=== PATIENT | female | born 1950 | race Caucasian/White ===

== ENCOUNTER → 2019-09-26 10:57 | Outpatient (BNVA) | payer MEDICARE, MEDICAID, SELFPAY | PROVIDERS: Family Provider Nurse Practitioner Family; PCP Family Medicine; Visit Provider Nurse Practitioner Family | DX: E07.9 Disorder of thyroid, unspecified (principal); I10 Essential (primary) hypertension; E55.9 Vitamin D deficiency, unspecified; J44.9 Chronic obstructive pulmonary disease, unspecified | CPT/HCPCS: 80053; 80061; 82306; 84443; 85025 ==

== ENCOUNTER 2020-04-06 19:59 | Inpatient (IN) | payer MEDICARE, MEDICAID, SELFPAY ==
[2020-04-06] VITALS (27 sets, daily range): BP systolic 91–118; BP diastolic 44–72; PULSE 68–75; RESP 16–22; TEMP 36.9; O2SAT 90–100; BMI 64.5
--- NOTE | 2020-04-06 20:11 | XRR_ITS ---
PROCEDURE INFORMATION: Exam: XR Chest, 1 View Exam date and time: 04/06/2020 9:07 PM Age: 69 years old Clinical indication: Shortness of breath and other: Weakness; Prior surgery; Surgery type: Appy TECHNIQUE: Imaging protocol: XR of the chest Views: 1 view. COMPARISON: CR Chest 1 [place] [id number] 03/04/2019 4:13 PM FINDINGS: Lungs: Mild prominence and indistinctness of the pulmonary vasculature centrally. Mild prominence of the interstitium diffusely suggest mild edema. Question subtle airspace disease left lung base. Follow-up. Pleural space: Unremarkable. No pleural effusion. No pneumothorax. Heart/Mediastinum: Cardiomegaly. Bones/joints: Unremarkable. XR/XR chest 1V portable [id number] IMPRESSION: 1. Mild edema reflected predominantly as interstitial prominence as described above 2. Question subtle airspace disease left lung base. Follow-up.
--- NOTE | 2020-04-06 20:13 | ECG_ITS ---
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 Measurements Intervals Davis Rate: 71 P: NM: -1 QRS: 10 QRSD: 90 T: 120 QT: 403 QTc: 441 Interpretive Statements ATRIAL FIBRILLATION LOW QRS VOLTAGE IN PRECORDIAL LEADS [QRS DEFLECTION < 1.0 mV IN CHEST LEADS] POSSIBLE ANTERIOR MYOCARDIAL INFARCTION , PROBABLY OLD Compared to ECG 03/04/2019 23:28:07 Myocardial infarct finding now present Sinus rhythm no longer present First degree AV block no longer present Electronically Signed On 04-07-2020 21:29:10 CDT by Kathryn Khalil M.D. [id number]
[2020-04-06 20:31] LABS: ABG PCO2 59.8 mmHg (35-45); ABG PH Result 7.31 (7.35-7.45); Base Excess ABG 2.8 mmol/L (-2.0-2.0); Blood Gas Allen Test POS; HCO3 ABG 30.1 mmol/L (22-26); Oxygen Device NC
[2020-04-06 20:32] LABS: Arterial Blood Gas Hematocrit 30.9 % (37-47); Blood Gas Sample Type ARTERIAL
[2020-04-06 20:41] LABS: Basophils % 0.4 %; Eosinophils # 0.1 10^3/uL (0.0-0.8); Eosinophils % 1.4 %; Hematocrit 37.1 % (37.0-47.0); Hemoglobin 9.7 g/dL (11.5-15.3); Lymphocytes % 12.2 %; Mean Corpuscular HGB Conc 26.1 g/dL (30.0-36.0); Mean Corpuscular Hemoglobin 20.7 pg (28.0-34.0); Mean Corpuscular Volume 79.3 fL (81-99); Monocytes # 0.6 10^3/uL (0.2-0.9); Monocytes % 7.2 %; Neutrophils # 6.61 10^3/uL (1.8-7.7); Neutrophils % 78.6 %; Nucleated Red Blood Cells % 0 %; Platelet Count 253 10^3/cmm (130-400); Red Blood Count 4.68 10^6/uL (4.1-5.3); Red Cell Distribution Width 20.5 % (12.1-15.1); White Blood Count 8.4 10^3/uL (4.0-10.0)
[2020-04-06 20:57] LABS: Lactate (Lactic Acid level) 0.9 mmol/L (0.5-2.2)
[2020-04-06 21:06] LABS: Troponin(5th) Baseline 16 ng/L (0-10)
[2020-04-06 21:13] LABS: Alanine Aminotransferase 7 U/L (0-33); Albumin Level 3.3 g/dL (3.5-5.2); Alkaline Phosphatase 84 IU/L (35-105); Aspartate Amino Transferase 12 U/L (0-32); Blood Urea Nitrogen 30 mg/dL (8-23); C Reactive Protein 72.5 mg/L (0.0-4.9); Calcium 8.2 mg/dL (8.5-10.5); Carbon Dioxide 28 mmol/L (22-29); Chloride 99 mmol/L (98-107); Creatine Phosphokinase 166 U/L (26-192); Globulin 3.4 g/dL (1.3-4.6); Glomerular Filtration Rate 26.3 mL/min (90-130); Glucose 103 mg/dL (65-115); NT Pro B Type Natriuretic Pept 2992 pg/mL (0-125); Osmolality Calculated 281 mOsm/kg (285-295); Sodium 137 mmol/L (136-145); Total Bilirubin 0.6 mg/dL (0.15-1.2); Total Protein 6.7 g/dL (6.6-8.7)
--- NOTE | 2020-04-06 21:49 | ED_ITS ---
HPI - Weakness General: Chief complaint: Weakness Stated complaint: lt knee pain/ weakness Time Seen by Provider: 04/06/20 20:09 History of Present Illness: HPI Narrative: 69-year-old female with generalized weakness, mainly in her legs, and shortness of breath. She is morbidly obese, and has chronic edema to her bilateral lower extremities. She states that her edema has gotten much worse over the past week or so. She is usually able to ambulate around her house with a walker, but this is not been the case. She is also been more short of breath, and gets very tired very quickly. She does not have oxygen at home. She does have a history of congestive heart failure per her. He denies any fever. She denies cough. MD Complaint: generalized weakness and difficulty walking Onset (ago): day(s) Duration: constant Location: generalized, LLE and RLE Migration: none Severity: moderate Relieving factors: none Exacerbating factors: movement Associated symptoms: Reports short of breath; Denies chest pain, chills, confusion, dysuria, fever(s), headache(s), nausea or vomiting Review of Systems Const: Denies: fever(s) or chills Eyes: Denies: change in vision or blurry vision ENMT: Denies: epistaxis or sinus pain Card: Denies: chest pain Resp: Reports: dyspnea; Denies: productive cough, non-productive cough or wheezing GI: Denies: nausea or vomiting : Reports: urinary frequency; Denies: dysuria or hematuria Musc: Reports: joint warmth; Denies: neck pain Skin/Breast: Reports: rash; Denies: pruritus Neuro: Denies: headache(s), dizziness, vertigo, confusion or seizure-like activity Psych: Denies: anxiety [facility] ED PFSH: Medical History (Updated 04/07/20 @ 08:40 by Dez Mcnulty DO) B12 deficiency Back pain of lumbosacral region with sciatica CHF (congestive heart failure) Essential (primary) hypertension Hypothyroidism Iron deficiency anemia, unspecified Morbid (severe) obesity due to excess calories Urge incontinence Surgical History History of 2 sections History of ankle surgery (~1991) Hx of appendectomy (~1976) Hx of artificial lens replacement (~04/2013) left; Dr Wolfe Hx of artificial lens replacement (~02/2012) right eye Hx of dilation and curettage Hx of lithotripsy (~11/2016) Hx of tubal ligation (~1979) Hx of vitrectomy (~2014) Family History Father , age 89 Hyperlipidemia Hypertension Stroke CAD (coronary artery disease) Mother , age 51 Cancer Stroke Family/Other Stroke Hypertension Social History Smoking and tobacco status: never smoked Second hand smoke exposure: No Alcohol intake: former Adopted: No Lives independently: Yes Household members: none Housing: Apartment Marital status: service: No Current occupational status: disabled History of recent travel: No Current gender identity: Female Physical Exam Const: GENERAL APPEARANCE: well developed and other (Morbidly obese) ORIENTATION/CONSCIOUSNESS: Yes oriented to person, Yes oriented to place and Yes oriented to time HENMT: COMMON NORMALS: normocephalic, external ears normal and Normal external nose present HEAD & SCALP: normocephalic FACE & SINUS: normal facial exam NOSE: Normal external nose present and No nasal discharge present EXTERNAL EAR: Yes external ears normal Eye: COMMON NORMALS: EOMs intact bilaterally and conjunctivae normal EYELID: eyelids normal CONJUNCTIVA: Yes conjunctivae normal Neck/C-Spine: GENERAL: No tracheal deviation Chest: COMMONS NORMALS: normal inspection of the chest CHEST: No tenderness Resp: COMMON NORMALS: clear to auscultation bilaterally EFFORT & INSPECTION: No tachypneic, No respiratory distress, No retractions, No uses accessory muscles and No tracheal deviation AUSCULTATION: clear to auscultation bilaterally, no rhonchi, no wheezes and diminished lung sounds Cardio: COMMON NORMALS: regular rate and regular rhythm RATE: regular rate RHYTHM: regular rhythm HEART SOUNDS: no murmurs GI: INSPECTION: No abdominal distension AUSCULTATION: No Hyperactive bowel sounds present and No Hypoactive bowel sounds present PALPATION: No Guarding due to palpation present (GI) and No Rigid due to palpation PERCUSSION: no dullness to percussion and no tympanic to percussion Extremity: NARRATIVE EXTREMITY EXAM: Significant lower extremity edema, appearing equal bilaterally, with weeping. There is an area of discoloration to the left plantar heel with tenderness. It is not cold. There is pallor present. Neuro: SENSORIUM/ORIENTATION: Yes oriented to person, Yes oriented to place and Yes oriented to time Psych: COMMON NORMALS: mental status grossly normal Skin: COMMON NORMALS: no rashes or lesions noted GENERAL SKIN EXAM: no rashes or lesions noted Course Vital Signs: Vital signs: Vital Signs Temperature 97.6 F 04/07/20 07:44 Pulse Rate 78 04/07/20 07:44 Respiratory Rate 18 04/07/20 07:44 Blood Pressure 122/71 04/07/20 07:44 Pulse Oximetry 93 04/07/20 07:44 MDM - Weakness MDM Narrative: Medical decision making narrative: 69-year-old female with very swollen legs. She is also quite short of breath, even at rest. She is requiring 2 L of oxygen, and does not usually require any oxygen, and has not at home. She has been given Lasix in the ER. Her creatinine is significantly elevated from prior at 1.7. Her hemoglobin is 10 BNP is 3000. Her chest x-ray shows pulmonary vascular congestion consistent with CHF. She will be observed for hypoxic respiratory failure with CHF exacerbation and fluid retention. Her blood gas shows some CO2 retention. I suspect this is hypoventilation due to her obesity Lab Data: Attestation: I reviewed the patient's lab results. Labs: Lab Results 04/06/20 04/06/20 04/06/20 Range/Units 00:26 00:50 20:30 WBC (4.0-10.0) 10^3/ uL RBC (4.1-5.3) 10^6/u L Hgb (11.5-15.3) g/dL Hct (37.0-47.0) % MCV (81-99) fL MCH (28.0-34.0) pg MCHC (30.0-36.0) g/dL RDW (12.1-15.1) % Plt Count (130-400) 10^3/c mm MPV (7.4-10.4) fL Neut % (Auto) % Lymph % (Auto) % Moore % (Auto) % Eos % (Auto) % Baso % (Auto) % Neut # (Auto) (1.8-7.7) 10^3/u L Lymph # (Auto) (0.8-4.8) 10^3/u L Moore # (Auto) (0.2-0.9) 10^3/u L Eos # (Auto) (0.0-0.8) 10^3/u L Baso # (Auto) (0.0-0.1) 10^3/u L Nucleated RBC % (a uto) % Nucleated RBCs # /100WBC Specimen Type Arterial Sample Site Right,radial ABG pH 7.31 L (7.35-7.45) ABG pCO2 59.8 H (35-45) mmHg ABG pO2 81.0 (80.0-100.0) mmH g ABG HCO3 30.1 H (22-26) mmol/L ABG Base Excess 2.8 H (-2.0-2.0) mmol/ L Augustin Test Pos Hematocrit 30.9 L (37-47) % O2 Delivery Device Nc O2 Liters/Min 2.0 % Specimen Drawn By Amaya Sodium (136-145) mmol/L Potassium (3.5-5.1) mmol/L Chloride (98-107) mmol/L Carbon Dioxide (22-29) mmol/L Anion Gap (5-19) BUN (8-23) mg/dL Creatinine (0.5-0.9) mg/dL GFR Calculation (90-130) mL/min Glucose (65-115) mg/dL Calculated Osmolal ity (285-295) mOsm/k g Lactate (0.5-2.2) mmol/L Calcium (8.5-10.5) mg/dL Iron (37-145) ug/dL Ferritin (15-150) ng/mL Total Bilirubin (0.15-1.2) mg/dL AST (0-32) U/L ALT (0-33) U/L Alkaline Phosphata se (35-105) IU/L Creatine Kinase (26-192) U/L Troponin T Baselin e (0-10) ng/L Troponin T 120 Min [place] 14.61 H (0-10) ng/L Delta Troponin T TNP C-Reactive Protein (0.0-4.9) mg/L NT-Pro-B Natriuret Pep (0-125) pg/mL Total Protein (6.6-8.7) g/dL Albumin (3.5-5.2) g/dL Globulin (1.3-4.6) g/dL TSH (0.27-4.20) uIU/ mL Urine Color Yellow (Yellow) Urine Appearance Sl hazy (CLEAR) Urine pH 5 (5-7) Ur Specific Gravit y 1.015 (1.005-1.030) Urine Protein Neg (Negative) Urine Glucose (UA) Norm (Normal) Urine Ketones Negative (Negative) Urine Blood 3+ H (Negative) Urine Nitrate Negative (Negative) Urine Bilirubin Neg (NEGATIVE) Urine Urobilinogen Norm (Negative) mg/dL Ur Leukocyte Funmilayo ase 1+ H (Negative) Urine RBC 25-40 H (0-2) /hpf Urine WBC 10-15 H (0-5) /hpf Ur Squamous Epith Cells 5-10 H (0-5) Amorphous Sediment Not Reportable Urine Bacteria 1+ H (NONE) 04/06/20 04/06/20 04/06/20 Range/Units 20:30 20:30 20:30 WBC 8.4 (4.0-10.0) 10^3/ uL RBC 4.68 (4.1-5.3) 10^6/u L Hgb 9.7 L (11.5-15.3) g/dL Hct 37.1 (37.0-47.0) % MCV 79.3 L (81-99) fL MCH 20.7 L (28.0-34.0) pg MCHC 26.1 L (30.0-36.0) g/dL RDW 20.5 H (12.1-15.1) % Plt Count 253 (130-400) 10^3/c mm MPV 10.0 (7.4-10.4) fL Neut % (Auto) 78.6 % Lymph % (Auto) 12.2 % Moore % (Auto) 7.2 % Eos % (Auto) 1.4 % Baso % (Auto) 0.4 % Neut # (Auto) 6.61 (1.8-7.7) 10^3/u L Lymph # (Auto) 1.0 (0.8-4.8) 10^3/u L Moore # (Auto) 0.6 (0.2-0.9) 10^3/u L Eos # (Auto) 0.1 (0.0-0.8) 10^3/u L Baso # (Auto) 0.0 (0.0-0.1) 10^3/u L Nucleated RBC % (a uto) 0 % Nucleated RBCs # 0.0 /100WBC Specimen Type Sample Site ABG pH (7.35-7.45) ABG pCO2 (35-45) mmHg ABG pO2 (80.0-100.0) mmH g ABG HCO3 (22-26) mmol/L ABG Base Excess (-2.0-2.0) mmol/ L Augustin Test Hematocrit (37-47) % O2 Delivery Device O2 Liters/Min % Specimen Drawn By Sodium 137 (136-145) mmol/L Potassium 4.0 (3.5-5.1) mmol/L Chloride 99 (98-107) mmol/L Carbon Dioxide 28 (22-29) mmol/L Anion Gap 14.0 (5-19) BUN 30 H (8-23) mg/dL Creatinine 1.9 H (0.5-0.9) mg/dL GFR Calculation 26.3 L (90-130) mL/min Glucose 103 (65-115) mg/dL Calculated Osmolal ity 281 L (285-295) mOsm/k g Lactate 0.9 (0.5-2.2) mmol/L Calcium 8.2 L (8.5-10.5) mg/dL Iron (37-145) ug/dL Ferritin (15-150) ng/mL Total Bilirubin 0.6 (0.15-1.2) mg/dL AST 12 (0-32) U/L ALT 7 (0-33) U/L Alkaline Phosphata se 84 (35-105) IU/L Creatine Kinase 166 (26-192) U/L Troponin T Baselin e (0-10) ng/L Troponin T 120 Min [place] (0-10) ng/L Delta Troponin T C-Reactive Protein 72.5 H (0.0-4.9) mg/L NT-Pro-B Natriuret Pep 2992 H (0-125) pg/mL Total Protein 6.7 (6.6-8.7) g/dL Albumin 3.3 L (3.5-5.2) g/dL Globulin 3.4 (1.3-4.6) g/dL TSH (0.27-4.20) uIU/ mL Urine Color (Yellow) Urine Appearance (CLEAR) Urine pH (5-7) Ur Specific Gravit y (1.005-1.030) Urine Protein (Negative) Urine Glucose (UA) (Normal) Urine Ketones (Negative) Urine Blood (Negative) Urine Nitrate (Negative) Urine Bilirubin (NEGATIVE) Urine Urobilinogen (Negative) mg/dL Ur Leukocyte Funmilayo ase (Negative) Urine RBC (0-2) /hpf Urine WBC (0-5) /hpf Ur Squamous Epith Cells (0-5) Amorphous Sediment Urine Bacteria (NONE) 04/06/20 04/06/20 Range/Units 20:30 20:30 WBC (4.0-10.0) 10^3/ uL RBC (4.1-5.3) 10^6/u L Hgb (11.5-15.3) g/dL Hct (37.0-47.0) % MCV (81-99) fL MCH (28.0-34.0) pg MCHC (30.0-36.0) g/dL RDW (12.1-15.1) % Plt Count (130-400) 10^3/c mm MPV (7.4-10.4) fL Neut % (Auto) % Lymph % (Auto) % Moore % (Auto) % Eos % (Auto) % Baso % (Auto) % Neut # (Auto) (1.8-7.7) 10^3/u L Lymph # (Auto) (0.8-4.8) 10^3/u L Moore # (Auto) (0.2-0.9) 10^3/u L Eos # (Auto) (0.0-0.8) 10^3/u L Baso # (Auto) (0.0-0.1) 10^3/u L Nucleated RBC % (a uto) % Nucleated RBCs # /100WBC Specimen Type Sample Site ABG pH (7.35-7.45) ABG pCO2 (35-45) mmHg ABG pO2 (80.0-100.0) mmH g ABG HCO3 (22-26) mmol/L ABG Base Excess (-2.0-2.0) mmol/ L Augustin Test Hematocrit (37-47) % O2 Delivery Device O2 Liters/Min % Specimen Drawn By Sodium (136-145) mmol/L Potassium (3.5-5.1) mmol/L Chloride (98-107) mmol/L Carbon Dioxide (22-29) mmol/L Anion Gap (5-19) BUN (8-23) mg/dL Creatinine (0.5-0.9) mg/dL GFR Calculation (90-130) mL/min Glucose (65-115) mg/dL Calculated Osmolal ity (285-295) mOsm/k g Lactate (0.5-2.2) mmol/L Calcium (8.5-10.5) mg/dL Iron 22 L (37-145) ug/dL Ferritin 15 (15-150) ng/mL Total Bilirubin (0.15-1.2) mg/dL AST (0-32) U/L ALT (0-33) U/L Alkaline Phosphata se (35-105) IU/L Creatine Kinase (26-192) U/L Troponin T Baselin e 16 H (0-10) ng/L Troponin T 120 Min [place] (0-10) ng/L Delta Troponin T C-Reactive Protein (0.0-4.9) mg/L NT-Pro-B Natriuret Pep (0-125) pg/mL Total Protein (6.6-8.7) g/dL Albumin (3.5-5.2) g/dL Globulin (1.3-4.6) g/dL TSH 5.62 H (0.27-4.20) uIU/ mL Urine Color (Yellow) Urine Appearance (CLEAR) Urine pH (5-7) Ur Specific Gravit y (1.005-1.030) Urine Protein (Negative) Urine Glucose (UA) (Normal) Urine Ketones (Negative) Urine Blood (Negative) Urine Nitrate (Negative) Urine Bilirubin (NEGATIVE) Urine Urobilinogen (Negative) mg/dL Ur Leukocyte Funmilayo ase (Negative) Urine RBC (0-2) /hpf Urine WBC (0-5) /hpf Ur Squamous Epith Cells (0-5) Amorphous Sediment Urine Bacteria (NONE) Discharge Plan Discharge Patient Disposition: Admitted As Inpatient Admit Provider: Candice Enamorado Clinical Impression: Respiratory failure with hypoxia Qualifiers: Chronicity: acute Qualified Code(s): J96.01 - Acute respiratory failure with hypoxia CHF (congestive heart failure) Qualifiers: Heart failure type: combined systolic and diastolic Heart failure chronicity: acute Qualified Code(s): I50.41 - Acute combined systolic (congestive) and diastolic (congestive) heart failure Condition: Stable Discharge Date/Time: 04/06/20 23:28 Coding Level of Care Code ED Semiautomatic Stitcher Operator for Maria Del Carmeng Fwd Exam Comprehensive
--- NOTE | 2020-04-06 22:08 | P.HP_ITS ---
Providers/Chief Complaint Primary Care Provider: AIXA Marin Chief Complaint: lt knee pain/ weakness History of Present Illness Coral Small is a 69 year old female carries history of diastolic congestive heart failure, hypertension, moderate pulmonary hypertension, blood loss iron deficiency anemia, vaginal bleeding, coming in with chief complaint of worsening leg swelling and shortness of breath. Patient is stating that at home she has been managing herself with her swollen leg for quite a while until recently and she is not able to walk because of excessive swelling, she noted some blisters on left leg and started using diclofen 2 to 3 days ago. Today she was going to the bathroom when she fell on the floor which she is attributing to her excessive leg swelling. She is endorsing orthopnea, PND, dyspnea on exertion at rest, she has been prescribed CPAP but she does not want to use it and is currently refusing BiPAP. She is denying fever, chills, diarrhea, dysuria, nausea, vomiting, headache, myalgias. Diagnosis in the ER revealed systolic blood pressure ranging between 100-110, new onset A. fib heart rate 70 to 80s, chronic anemia, acute kidney injury, BNP 3000, respiratory acidosis Patient is refusing use of BiPAP We also talked about anticoagulation for A. fib, patient adamantly refused to be on anticoagulation Review of Systems Const: Reports: chills and change in weight Eyes: Denies: change in vision ENMT: Denies: throat pain Card: Reports: edema, swelling of feet/ankles, dyspnea on exertion and orthopnea; Denies: chest pain Resp: Denies: dyspnea GI: Denies: abdominal pain, nausea or vomiting : Denies: flank pain Musc: Reports: limited range of motion, muscle cramps and muscle weakness Skin/Breast: Reports: lesions Neuro: Denies: headache(s) Psych: Denies: anxiety Endo: Denies: polyuria Babak/Lymph: Denies: easy bruising All/Imm: Denies: urticaria Medications/Allergies Home Medications Medication Instructions Recorded Confirmed Last Taken Type albuterol sulfate 90 mcg/actuation 2 puff INHALATION Q6H PRN #8.5 gm 09/26/19 11/15/19 Unknown Rx aerosol inhaler vitamin B12 500 mcg-folic acid 400 2 tab PO DAILY tab 09/26/19 11/15/19 Unknown History mcg tablet cholecalciferol (vitamin D3) 1,250 50,000 unit PO ONCE #4 cap 09/27/19 11/15/19 Unknown Rx mcg (50,000 unit) capsule spironolactone 25 mg tablet 12.5 mg PO QDAY 90 Days #45 tab 10/12/19 11/15/19 Unknown Rx gabapentin 100 mg capsule 100 mg PO TID #90 cap 10/23/19 11/15/19 Unknown Rx carvedilol 3.125 mg tablet 3.125 mg PO BID 90 Days #180 tab 11/15/19 11/15/19 Unknown Rx furosemide 40 mg tablet 40 mg PO QAM 90 Days #90 tab 11/15/19 11/15/19 Unknown Rx levothyroxine 200 mcg tablet 200 mcg PO DAILY #30 tab 03/18/20 Unknown Rx diclofenac sodium 75 mg 75 mg PO BID PRN #60 tab 04/03/20 Unknown Rx tablet,delayed release Allergies Allergy/AdvReac Type Severity Reaction Status Date / Time cortisone Allergy Unknown Unknown Verified 09/26/19 09:37 egg Allergy Unknown Unknown Verified 09/26/19 09:37 Sulfa (Sulfonamide Allergy Unknown Unknown Verified 09/26/19 09:37 Antibiotics) lisinopril AdvReac Mild cough Verified 11/15/19 14:02 PFSH Acute PFSH: Medical History (Updated 04/06/20 @ 23:03 by Candice Enamorado MD) B12 deficiency Back pain of lumbosacral region with sciatica CHF (congestive heart failure) Essential (primary) hypertension Hypothyroidism Iron deficiency anemia, unspecified Morbid (severe) obesity due to excess calories Urge incontinence Surgical History History of 2 sections History of ankle surgery (~1991) Hx of appendectomy (~1976) Hx of artificial lens replacement (~04/2013) left; Dr Wolfe Hx of artificial lens replacement (~02/2012) right eye Hx of dilation and curettage Hx of lithotripsy (~11/2016) Hx of tubal ligation (~1979) Hx of vitrectomy (~2014) Family History Father , age 89 Hyperlipidemia Hypertension Stroke CAD (coronary artery disease) Mother , age 51 Cancer Stroke Family/Other Stroke Hypertension Social History Smoking and tobacco status: never smoked Second hand smoke exposure: No Alcohol intake: former Adopted: No Lives independently: Yes Household members: none Housing: Apartment Marital status: service: No Current occupational status: disabled History of recent travel: No Current gender identity: Female Vitals/I&O/Wt Last Vital Signs Temp 98.5 F 04/06/20 19:59 Pulse 69 04/06/20 20:49 Resp 16 04/06/20 20:49 BP 97/50 04/06/20 21:35 Pulse Ox 98 04/06/20 21:35 Weight last 48 hrs Weight 167.829 kg Physical Exam Narrative: EXAM NARRATIVE: severe morbidly obese female currently saturating well on room air No active respiratory distress Able to give me above-mentioned detail Refusing BiPAP Variable S1-S2 signs of heart failure Pitting edema with underlying lymphedema Open blisters of left leg bilateral leg swelling Distended abdomen with obesity, bowel sounds sluggish, EOMI, PERRLA Awake alert oriented x3 GCS 15 Neurologically nonfocal exam Appropriate mood and affect Skin shows open blisters with some hyperemia of lower extremities, venous stasis dermatitis Data : 04/06/20 20:30 04/06/20 20:30 A&P Assessment and plan (1) Acute exacerbation of CHF (congestive heart failure): Status: Acute (2) Pulmonary hypertension: Status: Acute (3) Iron deficiency anemia, unspecified: Status: Acute Qualifiers: Iron deficiency anemia type: unspecified iron deficiency Qualified Code(s): D50.9 - Iron deficiency anemia, unspecified (4) Essential (primary) hypertension: Status: Acute (5) Urge incontinence: Status: Acute (6) Morbid (severe) obesity due to excess calories: Status: Acute (7) Hypothyroidism: Status: Acute (8) Acute respiratory acidosis: Status: Acute (9) Sleep apnea: Status: Acute (10) Diastolic heart failure: Status: Acute (11) B12 deficiency: Status: Acute Additional A&P Information Acute CHF exacerbation Diastolic congestive heart failure with underlying pulmonary hypertension Patient is noncompliant with her CPAP for sleep apnea I believe her untreated sleep apnea is playing a role in worsening of her diastolic congestive heart failure, of note she recently started using diclofenac sodium which is associated with CHF exacerbation and kidney injury I would use Bumex 1 mg daily Stop NSAIDs Check TSH New onset A. fib Veto Vascor 4 Hasbled 3 Patient is anemic current hemoglobin 9.7 endorsing vaginal bleeding Patient adamantly refused use of anticoagulation as well I would continue her Coreg With her new onset A. fib would like to rule out PE as well considering creatinine would request VQ scan, lower extremity Dopplers Open blisters of lower extremity Avoid use of Bactrim because of high creatinine I would use doxycycline for now She will need outpatient wound care clinic follow-up as well Acute respiratory acidosis: Patient is refusing use of BiPAP I have counseled her and explained her why BiPAP is indicated for her questionable pickwickian syndrome/sleep apnea Hypothyroidism: Continue home dose of levothyroxine, check TSH level Microcytic anemia Chronic blood loss anemia Continue iron and B12 supplementation Morbid obesity with primary hypertension Patient's current noncompliance will put her at risk of recurrent CHF exacerbation and admissions to the hospital, patient do understand importance of CPAP/BiPAP but she is adamant about not using it, kindly readdress DVT prophylaxis SCDs, endorsing vaginal bleeding currently anemic hemoglobin 9.7 Cardiac diet Full code Attestations Medical Necessity Statement*: Anticipating discharge in less than 48 hours currently need excessive diuresis and antibiotics for her open blisters of lower extremity Time Spent in Patient Care: (>than 50% of time spent in counselling and/or direct pt care on unit) . 50 minutes Coding Level of Care Code Acute Internal Investigator for g Fwd Diagnoses Acute exacerbation of CHF (congestive heart failure) I50.9 Pulmonary hypertension I27.20 Iron deficiency anemia, unspecified D50.9 Iron deficiency anemia type: unspecified iron deficiency Essential (primary) hypertension I10 Urge incontinence N39.41 Morbid (severe) obesity due to excess calories E66.01 Hypothyroidism E03.9 Acute respiratory acidosis E87.2 Sleep apnea G47.30 Diastolic heart failure I50.30 B12 deficiency E53.8
--- NOTE | 2020-04-06 22:13 | ECG_ITS ---
[facility] Test Date: 2020-04-06 Pat Name: Coral Small Department: Room: 251 Gender: Female Fiscal Accountant: : 1950 Requested By: Dez Eric Order Number: [id number] Ruth MD: Kathryn Khalil M.D. Measurements Intervals [place] Rate: 66 P: SD: -1 QRS: 18 QRSD: 85 T: 121 QT: 399 QTc: 420 Interpretive Statements ATRIAL FIBRILLATION LOW QRS VOLTAGE [QRS DEFLECTION < 0.5/1.0 mV IN LIMB/CHEST LEADS] ANTEROSEPTAL MYOCARDIAL INFARCTION , OF INDETERMINATE AGE [40+ ms Q WAVE IN V1-V4] Compared to ECG 04/06/2020 20:40:29 No significant changes Electronically Signed On 04-07-2020 21:41:10 CDT by Kathryn Khalil M.D. [email or web address]
[2020-04-06] MEDS: FUROsemide 10 mg/mL SDV 10mL 80 MG IVP (22:25)
[2020-04-07] VITALS (11 sets, daily range): BP systolic 91–122; BP diastolic 54–71; PULSE 72–94; RESP 17–20; TEMP 36.3–37.2; O2SAT 84–99
--- NOTE | 2020-04-07 00:23 | PC.NURSE ---
pt voided on bedpan reports she feels so weak so placed on bedpan and missed vann. Pericare per staff. Groin and abd folds and at knees/leg area with excoreration, cleaned and placed interdry. Pt alerted and oriented reports sob. o2 98 on 2l nc.
--- NOTE | 2020-04-07 00:44 | PC.NURSE ---
incont of urine
[2020-04-07 00:47] LABS: Troponin 5 2HR 14.61 ng/L (0-10)
[2020-04-07 00:50] LABS: Ferritin 15 ng/mL (15-150); Iron 22 ug/dL (37-145); Thyroid Stimulating Hormone 5.62 uIU/mL (0.27-4.20)
--- NOTE | 2020-04-07 01:00 | PC.NURSE ---
pt not wanting scd on legs Dr Enamorado aware.
[2020-04-07] MEDS: iron complex forte Capsule 1 EACH PO (01:09)
[2020-04-07 01:17] LABS: Bilirubin Urine Neg (NEGATIVE); Blood Urine 3+ (Negative); Glucose Urine UA Norm (Normal); Ketones Urine Negative (Negative); Nitrate Urine Negative (Negative); Protein Urine Neg (Negative); Specific Gravity, Urine 1.015 (1.005-1.030); Urine Appearance SL Hazy (CLEAR); Urine Color Yellow (Yellow); Urobilinogen Urine Norm (Negative); pH Urine 5 (5-7)
[2020-04-07 01:18] LABS: Add Urine Culture? Yes; Add Urine Microscopic? YES; Bacteria Urine 1+; Leukocyte Esterase Urine 1+ (Negative); RBC Urine 25-40 /hpf (0-2)
--- NOTE | 2020-04-07 02:13 | ECG_ITS ---
[facility] Test Date: 2020-04-07 Pat Name: Coral Small Department: Room: 251 Gender: Female Assembler [employer]: ERICKA MCKEONB: 1950 Requested By: Dez Eric Order Number: [id number] Flory MD: Kathryn Khalil M.D. Measurements Intervals [place] Rate: 78 P: ND: -1 QRS: 24 QRSD: 95 T: 119 QT: 408 QTc: 466 Interpretive Statements ATRIAL FIBRILLATION LOW QRS VOLTAGE IN PRECORDIAL LEADS [QRS DEFLECTION < 1.0 mV IN CHEST LEADS] POSSIBLE ANTERIOR MYOCARDIAL INFARCTION [30 ms Q WAVE IN V3/V4, OR R < 0.2 mV IN V4], PROBABLY OLD ABNORMAL RHYTHM ECG Compared to ECG 04/06/2020 23:04:30 No significant changes Electronically Signed On 04-07-2020 21:40:37 CDT by Kathryn Khalil M.D. [id number]
--- NOTE | 2020-04-07 03:01 | PC.NURSE ---
pt incont x1 at this time.
--- NOTE | 2020-04-07 04:14 | PC.NURSE ---
incont x1 small to med amount to chux
[2020-04-07 05:13] LABS: Basophils % 0.3 %; Eosinophils # 0.1 10^3/uL (0.0-0.8); Eosinophils % 1.8 %; Hematocrit 38.5 % (37.0-47.0); Hemoglobin 9.9 g/dL (11.5-15.3); Lymphocytes # 1.2 10^3/uL (0.8-4.8); Mean Corpuscular HGB Conc 25.7 g/dL (30.0-36.0); Mean Corpuscular Hemoglobin 20.6 pg (28.0-34.0); Mean Platelet Volume 9.7 fL (7.4-10.4); Monocytes # 0.6 10^3/uL (0.2-0.9); Monocytes % 7.4 %; Neutrophils # 5.92 10^3/uL (1.8-7.7); Neutrophils % 75.1 %; Nucleated Red Blood Cells % 0 %; Platelet Count 256 10^3/cmm (130-400); Red Blood Count 4.81 10^6/uL (4.1-5.3); Red Cell Distribution Width 20.3 % (12.1-15.1); White Blood Count 7.9 10^3/uL (4.0-10.0)
[2020-04-07 05:36] LABS: Anion Gap 12.8 (5-19); Blood Urea Nitrogen 30 mg/dL (8-23); Calcium 8.8 mg/dL (8.5-10.5); Carbon Dioxide 30 mmol/L (22-29); Chloride 100 mmol/L (98-107); Creatinine Clr Calc Pharmacy 49.2858; Glomerular Filtration Rate 29.9 mL/min (90-130); Glucose 86 mg/dL (65-115); Osmolality Calculated 284 mOsm/kg (285-295); Potassium 3.8 mmol/L (3.5-5.1); Sodium 139 mmol/L (136-145)
--- NOTE | 2020-04-07 05:45 | PC.NURSE ---
incont moderate amount of urine output, pericare per staff
[2020-04-07] MEDS: levothyroxine 100 mcg Tablet 200 MCG PO (08:39)
[2020-04-07] MEDS: bumetanide 1 mg Tablet PO ×2 (08:39→18:07)
[2020-04-07] MEDS: carvedilol 3.125 mg Tablet PO ×2 (08:39→18:07)
--- NOTE | 2020-04-07 10:12 | PC.CHAP ---
Pastoral Care Encounter/Spiritual Assessment Type of Contact [] Declined hvac design engineer visit [] Patient/Family/Request visit [] Outpatient visit [] Follow-up visit [] Physician referral [] Code/Alert [x] Routine visit [] Staff referral [] Actively dying [x] Patient sleeping [] Family support [] [] Out of room [] Palliative care [] [] Receiving care in room [] Pre-surgical visit [] Trauma [] Long length of stay [] ICU visit [] Other: Relational/Emotional Strength [] Patient feels connected with others/family/visitors/staff [] Distress [] Loneliness/isolation [] Abandonment Spirituality of Patient [] Person of Naomi [] Attends Lutheran of their Naomi [] Believes in Prayer [] Reads Bible or Restorationist materials [] There are Spiritual issues to be addressed [place] [employer] Interventions [] Prayer [] Active listening [] Non-anxious presence [] Spiritual/emotional support [] Crisis/trauma care [] Spiritual counseling [] Bereavement support [] Provided bereavement packet [] Provided Bible/devotional materials [] Provided toy/stuffed animal, coloring book to patient or family member [] Provided Communion [] Anointing/[place] [] Salvation [x] Completed spiritual assessment [] Other: Impact on Illness or Injury [] Angry [] Fearful [] Anxious [] Often cries [] Exhaustion [] Unable to work [] Unable to attend scientologist [] Unable to walk/stand [] Unable to read [] Unable to drive [] Unable to eat/drink [] Unable to sleep [] Unable to be with family [] Patient intubated [] Other: Summary Time spent with patient
--- NOTE | 2020-04-07 12:14 | P.PN_ITS ---
Subjective Subjective: Interval history: She says she is feeling a tiny bit better. She says that she can now move her legs a little bit across the bed surface, worse before due to severe swelling she could not. Vitals/I&O/Wt Last Vital Signs Temp 98.1 F 04/07/20 11:34 Pulse 82 04/07/20 11:34 Resp 18 04/07/20 11:34 BP 109/68 04/07/20 11:34 Pulse Ox 93 04/07/20 11:34 04/06/20 04/07/20 04/07/20 22:59 06:59 14:59 Intake Total 60 / 60 240 / 240 Output Total 250 / 250 Balance -190 / -190 240 / 240 Weight last 48 hrs Weight 196.916 kg Weight 196.859 kg Weight 167.829 kg Physical Exam Const: COMMON NORMALS: no acute distress and patient oriented x3 NUTRITIONAL APPEARANCE: obese morbidly obese HENMT: COMMON NORMALS: oropharynx normal Neck/C-Spine: COMMON NORMALS: no JVD Resp: COMMON NORMALS: normal respiratory effort and clear to auscultation bilaterally AUSCULTATION: clear to auscultation bilaterally Cardio: COMMON NORMALS: no JVD, regular rhythm, S1 normal heart sound present, S2 normal heart sound present and No murmurs present (Cardio) RHYTHM: regular rhythm HEART SOUNDS: S1 normal heart sound present and S2 normal heart sound present GI: COMMON NORMALS: Normal to inspection, nondistended, normoactive bowel sounds present, Soft to palpation and non-tender PALPATION: Yes Soft to palpation Extremity: COMMON NORMALS: no joint enlargement GENERAL: Yes edema (anasarca up to lower abdomen) Neuro: COMMON NORMALS: patient oriented x3 and moves all extremities Skin: COMMON NORMALS: no rashes or lesions noted GENERAL SKIN EXAM: no rashes or lesions noted OTHER: Mild erythema of distal lower extremities, left greater than right, also on the left side few small blisters noted. No deep ulcerations. No purulent discharge. Data : 04/07/20 04:18 04/07/20 04:18 A&P Assessment and plan (1) Acute exacerbation of CHF (congestive heart failure): With extreme edema of lower extremities. Anasarca up to lower abdomen. She reports little bit of improvement with diuresis here, and says now is able to move her lower legs little bit across the bed surface which she was not able to do previously. At this time she requires further diuresis given severity of her edema, diastolic CHF exacerbation. We will continue with Bumex at this time. Place Chase catheter for I&O, and some difficulties with mobility with severe anasarca, morbid obesity. She reports at home has been having difficulty with dyspnea on exertion, walking to the restroom at home and back to her chair would make her exhausted and short of breath. Denies chest pain. Denies cough. Denies hemoptysis. Discussed with her again regarding concern of possibility of DVT/PE given she is at elevated risk with reduced mobility, and she states she understands risk of disability and mortality with undiagnosed/untreated DVT/PE, however, at this time would not want to initiate anticoagulation, and also currently declines to consider reattempt VQ scan. Declines CTA due to poor renal function. She understands the risks. She is agreeable to think about it, and we may revisit again tomorrow, perhaps if she is feeling somewhat better with diuresis may consider reattempting VQ scan. Status: Acute (2) Paroxysmal A-fib: New atrial fibrillation. Discussed with her again regarding stroke risk. She is still declines anticoagulation due to concern for bleeding issues in the past with uterine bleeding which has just recently become under control. She un derstands the risk of stroke. She would be willing to try aspirin alone for now only. She understands this only gives partial protection against CVA. At this time continue carvedilol. Was for TTE. Troponin levels not suggestive of acute ischemia. TSH mildly elevated at 5.62. Will check free T3, T4. Status: Acute (3) Cellulitis: Continue doxycycline. Would benefit from outpatient follow-up after discharge. Status: Acute (4) Anasarca: As above. Status: Acute (5) Pulmonary hypertension: Noted. Status: Acute (6) Iron deficiency anemia, unspecified: Status: Acute Qualifiers: Iron deficiency anemia type: unspecified iron deficiency Qualified Code(s): D50.9 - Iron deficiency anemia, unspecified (7) Essential (primary) hypertension: Status: Acute (8) Urge incontinence: Status: Acute (9) Morbid (severe) obesity due to excess calories: Follow-up with primary care provider after acute condition improves to consider weight loss options. Would benefit from sleep study if agrees. Status: Acute (10) Hypothyroidism: Status: Acute (11) Acute respiratory acidosis: Declined BiPAP. Currently awake, alert. Target O2 sat 90-92%. Status: Acute (12) Sleep apnea: Status: Acute (13) Diastolic heart failure: Status: Acute (14) B12 deficiency: Status: Acute Additional A&P Information Hypothyroidism: Continue home dose of levothyroxine, check T3, T4 Microcytic anemia Chronic blood loss anemia Continue iron and B12 supplementation Attestations Medical Necessity Statement*: Admission of over 2 midnights is needed for assessment of management of diastolic congestive heart failure exacerbation, with severe edema/anasarca, assessment and management of new atrial fibrillation, and other conditions as outlined above. Coding Level of Care Code Acute Plumbing And Heating Contractor for Chg Fwd Diagnoses Acute exacerbation of CHF (congestive heart failure) I50.9 Paroxysmal A-fib I48.0 Cellulitis L03.90 Anasarca R60.1 Pulmonary hypertension I27.20 Iron deficiency anemia, unspecified D50.9 Iron deficiency anemia type: unspecified iron deficiency Essential (primary) hypertension I10 Urge incontinence N39.41 Morbid (severe) obesity due to excess calories E66.01 Hypothyroidism E03.9 Acute respiratory acidosis E87.2 Sleep apnea G47.30 Diastolic heart failure I50.30 B12 deficiency E53.8
--- NOTE | 2020-04-07 13:05 | USCV_ITS ---
Coral Small Age: 69 Gender: F : 1950 Exam Date: 04/07/2020 13:28 Ordering Phys: Sam Pickering MD Technologist: Jasvir Suggs [place] [facility] [place]: CHEST PAIN BP: 132 / 76 HR: 61 Rhythm: Sinus Technical Quality: Suboptimal MEASUREMENTS (Male / Female) Normal Values 2D ECHO LV Diastolic Diameter PLAX 4.7 cm 4.2 - 5.9 / 3.9 - 5.3 cm LV Systolic Diameter PLAX 3.6 cm IVS Diastolic Thickness 1.0 cm 0.6 - 1.0 / 0.6 - 0.9 cm IVS Systolic Thickness 1.5 cm LVPW Diastolic Thickness 0.9 cm 0.6 - 1.0 / 0.6 - 0.9 cm LVPW Systolic Thickness 1.4 cm LVOT Diameter 2.0 cm LV Ejection Fraction 2D Teich 45.5 % LV Ejection Fraction MOD 2C 63.3 % LV Ejection Fraction 2C AL 63.4 % LA Diameter 4.8 cm LA Width 5.0 cm LA Height 6.4 cm RA Width 4.3 cm RA Height 5.9 cm M-MODE LV Diastolic Diameter MM 4.8 cm 4.2 - 5.9 / 3.9 - 5.3 cm LV Systolic Diameter MM 2.5 cm LV Ejection Fraction MM Teich 78.1 % IVS Diastolic Thickness MM 1.2 cm 0.6 - 1.0 / 0.6 - 0.9 cm IVS Systolic Thickness MM 2.1 cm LVPW Diastolic Thickness MM 1.2 cm 0.6 - 1.0 / 0.6 - 0.9 cm LVPW Systolic Thickness MM 1.6 cm RV Diastolic Diameter MM 2.9 cm Aortic Annulus Diameter 3.0 cm LA Ao Ratio MM 1.6 MV E Point Septal Separation 0.6 cm DOPPLER AV Peak Velocity 196.0 cm/s LVOT Peak Velocity 120.0 cm/s AV Area Cont Eq vti 2.5 cm squared AV Area Cont Eq pk 2.0 cm squared MV Area PHT 3.3 cm squared Mitral E to A Ratio 2.2 MV E' Velocity 11.0 cm/s Mitral E to MV E' Ratio 7.2 Mitral E to LV E' Lateral Ratio 8.3 Mitral E to LV E' Septal Ratio 6.3 TR Peak Velocity 401.0 cm/s TR Peak Gradient 64.2 mmHg TV Peak E Velocity 154.0 cm/s Right Atrial Pressure 3.0 mmHg Pulmonary Artery Systolic Pressu 67.3 mmHg PV Peak Velocity 120.0 cm/s FINDINGS Left Ventricle Normal left ventricular cavity size. Decreased left ventricular wall thickness. Normal left ventricular systolic function. Left ventricular ejection fraction is estimated at 60 %. Grade III/IV diastolic dysfunction (restrictive filling pattern), severely elevated filling pressures. Right Ventricle The right ventricle is normal in size and function. Right Atrium The right atrium is normal in size. Left Atrium The left atrium is normal in size. Mitral Valve Structurally normal mitral valve without significant stenosis or prolapse. There is no mitral regurgitation. Aortic Valve Structurally normal aortic valve without significant sclerosis or stenosis. There is no aortic regurgitation. Tricuspid Valve Structurally normal tricuspid valve without significant stenosis or regurgitation. Pulmonary artery systolic pressure is normal. Pulmonic Valve Structurally normal pulmonic valve without significant stenosis. There is no pulmonic regurgitation. Pericardium Normal pericardium without effusion. Aorta Normal ascending aorta dimension. CONCLUSIONS 1-Normal left ventricular cavity size. Decreased left ventricular wall thickness. Normal left ventricular systolic function. Left ventricular ejection fraction is estimated at 60 %. Grade III/IV diastolic dysfunction (restrictive filling pattern), severely elevated filling pressures. 2-There is no pericardial effusion. 3-No significant valve abnormalities. 4-Right atrial pressure is around 5 mm of mercury. 5-No significant change since the prior echocardiogram study of 05/28/2019. Candice Donahue MD (Electronically Signed) Final Date: 08 April 2020 20:29 S
[2020-04-07 13:12] LABS: Free T4 Free Thyroxine 0.85 ng/dL (0.82-1.77); T3 Free 5.6 PG/ML (2.0-4.4)
[2020-04-07] MEDS: aspirin 325 mg Tablet PO (15:25)
[2020-04-07] MEDS: doxycycline 100 mg Tablet PO (18:07)
--- NOTE | 2020-04-07 23:53 | USCV_ITS ---
Coral Small Age: 69 Gender: F : 1950 Exam Date: 04/07/2020 13:18 Ordering Phys: Candice Enamorado MD Technologist: Jasvir Suggs [place] [facility] [place]ication: BILAT SWELLING HISTORY: Lower extremity swelling. PROCEDURES: Venous duplex imaging was performed in bilateral lower extremities. The venous duplex Doppler examination of both lower extremities was performed in the standard fashion. The following venous structures were evaluated: common femoral vein, profunda vein, proximal portion of the greater saphenous vein, superficial femoral vein, and the popliteal vein. Bilaterally, the common femoral, superficial femoral, profunda femoral, popliteal, posterior tibial, greater saphenous veins, and the peroneal trunk were identified and interrogated in the standard fashion. These veins were found to be easily compressible with spontaneous blood flow. No evidence of insufficiency or thrombus noted. FINDINGS: Normal 2-D Doppler and augmentation and compressibility throughout the lower extremity venous structures. Additional imaging through the proximal calf veins also reveals no thrombus. Limited evaluation of the greater saphenous vein is patent with no thrombus.. Echolucent areas were noted in the subcutaneous tissue of both lower extremities CONCLUSIONS No evidence of DVT in the above-mentioned identifiable veins. Features of fluid retention/edema bilaterally in the lower leg Technically somewhat difficult study because of the poor ultrasonic window Dr Camryn Montalvo MD [facility] (Electronically Signed) Final Date: 09 April 2020 00:42 S
[2020-04-08] VITALS (8 sets, daily range): BP systolic 103–113; BP diastolic 62–73; PULSE 75–93; RESP 16–85; TEMP 36.3–37.1; O2SAT 83–97
[2020-04-08 05:29] LABS: Basophils % 0.4 %; Eosinophils # 0.1 10^3/uL (0.0-0.8); Eosinophils % 0.8 %; Hemoglobin 9.6 g/dL (11.5-15.3); Lymphocytes # 1.6 10^3/uL (0.8-4.8); Lymphocytes % 16.7 %; Mean Corpuscular HGB Conc 25.3 g/dL (30.0-36.0); Mean Corpuscular Hemoglobin 20.6 pg (28.0-34.0); Mean Corpuscular Volume 81.4 fL (81-99); Mean Platelet Volume 10.1 fL (7.4-10.4); Monocytes # 0.7 10^3/uL (0.2-0.9); Monocytes % 7.6 %; Neutrophils # 7.08 10^3/uL (1.8-7.7); Neutrophils % 73.4 %; Nucleated Red Blood Cells % 0 %; Platelet Count 246 10^3/cmm (130-400); Red Blood Count 4.67 10^6/uL (4.1-5.3); White Blood Count 9.7 10^3/uL (4.0-10.0)
[2020-04-08 05:46] LABS: Anion Gap 14.1 (5-19); Blood Urea Nitrogen 30 mg/dL (8-23); Calcium 8.8 mg/dL (8.5-10.5); Carbon Dioxide 28 mmol/L (22-29); Chloride 97 mmol/L (98-107); Glomerular Filtration Rate 37.4 mL/min (90-130); Glucose 101 mg/dL (65-115); Osmolality Calculated 277 mOsm/kg (285-295); Potassium 4.1 mmol/L (3.5-5.1); Sodium 135 mmol/L (136-145)
--- NOTE | 2020-04-08 08:28 | PC.NURSE ---
This VP SCIENTIFIC called and talked to the jacquard twine polisher operator VP SCIENTIFIC and the jacquard twine polisher operator VP SCIENTIFIC stated The patient did drink 360 i just didnt get it charted
[2020-04-08] MEDS: aspirin 325 mg Tablet PO (09:48)
[2020-04-08] MEDS: levothyroxine 100 mcg Tablet 200 MCG PO (09:48)
[2020-04-08] MEDS: doxycycline 100 mg Tablet PO ×2 (09:48→18:28)
[2020-04-08] MEDS: carvedilol 3.125 mg Tablet PO ×2 (09:48→18:28)
[2020-04-08] MEDS: bumetanide 1 mg Tablet PO ×2 (09:49→18:28)
--- NOTE | 2020-04-08 09:55 | PC.CHAP ---
Pastoral Care Encounter/Spiritual Assessment Type of Contact [] Declined sales clerk food visit [] Patient/Family/Request visit [] Outpatient visit [] Follow-up visit [] Physician referral [] Code/Alert [x] Routine visit [] Staff referral [] Actively dying [] Patient sleeping [] Family support [] [] Out of room [] Palliative care [] [x] Receiving care in room [] Pre-surgical visit [] Trauma [] Long length of stay [] ICU visit [] Other: Relational/Emotional Strength [x] Patient feels connected with others/family/visitors/staff [] Distress [] Loneliness/isolation [] Abandonment Spirituality of Patient [x] Person of Naomi [] Attends Sabianist of their Naomi [x] Believes in Prayer [] Reads Bible or Congregational materials [] There are Spiritual issues to be addressed Tool Room Machinist Interventions [x] Prayer [x] Active listening [x] Non-anxious presence [x] Spiritual/emotional support [] Crisis/trauma care [x] Spiritual counseling [] Bereavement support [] Provided bereavement packet [] Provided Bible/devotional materials [] Provided toy/stuffed animal, coloring book to patient or family member [] Provided Communion [] Anointing/[place] [] Salvation [x] Completed spiritual assessment [] Other: Impact on Illness or Injury [] Angry [] Fearful [x] Anxious [] Often cries [] Exhaustion [x] Unable to work [] Unable to attend catholic [] Unable to walk/stand [] Unable to read [x] Unable to drive [] Unable to eat/drink [] Unable to sleep [] Unable to be with family [] Patient intubated [] Other: Summary Fell, retaining floods,doesn't know what need to be done, has a good attitude, not sure when she can go home Time spent with patient 10 mins
--- NOTE | 2020-04-08 19:34 | PM.PN ---
Subjective Subjective: Interval history: Today she is feeling about the same. Swelling in her legs is making it difficult for her to move her legs. Verbalizes understanding that she needs to be on fluid restriction. Discussed again with regards to assessment for possible PE, VQ scan versus CTA, as well as possible options for treatment or empiric treatment, however, declines to consider any of the options, although can verbalized understanding of the involved risks of potential disability, hypoxia, possible cardiogenic shock, possible , other complications. Does agree to give things a further thought, and revisit topic again tomorrow. Vitals/I&O/Wt Last Vital Signs Temp 97.7 F 04/08/20 15:00 Pulse 77 04/08/20 15:00 Resp 18 04/08/20 15:00 BP 103/66 04/08/20 15:00 Pulse Ox 92 04/08/20 15:00 04/08/20 04/08/20 04/08/20 06:59 14:59 22:59 Intake Total 150 / 1230 960 / 960 Balance 150 / 610 960 / 960 Weight last 48 hrs Weight 196.916 kg Weight 196.859 kg Weight 167.829 kg Physical Exam Const: COMMON NORMALS: no acute distress and patient oriented x3 NUTRITIONAL APPEARANCE: obese morbidly obese HENMT: COMMON NORMALS: oropharynx normal Neck/C-Spine: COMMON NORMALS: no JVD Resp: COMMON NORMALS: normal respiratory effort and clear to auscultation bilaterally AUSCULTATION: clear to auscultation bilaterally Cardio: COMMON NORMALS: no JVD, regular rhythm, S1 normal heart sound present, S2 normal heart sound present and No murmurs present (Cardio) RHYTHM: regular rhythm HEART SOUNDS: S1 normal heart sound present and S2 normal heart sound present GI: COMMON NORMALS: Normal to inspection, nondistended, normoactive bowel sounds present, Soft to palpation and non-tender PALPATION: Yes Soft to palpation Extremity: COMMON NORMALS: no joint enlargement GENERAL: Yes edema (anasarca up to lower abdomen) Neuro: COMMON NORMALS: patient oriented x3 and moves all extremities Skin: COMMON NORMALS: no rashes or lesions noted GENERAL SKIN EXAM: no rashes or lesions noted OTHER: Mild erythema of distal lower extremities, left greater than right, also on the left side few small blisters noted. No deep ulcerations. No purulent discharge. Urinary Catheter Management^: Chase: Cath Placed During This Visit: yes Reason for Continuing Indwelling Catheter: Assist Healing of Perineal & Sacral Wounds- Incontinent Patients Urinary Catheter Date of Insertion: 04/07/20 Urinary Catheter Time of Insertion: 13:00 Data : 04/08/20 04:06 04/08/20 04:06 Micro: Microbiology 04/06/20 00:50 Urine Culture - Preliminary Urine,Clean Catch A&P Assessment and plan (1) Acute exacerbation of CHF (congestive heart failure): Persistent significant anasarca up to lower abdominal wall. Chase catheter has been placed, although I still not see charted SUDHAKAR. We will again request I&O, weight charting. She is on 1200 mL fluid restriction, although appears is reaching it pretty easily, with the amount of fluid intake. She does verbalize understanding that she needs to maintain fluid restriction due to significant peripheral edema. At this time continue diuresis. Despite additional extensive discussion of risks and concern for possible presence of concomitant PE requiring, still declines to consider additional evaluation or empiric treatment or treatment in case of confirmation by imaging by V/Q or CTA, including possible IVC filter in case of intolerance/inability to anticoagulate. Does agree to revisit again tomorrow. At this time she requires further diuresis given severity of her edema, diastolic CHF exacerbation. We will continue with Bumex at this time. Chase catheter for I&O, and some difficulties with mobility with severe anasarca, morbid obesity. She reports at home has been having difficulty with dyspnea on exertion, walking to the restroom at home and back to her chair would make her exhausted and short of breath. Denies chest pain. Denies cough. Denies hemoptysis. Status: Acute (2) Paroxysmal A-fib: New atrial fibrillation. Discussed with her again regarding stroke risk. She is still declined anticoagulation due to concern for bleeding issues in the past with uterine bleeding which has just recently become under control. She understands the risk of stroke. She would be willing to try aspirin alone for now only. She understands this only gives partial protection against CVA. At this time continue carvedilol. TTE. Troponin levels not suggestive of acute ischemia. TSH mildly elevated at 5.62. There is mild elevation of T3. Would consider rechecking this once she is low but closer to her usual state of health. T4 is normal. Status: Acute (3) Cellulitis: Continue doxycycline. Would benefit from outpatient follow-up after discharge. Status: Acute (4) Anasarca: As above. Lower extremity duplex ultrasound appears taken, pending interpretation. Status: Acute (5) Pulmonary hypertension: Noted. Status: Acute (6) Iron deficiency anemia, unspecified: Status: Acute Qualifiers: Iron deficiency anemia type: unspecified iron deficiency Qualified Code(s): D50.9 - Iron deficiency anemia, unspecified (7) Essential (primary) hypertension: Status: Acute (8) Urge incontinence: Status: Acute (9) Morbid (severe) obesity due to excess calories: Follow-up with primary care provider after acute condition improves to consider weight loss options. Would benefit from sleep study if agrees. Status: Acute (10) Hypothyroidism: Status: Acute (11) Acute respiratory acidosis: Declined BiPAP. Currently awake, alert. Target O2 sat 90-92%. Status: Acute (12) Sleep apnea: Status: Acute (13) Diastolic heart failure: Status: Acute (14) B12 deficiency: Status: Acute Additional A&P Information Hypothyroidism: Continue home dose of levothyroxine, would follow-up thyroid studies again in a while. T4 is normal, although there is mild elevation of TSH, T3. Microcytic anemia Chronic blood loss anemia Continue iron and B12 supplementation Attestations Medical Necessity Statement*: Continue admission for assessment of management of CHF, with anasarca, hypoxia, functional decline due to inability of ambulate, concomitant cellulitis, in the setting of CKD. Coding Level of Care Code Acute Life Support Technician for [facility] Fwd Diagnoses Acute exacerbation of CHF (congestive heart failure) I50.9 Paroxysmal A-fib I48.0 Cellulitis L03.90 Anasarca R60.1 Pulmonary hypertension I27.20 Iron deficiency anemia, unspecified D50.9 Iron deficiency anemia type: unspecified iron deficiency Essential (primary) hypertension I10 Urge incontinence N39.41 Morbid (severe) obesity due to excess calories E66.01 Hypothyroidism E03.9 Acute respiratory acidosis E87.2 Sleep apnea G47.30 Diastolic heart failure I50.30 B12 deficiency E53.8
[2020-04-09] VITALS (7 sets, daily range): BP systolic 102–138; BP diastolic 64–78; PULSE 74–82; RESP 16–22; TEMP 36.5–36.7; O2SAT 93–96
[2020-04-09] MEDS: iron complex forte Capsule 1 EACH PO (00:18)
[2020-04-09 05:38] LABS: Basophils % 0.2 %; Eosinophils % 0.2 %; Hematocrit 37.9 % (37.0-47.0); Hemoglobin 9.7 g/dL (11.5-15.3); Lymphocytes # 1.1 10^3/uL (0.8-4.8); Lymphocytes % 12.9 %; Mean Corpuscular HGB Conc 25.6 g/dL (30.0-36.0); Mean Corpuscular Hemoglobin 20.8 pg (28.0-34.0); Mean Corpuscular Volume 81.2 fL (81-99); Mean Platelet Volume 10.3 fL (7.4-10.4); Monocytes # 0.7 10^3/uL (0.2-0.9); Monocytes % 8.1 %; Neutrophils # 6.81 10^3/uL (1.8-7.7); Neutrophils % 76.9 %; Nucleated Red Blood Cells % 0 %; Platelet Count 252 10^3/cmm (130-400); Red Blood Count 4.67 10^6/uL (4.1-5.3); Red Cell Distribution Width 19.8 % (12.1-15.1); White Blood Count 8.9 10^3/uL (4.0-10.0)
[2020-04-09 05:59] LABS: Anion Gap 11.2 (5-19); Blood Urea Nitrogen 31 mg/dL (8-23); Calcium 8.5 mg/dL (8.5-10.5); Carbon Dioxide 32 mmol/L (22-29); Chloride 97 mmol/L (98-107); Glomerular Filtration Rate 44.7 mL/min (90-130); Glucose 108 mg/dL (65-115); Osmolality Calculated 280 mOsm/kg (285-295); Potassium 4.2 mmol/L (3.5-5.1); Sodium 136 mmol/L (136-145)
[2020-04-09] MEDS: aspirin 325 mg Tablet PO (09:56)
[2020-04-09] MEDS: carvedilol 3.125 mg Tablet PO ×2 (09:56→18:48)
[2020-04-09] MEDS: levothyroxine 100 mcg Tablet 200 MCG PO (09:57)
[2020-04-09] MEDS: bumetanide 1 mg Tablet PO (09:58)
[2020-04-09] MEDS: doxycycline 100 mg Tablet PO ×2 (09:59→18:48)
--- NOTE | 2020-04-09 13:32 | PM.PN ---
Subjective Subjective: Interval history: About the same. Still having issues with mobility due to severe swelling in lower extremities. Has not been very active. Vitals/I&O/Wt Last Vital Signs Temp 98.1 F 04/09/20 11:00 Pulse 74 04/09/20 11:00 Resp 20 H 04/09/20 11:00 BP 138/64 04/09/20 11:00 Pulse Ox 95 04/09/20 11:00 04/08/20 04/09/20 04/09/20 22:59 06:59 14:59 Intake Total 350 / 1310 480 / 480 Output Total 0 / 0 1950 / 1950 Balance 0 / 960 -1600 / -640 480 / 480 Weight last 48 hrs Weight 197.948 kg Physical Exam Const: COMMON NORMALS: no acute distress and patient oriented x3 NUTRITIONAL APPEARANCE: obese morbidly obese HENMT: COMMON NORMALS: oropharynx normal Neck/C-Spine: COMMON NORMALS: no JVD Resp: COMMON NORMALS: normal respiratory effort and clear to auscultation bilaterally AUSCULTATION: clear to auscultation bilaterally Cardio: COMMON NORMALS: no JVD, regular rhythm, S1 normal heart sound present, S2 normal heart sound present and No murmurs present (Cardio) RHYTHM: regular rhythm HEART SOUNDS: S1 normal heart sound present and S2 normal heart sound present GI: COMMON NORMALS: Normal to inspection, nondistended, normoactive bowel sounds present, Soft to palpation and non-tender PALPATION: Yes Soft to palpation Extremity: COMMON NORMALS: no joint enlargement and no pedal edema GENERAL: Yes edema (anasarca up to lower abdomen) Neuro: COMMON NORMALS: patient oriented x3 and moves all extremities Skin: COMMON NORMALS: no rashes or lesions noted GENERAL SKIN EXAM: no rashes or lesions noted OTHER: Mild erythema of distal lower extremities, left greater than right, also on the left side few small blisters noted. No deep ulcerations. No purulent discharge. Urinary Catheter Management^: Chase: Cath Placed During This Visit: yes Reason for Continuing Indwelling Catheter: Acute Urinary Retention or Obstruction Urinary Catheter Date of Insertion: 04/07/20 Urinary Catheter Time of Insertion: 13:00 Data : 04/09/20 04:23 04/09/20 04:23 Micro: Microbiology 04/06/20 00:50 Urine Culture - Final Urine,Clean Catch Streptococcus Group C A&P Assessment and plan (1) Acute exacerbation of CHF (congestive heart failure): Diuresing. -1100 mL on fluid balance. Looking at her weight, she is still about 25 kg over her weight back in November. We will switch to IV diuretic, increase Bumex dose to 2 mg. We will again request I&O, weight charting. Is on 1200 mL fluid restriction, although appears is reaching it pretty easily, with the amount of fluid intake. She does verbalize understanding that she needs to maintain fluid restriction due to significant peripheral edema. She is currently agreeable to additional assessment by VQ scan after getting detailed discussion, as well as comparison between VQ scan and CTA. She reports at home has been having difficulty with dyspnea on exertion, walking to the restroom at home and back to her chair would make her exhausted and short of breath. Denies chest pain. Denies cough. Denies hemoptysis. She is significantly deconditioned, and discussed this with her, as well as concerns regarding mobility, independence as she lives alone, however, she is absolutely declining to consider staying at care home for rehabilitation. I attempted to also reach her daughter to discuss with her, however, could not reach her on the phone number provided. Status: Acute (2) Paroxysmal A-fib: New atrial fibrillation. Discussed with her again regarding stroke risk. She is still declined anticoagulation due to concern for bleeding issues in the past with uterine bleeding which has just recently become under control. She understands the risk of stroke. She would be willing to try aspirin alone for now only. She understands this only gives partial protection against CVA. At this time continue carvedilol. TTE. Troponin levels not suggestive of acute ischemia. TSH mildly elevated at 5.62. There is mild elevation of T3. Would consider rechecking this once she is low but closer to her usual state of health. T4 is normal. Status: Acute (3) Cellulitis: Continue doxycycline. Would benefit from outpatient follow-up after discharge. Status: Acute (4) Anasarca: As above. Lower extremity duplex ultrasound negative. Status: Acute (5) Pulmonary hypertension: Noted. Status: Acute (6) Iron deficiency anemia, unspecified: Status: Acute Qualifiers: Iron deficiency anemia type: unspecified iron deficiency Qualified Code(s): D50.9 - Iron deficiency anemia, unspecified (7) Essential (primary) hypertension: Status: Acute (8) Urge incontinence: Status: Acute (9) Morbid (severe) obesity due to excess calories: Follow-up with primary care provider after acute condition improves to consider weight loss options. Would benefit from sleep study if agrees. Status: Acute (10) Hypothyroidism: Status: Acute (11) Acute respiratory acidosis: Declined BiPAP. Currently awake, alert. Target O2 sat 90-92%. Status: Acute (12) Sleep apnea: Status: Acute (13) Diastolic heart failure: Status: Acute (14) B12 deficiency: Status: Acute Additional A&P Information Hypothyroidism: Continue home dose of levothyroxine, would follow-up thyroid studies again in a while. T4 is normal, although there is mild elevation of TSH, T3. Microcytic anemia Chronic blood loss anemia Continue iron and B12 supplementation Attestations Medical Necessity Statement*: Continue admission for exacerbation of CHF treatment. Coding Level of Care Code Acute Credit Products Officer for Chg Fwd Exam Comprehensive Diagnoses Acute exacerbation of CHF (congestive heart failure) I50.9 Paroxysmal A-fib I48.0 Cellulitis L03.90 Anasarca R60.1 Pulmonary hypertension I27.20 Iron deficiency anemia, unspecified D50.9 Iron deficiency anemia type: unspecified iron deficiency Essential (primary) hypertension I10 Urge incontinence N39.41 Morbid (severe) obesity due to excess calories E66.01 Hypothyroidism E03.9 Acute respiratory acidosis E87.2 Sleep apnea G47.30 Diastolic heart failure I50.30 B12 deficiency E53.8
[2020-04-09] MEDS: bumetanide 0.25 mg/mL SDV 10 mL 2 MG IV (20:45)
[2020-04-10] VITALS (12 sets, daily range): BP systolic 104–130; BP diastolic 60–77; PULSE 67–122; RESP 18–30; TEMP 36.2–36.9; O2SAT 91–100
--- NOTE | 2020-04-10 04:16 | PC.NURSE ---
dilaudid pt c/o pain in her back and legs, Dr. Enamorado was notified and he put in an order for 2mg dilaudid PO ONCE. When nurse returned to pt's room with the medication, pt stated she did not wish to take any pain medication. This nurse and Tammy ELAINE wasted medication.
[2020-04-10 05:10] LABS: Basophils % 0.4 %; Eosinophils # 0.1 10^3/uL (0.0-0.8); Eosinophils % 0.7 %; Hematocrit 37.5 % (37.0-47.0); Hemoglobin 9.6 g/dL (11.5-15.3); Lymphocytes # 1.1 10^3/uL (0.8-4.8); Mean Corpuscular HGB Conc 25.6 g/dL (30.0-36.0); Mean Corpuscular Hemoglobin 20.6 pg (28.0-34.0); Mean Corpuscular Volume 80.5 fL (81-99); Mean Platelet Volume 9.6 fL (7.4-10.4); Monocytes # 0.6 10^3/uL (0.2-0.9); Monocytes % 6.9 %; Neutrophils # 7.15 10^3/uL (1.8-7.7); Neutrophils % 78.5 %; Nucleated Red Blood Cells % 0 %; Platelet Count 231 10^3/cmm (130-400); Red Blood Count 4.66 10^6/uL (4.1-5.3); Red Cell Distribution Width 19.6 % (12.1-15.1); White Blood Count 9.1 10^3/uL (4.0-10.0)
[2020-04-10 05:27] LABS: Anion Gap 10.9 (5-19); Blood Urea Nitrogen 32 mg/dL (8-23); Calcium 9.3 mg/dL (8.5-10.5); Carbon Dioxide 35 mmol/L (22-29); Chloride 97 mmol/L (98-107); Glomerular Filtration Rate 55.1 mL/min (90-130); Glucose 100 mg/dL (65-115); Osmolality Calculated 285 mOsm/kg (285-295); Potassium 3.9 mmol/L (3.5-5.1); Sodium 139 mmol/L (136-145)
[2020-04-10] MEDS: doxycycline 100 mg Tablet PO ×2 (08:33→17:00)
[2020-04-10] MEDS: aspirin 325 mg Tablet PO (08:33)
[2020-04-10] MEDS: levothyroxine 100 mcg Tablet 200 MCG PO (08:33)
[2020-04-10] MEDS: carvedilol 3.125 mg Tablet PO ×2 (08:33→17:01)
--- NOTE | 2020-04-10 08:40 | PC.SOCIAL ---
IMM Page 2 of IMM explained to patient. Initialed, dated, and timed and placed in chart. Copy provided to patient.
[2020-04-10] MEDS: bumetanide 0.25 mg/mL SDV 10 mL 2 MG IV ×2 (09:20→21:31)
--- NOTE | 2020-04-10 11:00 | PM.PN ---
Documented by User: Lenora Prabhakar, SUREKHA STDABAD 04/10/20 17:05 Subjective Subjective: Interval history: Patient states that she feels okay, about the same as yesterday. She has not noticed any change her ability to move her legs. She reports pain in her legs that has not changed in intensity since yesterday. This pain was present before admission as well. She has not been active. She reports continued shortness of breath, but no change. Patient reports some confusion, says that she is repeating herself. At this time, patient had removed her nasal cannula in preparation to eat lunch. Patient reports constipation today. Denies chest pain. Denies abdominal pain. Medications: Reviewed: Yes Vitals/I&O/Wt Last Vital Signs Temp 97.9 F 04/10/20 07:00 Pulse 78 04/10/20 09:11 Resp 20 H 04/10/20 09:11 BP 104/64 04/10/20 07:00 Pulse Ox 92 04/10/20 09:11 04/09/20 04/10/20 04/10/20 22:59 06:59 14:59 Intake Total 60 / 540 300 / 840 100 / 100 Output Total 800 / 800 1600 / 2400 Balance -740 / -260 -1300 / -1560 100 / 100 Weight last 48 hrs Weight 431 lb 6 oz Weight 436 lb 6.4 oz Physical Exam Narrative: EXAM NARRATIVE: General: Patient is alert and oriented. She is in no acute distress. Morbidly obese. Lungs: Clear to auscultation but difficult to evaluate due to diminished lung excursion. Cardio: regular rate and rhythm, S1 and S2. No murmur. Abdomen: Soft and nontender to palpation. Extremities: Anasarca up to lower abdomen. Skin: Some erythema anteriorly on distal lower extremities, with left worse than right that has continued to improve. Some papules noted on bilateral distal lower extremities. No purulence. Urinary Catheter Management^: Chase: Cath Placed During This Visit: yes Reason for Continuing Indwelling Catheter: Accurate Measurement of Urinary Output in Critically Ill Patients Urinary Catheter Date of Insertion: 04/07/20 Urinary Catheter Time of Insertion: 13:00 Data : 04/10/20 04:37 04/10/20 04:37 Micro: Microbiology 04/06/20 00:50 Urine Culture - Final Urine,Clean Catch Streptococcus Group C A&P Assessment and plan (1) Acute exacerbation of CHF (congestive heart failure): Diuresing with a fluid balance of -1820ml. Has decreased 5lbs since yesterday, but is still about 50lbs over her weight in November. Cr is at 1 today and has continued to decline. Continue bumex 2mg IV BID. Continue monitoring weight and I&O. Continue 1200ml fluid restriction. Cannot complete V/Q scan due to patient size. Consider CTA if new, urgent signs of potential PE present. Has agreed to DVT prophylaxis with heparin. Will reassess possibility of getting a CTA after continued diuresis and kidney function evaluation. Venous duplex of the lower extremities was negative on 04/07. Continue aspirin. Continues to report dyspnea on exertion, which was present at home. Denies chest pain or cough. As patient lives alone, there is still a concern for her mobility upon discharge due to deconditioning. Patient refuses SNF and has been accepted by [facility] for home healthcare upon discharge. Status: Acute (2) Iron deficiency anemia, unspecified: Status: Acute Qualifiers: Iron deficiency anemia type: unspecified iron deficiency Qualified Code(s): D50.9 - Iron deficiency anemia, unspecified (3) B12 deficiency: Status: Acute (4) Morbid (severe) obesity due to excess calories: Continue diuresing and refer to outpatient provider for weight loss counseling. Status: Acute (5) Back pain of lumbosacral region with sciatica: Status: Acute (6) Essential (primary) hypertension: Status: Acute (7) Cellulitis: Continue doxycycline. Noted improvement. Currently on day 4 of treatment. Patient will likely need prolonged course due to significant edema in lower extremities. Recommend outpatient followup. Status: Acute (8) Paroxysmal A-fib: New onset atrial fibrillation. CHADS-VASc score of 4. HAS-BLED score of 3. Patient refuses anticoagulation due to concern of uterine bleeding, but has been started on heparin for DVT prophylaxis. Continue carvedilol. Continue aspirin. Patient is aware of CVA risk. Patient has hypothyroid and TSH level is mildly increased. T4 is normal with an increased T3. Since T4 is normal, recommend outpatient evaluation of thyroid function after acute condition improves. Status: Acute (9) Anasarca: Continue diuresis as above. Status: Acute (10) Sleep apnea: Has declined biPAP. If agreeable, consider sleep study. Status: Acute (11) Acute respiratory acidosis: Metabolic compensation noted. ABG ordered due to change in mental status and for continued assessment of respiratory status. Pending ABG results, continue to urge use of biPAP or CPAP. Likely related to morbid obesity and sleep apnea. Has declined bipap. Currently on 3L nasal cannula with O2 saturation in the mid to low 90s. Status: Acute (12) Pulmonary hypertension: Status: Acute (13) Diastolic heart failure: continue diuresis as noted above. Status: Acute (14) Acquired hypothyroidism: Continue home dose of levothyroxine. As mentioned above, TSH is mildly elevated with normal T4 and elevated T3. Recommend outpatient evaluation of thyroid function once acute condition improves. Status: Acute (15) Urge incontinence: Status: Acute Additional A&P Information Continue iron and B12 supplementation. Altered Mental Status Patient reports some new onset confusion today. Due to chronic hypoxemia and hypercapnia, ABG was ordered to evaluate acid/base status. Patient has a history of urge incontinence and has had a Chase catheter throughout admission. Urinalysis was ordered to evaluate for UTI as a source for her change in mental function. Constipation Patient started on miralax 17 gm BID. DVT prophylaxis with heparin was started today. Full code Cardiac diet Heparin for DVT prophylaxis Attestations Medical Necessity Statement*: Patient needs continued hospitalization for treatment of acute heart failure exacerbation and evaluation of new onset altered mental status. Coding Level of Care Code Acute Wire Stripping Machine Operator for Chg Fwd Diagnoses Acute exacerbation of CHF (congestive heart failure) I50.9 Iron deficiency anemia, unspecified D50.9 Iron deficiency anemia type: unspecified iron deficiency B12 deficiency E53.8 Morbid (severe) obesity due to excess calories E66.01 Back pain of lumbosacral region with sciatica M54.40 Essential (primary) hypertension I10 Cellulitis L03.90 Paroxysmal A-fib I48.0 Anasarca R60.1 Sleep apnea G47.30 Acute respiratory acidosis E87.2 Pulmonary hypertension I27.20 Diastolic heart failure I50.30 Acquired hypothyroidism E03.9 Urge incontinence N39.41 Documented by User: Sam Pickering MD 04/10/20 18:04 Physical Exam Urinary Catheter Management^: Chase: Cath Placed During This Visit: no Data : 04/10/20 04:37 04/10/20 04:37 Attestations Medical Necessity Statement*: Continue admission if needed for management of CHF exacerbation, anasarca, hypoxia. Other Attestations: Patient seen and examined independently. Above note reviewed and discussed with student. She is today feeling slightly off sorts . She denies any pain or discomfort. Denies any headache, dizziness, or other discomfort. She cannot explain exactly why she is feeling slightly unwell. During my visit she is slightly sluggish in responses. Did have her oxygen pulled off as it appears she was preparing to have her meal. Assisted her to put the oxygen back on. My concern remains that perhaps she may have some episodes of hypercapnia, possibly undiagnosed obesity hypoventilation syndrome. Suspected sleep apnea. Will assess with ABG as she was reported having little bit more confusion, repeating herself. Will request for pulse oximetry monitoring. Check UA. Her blood glucose remains unchanged. She remains afebrile, with good heart rate, and no other signs of sepsis. She again denies chest pain, no cough, no hemoptysis. To me she denies significant shortness of breath. Discussed with her unfortunately we were not able to assess VQ scan due to body habitus. She has not been wanting anticoagulation, but is agreeable for subcutaneous heparin for DVT prophylaxis. Discussed with her additional option of assessment by CTA, although she declines this at this time. Is agreeable to consider this in case there are more concerning signs of PE. For now we will continue to monitor. Continue diuresis for CHF exacerbation, anasarca. Weight appears to be trending down. She is in negative balance. Coding Level of Care Code Acute Wire Stripping Machine Operator for Chg Fwd Diagnoses Acute exacerbation of CHF (congestive heart failure) I50.9 Iron deficiency anemia, unspecified D50.9 Iron deficiency anemia type: unspecified iron deficiency B12 deficiency E53.8 Morbid (severe) obesity due to excess calories E66.01 Back pain of lumbosacral region with sciatica M54.40 Essential (primary) hypertension I10 Cellulitis L03.90 Paroxysmal A-fib I48.0 Anasarca R60.1 Sleep apnea G47.30 Acute respiratory acidosis E87.2 Pulmonary hypertension I27.20 Diastolic heart failure I50.30 Acquired hypothyroidism E03.9 Urge incontinence N39.41
[2020-04-10 16:13] LABS: Add Urine Microscopic? YES; Bilirubin Urine Neg (NEGATIVE); Blood Urine 2+ (Negative); Glucose Urine UA Norm (Normal); Ketones Urine Negative (Negative); Leukocyte Esterase Urine Negative (Negative); Nitrate Urine Negative (Negative); Protein Urine Neg (Negative); Specific Gravity, Urine 1.015 (1.005-1.030); Urine Appearance Clear (CLEAR); Urine Color Yellow (Yellow); Urobilinogen Urine Norm (Negative); pH Urine 5 (5-7)
[2020-04-10] MEDS: heparin 5,000 unit/mL INJ 1 mL 5000 UNIT SUBCUT ×2 (16:59→21:31)
[2020-04-10] MEDS: polyethylene glycol 3350 Pkt 17 gm PO (17:02)
[2020-04-10 17:57] LABS: RBC Urine 15-25 /hpf (0-2)
[2020-04-10 17:58] LABS: Add Urine Culture? No; Bacteria Urine 1+; Mucus Urine 2+
[2020-04-10 18:42] LABS: ABG PH Result 7.29 (7.35-7.45); Arterial Blood Gas Hematocrit 32.2 % (37-47); Base Excess ABG 10.6 mmol/L (-2.0-2.0); Blood Gas Allen Test Pos; Blood Gas Operator Identificat GD; Blood Gas Sample Site Radial, left; Blood Gas Sample Type Arterial; HCO3 ABG 39.7 mmol/L (22-26); Oxygen Device NC; PO2 ABG 84.8 mmHg (80.0-100.0)
[2020-04-10 18:43] LABS: ABG PCO2 82.6 mmHg (35-45)
--- NOTE | 2020-04-10 19:24 | PC.NURSE ---
Patient refused vital signs to be checked. Patient's nurse been notified.
--- NOTE | 2020-04-10 20:30 | PC.NURSE ---
Arrived to icu from [facility] at this time. Pt arrived on 2L NC, lungs diminished throughout. Breathing is even with some abd muscle use. O2 sat 96%. Pt arrived alert to person and place when asked questions but has some confusion saying things like I dont know why you all are doing all this what is going on . Bedside report received from CHELE Munoz and reports patient has gradually had more confusion over past day. Continues to refuse bipap for this nurse, discussed code status at this time and reports not wanting intubated and difficult to assess credibility due to mental status. Pt is argumentative with nurse saying i wont get worse and repeating i dont know when asked questions.
--- NOTE | 2020-04-10 20:40 | PC.NURSE ---
Dr. Pickering came to round on pt at 1900 and this nurse went to bedside with to explain to the patient the results of her ABG. Dr. Pickering explained that the patients CO2 was 82.6 and that she was in respiratory acidosis and would need a BIPAP to bring her co2 down. The patient refused to wear the BIPAP, Dr. Pickering explained the possibilty of intubation if her condition continued to decline, she still refused. Dr. Pickering contacted the daughter Gracy Souza and updated her on the patients condition. This nurse called the daughter Gracy and had her speak with the patient, the patient was very confused and would state i am not gonna wear that bipap, your not gonna intubate me or code me but then when we would ask her if she wanted us to do all we could to save her life she would state yes save me, i dont want to pass away I would explain that the Bipap was life saving treatment but she still would refuse and state your not gonna force me to do this Dr. Pickering put in transfer orders to ICU, this nurse notified family the patient would be transferred to ICU , this nurse and CHANCE Cain gathered patient's belongings and transferred her off floor to ICU at 2030, patient bedside report was given to Monique.
--- NOTE | 2020-04-10 21:59 | PC.NURSE ---
Assumed care of patient. Resting in bed, does not appear to be in any acute distress at present time. Bilat lung sound very diminished. IV to L AC leaking, removed.New 18G IV started to Right AC. Spoke with patient about current plan of care and patient states that she will think about wearing the BIPAP. Son Светлана called to check on status of mother, mother gave permission to give Светлана information over the phone. Updated son on current condition.
[2020-04-11] VITALS (24 sets, daily range): BP systolic 99–153; BP diastolic 54–82; PULSE 62–87; RESP 17–34; TEMP 36.7–36.9; O2SAT 84–98
--- NOTE | 2020-04-11 04:35 | PC.NURSE ---
Patient pulled Bipap off, refusing abg and morning labs to be drawn. Patient states If you draw blood from me you are murdering me . Explained to patient that we need to draw some blood to see how she is doing. Patient refuses and pulls off pulse ox. Notified Dr. Enamorado of patient condition and patient refusing to have blood drawn. Order given for haldol. Initialized on 04/11/20 04:32 - END OF NOTE
[2020-04-11 05:31] LABS: Chloride 94 mmol/L (98-107); Potassium 3.1 mmol/L (3.5-5.1); Sodium 140 mmol/L (136-145)
[2020-04-11] MEDS: iron complex forte Capsule 1 EACH PO (05:37)
[2020-04-11] MEDS: heparin 5,000 unit/mL INJ 1 mL 5000 UNIT SUBCUT ×3 (05:37→21:30)
--- NOTE | 2020-04-11 06:04 | PC.NURSE ---
Patient continues to refuse to wear Bipap. O2 at 2L NC currently. Explained to patient that it would benefit her to wear the bipap because of her elevated CO2. Attempted to turn patient in bed and patient refuses to be turned. Explained to patient that she needs to be repositioned in the bed often so she does not get pressure areas. Patient states I am fine, I don't want to be turned .
[2020-04-11 06:19] LABS: Alanine Aminotransferase 7 U/L (0-33); Alkaline Phosphatase 93 IU/L (35-105); Anion Gap 17.1 (5-19); Aspartate Amino Transferase 11 U/L (0-32); Blood Urea Nitrogen 28 mg/dL (8-23); Carbon Dioxide 32 mmol/L (22-29); Glomerular Filtration Rate 71.3 mL/min (90-130); Glucose 98 mg/dL (65-115); Osmolality Calculated 287 mOsm/kg (285-295); Total Bilirubin 0.8 mg/dL (0.15-1.2)
[2020-04-11 06:32] LABS: Basophils % 0.2 %; Eosinophils % 0.4 %; Hematocrit 36.6 % (37.0-47.0); Hemoglobin 9.5 g/dL (11.5-15.3); Lymphocytes % 10.8 %; Mean Corpuscular Hemoglobin 20.5 pg (28.0-34.0); Mean Platelet Volume 9.9 fL (7.4-10.4); Monocytes # 0.7 10^3/uL (0.2-0.9); Monocytes % 7.7 %; Neutrophils # 7.14 10^3/uL (1.8-7.7); Neutrophils % 80.2 %; Nucleated Red Blood Cells % 0 %; Platelet Count 226 10^3/cmm (130-400); Red Blood Count 4.63 10^6/uL (4.1-5.3); Red Cell Distribution Width 19.6 % (12.1-15.1); White Blood Count 8.9 10^3/uL (4.0-10.0)
--- NOTE | 2020-04-11 07:45 | XRR_ITS ---
PROCEDURE INFORMATION: Exam: XR Chest, 1 View Exam date and time: 04/11/2020 8:06 AM Age: 69 years old Clinical indication: Other: Hypoxia TECHNIQUE: Imaging protocol: XR of the chest Views: 1 view. COMPARISON: CR XR chest 1V portable [id number] 04/06/2020 8:55 PM FINDINGS: Lungs: Subtle basilar airspace disease bilaterally. Pleural space: Probable small subpulmonic effusions. Heart/Mediastinum: Cardiomegaly. Bones/joints: Unremarkable. XR/XR chest 1V portable [id number] IMPRESSION: . Cardiomegaly. Mild edema. Subtle basilar airspace disease bilaterally. Probable small subpulmonic effusions.
[2020-04-11] MEDS: bumetanide 0.25 mg/mL SDV 10 mL 2 MG IV ×2 (08:39→20:23)
[2020-04-11] MEDS: levothyroxine 100 mcg Tablet 200 MCG PO (08:41)
[2020-04-11] MEDS: carvedilol 3.125 mg Tablet PO ×2 (08:41→17:20)
[2020-04-11] MEDS: doxycycline 100 mg Tablet PO ×2 (08:41→17:20)
[2020-04-11] MEDS: aspirin 325 mg Tablet PO (08:42)
--- NOTE | 2020-04-11 09:02 | PM.PN ---
Subjective Subjective: Interval history: She is more alert this morning, however, confused. She is interactive, and does not appear to realize anything is wrong. She is certain she knows the date and where she is, although states the date is 1999. She does know she is in the hospital in [place]. When asked if she remembers as having a conversation yesterday she says that she does. When asked if she remembers what it was about, says we had discussed carvedilol , and some other things. She cannot recall further details. Discussed with her with regards to her condition worsening, and our conversation regarding hypercapnic respiratory failure, CO2 buildup. Asked her with regards to her wishes in case her heart stops or she stops breathing, she again reiterates she would want us to try to restart her heart or try to restart her breathing. Discussed with her that to prevent her becoming lethargic/comatose, we may need to use BiPAP to avoid respiratory arrest and intubation, and she is verbalizing understanding and agreement. Vitals/I&O/Wt Last Vital Signs Temp 98.0 F 04/11/20 00:00 Pulse 81 04/11/20 07:28 Resp 20 H 04/11/20 07:28 BP 99/63 04/11/20 06:00 Pulse Ox 94 04/11/20 07:28 04/10/20 04/11/20 04/11/20 22:59 06:59 14:59 Intake Total 120 / 460 Output Total 2100 / 2100 2950 / 5050 Balance -1980 / -1640 -2950 / -4590 Weight last 48 hrs Weight 190.554 kg Weight 195.668 kg Physical Exam Const: COMMON NORMALS: no acute distress NUTRITIONAL APPEARANCE: obese morbidly obese ORIENTATION/CONSCIOUSNESS: Yes oriented to place and Yes confused; not oriented to time HENMT: COMMON NORMALS: oropharynx normal Neck/C-Spine: COMMON NORMALS: no JVD Resp: COMMON NORMALS: normal respiratory effort OTHER: Difficult to hear breathing sounds due to body habitus. But no adventitious sounds. Cardio: COMMON NORMALS: no JVD, regular rhythm, S1 normal heart sound present, S2 normal heart sound present and No murmurs present (Cardio) RHYTHM: regular rhythm HEART SOUNDS: S1 normal heart sound present and S2 normal heart sound present GI: COMMON NORMALS: Normal to inspection, nondistended, normoactive bowel sounds present, Soft to palpation and non-tender PALPATION: Yes Soft to palpation Extremity: COMMON NORMALS: no joint enlargement GENERAL: Yes edema (3+) Neuro: COMMON NORMALS: moves all extremities SENSORIUM/ORIENTATION: Yes oriented to place and No oriented to time Skin: RASHES: rashes noted (Resolving erythema LLE) Urinary Catheter Management^: Chase: Cath Placed During This Visit: yes Reason for Continuing Indwelling Catheter: Accurate Measurement of Urinary Output in Critically Ill Patients Urinary Catheter Date of Insertion: 04/07/20 Urinary Catheter Time of Insertion: 13:00 Data : 04/11/20 06:13 04/11/20 05:00 A&P Assessment and plan (1) Respiratory failure with hypoxia and hypercapnia: As she is not been allowing for some elective treatments during the night including BiPAP, for now continues on NC. She appears to know certain things like she is in was placed in the hospital, but does not state they are correctly. Thinks it is 1999. When asked about recollection from our conversation from yesterday, reports that we discussed about carvedilol. Appears to not realize anything he is wrong. When asking again whether if went into cardiac arrest arrest would like us to try to restart her heart or her breathing again responds yes. Discussed with her to try to prevent respiratory or cardiac arrest we may have to use BiPAP for some time, and if this were needed she says she would allow for this. She had reportedly declined ABG this morning. For now we will attempt investigate if anything else may be contributing to her encephalopathy, and perhaps to CO2 retention other than body habitus and suspected possibly undiagnosed OHS, YANELY. For now requested we decrease FiO2, target saturation 88-90%, as likely that this probably where she is at usually, perhaps even lower. Without oxygen reported dipping down to as low as 87%. We will continue to attempt to provide treatment with BiPAP if she will agree/maintain it on. Otherwise unfortunately we may be left with trying other conservative measures, and apart from that if declines considerably may actually require intubation. Discussed last night with her daughter, who understands the difficulties with goals of care planning. She states that their mother has been only wanting to make all her own decisions. None of the children have power of litigation attorney associate. She does not have documented advanced directives from what I can see. Daughter stated will try to discuss again with her brothers whether they may be aware of any previous definitive wishes, although per discussion again with admitting provider, during discussion of CODE STATUS she did elect for full code. We will discuss again with her daughter today, she has a break at work at 1030. Status: Acute (2) Acute encephalopathy: She is somewhat confused today, is alert, interactive, and denies any pain or discomfort. Repeats a few statements several times. Does know she is in the hospital in [place]. We will go ahead and repeat urinalysis, she had earlier declined ABG, however, if mental status worsens/becomes more somnolent, will go ahead and obtain an ABG. Requested for chest x-ray this morning. We will also repeat her thyroid function studies. Avoid high oxygen saturations. Status: Acute (3) Acute exacerbation of CHF (congestive heart failure): Continue diuretic. We will again request I&O, weight charting. Is on 1200 mL fluid restriction. She reports at home has been having difficulty with dyspnea on exertion, walking to the restroom at home and back to her chair would make her exhausted and short of breath. Denies chest pain. Denies cough. Denies hemoptysis. She is significantly deconditioned, and discussed this with her, as well as concerns regarding mobility, independence as she lives alone, however, she is absolutely declining to consider staying at long-term for rehabilitation. Status: Acute (4) Paroxysmal A-fib: New atrial fibrillation. Discussed with her again regarding stroke risk. She is still declined anticoagulation due to concern for bleeding issues in the past with uterine bleeding which has just recently become under control. She understands the risk of stroke. She would be willing to try aspirin alone for now only. She understands this only gives partial protection against CVA. At this time continue carvedilol. TTE. Troponin levels not suggestive of acute ischemia. TSH mildly elevated at 5.62. There is mild elevation of T3. Would consider rechecking this once she is low but closer to her usual state of health. T4 is normal. Status: Acute (5) Cellulitis: Appears to be resolving. Continue doxycycline. Would benefit from outpatient follow-up after discharge. Status: Acute (6) Anasarca: As above. Lower extremity duplex ultrasound negative. Status: Acute (7) Pulmonary hypertension: Noted. Status: Acute (8) Iron deficiency anemia, unspecified: Status: Acute Qualifiers: Iron deficiency anemia type: unspecified iron deficiency Qualified Code(s): D50.9 - Iron deficiency anemia, unspecified (9) Essential (primary) hypertension: Status: Acute (10) Urge incontinence: Status: Acute (11) Morbid (severe) obesity due to excess calories: Follow-up with primary care provider after acute condition improves to consider weight loss options. Would benefit from sleep study if agrees. Status: Acute (12) Hypothyroidism: Repeat thyroid function studies. Status: Acute (13) Acute respiratory acidosis: As above. Status: Acute (14) Sleep apnea: Continue to encourage compliance with CPAP/BiPAP. Status: Acute (15) Diastolic heart failure: Status: Acute (16) B12 deficiency: B12 supplementation Status: Acute Additional A&P Information Hypothyroidism: Continue home dose of levothyroxine, would follow-up thyroid studies again in a while. T4 is normal, although there is mild elevation of TSH, T3. Microcytic anemia Chronic blood loss anemia Continue iron and B12 supplementation Attestations Medical Necessity Statement*: Continue admission for assessment and management of acute hypercapnic and hypoxic respiratory failure, acute encephalopathy, CHF exacerbation. Coding Level of Care Code Acute Manager Store for Chg Fwd Diagnoses Respiratory failure with hypoxia and hypercapnia J96.91; J96.92 Acute encephalopathy G93.40 Acute exacerbation of CHF (congestive heart failure) I50.9 Paroxysmal A-fib I48.0 Cellulitis L03.90 Anasarca R60.1 Pulmonary hypertension I27.20 Iron deficiency anemia, unspecified D50.9 Iron deficiency anemia type: unspecified iron deficiency Essential (primary) hypertension I10 Urge incontinence N39.41 Morbid (severe) obesity due to excess calories E66.01 Hypothyroidism E03.9 Acute respiratory acidosis E87.2 Sleep apnea G47.30 Diastolic heart failure I50.30 B12 deficiency E53.8
--- NOTE | 2020-04-11 10:00 | PC.CHAP ---
Pastoral Care Encounter/Spiritual Assessment Type of Contact [] Declined bull float finisher visit [] Patient/Family/Request visit [] Outpatient visit [] Follow-up visit [] Physician referral [] Code/Alert [x] Routine visit [] Staff referral [] Actively dying [] Patient sleeping [] Family support [] [] Out of room [] Palliative care [] [] Receiving care in room [] Pre-surgical visit [] Trauma [] Long length of stay [x] ICU visit [] Other: Relational/Emotional Strength [] Patient feels connected with others/family/visitors/staff [] Distress [] Loneliness/isolation [] Abandonment Spirituality of Patient [] Person of Naomi [] Attends Latter Day of their Naomi [] Believes in Prayer [] Reads Bible or Taoism materials [] There are Spiritual issues to be addressed Solar Sales Representative And Assessor Interventions [x] Prayer [x] Active listening [x] Non-anxious presence [x] Spiritual/emotional support [] Crisis/trauma care [] Spiritual counseling [] Bereavement support [] Provided bereavement packet [] Provided Bible/devotional materials [] Provided toy/stuffed animal, coloring book to patient or family member [] Provided Communion [] Anointing/[place] [] Salvation [x] Completed spiritual assessment [] Other: Impact on Illness or Injury [] Angry [] Fearful [] Anxious [] Often cries [] Exhaustion [] Unable to work [] Unable to attend moravian [] Unable to walk/stand [] Unable to read [] Unable to drive [] Unable to eat/drink [] Unable to sleep [] Unable to be with family [] Patient intubated [] Other: Summary Patient resting well. excited for another day Time spent with patient 15 min
[2020-04-11 10:15] LABS: Free T4 Free Thyroxine 1.22 ng/dL (0.82-1.77); T3 Free 1.8 PG/ML (2.0-4.4); Thyroid Stimulating Hormone 3.94 uIU/mL (0.27-4.20)
[2020-04-11 10:28] LABS: Add Urine Microscopic? NO
[2020-04-11 10:54] LABS: Urine Appearance Clear (CLEAR); Urine Color Straw (Yellow); pH Urine 5 (5-7)
[2020-04-11 10:55] LABS: Bilirubin Urine Neg (NEGATIVE); Blood Urine Neg (Negative); Glucose Urine UA Norm (Normal); Ketones Urine Negative (Negative); Leukocyte Esterase Urine Negative (Negative); Nitrate Urine Negative (Negative); Protein Urine Neg (Negative); Urobilinogen Urine Norm (Negative)
[2020-04-12] VITALS (26 sets, daily range): BP systolic 100–118; BP diastolic 54–76; PULSE 67–92; RESP 6–34; TEMP 36.8–36.9; O2SAT 84–97
--- NOTE | 2020-04-12 02:41 | PC.NURSE ---
While giving kavya care to the patient, some blood was noticed from the vaginal area. Exact source was not able to be identified.
[2020-04-12 03:36] LABS: ABG PH Result 7.45 (7.35-7.45); Arterial Blood Gas Hematocrit 31.9 % (37-47); Base Excess ABG 19.9 mmol/L (-2.0-2.0); Blood Gas Allen Test Pos; Blood Gas Sample Site Radial, right; Blood Gas Sample Type Arterial; Oxygen Device NC; PO2 ABG 62.7 mmHg (80.0-100.0)
[2020-04-12 03:38] LABS: ABG PCO2 68.2 mmHg (35-45)
[2020-04-12 04:24] LABS: Basophils % 0.4 %; Eosinophils # 0.1 10^3/uL (0.0-0.8); Eosinophils % 0.8 %; Hematocrit 37.3 % (37.0-47.0); Hemoglobin 9.8 g/dL (11.5-15.3); Lymphocytes # 1.1 10^3/uL (0.8-4.8); Lymphocytes % 14.1 %; Mean Corpuscular HGB Conc 26.3 g/dL (30.0-36.0); Mean Corpuscular Hemoglobin 20.6 pg (28.0-34.0); Mean Corpuscular Volume 78.5 fL (81-99); Monocytes # 0.7 10^3/uL (0.2-0.9); Monocytes % 8.4 %; Neutrophils # 6.03 10^3/uL (1.8-7.7); Neutrophils % 75.7 %; Nucleated Red Blood Cells % 0 %; Platelet Count 218 10^3/cmm (130-400); Red Blood Count 4.75 10^6/uL (4.1-5.3); Red Cell Distribution Width 19.8 % (12.1-15.1)
[2020-04-12 05:10] LABS: Alanine Aminotransferase 6 U/L (0-33); Albumin Level 2.8 g/dL (3.5-5.2); Alkaline Phosphatase 77 IU/L (35-105); Anion Gap 11.5 (5-19); Aspartate Amino Transferase 10 U/L (0-32); Blood Urea Nitrogen 23 mg/dL (8-23); Calcium 7.7 mg/dL (8.5-10.5); Chloride 92 mmol/L (98-107); Globulin 3.9 g/dL (1.3-4.6); Glomerular Filtration Rate 83.2 mL/min (90-130); Glucose 84 mg/dL (65-115); Osmolality Calculated 296 mOsm/kg (285-295); Sodium 145 mmol/L (136-145); Total Bilirubin 0.9 mg/dL (0.15-1.2); Total Protein 6.7 g/dL (6.6-8.7)
[2020-04-12 05:16] LABS: Carbon Dioxide 44 mmol/L (22-29); Potassium 2.5 mmol/L (3.5-5.1)
[2020-04-12] MEDS: potassium chloride premix 40 MEQ/100 ML PREMIX 25 MEQ IV ×2 (06:01→12:05)
[2020-04-12] MEDS: lidocaine 1% INJ 20 mL 5 ML IV (06:05)
[2020-04-12] MEDS: heparin 5,000 unit/mL INJ 1 mL 5000 UNIT SUBCUT ×2 (06:07→17:32)
--- NOTE | 2020-04-12 08:27 | PC.NURSE ---
pt turned 4 staff unable to assist at all very verbal not wanting to turned explained needed to position off bottom at this time
[2020-04-12] MEDS: levothyroxine 100 mcg Tablet 200 MCG PO (09:10)
[2020-04-12] MEDS: doxycycline 100 mg Tablet PO ×2 (09:10→17:32)
[2020-04-12] MEDS: carvedilol 3.125 mg Tablet PO ×2 (09:10→17:32)
[2020-04-12] MEDS: aspirin 81 mg EC Tablet 162 MG PO (09:11)
[2020-04-12] MEDS: bumetanide 0.25 mg/mL SDV 10 mL 2 MG IV ×2 (09:11→20:32)
[2020-04-12] MEDS: polyethylene glycol 3350 Pkt 17 gm PO ×2 (09:12→17:31)
[2020-04-12 09:16] LABS: Magnesium 1.3 mg/dL (1.7-2.3)
--- NOTE | 2020-04-12 09:19 | P.PN_ITS ---
Subjective Subjective: Interval history: She is little more alert and lucid today. She still today is not oriented x3, she thinks she is in [facility], however, does state there correctly is 2019. She reports that she is still feeling constipated, has not had a bowel movement. She says otherwise is not in pain. Breathing is comfortable. Says that she did allow to wear BiPAP for a while earlier, but says it does not mean that I will do it every time . She is wanting to try to mobilize, and see if she can get strong enough to walk again as she is wanting to try to get back home. Discussed with her that to prevent episodes of confusion, coma, and possible she needs to wear her BiPAP when she sleeps. Vitals/I&O/Wt Last Vital Signs Temp 98.3 F 04/12/20 05:10 Pulse 87 04/12/20 09:00 Resp 22 H 04/12/20 09:00 BP 114/59 04/12/20 09:00 Pulse Ox 95 04/12/20 09:00 04/11/20 04/12/20 04/12/20 22:59 06:59 14:59 Output Total 1600 / 5200 2550 / 7750 Balance -1600 / -5200 -2550 / -7750 Weight last 48 hrs Weight 185.236 kg Weight 190.554 kg Physical Exam 2 Const: COMMON NORMALS: no acute distress and patient oriented x3 NUTRITIONAL APPEARANCE: obese morbidly obese ORIENTATION/CONSCIOUSNESS: Yes oriented to place and Yes confused; not oriented to time HENMT: COMMON NORMALS: oropharynx normal Neck/C-Spine: COMMON NORMALS: no JVD Resp: COMMON NORMALS: normal respiratory effort and clear to auscultation bilaterally AUSCULTATION: clear to auscultation bilaterally OTHER: Clear breathing sounds today. Cardio: COMMON NORMALS: no JVD, regular rhythm, S1 normal heart sound present, S2 normal heart sound present and No murmurs present (Cardio) RHYTHM: regular rhythm HEART SOUNDS: S1 normal heart sound present and S2 normal heart sound present GI: COMMON NORMALS: Normal to inspection, nondistended, normoactive bowel sounds present, Soft to palpation and non-tender PALPATION: Yes Soft to palpation Extremity: COMMON NORMALS: no joint enlargement and no pedal edema GENERAL: Yes edema (3+) Neuro: COMMON NORMALS: patient oriented x3 and moves all extremities SENSORIUM/ORIENTATION: Yes oriented to place and No oriented to time Skin: COMMON NORMALS: no rashes or lesions noted GENERAL SKIN EXAM: no rashes or lesions noted RASHES: rashes noted (Resolving erythema LLE) OTHER: Mild erythema of distal lower extremities is resolving almost entirely, some wrinkling is evident especially the distal lower extremities. Urinary Catheter Management^: Chase: Cath Placed During This Visit: yes Reason for Continuing Indwelling Catheter: Accurate Measurement of Urinary Output in Critically Ill Patients Urinary Catheter Date of Insertion: 04/07/20 Urinary Catheter Time of Insertion: 13:00 Data : 04/12/20 03:16 04/12/20 03:16 A&P Assessment and plan (1) Respiratory failure with hypoxia and hypercapnia: This is somewhat better today. On VBG her CO2 is down to 68.2. It appears she responds well to turning down the oxygen somewhat but also has been losing a good amount of weight with diuresis. Discussed with her concern for obesity hypoventilation syndrome, retention of carbon dioxide also secondary to obstructive sleep apnea. Discussed the need for wearing BiPAP while asleep to overt otherwise life-threatening condition. She appears to be perhaps more amenable to this, although still states I allowed it earlier but it does not mean that I will do so every time . We will continue to encourage. Continue diuresis at this time. Continue target oxygen saturation of 88-90%. May resume GI soft diet. We will try to mobilize her with PT. Replace magnesium. She will require BiPAP with sleep, will need sleep study, PFT. Measure NIF Add IS. Bowel regimen for constipation to hypoventilation prevent contribution from normal distention. We will need to follow-up regarding weight loss options. Status: Acute (2) Acute encephalopathy: More lucid today. Still thinks he is in [facility], but otherwise says the year is 2020. Remembers more details about the hospitalization including that she has been having constipation. Management of hypercapnia/CO2 narcosis as above. Repeat UA was unremarkable. Chest x-ray without suggestion of acute pneumonia. Status: Acute (3) Acute exacerbation of CHF (congestive heart failure): Continue diuresis with IV diuretic, as she is doing well currently, losing weight, renal function is stable. 1200 mL fluid restriction. She reports at home has been having difficulty with dyspnea on exertion, walking to the restroom at home and back to her chair would make her exhausted and short of breath. Denies chest pain. Denies cough. Denies hemoptysis. She absolutely refuses assisted placement. We will try to mobilize and get her to work with PT to regain independence. With congestive heart failure, new atrial fibrillation, consider stress testing prior to discharge. Status: Acute (4) Paroxysmal A-fib: Unfortunately is having some recurrence of vaginal bleeding noted by nursing staff. Will decrease aspirin dose to 162 mg. New atrial fibrillation. Discussed with her again regarding stroke risk. She is still declined anticoagulation due to concern for bleeding issues in the past with uterine bleeding which has just recently become under control. She understands the risk of stroke. She would be willing to try aspirin alone for now only. She understands this only gives partial protection against CVA. At this time continue carvedilol. TTE with grade 3 diastolic dysfunction, no significant valve abnormality. Troponin levels not suggestive of acute ischemia. TSH mildly elevated at 5.62. There is mild elevation of T3. Would consider rechecking this once she is low but closer to her usual state of health. T4 is normal. Status: Acute (5) Cellulitis: Resolving. Continue doxycycline to complete course. Improving with improving lower extremity edema. Would benefit from outpatient follow-up after discharge. Status: Acute (6) Anasarca: As above. Lower extremity duplex ultrasound negative. Status: Acute (7) Pulmonary hypertension: Noted. Status: Acute (8) Iron deficiency anemia, unspecified: Status: Acute Qualifiers: Iron deficiency anemia type: unspecified iron deficiency Qualified Code(s): D50.9 - Iron deficiency anemia, unspecified (9) Essential (primary) hypertension: Status: Acute (10) Urge incontinence: Status: Acute (11) Morbid (severe) obesity due to excess calories: Follow-up with primary care provider after acute condition improves to consider weight loss options. Would benefit from sleep study if agrees. Status: Acute (12) Hypothyroidism: Repeat thyroid function studies. Status: Acute (13) Acute respiratory acidosis: As above. Status: Acute (14) Sleep apnea: Continue to encourage compliance with CPAP/BiPAP. Status: Acute (15) Diastolic heart failure: Status: Acute (16) B12 deficiency: B12 supplementation Status: Acute (17) Vaginal bleeding: Small amount of vaginal bleeding noted by nursing staff today. Will decrease aspirin dose to 162. Decrease heparin prophylaxis frequency to every 12 hours. Monitor for any additional recurrence of bleeding. Will need gynecology follow-up for additional assessment of postmenopausal vaginal bleeding she has been aware of the bleeding episodes recently and has been setting up the follow-up. Status: Acute Additional A&P Information Hypothyroidism: Continue home dose of levothyroxine, would follow-up thyroid studies again in a while. T4 is normal, although there is mild elevation of TSH, T3. Constipation: Start bowel regimen. Microcytic anemia: Chronic blood loss anemia. Continue iron and B12 supplementation. Attestations Medical Necessity Statement*: Continue admission for assessment management of acute on chronic hypercapnic respiratory failure, acute encephalopathy, CHF exacerbation. Coding Level of Care Code Acute Backup Operator for Chg Fwd Diagnoses Respiratory failure with hypoxia and hypercapnia J96.91; J96.92 Acute encephalopathy G93.40 Acute exacerbation of CHF (congestive heart failure) I50.9 Paroxysmal A-fib I48.0 Cellulitis L03.90 Anasarca R60.1 Pulmonary hypertension I27.20 Iron deficiency anemia, unspecified D50.9 Iron deficiency anemia type: unspecified iron deficiency Essential (primary) hypertension I10 Urge incontinence N39.41 Morbid (severe) obesity due to excess calories E66.01 Hypothyroidism E03.9 Acute respiratory acidosis E87.2 Sleep apnea G47.30 Diastolic heart failure I50.30 B12 deficiency E53.8 Vaginal bleeding N93.9
--- NOTE | 2020-04-12 10:32 | PC.RESP ---
NIF -50 GOOD EFFORT
[2020-04-12] MEDS: magnesium sulfate premix 4 GM/100 ML PREMIX IV (10:34)
--- NOTE | 2020-04-12 11:05 | PC.SOCIAL ---
IMM Updated Updated pt on Pg 2 IMM. No questions voiced. Provided pt a copy. Signed, dated, & timed copy in chart.
--- NOTE | 2020-04-12 12:07 | PC.NURSE ---
up in chair with max assist and pt iv kcl delayed due to limited iv access and mag infusion.. new noted skin tear on left buttock
[2020-04-13] VITALS (23 sets, daily range): BP systolic 90–124; BP diastolic 42–73; PULSE 68–86; RESP 18–31; TEMP 36.7–37; O2SAT 89–93
[2020-04-13 04:50] LABS: Basophils % 0.3 %; Eosinophils # 0.1 10^3/uL (0.0-0.8); Eosinophils % 1.1 %; Hematocrit 36.9 % (37.0-47.0); Hemoglobin 9.7 g/dL (11.5-15.3); Lymphocytes # 1.2 10^3/uL (0.8-4.8); Lymphocytes % 16.2 %; Mean Corpuscular HGB Conc 26.3 g/dL (30.0-36.0); Mean Corpuscular Hemoglobin 20.8 pg (28.0-34.0); Mean Platelet Volume 10.2 fL (7.4-10.4); Monocytes # 0.6 10^3/uL (0.2-0.9); Monocytes % 7.8 %; Neutrophils # 5.63 10^3/uL (1.8-7.7); Neutrophils % 74.1 %; Nucleated Red Blood Cells % 0 %; Platelet Count 226 10^3/cmm (130-400); Red Blood Count 4.67 10^6/uL (4.1-5.3); White Blood Count 7.6 10^3/uL (4.0-10.0)
[2020-04-13 05:01] LABS: Alanine Aminotransferase < 5 U/L (0-33); Albumin Level 2.8 g/dL (3.5-5.2); Alkaline Phosphatase 79 IU/L (35-105); Anion Gap 8.8 (5-19); Aspartate Amino Transferase 8 U/L (0-32); Blood Urea Nitrogen 21 mg/dL (8-23); Calcium 7.9 mg/dL (8.5-10.5); Chloride 90 mmol/L (98-107); Glomerular Filtration Rate 83.2 mL/min (90-130); Glucose 107 mg/dL (65-115); Osmolality Calculated 295 mOsm/kg (285-295); Sodium 144 mmol/L (136-145); Total Protein 6.8 g/dL (6.6-8.7)
[2020-04-13 05:09] LABS: Magnesium 1.6 mg/dL (1.7-2.3)
[2020-04-13] MEDS: heparin 5,000 unit/mL INJ 1 mL 5000 UNIT SUBCUT ×2 (05:16→17:20)
[2020-04-13 05:36] LABS: Carbon Dioxide 48 mmol/L (22-29); Potassium 2.8 mmol/L (3.5-5.1)
[2020-04-13] MEDS: lidocaine 1% INJ 20 mL INJECTION (06:41)
[2020-04-13] MEDS: potassium chloride premix 40 MEQ/100 ML PREMIX 25 MEQ IV ×2 (06:41→10:41)
[2020-04-13] MEDS: magnesium sulfate premix 4 GM/100 ML PREMIX IV (07:58)
[2020-04-13] MEDS: polyethylene glycol 3350 Pkt 17 gm PO ×4 (09:22→18:10)
[2020-04-13] MEDS: bumetanide 0.25 mg/mL SDV 10 mL 2 MG IV ×2 (09:22→21:42)
--- NOTE | 2020-04-13 09:22 | PM.PN ---
Subjective Subjective: Interval history: Today she is more alert. When asked how she is doing, says could not get back to you . Denies any pain. Says breathing is comfortable. She had gotten up with PT somewhat in splint good amount of time in the chair yesterday. Is also had a small bowel movement. We discussed with regards to events over the last several days, her episodes of confusion, concern for recurrent CO2 buildup, sleep apnea, obesity hypoventilation syndrome. Discussed and highly encouraged that she should be wearing CPAP every night, and at this in her condition currently would be a lifesaving therapy going forward in the future as episodes of hypoxia, possibly hypercapnia may recur unexpectedly. Discussed that consideration may be given to nightly BiPAP as well and due to this assessment by pulmonology would be beneficial in office, in addition to sleep study and PFT. She verbalized understanding and agreement. We discussed also regarding regarding establishing power of banking attorney of healthcare, as well as advanced directive so that she may make her wishes known exactly, and that we may follow them in case of any further health problems in the future. We discussed CODE STATUS, and she is fairly adamant she would not want chest compressions or shock in case of cardiac arrest. She would not want prolonged life-sustaining measures, however, in case of respiratory arrest or life-threatening respiratory illness would be willing to go intubation and mechanical ventilation on temporary basis. Discussed all of the above also with the patient's daughter Gracy oSuza. Vitals/I&O/Wt Last Vital Signs Temp 98.4 F 04/13/20 04:00 Pulse 76 04/13/20 08:00 Resp 20 H 04/13/20 08:00 BP 93/52 04/13/20 08:00 Pulse Ox 92 04/13/20 08:00 04/12/20 04/13/20 04/13/20 22:59 06:59 14:59 Intake Total 450 / 1000 300 / 1300 250 / 250 Output Total 2200 / 2200 900 / 3100 Balance -1750 / -1200 -600 / -1800 250 / 250 Weight last 48 hrs Weight 182.389 kg Weight 185.236 kg Physical Exam Const: COMMON NORMALS: no acute distress and patient oriented x3 NUTRITIONAL APPEARANCE: obese morbidly obese ORIENTATION/CONSCIOUSNESS: Yes oriented to place and Yes confused; not oriented to time HENMT: COMMON NORMALS: oropharynx normal Neck/C-Spine: COMMON NORMALS: no JVD Resp: COMMON NORMALS: normal respiratory effort and clear to auscultation bilaterally AUSCULTATION: clear to auscultation bilaterally OTHER: Clear breathing sounds today. Cardio: COMMON NORMALS: no JVD, regular rhythm, S1 normal heart sound present, S2 normal heart sound present and No murmurs present (Cardio) RHYTHM: regular rhythm HEART SOUNDS: S1 normal heart sound present and S2 normal heart sound present GI: COMMON NORMALS: Normal to inspection, nondistended, normoactive bowel sounds present, Soft to palpation and non-tender PALPATION: Yes Soft to palpation Extremity: COMMON NORMALS: no joint enlargement and no pedal edema GENERAL: Yes edema (3+) Neuro: COMMON NORMALS: patient oriented x3 and moves all extremities SENSORIUM/ORIENTATION: Yes oriented to place and No oriented to time Skin: COMMON NORMALS: no rashes or lesions noted GENERAL SKIN EXAM: no rashes or lesions noted RASHES: rashes noted (Resolving erythema LLE) OTHER: Mild erythema of distal lower extremities is resolving almost entirely, some wrinkling is evident especially the distal lower extremities. Urinary Catheter Management^: Chase: Cath Placed During This Visit: yes Reason for Continuing Indwelling Catheter: Accurate Measurement of Urinary Output in Critically Ill Patients Urinary Catheter Date of Insertion: 04/07/20 Urinary Catheter Time of Insertion: 13:00 Data : 04/13/20 03:41 04/13/20 03:41 A&P Assessment and plan (1) Respiratory failure with hypoxia and hypercapnia: Overnight pulse oximetry, with O2 going down into 70-79 range. Overall clinically she is gradually improving. Her mental status is much better currently, she oriented x3, has much better insight into her condition. We discussed recurrent episodes of hypercapnia, hypoxia with her as above under subjective including concerns of YANELY and OHS. Encouraged her to adhere with CPAP therapy nightly, and may benefit from BiPAP, due to this may benefit from follow-up with pulmonology in office, as well as sleep study and PFT. Continue diuresis at this time. Continue target oxygen saturation of 88-90%. Mobilize her with PT. Replace magnesium, K. Measure NIF IS. Bowel regimen for constipation to hypoventilation prevent contribution from normal distention. Had a small BM. Will need to follow-up with PCP regarding weight loss options. Status: Acute (2) Acute encephalopathy: This is much better today. She is lucid, with good insight. Continue to monitor for mental status changes. Discussed with her for the future it would be good for her to set up for DURABLE POWER OF POWER PRESS TENDER for healthcare, as well as his advanced directives. She will be discussing this further with her family. Management of hypercapnia/CO2 narcosis as above. Repeat UA was unremarkable. Chest x-ray without suggestion of pneumonia. Status: Acute (3) Acute exacerbation of CHF (congestive heart failure): She is diuresing well. Replace electrolytes. Otherwise continue IV diuretic as currently. Would target weight of around 172 kg or so which she weighed back in November. 1200 mL fluid restriction. With congestive heart failure, new atrial fibrillation, consider stress testing prior to discharge once volume status is slightly more optimized. She reports at home has been having difficulty with dyspnea on exertion, walking to the restroom at home and back to her chair would make her exhausted and short of breath. Denies chest pain. Denies cough. Denies hemoptysis. Refused care home placement. Consider revisiting. Mobilize and get her to work with PT to regain independence. She did do well with PT, getting up with slight assistance, transfer to chair, set up in a chair for a while yesterday. Status: Acute (4) Paroxysmal A-fib: Unfortunately had mild recurrence of vaginal bleeding noted by nursing staff 04/12. Decreased aspirin dose to 162 mg. New atrial fibrillation. Discussed with her again regarding stroke risk. She is still declined anticoagulation due to concern for bleeding issues in the past with uterine bleeding which has just recently become under control. She understands the risk of stroke. She would be willing to try aspirin alone for now only. She understands this only gives partial protection against CVA. At this time continue carvedilol. TTE with grade 3 diastolic dysfunction, no significant valve abnormality. Troponin levels not suggestive of acute ischemia. TSH mildly elevated at 5.62. Recheck normal. There is mild elevation of T3. Would consider rechecking this once she is low but closer to her usual state of health. T4 is normal. Status: Acute (5) Cellulitis: Resolving. Continue doxycycline to complete course. Improving with improving lower extremity edema. Would benefit from outpatient follow-up after discharge. Status: Acute (6) Anasarca: As above. Lower extremity duplex ultrasound negative. Status: Acute (7) Pulmonary hypertension: Noted. Status: Acute (8) Iron deficiency anemia, unspecified: Status: Acute Qualifiers: Iron deficiency anemia type: unspecified iron deficiency Qualified Code(s): D50.9 - Iron deficiency anemia, unspecified (9) Essential (primary) hypertension: Status: Acute (10) Urge incontinence: Status: Acute (11) Morbid (severe) obesity due to excess calories: Follow-up with primary care provider after acute condition improves to consider weight loss options. Would benefit from sleep study if agrees. Status: Acute (12) Hypothyroidism: Repeat thyroid function studies. Status: Acute (13) Acute respiratory acidosis: As above. Status: Acute (14) Sleep apnea: Continue to encourage compliance with CPAP/BiPAP. Status: Acute (15) Diastolic heart failure: Status: Acute (16) B12 deficiency: B12 supplementation Status: Acute (17) Vaginal bleeding: Small amount of vaginal bleeding noted by nursing staff 04/12. Decreased aspirin dose to 162. Decreased heparin prophylaxis frequency to every 12 hours. Monitor for any additional recurrence of bleeding. Will need gynecology follow-up for additional assessment of postmenopausal vaginal bleeding she has been aware of the bleeding episodes recently and has been setting up the follow-up. Status: Acute Additional A&P Information Hypothyroidism: Continue home dose of levothyroxine, would follow-up thyroid studies again in a while. T4 is normal, although there is mild elevation of TSH, T3. Constipation: Start bowel regimen. Microcytic anemia: Chronic blood loss anemia. Continue iron and B12 supplementation. Attestations Medical Necessity Statement*: Continue admission for assessment and management of acute respiratory failure with hypoxia and hypercapnia, CHF exacerbation, disposition planning. Coding Level of Care Code Acute Certified Vehicle Fire Investigator for [facility] Fwd Diagnoses Respiratory failure with hypoxia and hypercapnia J96.91; J96.92 Acute encephalopathy G93.40 Acute exacerbation of CHF (congestive heart failure) I50.9 Paroxysmal A-fib I48.0 Cellulitis L03.90 Anasarca R60.1 Pulmonary hypertension I27.20 Iron deficiency anemia, unspecified D50.9 Iron deficiency anemia type: unspecified iron deficiency Essential (primary) hypertension I10 Urge incontinence N39.41 Morbid (severe) obesity due to excess calories E66.01 Hypothyroidism E03.9 Acute respiratory acidosis E87.2 Sleep apnea G47.30 Diastolic heart failure I50.30 B12 deficiency E53.8 Vaginal bleeding N93.9
[2020-04-13] MEDS: levothyroxine 100 mcg Tablet 200 MCG PO (09:23)
[2020-04-13] MEDS: doxycycline 100 mg Tablet PO ×2 (09:23→17:20)
[2020-04-13] MEDS: carvedilol 3.125 mg Tablet PO ×2 (09:23→17:20)
[2020-04-13] MEDS: aspirin 81 mg EC Tablet 162 MG PO (09:23)
[2020-04-13] MEDS: iron complex forte Capsule 1 EACH PO (09:23)
[2020-04-13] MEDS: potassium chloride ER 10 mEq Tablet 20 MEQ PO (11:51)
--- NOTE | 2020-04-13 11:54 | PC.PT ---
PT arrived in ICU at 10:10am. Patient had just transferred back to bed after sitting on bedside commode. Patient was fatigued per nurse, requested to come back later. Will attempt later in afternoon, if possible.
--- NOTE | 2020-04-13 12:52 | PC.NURSE ---
had assisted up to bsc with 2 person assist no issue passing flatus only small bm noted and when attempting to get to stand and back to bed unable to stand weight with assist of . stated that her feet had gone to sleep and unable to feel them . rubbed feet attempt repeat still very unsteady not bearing much weight on feet stating im just too weak for this
--- NOTE | 2020-04-13 23:40 | PC.NURSE ---
Skin Abdominal pannus folds and leg folds cleansed with soap and water. Patted dry. Applied prescribed nystatin cream to areas and cloth to folds for moisture management. Catheter care given. Oral care given.
--- NOTE | 2020-04-13 23:43 | PC.NURSE ---
Nose bleed Minor nose bleed after patient reports picking booger . Pressure held for about 5 minutes. Applied humidity to oxygen.
[2020-04-14] VITALS (25 sets, daily range): BP systolic 101–128; BP diastolic 46–74; PULSE 68–87; RESP 16–33; TEMP 36.4–36.9; O2SAT 87–96
[2020-04-14 04:29] LABS: Blood Gas Operator Identificat JB; Blood Gas Sample Type Venous
[2020-04-14 04:35] LABS: Basophils % 0.5 %; Eosinophils # 0.2 10^3/uL (0.0-0.8); Eosinophils % 2.3 %; Hemoglobin 9.5 g/dL (11.5-15.3); Lymphocytes # 1.3 10^3/uL (0.8-4.8); Lymphocytes % 19.4 %; Mean Corpuscular HGB Conc 25.7 g/dL (30.0-36.0); Mean Corpuscular Hemoglobin 20.8 pg (28.0-34.0); Mean Platelet Volume 9.9 fL (7.4-10.4); Monocytes # 0.5 10^3/uL (0.2-0.9); Monocytes % 8.2 %; Neutrophils # 4.58 10^3/uL (1.8-7.7); Neutrophils % 69.1 %; Nucleated Red Blood Cells % 0 %; Platelet Count 198 10^3/cmm (130-400); Red Blood Count 4.57 10^6/uL (4.1-5.3); Red Cell Distribution Width 20.5 % (12.1-15.1); White Blood Count 6.6 10^3/uL (4.0-10.0)
[2020-04-14 05:01] LABS: Alanine Aminotransferase < 5 U/L (0-33); Albumin Level 2.9 g/dL (3.5-5.2); Alkaline Phosphatase 70 IU/L (35-105); Anion Gap 9.4 (5-19); Aspartate Amino Transferase 9 U/L (0-32); Blood Urea Nitrogen 19 mg/dL (8-23); Chloride 92 mmol/L (98-107); Globulin 4.1 g/dL (1.3-4.6); Glomerular Filtration Rate 83.2 mL/min (90-130); Glucose 118 mg/dL (65-115); Osmolality Calculated 300 mOsm/kg (285-295); Potassium 3.4 mmol/L (3.5-5.1); Sodium 146 mmol/L (136-145)
[2020-04-14 05:02] LABS: Magnesium 1.8 mg/dL (1.7-2.3)
[2020-04-14 05:20] LABS: Carbon Dioxide 48 mmol/L (22-29)
[2020-04-14 05:28] LABS: Base Excess VBG 24.2 mmol/L (-3.0-3.0); HCO3 VBG 51.2 mmol/L (24-28); PCO2 VBG 68.4 mmHg (41-51); PO2 VBG 39.5 mmHg (25-40); pH VBG 7.48 (7.32-7.42)
[2020-04-14 05:34] LABS: Blood Gas Sample Site Not specified
[2020-04-14 05:35] LABS: Venous Blood Gas Hematocrit 31.5 % (37-47)
[2020-04-14] MEDS: heparin 5,000 unit/mL INJ 1 mL 5000 UNIT SUBCUT ×2 (05:57→17:21)
--- NOTE | 2020-04-14 07:54 | P.PN_ITS ---
Subjective Subjective: Interval history: Assuming care of this patient today, thoroughly reviewed previous progress notes, diuresed 1350 mL overnight for total negative fluid balance of 18.3 L. One bowel movement earlier today. Hemodynamically stable, on 1 L nasal cannula. Stable hemoglobin at 9.5, stable renal function, improving hypokalemia. Patient known to me from previous admission, sitting up at the edge of the bed with PT at bedside, seems to be in good spirits, states that she is doing much better compared to on admission. States that her legs are almost back to baseline though she still has some abdominal fullness. Medications: Reviewed: Yes Medication Review Details: Active Medications Generic Name Dose Route Start Last Admin Trade Name Freq PRN Reason Stop Dose Admin Albuterol/Ipratrop ium 3 ml 04/06/20 23:53 Duoneb INHALATION Q4H.RESPIRATORY P RN SHORTNESS OF ALFRED TH Aspirin 162 mg 04/12/20 09:00 04/13/20 09:23 Aspirin Ec PO 162 mg DAILY KRYSTINA Administration Bisacodyl 10 mg 04/12/20 08:51 Bisac-Evac AL DAILY PRN CONSTIPATION Bumetanide 2 mg 04/09/20 21:00 04/13/20 21:42 Bumex IV 2 mg Q12H KRYSTINA Administration Carvedilol 3.125 mg 04/07/20 09:00 04/13/20 17:20 Coreg PO 3.125 mg BID KRYSTINA Administration Doxycycline Monohy drate 100 mg 04/07/20 09:00 04/13/20 17:20 Vibramycin PO 100 mg BID KRYSTINA Administration Protocol Folic Acid/Iron/Vi tamin B12 1 each 04/13/20 10:00 04/13/20 09:23 Ferrex 150 Forte PO 1 each Q48H KRYSTINA Administration Heparin Sodium (Be ef Lung) 5,000 unit 04/12/20 18:00 04/14/20 05:57 Heparin SUBCUT 5,000 unit Q12H KRYSTINA Administration Levothyroxine Sodi um 200 mcg 04/07/20 09:00 04/13/20 09:23 Synthroid PO 200 mcg DAILY KRYSTINA Administration Non-Formulary Medi cation 2 tab 04/07/20 09:00 04/13/20 09:40 Vitamin E78-Bkwg c Acid PO Not Given DAILY KRYSTINA Nystatin 1 applic 04/14/20 09:00 Nystatin Cream TOPICAL BID KRYSTINA Polyethylene Glyco l 17 gm 04/10/20 18:00 04/13/20 21:42 Miralax PO Not Given BID [facility] Polyethylene Glyco l 17 gm 04/12/20 09:00 04/13/20 17:18 Miralax PO Not Given BID [facility] cortisone Allergy (Unknown, Verified 09/26/19 09:37) Unknown egg Allergy (Unknown, Verified 09/26/19 09:37) Unknown Sulfa (Sulfonamide Antibiotics) Allergy (Unknown, Verified 09/26/19 09:37) Unknown lisinopril Adverse Reaction (Mild, Verified 11/15/19 14:02) cough Vitals/I&O/Wt Last Vital Signs Temp 98.0 F 04/13/20 23:00 Pulse 87 04/14/20 07:45 Resp 18 04/14/20 07:45 BP 101/52 04/14/20 06:00 Pulse Ox 92 04/14/20 07:45 04/13/20 04/14/20 04/14/20 22:59 06:59 14:59 Intake Total 150 / 700 120 / 820 Output Total 1900 / 1900 1350 / 3250 Balance -1750 / -1200 -1230 / -2430 Weight last 48 hrs Weight 181.528 kg Weight 182.389 kg Physical Exam Const: COMMON NORMALS: no acute distress, patient oriented x3 and alert GENERAL APPEARANCE: cooperative and comfortable NUTRITIONAL APPEARANCE: obese morbidly obese ORIENTATION/CONSCIOUSNESS: Yes awake HENMT: COMMON NORMALS: normocephalic, atraumatic, hearing grossly normal bilaterally and moist oral mucous membranes HEAD & SCALP: normocephalic and atraumatic Eye: COMMON NORMALS: Equal, round and reactive pupils present, EOMs intact bilaterally and conjunctivae normal CONJUNCTIVA: Yes conjunctivae normal PUPIL: Yes Equal, round and reactive pupils present Neck/C-Spine: COMMON NORMALS: full ROM GENERAL: Yes normal visual inspection and Yes trachea midline OTHER: -short, thick neck Resp: COMMON NORMALS: normal respiratory effort, No retractions and No use of accessory muscles EFFORT & INSPECTION: Yes able to speak in complete sentences and Yes symmetric chest movement OTHER: -Auscultation limited by body habitus; air entry symmetrical bilaterally, currently on room air Cardio: COMMON NORMALS: regular rate, regular rhythm, S1 normal heart sound present, S2 normal heart sound present and No murmurs present (Cardio) RATE: regular rate RHYTHM: regular rhythm HEART SOUNDS: S1 normal heart sound present and S2 normal heart sound present GI: COMMON NORMALS: Normal to inspection, nondistended, normoactive bowel sounds present, Soft to palpation and non-tender INSPECTION: Yes central obesity PALPATION: Yes Soft to palpation Extremity: COMMON NORMALS: normal to inspection, full ROM and no clubbing, cyanosis or edema; negative for no pedal edema Neuro: COMMON NORMALS: patient oriented x3, moves all extremities, no focal motor deficits, no sensory deficits noted and gait normal SENSORIUM/ORIENTATION: Yes alert Psych: COMMON NORMALS: mental status grossly normal, Normal thought process present, cooperative, normal affect and speech normal SPEECH: Yes normal speech THOUGHT PROCESS: Normal thought process present Skin: COMMON NORMALS: no rashes or lesions noted, no jaundice, no petechiae and no mottling GENERAL SKIN EXAM: no rashes or lesions noted and dry skin Urinary Catheter Management^: Chase: Cath Placed During This Visit: yes Reason for Continuing Indwelling Catheter: Accurate Measurement of Urinary Output in Critically Ill Patients Urinary Catheter Date of Insertion: 04/07/20 Urinary Catheter Time of Insertion: 13:00 Data : 04/14/20 04:22 04/14/20 04:22 A&P Assessment and plan (1) Anasarca: -Secondary to acute diastolic CHF exacerbation with noted SOB, overall edema, BNP elevation (2992), noted pulmonary vascular congestion -Continues to require aggressive diuresis but overall is responding well -On IV Bumex -Continue to monitor Is & Os, daily weights -on 1.2 L/day fluid restriction -Echo: EF=60%, G3DD -continue to monitor renal function, electrolytes with diuresis -supplemental oxygen as needed; has intermittently required BiPAP -continue to monitor vital signs; stable currently -venous duplex negative for DVT bilaterally -unable to do V/Q scan due to body habitus Status: Acute (2) Acute encephalopathy: -mental status is improving -re-orient as needed -likely multifactorial given CO2 narcosis, hypoxia which is improving -UA negative, CXR with no indication of infection -on doxycycline due to bilateral LE cellulitis which is improving Status: Acute (3) Respiratory failure with hypoxia and hypercapnia: -improving -ABG noted -noted to have nocturnal hypoxemia (70-79 range) on overnight pulse oximetry; will need BiPAP -CPAP qhs, continue to encourage consistent use -will refer to pulmonology outpatient as well as request sleep study and PFTs -incentive spirometry, pulmonary toilet, Neb treatments as needed Status: Acute Qualifiers: Chronicity: acute on chronic Qualified Code(s): J96.21 - Acute and chronic respiratory failure with hypoxia; J96.22 - Acute and chronic respiratory failure with hypercapnia (4) Paroxysmal A-fib: -new onset -on Coreg -Echo as noted above -VSS; continue to monitor -declined AC due to noted vaginal bleeding, agreed to ASA -TSH wnl, low free T3 Status: Acute (5) Cellulitis: -bilateral LE cellulitis, improving -on doxycycline (day 7) Status: Acute Qualifiers: Laterality: unspecified laterality Site of cellulitis: extremity Site of cellulitis of extremity: lower extremity Qualified Code(s): L03.119 - Cellulitis of unspecified part of limb (6) Hypothyroidism: -TSH wnl, low free T3 -on levothyroxine Status: Chronic Qualifiers: Hypothyroidism type: acquired Qualified Code(s): E03.9 - Hypothyroidism, unspecified (7) Iron deficiency anemia, unspecified: -stable H/H; continue to monitor -on folic acid/MVI/iron replacement Status: Chronic Qualifiers: Iron deficiency anemia type: unspecified iron deficiency Qualified Code(s): D50.9 - Iron deficiency anemia, unspecified (8) Vaginal bleeding: -noted while here -stable Hg as noted above Status: Acute (9) Essential (primary) hypertension: -VSS; continue to monitor -continue Coreg Status: Chronic (10) Urge incontinence: Status: Chronic (11) Back pain of lumbosacral region with sciatica: -pain control as needed Status: Chronic (12) Morbid (severe) obesity due to excess calories: -BMI-70 kg/m2 Status: Chronic Additional A&P Information -Constipation: on bowel regimen, BM earlier today -on GI soft diet -DVT ppx with heparin -Dispo: declined SNF, granddaughter willing to check on her frequently when she returns home -Code status: ok with intubation if needed, no to CPR -working on completion of DPOA paperwork -ICU care due to need for continued close monitoring, low threshold for decompensation Attestations Medical Necessity Statement*: Patient requires hospitalization for continued IV diuresis secondary to acute diastolic CHF exacerbation, continued monitoring of respiratory and hemodynamic status. Time Spent in Patient Care: Greater than 35 minutes (>than 50% of time spent in counselling and/or direct pt care on unit) . Coding Level of Care Code Acute Plate Drying Machine Tender for [facility] Fwd Exam Comprehensive Diagnoses Anasarca R60.1 Acute encephalopathy G93.40 Respiratory failure with hypoxia and hypercapnia J96.21; J96.22 Chronicity: acute on chronic Paroxysmal A-fib I48.0 Cellulitis L03.119 Laterality: unspecified laterality Site of cellulitis: extremity Site of cellulitis of extremity: lower extremity Hypothyroidism E03.9 Hypothyroidism type: acquired Iron deficiency anemia, unspecified D50.9 Iron deficiency anemia type: unspecified iron deficiency Vaginal bleeding N93.9 Essential (primary) hypertension I10 Urge incontinence N39.41 Back pain of lumbosacral region with sciatica M54.40 Morbid (severe) obesity due to excess calories E66.01
--- NOTE | 2020-04-14 09:15 | PC.SOCIAL ---
IMM Updated Page 2 of IMM updated and given to patient. Initialed, dated, and timed and placed back in chart.
[2020-04-14] MEDS: bumetanide 0.25 mg/mL SDV 10 mL 2 MG IV ×2 (09:36→20:42)
[2020-04-14] MEDS: doxycycline 100 mg Tablet PO ×2 (09:36→17:21)
[2020-04-14] MEDS: potassium chloride ER 10 mEq Tablet 40 MEQ PO (09:37)
[2020-04-14] MEDS: levothyroxine 100 mcg Tablet 200 MCG PO (09:37)
[2020-04-14] MEDS: aspirin 81 mg EC Tablet 162 MG PO (09:37)
[2020-04-14] MEDS: carvedilol 3.125 mg Tablet PO ×2 (09:37→17:21)
[2020-04-14] MEDS: nystatin cream 30 gm 1 APPLIC TOPICAL ×2 (09:44→17:30)
--- NOTE | 2020-04-14 10:07 | PC.CHAP ---
Pastoral Care Encounter/Spiritual Assessment Type of Contact [] Declined client consultant visit [] Patient/Family/Request visit [] Outpatient visit [] Follow-up visit [] Physician referral [] Code/Alert [x] Routine visit [] Staff referral [] Actively dying [] Patient sleeping [] Family support [] [] Out of room [] Palliative care [] [] Receiving care in room [] Pre-surgical visit [] Trauma [] Long length of stay [] ICU visit [] Other: Relational/Emotional Strength [] Patient feels connected with others/family/visitors/staff [] Distress [] Loneliness/isolation [] Abandonment Spirituality of Patient [] Person of Naomi [] Attends Rastafari of their Naomi [] Believes in Prayer [] Reads Bible or Jain materials [] There are Spiritual issues to be addressed Apprentice Plant Attendant Interventions [x] Prayer [x] Active listening [x] Non-anxious presence [x] Spiritual/emotional support [] Crisis/trauma care [] Spiritual counseling [] Bereavement support [] Provided bereavement packet [] Provided Bible/devotional materials [] Provided toy/stuffed animal, coloring book to patient or family member [] Provided Communion [] Anointing/[place] [] Salvation [x] Completed spiritual assessment [] Other: Impact on Illness or Injury [] Angry [] Fearful [] Anxious [] Often cries [] Exhaustion [] Unable to work [] Unable to attend yarsani [] Unable to walk/stand [] Unable to read [] Unable to drive [] Unable to eat/drink [] Unable to sleep [] Unable to be with family [] Patient intubated [] Other: Summary Patient feeling stronger today.breathing has improved. Time spent with patient 15 min
--- NOTE | 2020-04-14 10:09 | PC.CHAP ---
Pastoral Care Encounter/Spiritual Assessment Type of Contact [] Declined business education teacher visit [] Patient/Family/Request visit [] Outpatient visit [] Follow-up visit [] Physician referral [] Code/Alert [x] Routine visit [] Staff referral [] Actively dying [x] Patient sleeping [] Family support [] [] Out of room [] Palliative care [] [] Receiving care in room [] Pre-surgical visit [] Trauma [] Long length of stay [] ICU visit [] Other: Relational/Emotional Strength [] Patient feels connected with others/family/visitors/staff [] Distress [] Loneliness/isolation [] Abandonment Spirituality of Patient [] Person of Naomi [] Attends Judaism of their Naomi [] Believes in Prayer [] Reads Bible or Yazdanism materials [] There are Spiritual issues to be addressed Wood Heel Fitter Machine Interventions [x] Prayer [] Active listening [] Non-anxious presence [] Spiritual/emotional support [] Crisis/trauma care [] Spiritual counseling [] Bereavement support [] Provided bereavement packet [] Provided Bible/devotional materials [] Provided toy/stuffed animal, coloring book to patient or family member [] Provided Communion [] Anointing/[place] [] Salvation [x] Completed spiritual assessment [] Other: Impact on Illness or Injury [] Angry [] Fearful [] Anxious [] Often cries [] Exhaustion [] Unable to work [] Unable to attend evangelical [] Unable to walk/stand [] Unable to read [] Unable to drive [] Unable to eat/drink [] Unable to sleep [] Unable to be with family [] Patient intubated [] Other: Summary Patient resting.. Setter present Time spent with patient 5 min
[2020-04-14] MEDS: cyanocobalamin 1,000 mcg Tablet 500 MCG PO (10:29)
--- NOTE | 2020-04-14 10:47 | PC.NURSE ---
PHYSICIAN ROUNDING Dr. Haile came by to see patient this AM. Patient has been up with therapy this AM to [facility], sitting on side of bed and doing exercises. Plan for patient is to continue diuresing and helping patient become more independent to go home. Patient will tentatively be transferred to [facility] within the next couple days if patient continues improving. Patient still on 1L NC, does appear to have some shortness of breath with exertion, but denied shortness of breath while sitting on side of bed to physician. Patient's daughter, Gracy, called. Patient gave permission for Gracy to be updated on her condition and Gracy is also included on the patient's face sheet.
--- NOTE | 2020-04-14 13:53 | PC.NURSE ---
IV INSERTION Patient's IV site from left upper arm was reddened and tender along cannula path. Patient complained of pain with saline flush. 20 guage IV was started via ultrasound in patients right antecubital by CHUY Ding. After additional IV access established, site on left arm was removed. Will continue to monitor site for increasing redness or irritation.
--- NOTE | 2020-04-14 17:45 | PC.NURSE ---
Addendum entered by Maritza Enriquez RN 04/14/20 18:27: Fluid Restriction Patient has consumed 925 mL since 0700 this AM. Patient has 275 mL remaining until 0700 on 04/15. Patient has 275 mL in water bottle at bedside and has been told that is all remaining until 0700. Original Note: SHIFT SUMMARY Patient was complaining of stomach pain this AM and had 2 small bowel movements this AM. This afternoon patient had large BM and has denied stomach discomfort since then. Patient refused miralax doses today. Patient has had 1625 mL of urine out this shift. Patient on 1,200 mL fluid restriction that started at 0700 this AM and has consumed [address] Haile stated that plan was to continue diuresing patient and getting her stronger. Potentially transfer to [facility] and discharge within the next couple days if all goes as planned. Patient continues to remain on 1L NC (baseline). Patient appears short of breath upon exertion/transfer to [facility], but does not while sitting on the bed. Patient O2 saturation has remained in the mid 90s today with drop into low 80s upon transfer to [facility]. Patient denies any pain or discomfort at this time. Daughter in room visiting and patient call light in reach.
--- NOTE | 2020-04-14 17:56 | PC.NURSE ---
CPAP/BIPAP EDU Patient's granddaughter asked about BIPAP and stated that full face mask that is currently on BIPAP is uncomfortable for patient and hurts her eyes. Patient stated that it was uncomfortable. Patient was informed that there was a different face mask available that would not cover her eyes and patient stated that she probably wouldn't wear it even if the mask was changed. Patient was asked if she wore her CPAP at home and patient denied wearing one or ever having one. Patient and granddaughter were educated on BIPAP/CPAP and what the purpose is. Patient was asked if she would at least make a deal with nurse to attempt BIPAP for at least 2 hours tonight if mask was changed by RT, and patient stated, No, honestly I probably wouldn't, but I will think about it for a while and let you know. Patient was kindly told that was her choice and that she could think about it for a while. If patient agrees to wear BIPAP for portion of night, respiratory will be notified to change face mask. Will ensure this is included in change of shift report.
[2020-04-15] VITALS (18 sets, daily range): BP systolic 89–131; BP diastolic 46–84; PULSE 68–82; RESP 16–42; TEMP 36.4–37.1; O2SAT 82–97; BMI 69.5
[2020-04-15 04:09] LABS: Basophils % 0.4 %; Eosinophils # 0.2 10^3/uL (0.0-0.8); Eosinophils % 2.3 %; Hematocrit 37.2 % (37.0-47.0); Hemoglobin 9.4 g/dL (11.5-15.3); Lymphocytes # 1.4 10^3/uL (0.8-4.8); Lymphocytes % 18.1 %; Mean Corpuscular HGB Conc 25.3 g/dL (30.0-36.0); Mean Platelet Volume 10.7 fL (7.4-10.4); Monocytes # 0.6 10^3/uL (0.2-0.9); Monocytes % 7.3 %; Neutrophils # 5.62 10^3/uL (1.8-7.7); Neutrophils % 71.6 %; Nucleated Red Blood Cells % 0 %; Platelet Count 216 10^3/cmm (130-400); Red Blood Count 4.48 10^6/uL (4.1-5.3); Red Cell Distribution Width 20.8 % (12.1-15.1); White Blood Count 7.8 10^3/uL (4.0-10.0)
[2020-04-15 04:36] LABS: Blood Urea Nitrogen 18 mg/dL (8-23); Calcium 8.1 mg/dL (8.5-10.5); Chloride 88 mmol/L (98-107); Glomerular Filtration Rate 71.3 mL/min (90-130); Glucose 100 mg/dL (65-115); Osmolality Calculated 295 mOsm/kg (285-295); Potassium 3.4 mmol/L (3.5-5.1); Sodium 144 mmol/L (136-145)
[2020-04-15 04:43] LABS: Anion Gap 11.4 (5-19)
[2020-04-15 04:46] LABS: Carbon Dioxide 48 mmol/L (22-29)
[2020-04-15] MEDS: heparin 5,000 unit/mL INJ 1 mL 5000 UNIT SUBCUT ×2 (05:46→17:00)
[2020-04-15] MEDS: bumetanide 0.25 mg/mL SDV 10 mL 2 MG IV (08:45)
[2020-04-15] MEDS: potassium chloride ER 10 mEq Tablet 40 MEQ PO (08:45)
[2020-04-15] MEDS: cyanocobalamin 1,000 mcg Tablet 500 MCG PO (08:45)
[2020-04-15] MEDS: carvedilol 3.125 mg Tablet PO ×2 (08:45→17:00)
[2020-04-15] MEDS: levothyroxine 100 mcg Tablet 200 MCG PO (08:45)
[2020-04-15] MEDS: aspirin 81 mg EC Tablet 162 MG PO (08:46)
[2020-04-15] MEDS: doxycycline 100 mg Tablet PO (08:46)
[2020-04-15] MEDS: nystatin cream 30 gm 1 APPLIC TOPICAL (08:48)
--- NOTE | 2020-04-15 08:56 | PM.PN ---
Subjective Subjective: Interval history: Had 1050 mL urine output overnight for total negative fluid balance of 20 L, hemodynamically stable, on 3 L nasal cannula. Stable hemoglobin and renal function, mild hypokalemia, on potassium supplementation. Had 4 bowel movements yesterday. Weight down to 181 kg. Resting quietly in bed, continues to decline use of BiPAP. Will transfer to floor for continued care. Seems to be quite motivated in terms of out of bed activity. Will request Chase catheter removal. Medications: Reviewed: Yes Medication Review Details: Active Medications Generic Name Dose Route Start Last Admin Trade Name Freq PRN Reason Stop Dose Admin Albuterol/Ipratrop ium 3 ml 04/06/20 23:53 Duoneb INHALATION Q4H.RESPIRATORY P RN SHORTNESS OF ALFRED TH Aspirin 162 mg 04/12/20 09:00 04/15/20 08:46 Aspirin Ec PO 162 mg DAILY KRYSTINA Administration Bisacodyl 10 mg 04/12/20 08:51 Bisac-Evac IN DAILY PRN CONSTIPATION Carvedilol 3.125 mg 04/07/20 09:00 04/15/20 08:45 Coreg PO 3.125 mg BID KRYSTINA Administration Cyanocobalamin 500 mcg 04/14/20 09:00 04/15/20 08:45 Vitamin B-12 PO 500 mcg DAILY KRYSTINA Administration Doxycycline Monohy drate 100 mg 04/07/20 09:00 04/15/20 08:46 Vibramycin PO 100 mg BID KRYSTINA Administration Protocol Folic Acid/Iron/Vi tamin B12 1 each 04/13/20 10:00 04/13/20 09:23 Ferrex 150 Forte PO 1 each Q48H KRYSTINA Administration Furosemide 40 mg 04/15/20 16:00 Lasix PO BID@08,16 KRYSTINA Heparin Sodium (Be ef Lung) 5,000 unit 04/12/20 18:00 04/15/20 05:46 Heparin SUBCUT 5,000 unit Q12H KRYSTINA Administration Levothyroxine Sodi um 200 mcg 04/07/20 09:00 04/15/20 08:45 Synthroid PO 200 mcg DAILY KRYSTINA Administration Nystatin 1 applic 04/14/20 09:00 04/15/20 08:48 Nystatin Cream TOPICAL 1 applic BID KRYSTINA Administration Polyethylene Glyco l 17 gm 04/10/20 18:00 04/15/20 08:52 Miralax PO Not Given BID KRYSTINA Polyethylene Glyco l 17 gm 04/12/20 09:00 04/15/20 08:52 Miralax PO Not Given BID [facility] Potassium Chloride 40 meq 04/14/20 09:00 04/15/20 08:45 Klor-Con 10 PO 40 meq DAILY KRYSTINA Administration Spironolactone 12.5 mg 04/15/20 09:00 Aldactone PO DAILY KRYSTINA cortisone Allergy (Unknown, Verified 09/26/19 09:37) Unknown egg Allergy (Unknown, Verified 09/26/19 09:37) Unknown Sulfa (Sulfonamide Antibiotics) Allergy (Unknown, Verified 09/26/19 09:37) Unknown lisinopril Adverse Reaction (Mild, Verified 11/15/19 14:02) cough Vitals/I&O/Wt Last Vital Signs Temp 98.3 F 04/15/20 04:00 Pulse 74 04/15/20 07:43 Resp 18 04/15/20 07:43 BP 93/50 04/15/20 06:00 Pulse Ox 94 04/15/20 07:43 04/14/20 04/15/20 04/15/20 22:59 06:59 14:59 Intake Total 200 / 560 Output Total 450 / 1625 1050 / 2675 Balance -450 / -1265 -850 / -2115 Weight last 48 hrs Weight 181.04 kg Weight 181.528 kg Physical Exam Const: COMMON NORMALS: no acute distress, patient oriented x3 and alert GENERAL APPEARANCE: cooperative and comfortable NUTRITIONAL APPEARANCE: obese morbidly obese ORIENTATION/CONSCIOUSNESS: Yes awake HENMT: COMMON NORMALS: normocephalic, atraumatic, hearing grossly normal bilaterally and moist oral mucous membranes HEAD & SCALP: normocephalic and atraumatic Eye: COMMON NORMALS: Equal, round and reactive pupils present, EOMs intact bilaterally and conjunctivae normal CONJUNCTIVA: Yes conjunctivae normal PUPIL: Yes Equal, round and reactive pupils present Neck/C-Spine: COMMON NORMALS: full ROM GENERAL: Yes normal visual inspection and Yes trachea midline OTHER: -short, thick neck Resp: COMMON NORMALS: normal respiratory effort, No retractions and No use of accessory muscles EFFORT & INSPECTION: Yes able to speak in complete sentences and Yes symmetric chest movement OTHER: -Auscultation limited by body habitus; air entry symmetrical bilaterally, currently on room air Cardio: COMMON NORMALS: regular rate, regular rhythm, S1 normal heart sound present, S2 normal heart sound present and No murmurs present (Cardio) RATE: regular rate RHYTHM: regular rhythm HEART SOUNDS: S1 normal heart sound present and S2 normal heart sound present GI: COMMON NORMALS: Normal to inspection, nondistended, normoactive bowel sounds present, Soft to palpation and non-tender INSPECTION: Yes central obesity PALPATION: Yes Soft to palpation Extremity: COMMON NORMALS: normal to inspection and full ROM NARRATIVE EXTREMITY EXAM: -brawny edema in bilateral LE Neuro: COMMON NORMALS: patient oriented x3, moves all extremities, no focal motor deficits and no sensory deficits noted SENSORIUM/ORIENTATION: Yes alert Psych: COMMON NORMALS: mental status grossly normal, Normal thought process present, cooperative, normal affect and speech normal SPEECH: Yes normal speech THOUGHT PROCESS: Normal thought process present Skin: COMMON NORMALS: no rashes or lesions noted, no jaundice, no petechiae and no mottling GENERAL SKIN EXAM: no rashes or lesions noted and dry skin Urinary Catheter Management^: Chase: Cath Placed During This Visit: yes Reason for Continuing Indwelling Catheter: Accurate Measurement of Urinary Output in Critically Ill Patients Urinary Catheter Date of Insertion: 04/07/20 Urinary Catheter Time of Insertion: 13:00 Data : 04/15/20 03:20 04/15/20 03:20 A&P Assessment and plan (1) Anasarca: -Secondary to acute diastolic CHF exacerbation with noted SOB, overall edema, BNP elevation (2992), noted pulmonary vascular congestion -Continues to require aggressive diuresis but overall is responding well -On IV Bumex; much better clinically compensated so will switch to oral diuretics -Continue to monitor Is & Os, daily weights -on 1.2 L/day fluid restriction -Echo: EF=60%, G3DD -continue to monitor renal function, electrolytes with diuresis; noted contraction alkalosis likely due to overdiuresis -supplemental oxygen as needed; has intermittently required BiPAP -continue to monitor vital signs; stable currently -venous duplex negative for DVT bilaterally -unable to do V/Q scan due to body habitus Status: Acute (2) Acute encephalopathy: -mental status is improving -re-orient as needed -likely multifactorial given CO2 narcosis, hypoxia which is improving -UA negative, CXR with no indication of infection -treated with 7-day course of doxycycline due to bilateral LE cellulitis which is improving Status: Acute (3) Respiratory failure with hypoxia and hypercapnia: -improving -ABG noted -noted to have nocturnal hypoxemia (70-79 range) on overnight pulse oximetry; will need BiPAP but compliance is currently quite questionable given her continued reluctance to use it while in the hospital -CPAP qhs, continue to encourage consistent use -will refer to pulmonology outpatient as well as request sleep study and PFTs -incentive spirometry, pulmonary toilet, Neb treatments as needed -not oxygen dependent at baseline, will likely need home oxygen evaluation prior to d/c Status: Acute Qualifiers: Chronicity: acute on chronic Qualified Code(s): J96.21 - Acute and chronic respiratory failure with hypoxia; J96.22 - Acute and chronic respiratory failure with hypercapnia (4) Paroxysmal A-fib: -new onset -on Coreg -Echo as noted above -VSS; continue to monitor -declined AC due to noted vaginal bleeding, agreed to ASA -TSH wnl, low free T3 Status: Acute (5) Cellulitis: -bilateral LE cellulitis, improving -completed course of doxycycline (x 7 days) Status: Acute Qualifiers: Laterality: unspecified laterality Site of cellulitis: extremity Site of cellulitis of extremity: lower extremity Qualified Code(s): L03.119 - Cellulitis of unspecified part of limb (6) Hypothyroidism: -TSH wnl, low free T3 -on levothyroxine Status: Chronic Qualifiers: Hypothyroidism type: acquired Qualified Code(s): E03.9 - Hypothyroidism, unspecified (7) Iron deficiency anemia, unspecified: -stable H/H; continue to monitor -on folic acid/MVI/iron replacement Status: Chronic Qualifiers: Iron deficiency anemia type: unspecified iron deficiency Qualified Code(s): D50.9 - Iron deficiency anemia, unspecified (8) Vaginal bleeding: -noted while here -stable Hg as noted above Status: Acute (9) Essential (primary) hypertension: -VSS; continue to monitor -continue Coreg Status: Chronic (10) Urge incontinence: Status: Chronic (11) Back pain of lumbosacral region with sciatica: -pain control as needed Status: Chronic (12) Morbid (severe) obesity due to excess calories: -BMI-70 kg/m2 Status: Chronic Additional A&P Information -Constipation: on bowel regimen, BM earlier today -on GI soft diet -DVT ppx with heparin -Dispo: declined SNF, granddaughter willing to check on her frequently when she returns home -Code status: ok with intubation if needed, no to CPR -DPOA paperwork completed; copy in chart -transfer to floor for continued caree Attestations Medical Necessity Statement*: Patient requires hospitalization for continued diuresis, switch to oral diuretics today. Time Spent in Patient Care: 16 - 35 minutes (>than 50% of time spent in counselling and/or direct pt care on unit). Coding Level of Care Code Acute Special Order Jeweler for Chg Fwd Exam Comprehensive Diagnoses Anasarca R60.1 Acute encephalopathy G93.40 Respiratory failure with hypoxia and hypercapnia J96.21; J96.22 Chronicity: acute on chronic Paroxysmal A-fib I48.0 Cellulitis L03.119 Laterality: unspecified laterality Site of cellulitis: extremity Site of cellulitis of extremity: lower extremity Hypothyroidism E03.9 Hypothyroidism type: acquired Iron deficiency anemia, unspecified D50.9 Iron deficiency anemia type: unspecified iron deficiency Vaginal bleeding N93.9 Essential (primary) hypertension I10 Urge incontinence N39.41 Back pain of lumbosacral region with sciatica M54.40 Morbid (severe) obesity due to excess calories E66.01
[2020-04-15] MEDS: gabapentin 100 mg Capsule PO ×3 (09:43→20:41)
[2020-04-15] MEDS: spironolactone 25 mg Tablet 12.5 MG PO (09:43)
[2020-04-15] MEDS: iron complex forte Capsule 1 EACH PO (09:45)
--- NOTE | 2020-04-15 10:34 | PC.NURSE ---
DIURETIC CLARIFICATION Morning dose of bumetanide and doxycycline had been given prior to physician discontinuing the medication. Dr. Haile called to inform of administration and to clarify new orders. Dr. Lazara wood'd morning dose of spironolactone and 1600 lasix administration. Wanted to clarify since bumetanide had already been given this AM.
--- NOTE | 2020-04-15 12:26 | ECG_ITS ---
[facility] Test Date: 2020-04-15 Pat Name: Coral Small Department: Room: ICU04 Gender: Female Academic Administrator: : [id number] Requested By: Lazara Poe Order Number: [id number] Flory MD: Kathryn Khalil M.D. Measurements Intervals [place] Rate: 79 P: [place]: -1 QRS: 17 QRSD: 94 T: 125 QT: 385 QTc: 442 Interpretive Statements ATRIAL FIBRILLATION WITH ABERRANT CONDUCTION OR VENTRICULAR PREMATURE COMPLEXES LOW QRS VOLTAGE IN PRECORDIAL LEADS [QRS DEFLECTION < 1.0 mV IN CHEST LEADS] POSSIBLE ANTERIOR MYOCARDIAL INFARCTION [30 ms Q WAVE IN V3/V4, OR R < 0.2 mV IN V4], PROBABLY OLD Compared to ECG 04/07/2020 02:46:02 Ventricular premature complex(es) now present Aberrant conduction of supraventricular beat(s) now present Myocardial infarct finding still present Electronically Signed On 04-15-2020 21:47:21 CDT by Kathryn Khalil M.D. [id number]
[2020-04-15] MEDS: FUROsemide 40 mg Tablet PO (16:57)
[2020-04-16] VITALS (8 sets, daily range): BP systolic 96–136; BP diastolic 61–83; PULSE 72–88; RESP 16–24; TEMP 36.3–36.7; O2SAT 91–94
[2020-04-16 04:07] LABS: Blood Urea Nitrogen 20 mg/dL (8-23); Calcium 8.8 mg/dL (8.5-10.5); Chloride 88 mmol/L (98-107); Glomerular Filtration Rate 71.3 mL/min (90-130); Glucose 104 mg/dL (65-115); Osmolality Calculated 291 mOsm/kg (285-295); Potassium 3.6 mmol/L (3.5-5.1); Sodium 142 mmol/L (136-145)
[2020-04-16 04:41] LABS: Anion Gap 10.6 (5-19)
[2020-04-16 04:42] LABS: Carbon Dioxide 47 mmol/L (22-29)
[2020-04-16] MEDS: heparin 5,000 unit/mL INJ 1 mL 5000 UNIT SUBCUT ×2 (06:12→17:31)
[2020-04-16] MEDS: FUROsemide 40 mg Tablet PO ×2 (08:37→16:24)
[2020-04-16] MEDS: carvedilol 3.125 mg Tablet PO ×2 (08:37→17:32)
[2020-04-16] MEDS: aspirin 81 mg EC Tablet 162 MG PO (08:37)
[2020-04-16] MEDS: cyanocobalamin 1,000 mcg Tablet 500 MCG PO (08:37)
[2020-04-16] MEDS: gabapentin 100 mg Capsule PO ×3 (08:38→21:27)
[2020-04-16] MEDS: levothyroxine 100 mcg Tablet 200 MCG PO (08:39)
[2020-04-16] MEDS: spironolactone 25 mg Tablet 12.5 MG PO (08:40)
[2020-04-16] MEDS: potassium chloride ER 10 mEq Tablet 60 MEQ PO (08:40)
--- NOTE | 2020-04-16 10:11 | PC.SOCIAL ---
IMM Updated Updated pt on Pg 2 IMM. No questions voiced. Pt verbally understands. Provided pt a copy. Signed, dated, & timed copy in chart.
[2020-04-16] MEDS: nystatin cream 30 gm 1 APPLIC TOPICAL (10:41)
--- NOTE | 2020-04-16 16:33 | PM.PN ---
Subjective Subjective: Interval history: Chase catheter removed and she has been able to void independently. Has a total negative fluid balance of 20 L with a total net weight loss of 18 kg, weight down to 178 kg today. Sitting in recliner by bedside, no complaints currently. Medications: Reviewed: Yes Medication Review Details: Active Medications Generic Name Dose Route Start Last Admin Trade Name Freq PRN Reason Stop Dose Admin Albuterol/Ipratrop ium 3 ml 04/06/20 23:53 Duoneb INHALATION Q4H.RESPIRATORY P RN SHORTNESS OF ALFRED TH Aspirin 162 mg 04/12/20 09:00 04/16/20 08:37 Aspirin Ec PO 162 mg DAILY KRYSTINA Administration Bisacodyl 10 mg 04/12/20 08:51 Bisac-Evac KS DAILY PRN CONSTIPATION Carvedilol 3.125 mg 04/07/20 09:00 04/16/20 08:37 Coreg PO 3.125 mg BID KRYSTINA Administration Cyanocobalamin 500 mcg 04/14/20 09:00 04/16/20 08:37 Vitamin B-12 PO 500 mcg DAILY KRYSTINA Administration Folic Acid/Iron/Vi tamin B12 1 each 04/13/20 10:00 04/15/20 09:45 Ferrex 150 Forte PO 1 each Q48H KRYSTINA Administration Furosemide 40 mg 04/15/20 16:00 04/16/20 16:24 Lasix PO 40 mg BID@08,16 KRYSTINA Administration Gabapentin 100 mg 04/15/20 09:15 04/16/20 16:22 Neurontin PO 100 mg TID KRYSTINA Administration Heparin Sodium (Be ef Lung) 5,000 unit 04/12/20 18:00 04/16/20 06:12 Heparin SUBCUT 5,000 unit Q12H KRYSTINA Administration Levothyroxine Sodi um 200 mcg 04/07/20 09:00 04/16/20 08:39 Synthroid PO 200 mcg DAILY KRYSTINA Administration Nystatin 1 applic 04/14/20 09:00 04/16/20 10:41 Nystatin Cream TOPICAL 1 applic BID KRYSTINA Administration Polyethylene Glyco l 17 gm 04/10/20 18:00 04/16/20 09:49 Miralax PO Not Given BID KRYSTINA Polyethylene Glyco l 17 gm 04/12/20 09:00 04/16/20 09:49 Miralax PO Not Given BID KRYSTINA Potassium Chloride 60 meq 04/16/20 09:00 04/16/20 08:40 Klor-Con 10 PO 60 meq DAILY KRYSTINA Administration Spironolactone 12.5 mg 04/15/20 09:15 04/16/20 08:40 Aldactone PO 12.5 mg DAILY KRYSTINA Administration cortisone Allergy (Unknown, Verified 09/26/19 09:37) Unknown egg Allergy (Unknown, Verified 09/26/19 09:37) Unknown Sulfa (Sulfonamide Antibiotics) Allergy (Unknown, Verified 09/26/19 09:37) Unknown lisinopril Adverse Reaction (Mild, Verified 11/15/19 14:02) cough Vitals/I&O/Wt Last Vital Signs Temp 97.5 F L 04/16/20 16:00 Pulse 82 04/16/20 16:00 Resp 20 H 04/16/20 16:00 BP 136/83 04/16/20 16:00 Pulse Ox 91 04/16/20 16:00 04/16/20 04/16/20 04/16/20 06:59 14:59 22:59 Intake Total 640 / 640 Output Total 400 / 1525 100 / 100 Balance -400 / -490 540 / 540 Weight last 48 hrs Weight 178.08 kg Weight 181.04 kg Physical Exam Const: COMMON NORMALS: no acute distress, patient oriented x3 and alert GENERAL APPEARANCE: cooperative and comfortable NUTRITIONAL APPEARANCE: obese morbidly obese ORIENTATION/CONSCIOUSNESS: Yes awake HENMT: COMMON NORMALS: normocephalic, atraumatic, hearing grossly normal bilaterally and moist oral mucous membranes HEAD & SCALP: normocephalic and atraumatic Eye: COMMON NORMALS: Equal, round and reactive pupils present, EOMs intact bilaterally and conjunctivae normal CONJUNCTIVA: Yes conjunctivae normal PUPIL: Yes Equal, round and reactive pupils present Neck/C-Spine: COMMON NORMALS: full ROM GENERAL: Yes normal visual inspection and Yes trachea midline OTHER: -short, thick neck Resp: COMMON NORMALS: normal respiratory effort, No retractions and No use of accessory muscles EFFORT & INSPECTION: Yes able to speak in complete sentences and Yes symmetric chest movement OTHER: -Auscultation limited by body habitus; air entry symmetrical bilaterally, currently on room air Cardio: COMMON NORMALS: regular rate, regular rhythm, S1 normal heart sound present, S2 normal heart sound present and No murmurs present (Cardio) RATE: regular rate RHYTHM: regular rhythm HEART SOUNDS: S1 normal heart sound present and S2 normal heart sound present GI: COMMON NORMALS: Normal to inspection, nondistended, normoactive bowel sounds present, Soft to palpation and non-tender INSPECTION: Yes central obesity PALPATION: Yes Soft to palpation Extremity: COMMON NORMALS: normal to inspection and full ROM NARRATIVE EXTREMITY EXAM: -brawny edema in bilateral LE Neuro: COMMON NORMALS: patient oriented x3, moves all extremities, no focal motor deficits and no sensory deficits noted SENSORIUM/ORIENTATION: Yes alert Psych: COMMON NORMALS: mental status grossly normal, Normal thought process present, cooperative, normal affect and speech normal SPEECH: Yes normal speech THOUGHT PROCESS: Normal thought process present Skin: COMMON NORMALS: no rashes or lesions noted, no jaundice, no petechiae and no mottling GENERAL SKIN EXAM: no rashes or lesions noted and dry skin Urinary Catheter Management^: Chase: Cath Placed During This Visit: yes, but has since been removed by the nurse Reason for Continuing Indwelling Catheter: Decision to DC Catheter Urinary Catheter Date of Insertion: 04/07/20 Urinary Catheter Time of Insertion: 13:00 Date Urinary Catheter Removed: 04/16/20 Time Urinary Catheter Discontinued: 06:10 Data : 04/15/20 03:20 04/16/20 03:05 A&P Assessment and plan (1) Anasarca: -Secondary to acute diastolic CHF exacerbation with noted SOB, overall edema, BNP elevation (2992), noted pulmonary vascular congestion -Continues to require aggressive diuresis but overall is responding well -off IV diuresis; much better clinically compensated so switched to oral diuretics -Continue to monitor Is & Os, daily weights; has diuresed a total of 18 kg/20 L -on 1.2 L/day fluid restriction -Echo: EF=60%, G3DD -continue to monitor renal function, electrolytes with diuresis; noted contraction alkalosis likely due to overdiuresis -supplemental oxygen as needed; has intermittently required BiPAP -continue to monitor vital signs; stable currently -venous duplex negative for DVT bilaterally -unable to do V/Q scan due to body habitus Status: Acute (2) Acute encephalopathy: -mental status is improving -re-orient as needed -likely multifactorial given CO2 narcosis, hypoxia which is improving -UA negative, CXR with no indication of infection -treated with 7-day course of doxycycline due to bilateral LE cellulitis which is improving Status: Acute (3) Respiratory failure with hypoxia and hypercapnia: -improving -ABG noted -noted to have nocturnal hypoxemia (70-79 range) on overnight pulse oximetry; will need BiPAP but compliance is currently quite questionable given her continued reluctance to use it while in the hospital -CPAP qhs, continue to encourage consistent use -will refer to pulmonology outpatient as well as request sleep study and PFTs -incentive spirometry, pulmonary toilet, Neb treatments as needed -not oxygen dependent at baseline, will likely need home oxygen evaluation prior to d/c Status: Acute Qualifiers: Chronicity: acute on chronic Qualified Code(s): J96.21 - Acute and chronic respiratory failure with hypoxia; J96.22 - Acute and chronic respiratory failure with hypercapnia (4) Paroxysmal A-fib: -new onset -on Coreg -Echo as noted above -VSS; continue to monitor -declined AC due to noted vaginal bleeding, agreed to ASA -TSH wnl, low free T3 Status: Acute (5) Cellulitis: -bilateral LE cellulitis, improving -completed course of doxycycline (x 7 days) Status: Acute Qualifiers: Site of cellulitis: extremity Site of cellulitis of extremity: lower extremity Laterality: unspecified laterality Qualified Code(s): L03.119 - Cellulitis of unspecified part of limb (6) Hypothyroidism: -TSH wnl, low free T3 -on levothyroxine Status: Chronic Qualifiers: Hypothyroidism type: acquired Qualified Code(s): E03.9 - Hypothyroidism, unspecified (7) Iron deficiency anemia, unspecified: -stable H/H; continue to monitor -on folic acid/MVI/iron replacement Status: Chronic Qualifiers: Iron deficiency anemia type: unspecified iron deficiency Qualified Code(s): D50.9 - Iron deficiency anemia, unspecified (8) Vaginal bleeding: -noted while here -stable Hg as noted above Status: Acute (9) Essential (primary) hypertension: -VSS; continue to monitor -continue Coreg Status: Chronic (10) Urge incontinence: Status: Chronic (11) Back pain of lumbosacral region with sciatica: -pain control as needed Status: Chronic (12) Morbid (severe) obesity due to excess calories: -BMI-69 kg/m2 Status: Chronic Additional A&P Information -Constipation: on bowel regimen, BM yesterday -on GI soft diet -DVT ppx with heparin -Dispo: declined SNF, granddaughter willing to check on her frequently when she returns home; home health services arranged through [facility] -Code status: ok with intubation if needed, no to CPR -DPOA paperwork completed; copy in chart Attestations Medical Necessity Statement*: Patient requires hospitalization for continued optimization of medication in anticipation of discharge home. Time Spent in Patient Care: 16 - 35 minutes (>than 50% of time spent in counselling and/or direct pt care on unit). Coding Level of Care Code Acute Spring Former Machine for Chg Fwd Diagnoses Anasarca R60.1 Acute encephalopathy G93.40 Respiratory failure with hypoxia and hypercapnia J96.21; J96.22 Chronicity: acute on chronic Paroxysmal A-fib I48.0 Cellulitis L03.119 Site of cellulitis: extremity Site of cellulitis of extremity: lower extremity Laterality: unspecified laterality Hypothyroidism E03.9 Hypothyroidism type: acquired Iron deficiency anemia, unspecified D50.9 Iron deficiency anemia type: unspecified iron deficiency Vaginal bleeding N93.9 Essential (primary) hypertension I10 Urge incontinence N39.41 Back pain of lumbosacral region with sciatica M54.40 Morbid (severe) obesity due to excess calories E66.01
[2020-04-17] VITALS: BP 131/76; PULSE 72; RESP 22; TEMP 36.9; O2SAT 92
[2020-04-17 04:00] VITALS: BP 103/68; PULSE 76; RESP 22; TEMP 35.3; O2SAT 95
[2020-04-17] MEDS: heparin 5,000 unit/mL INJ 1 mL 5000 UNIT SUBCUT (06:20)
[2020-04-17 08:00] VITALS: BP 105/68; PULSE 86; RESP 18; TEMP 36.9; O2SAT 93
[2020-04-17] MEDS: aspirin 81 mg EC Tablet 162 MG PO (10:19)
[2020-04-17] MEDS: FUROsemide 40 mg Tablet PO (10:19)
[2020-04-17] MEDS: iron complex forte Capsule 1 EACH PO (10:20)
[2020-04-17] MEDS: potassium chloride ER 10 mEq Tablet 60 MEQ PO (10:20)
[2020-04-17] MEDS: carvedilol 3.125 mg Tablet PO (10:20)
[2020-04-17] MEDS: levothyroxine 100 mcg Tablet 200 MCG PO (10:20)
[2020-04-17] MEDS: gabapentin 100 mg Capsule PO (10:20)
[2020-04-17] MEDS: cyanocobalamin 1,000 mcg Tablet 500 MCG PO (10:21)
[2020-04-17] MEDS: spironolactone 25 mg Tablet 12.5 MG PO (10:21)
[2020-04-17] MEDS: nystatin cream 30 gm 1 APPLIC TOPICAL (10:36)
--- NOTE | 2020-04-17 10:41 | PM.DCS ---
Discharge Providers Date of Admission: 04/07/20 12:14 Date of Discharge: April 17, 2020 Attending Provider at Admission: Candice Enamorado MD Attending Provider at Discharge: Lazara Poe MD Primary Care Provider: AIXA Marin Diagnoses at Discharge Discharge Diagnosis (1) Anasarca: Status: Acute Problem details: -Secondary to acute diastolic CHF exacerbation with noted SOB, overall edema, BNP elevation (2992), noted pulmonary vascular congestion -Continues to require aggressive diuresis but overall is responding well -off IV diuresis; much better clinically compensated so switched to oral diuretics -Continue to monitor Is & Os, daily weights; has diuresed a total of 20 kg/20 L -on 1.2 L/day fluid restriction -Echo: EF=60%, G3DD -continue to monitor renal function, electrolytes with diuresis; noted contraction alkalosis likely due to overdiuresis -supplemental oxygen as needed; has intermittently required BiPAP -continue to monitor vital signs; stable currently -venous duplex negative for DVT bilaterally -unable to do V/Q scan due to body habitus (2) Acute encephalopathy: Status: Resolved Problem details: -mental status is at baseline -re-orient as needed -likely multifactorial given CO2 narcosis, hypoxia which is improving -UA negative, CXR with no indication of infection -treated with 7-day course of doxycycline due to bilateral LE cellulitis which is improving (3) Respiratory failure with hypoxia and hypercapnia: Status: Acute Problem details: -stable, acute on chronic -ABG noted -noted to have nocturnal hypoxemia (70-79 range) on overnight pulse oximetry; will need BiPAP but compliance is currently quite questionable given her continued reluctance to use it while in the hospital -CPAP qhs, continue to encourage consistent use -f/u with pulmonology outpatient as well as request sleep study and PFTs -incentive spirometry, pulmonary toilet, Neb treatments as needed -not oxygen dependent at baseline, home oxygen evaluation prior to d/c and qualifies for 2 L Qualifiers: Chronicity: acute on chronic Qualified Code(s): J96.21 - Acute and chronic respiratory failure with hypoxia; J96.22 - Acute and chronic respiratory failure with hypercapnia (4) Paroxysmal A-fib: Status: Acute Problem details: -new onset -on Coreg -Echo as noted above -VSS; continue to monitor -declined AC due to noted vaginal bleeding, agreed to ASA -TSH wnl, low free T3 (5) Cellulitis: Status: Resolved Problem details: -bilateral LE cellulitis -completed course of doxycycline (x 7 days) Qualifiers: Laterality: unspecified laterality Site of cellulitis: extremity Site of cellulitis of extremity: lower extremity Qualified Code(s): L03.119 - Cellulitis of unspecified part of limb (6) Hypothyroidism: Status: Chronic Problem details: -TSH wnl, low free T3 -on levothyroxine Qualifiers: Hypothyroidism type: acquired Qualified Code(s): E03.9 - Hypothyroidism, unspecified (7) Iron deficiency anemia, unspecified: Status: Chronic Problem details: -stable H/H; continue to monitor -on folic acid/MVI/iron replacement Qualifiers: Iron deficiency anemia type: unspecified iron deficiency Qualified Code(s): D50.9 - Iron deficiency anemia, unspecified (8) Vaginal bleeding: Status: Acute Problem details: -noted while here -stable Hg as noted above -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 (9) Essential (primary) hypertension: Status: Chronic Problem details: -VSS; continue to monitor -continue Coreg (10) Urge incontinence: Status: Chronic (11) Back pain of lumbosacral region with sciatica: Status: Chronic (12) Morbid (severe) obesity due to excess calories: Status: Chronic Problem details: -BMI-68 kg/m2 Reason for Visit Reason for Visit: lt knee pain/ weakness Hospital Course Hospital Course: Patient was initially admitted to the medical surgical floor where she was started on IV diuresis secondary to acute CHF exacerbation in addition to acute on chronic hypercapnic and hypoxic respiratory failure. She required some IV antibiotics secondary to lower extremity cellulitis. She was found to have new onset atrial fibrillation but despite discussion on benefits of anticoagulation insistently declined this due to concerns for recurrent vaginal bleeding. Initial impression was that she would be appropriately diuresed within a 24 to 48-hour. However due to extent of anasarca she required much more aggressive diuresis further extending her hospital stay. She initially declined CTA of the chest and a V/Q scan was not an appropriate option for her due to her body habitus. With her respiratory status BiPAP was offered but patient declined this repeatedly and was otherwise supported with supplemental oxygen. During the process of diuresis patient's respiratory status decompensated and she was transferred to the ICU for closer monitoring. There was extensive discussion about CODE STATUS including intubation which patient seems to be unclear about though fortunately did not end up requiring. Advanced directive paperwork has now been completed with assistance of case management and family. With more aggressive IV diuresis patient has gradually improved symptomatically and particularly in terms of her respiratory status. Once she had completed a 7-day course of doxycycline with noted improvement in the lower extremity cellulitis this was discontinued. Overall she has diuresed a total of 20 L / 20 kg, is down to 1 to 2 L nasal cannula. Has continued to decline BiPAP use. In the event that she would be agreeable to this we did perform overnight pulse oximetry exhibiting desaturation even with supplemental oxygen support so she would definitely benefit from this if agreeable. There is high clinical suspicion for obstructive sleep apnea so she will be referred for outpatient sleep study. There is also clinical suspicion for possible pulmonary hypertension that may be contributing to her overall respiratory status so will be referred to pulmonology for further evaluation as well. Due to recurrent vaginal bleeding she will be following up with gynecology as an outpatient. While here her hemoglobin has been closely monitored and she has not required transfusion of any blood products. Hemodynamic status has been stable. Once her respiratory status allowed she has been working with physical therapy and occupational therapy. Home health services have been arranged to continue the rehabilitation process. SNF placement was discussed which patient declined. Granddaughter Tara Painter has offered to be an extra source of support for her on her return home. She will require close follow-up with her primary care provider. Home oxygen evaluation has been performed prior to discharge as she was not previously oxygen dependent and she qualifies for 2 L. Unfortunately with her underlying comorbidities she is at high risk for readmission to the hospital. Once she was more stable she was transferred up to the medical surgical floor and has done well for the past 24 to 48 hours. She will be discharged home this afternoon. Discharge Summary: -Patient to follow-up with her primary care provider within 1 week. She will require follow-up labs specifically CBC to continue to monitor her hemoglobin -Patient to follow-up with pulmonology as soon as next available appointment -Patient to have outpatient sleep study done once scheduled Physical Exam Const: COMMON NORMALS: no acute distress, patient oriented x3 and alert GENERAL APPEARANCE: cooperative and comfortable NUTRITIONAL APPEARANCE: obese morbidly obese ORIENTATION/CONSCIOUSNESS: Yes awake HENMT: COMMON NORMALS: normocephalic, atraumatic, hearing grossly normal bilaterally and moist oral mucous membranes HEAD & SCALP: normocephalic and atraumatic Eye: COMMON NORMALS: Equal, round and reactive pupils present, EOMs intact bilaterally and conjunctivae normal CONJUNCTIVA: Yes conjunctivae normal PUPIL: Yes Equal, round and reactive pupils present Neck/C-Spine: COMMON NORMALS: full ROM GENERAL: Yes normal visual inspection and Yes trachea midline OTHER: -short, thick neck Resp: COMMON NORMALS: normal respiratory effort, No retractions and No use of accessory muscles EFFORT & INSPECTION: Yes able to speak in complete sentences and Yes symmetric chest movement OTHER: -Auscultation limited by body habitus; air entry symmetrical bilaterally, currently on room air Cardio: COMMON NORMALS: regular rate, regular rhythm, S1 normal heart sound present, S2 normal heart sound present and No murmurs present (Cardio) RATE: regular rate RHYTHM: regular rhythm HEART SOUNDS: S1 normal heart sound present and S2 normal heart sound present GI: COMMON NORMALS: Normal to inspection, nondistended, normoactive bowel sounds present, Soft to palpation and non-tender INSPECTION: Yes central obesity PALPATION: Yes Soft to palpation Extremity: COMMON NORMALS: normal to inspection and full ROM NARRATIVE EXTREMITY EXAM: -brawny edema in bilateral LE Neuro: COMMON NORMALS: patient oriented x3, moves all extremities, no focal motor deficits and no sensory deficits noted SENSORIUM/ORIENTATION: Yes alert Psych: COMMON NORMALS: mental status grossly normal, Normal thought process present, cooperative, normal affect and speech normal SPEECH: Yes normal speech THOUGHT PROCESS: Normal thought process present Skin: COMMON NORMALS: no rashes or lesions noted, no jaundice, no petechiae and no mottling GENERAL SKIN EXAM: no rashes or lesions noted and dry skin Urinary Catheter Management^: Chase: Cath Placed During This Visit: yes, but has since been removed by the nurse Reason for Continuing Indwelling Catheter: Decision to DC Catheter Urinary Catheter Date of Insertion: 04/07/20 Urinary Catheter Time of Insertion: 13:00 Date Urinary Catheter Removed: 04/16/20 Time Urinary Catheter Discontinued: 06:10 Discharge Data Data Completed and Pending: Completed Studies During Hospitalization Category Date Time Status XR chest 1V anupam ble [id number] Routine Exams 04/11/20 07:45 Completed XR chest 1V anupam ble [id number] Urgent Exams 04/06/20 20:11 Completed CV echo complete* [id number] Routine Ultrasound 04/07/20 13:05 [place] [id number] Routin e Ultrasound 04/07/20 23:53 Completed Vitals: Last Vital Signs Temp 98.5 F 04/17/20 08:00 Pulse 86 04/17/20 08:00 Resp 18 04/17/20 08:00 BP 105/68 04/17/20 08:00 Pulse Ox 93 04/17/20 08:00 Discharge Plan Discharge Patient Disposition: Home Health Service Condition: Stable Prescriptions: New potassium chloride 10 mEq Tablet Extended Release 60 meq PO DAILY 30 Days Qty: 180 RF: 0 Ferrex 150 Forte 150-25-1 mg-mcg-mg Capsule 1 ea PO Q48H Qty: 30 RF: 0 aspirin 81 mg Tablet,Delayed Release (Dr/Ec) 81 mg PO DAILY Qty: 30 RF: 0 bumetanide 2 mg tablet 2 mg PO DAILY 30 Days Qty: 30 RF: 0 polyethylene glycol 3350 17 gram Powder In Packet 17 g PO BID Qty: 30 RF: 0 Continued vitamin [id number] acid 500-400 mcg tablet 2 tab PO DAILY RF: 0 albuterol sulfate [ProAir HFA] 90 mcg/actuation HFA aerosol inhaler 2 puff INHALATION Q6H PRN (Reason: shortness of breath or wheezing) Qty: 8.5 RF: 2 gabapentin 100 mg capsule 100 mg PO TID Qty: 90 RF: 1 levothyroxine [Euthyrox] 200 mcg tablet 200 mcg PO DAILY Qty: 30 RF: 0 spironolactone 25 mg tablet 12.5 mg PO QDAY Qty: 30 RF: 0 carvedilol 3.125 mg tablet 3.125 mg PO BID Qty: 60 RF: 0 Changed cholecalciferol (vitamin D3) 50,000 unit capsule 50,000 unit PO DIRECTED Qty: 4 RF: 2 Discontinued diclofenac sodium 75 mg tablet,delayed release (DR/EC) 75 mg PO BID PRN (Reason: pain) Qty: 60 RF: 0 Discharge Orders: Discharge Order (Routine); Ordered 04/17/20 Ordered By: Lazara Poe Other Ambulatory Orders: DME: BIPAP (Order) Location: None Selected Ordered By: Lazara Poe DME: Oxygen (Order) Location: None Selected Ordered By: Lazara Poe DME: Walker (Order) Location: None Selected Ordered By: Lazara Poe Sleep Study W Sleep Stage (Routine) Timeframe: 1 Week Location: None Selected Ordered By: Lazara Poe [place]: [facility] [place] [facility] [place]Outside] (This is your home health company. They will be calling you to set up a time to see you. They will call you at home.) DannyrIker MD [Physician] - 04/22/20 1:00 pm (Evaluation for pulmonary hypertension with chronic hypercapnia and hypoxia. Please request earliest appointment. You have an appointment on April 22 at 1:00pm.) Alie Ortiz MD [Physician] - 05/14/20 12:30 pm (Recurrent vaginal bleeding Please request earliest appointment. You have an appointment on May 14 at 12:30.) Chelsie Frederick FNP [Primary Care Provider] - 04/24/20 10:00 am (Post hospital discharge follow up. You have an apppointment with Chelsie on April 24 at 10:00am.) Discharge Diet: Cardiac Discharge Activity: Use walker/crutches as instructed, As per PT/OT instructions and Oxygen as instructed Patient Instructions: Bumetanide (By mouth), Potassium Chloride (By mouth), Aspirin (By mouth), Polyethylene Glycol 3350 (By mouth), Vitamin B with Iron (By mouth), Cellulitis (DC), Altered Mental Status (GEN), Hypoxia (GEN), CHF Stoplight Discharge Attestations Time Spent in Discharge Care*: greater than 30 min Specific Discharge Activities: Specific discharge activities: educating patient, discussing with watch case polisher/social workers/dc planners, documenting/other paperwork and evaluating patient/reviewing data Status at Discharge: Cognitive status at discharge: cognitively intact, Behavioral status at discharge: cooperative and dependent in ADL's, Functional status at discharge: uses cane/walker Overall status at discharge: patient is progressing back to baseline Quality Metrics Clinical Quality Measures During this hospital stay, did patient experience: None Coding Level of Care Code Acute Computer Technologist for g Fwd Exam Comprehensive Diagnoses Anasarca R60.1 Acute encephalopathy G93.40 Respiratory failure with hypoxia and hypercapnia J96.21; J96.22 Chronicity: acute on chronic Paroxysmal A-fib I48.0 Cellulitis L03.119 Laterality: unspecified laterality Site of cellulitis: extremity Site of cellulitis of extremity: lower extremity Hypothyroidism E03.9 Hypothyroidism type: acquired Iron deficiency anemia, unspecified D50.9 Iron deficiency anemia type: unspecified iron deficiency Vaginal bleeding N93.9 Essential (primary) hypertension I10 Urge incontinence N39.41 Back pain of lumbosacral region with sciatica M54.40 Morbid (severe) obesity due to excess calories E66.01
[2020-04-17 11:46] VITALS: BP 109/73; PULSE 75; RESP 18; TEMP 36.3; O2SAT 98
[2020-04-17 12:32] VITALS: BP 109/73; PULSE 75; RESP 18; TEMP 36.3; O2SAT 98
[2020-04-17 13:19] VITALS: O2SAT 80; O2SAT 94
== END 2020-04-17 16:42 | disposition home health service (06) | DRG 291 ==
LOC: ER 20:34 → MEDSURG 23:00 → ICU 04-10 20:34 → MEDSURG 04-15 14:47
PROVIDERS: Internal Medicine; Admitting Provider Internal Medicine; Emergency Provider Emergency Medicine; PCP Nurse Practitioner Family; Visit Provider Family Medicine
DX: I11.0 Hypertensive heart disease with heart failure (principal); J81.0 Acute pulmonary edema; J96.02 Acute respiratory failure with hypercapnia; J96.01 Acute respiratory failure with hypoxia; E87.2 Acidosis; L03.116 Cellulitis of left lower limb; L03.115 Cellulitis of right lower limb; G93.40 Encephalopathy, unspecified; Z68.45 Body mass index [BMI] 70 or greater, adult; N17.9 Acute kidney failure, unspecified; I48.0 Paroxysmal atrial fibrillation; E66.01 Morbid (severe) obesity due to excess calories; I27.20 Pulmonary hypertension, unspecified; I50.33 Acute on chronic diastolic (congestive) heart failure; E03.9 Hypothyroidism, unspecified; D50.9 Iron deficiency anemia, unspecified; G47.33 Obstructive sleep apnea (adult) (pediatric); E53.8 Deficiency of other specified B group vitamins; K59.00 Constipation, unspecified
CPT/HCPCS: 12345; 36415; 36600; 51702; 71045; 80048; 80053; 81001; 81003; 82550; 82728; 82803; 83540; 83605; 83735; 83880; 84439; 84443; 84481; 84484; 85025; 86140; 87086; 93005; 93306; 93970; 94660; 94762; 96372; 96375; 97110; 97116; 97161; 97162; 97166; 97530; 97535; 99284; G0378; J1644; J1940; J3475; J3480; J3490

== ENCOUNTER 2020-04-22 14:52 | Emergency (ER) | payer MEDICARE, MEDICAID, SELFPAY ==
[2020-04-22 15:04] VITALS: BP 90/52; PULSE 78; RESP 17; TEMP 36.9; O2SAT 99; BMI 63.8
--- NOTE | 2020-04-22 15:31 | ED_ITS ---
HPI - Skin/Abscess/Foreign Bdy General: Chief complaint: Skin/Abscess/Foreign Body Stated complaint: PRESSURE ULCER, PAIN ON BOTTOM OF FEET Time Seen by Provider: 04/22/20 14:53 History of Present Illness: HPI narrative: Patient is a 69-year-old female who comes to the ED to get COVID testing, so she can be transferred to [facility]. Patient has a past medical history of CHF, hypertension, severe morbid obesity, pulmonary hypertension, and A. fib. Patient was hospitalized for CHF exacerbation from April 06 patient was discharged on April 07. Patient was sent home with home health care and she refused at that time to be put into detention facility. Patient has since changed her mind and would like to go to detention facility and they have a place set up for her in the detention facility room is pending COVID testing. Patient says since she is discharged from the hospital she has been taking her furosemide daily as prescribed. Patient endorses having some bilateral lower extremity edema and pain on left and right heel. Associated symptoms: Deny chills, fever(s), nausea or vomiting Review of Systems Const: Denies: fever(s), chills or fatigue Eyes: Denies: change in vision or eye discomfort ENMT: Denies: throat pain, odynophagia, nasal discharge or nasal congestion Card: Denies: chest pain, palpitations, edema, swelling of feet/ankles, dyspnea on exertion or orthopnea Resp: Denies: dyspnea, productive cough or non-productive cough GI: Denies: abdominal pain, nausea, vomiting, diarrhea, constipation or hematochezia : Denies: flank pain, dysuria or hematuria Musc: Reports: extremity pain (bilateral foot pain) and extremity swelling (lower extremities bilaterally); Denies: neck pain or back pain Skin/Breast: Denies: rash or new lesions Neuro: Denies: headache(s), numbness in extremities or weakness in extremities PFS ED PFSH: Medical History Acquired hypothyroidism B12 deficiency Back pain of lumbosacral region with sciatica CHF (congestive heart failure) Diastolic heart failure Essential (primary) hypertension -VSS; continue to monitor -continue Coreg Hypothyroidism -TSH wnl, low free T3 -on levothyroxine Iron deficiency anemia, unspecified -stable H/H; continue to monitor -on folic acid/MVI/iron replacement Morbid (severe) obesity due to excess calories -BMI-68 kg/m2 Paroxysmal A-fib -new onset -on Coreg -Echo as noted above -VSS; continue to monitor -declined AC due to noted vaginal bleeding, agreed to ASA -TSH wnl, low free T3 Pulmonary hypertension Respiratory failure with hypoxia Respiratory failure with hypoxia and hypercapnia -stable, acute on chronic -ABG noted -noted to have nocturnal hypoxemia (70-79 range) on overnight pulse oximetry; will need BiPAP but compliance is currently quite questionable given her continued reluctance to use it while in the hospital -CPAP qhs, continue to encourage consistent use -f/u with pulmonology outpatient as well as request sleep study and PFTs -incentive spirometry, pulmonary toilet, Neb treatments as needed -not oxygen dependent at baseline, home oxygen evaluation prior to d/c and qualifies for 2 L Sleep apnea Urge incontinence Vaginal bleeding -noted while here -stable Hg as noted above -outpatient Pool [employer] f/u Surgical History History of 2 sections History of ankle surgery (~1991) Hx of appendectomy (~1976) Hx of artificial lens replacement (~04/2013) left; Dr Wolfe Hx of artificial lens replacement (~02/2012) right eye Hx of dilation and curettage Hx of lithotripsy (~11/2016) Hx of tubal ligation (~1979) Hx of vitrectomy (~2014) Family History Father , age 89 Hyperlipidemia Hypertension Stroke CAD (coronary artery disease) Mother , age 51 Cancer Stroke Family/Other Stroke Hypertension Social History Smoking and tobacco status: never smoked Second hand smoke exposure: No Alcohol intake: former Adopted: No Lives independently: Yes Household members: none Housing: Apartment Marital status: service: No Current occupational status: disabled History of recent travel: No Current gender identity: Female Physical Exam Const: COMMON NORMALS: no acute distress and patient oriented x3 NUTRITIONAL APPEARANCE: obese morbidly obese HENMT: COMMON NORMALS: normocephalic HEAD & SCALP: normocephalic MOUTH: Normal oral and palatal mucosa present THROAT: posterior oropharynx normal and uvula midline Neck/C-Spine: COMMON NORMALS: supple GENERAL: Yes normal visual inspection Resp: COMMON NORMALS: normal respiratory effort, No retractions, No use of accessory muscles and clear to auscultation bilaterally AUSCULTATION: clear to auscultation bilaterally Cardio: COMMON NORMALS: regular rate, regular rhythm, S1 normal heart sound present, S2 normal heart sound present, No gallops present (Cardio), No clicks present (Cardio), No murmurs present (Cardio) and Peripheral pulses 2+ throughout RATE: regular rate RHYTHM: regular rhythm HEART SOUNDS: S1 normal heart sound present and S2 normal heart sound present PERIPHERAL PULSES: Peripheral pulses 2+ throughout GI: COMMON NORMALS: Normal to inspection, nondistended, normoactive bowel sounds present, Soft to palpation, non-tender and no masses INSPECTION: Yes central obesity PALPATION: Yes Soft to palpation : COMMON NORMALS: Yes no CVA tenderness BLADDER/KIDNEY EXAM: Yes no CVA tenderness Back/Pelvis: COMMON NORMALS: no CVA tenderness Extremity: GENERAL: Yes edema (3+ pitting edema bilaterally on lower extremities.) Neuro: COMMON NORMALS: patient oriented x3 and moves all extremities Skin: COMMON NORMALS: no rashes or lesions noted GENERAL SKIN EXAM: no rashes or lesions noted and dry skin Course Vital Signs: Vital signs: Vital Signs Temperature 98.5 F 04/22/20 15:04 Pulse Rate 78 04/22/20 15:04 Respiratory Rate 17 04/22/20 15:04 Blood Pressure 90/52 04/22/20 15:04 Pulse Oximetry 99 04/22/20 15:04 MDM - Skin/Abscess/Foreign Bdy MDM Narrative: Medical decision making narrative: Patient is a 69-year-old female who comes to the ED to be screened for COVID 19, so she can go to the detention facility set up for patient. Patient was recently hospitalized on April 06 and then discharged on April 07. Hospitalized wanted patient to go to detention facility but patient refused and wanted to go home with home health. Now that patient is home she has since changed her mind and wants to go to detention facility. Patient has a room at [facility] ready and waiting pending COVID-19 testing. Patient was given the COVID-19 rapid test. COVID-19 rapid test was negative and patient was discharged and sent directly to [facility]. Lab Data: Attestation: I reviewed the patient's lab results. Labs: Lab Results 04/22/20 04/22/20 04/22/20 Range/Units 16:37 16:37 16:47 WBC 10.5 H (4.0-10.0) 10^3/ uL RBC 4.67 (4.1-5.3) 10^6/u L Hgb 10.1 L (11.5-15.3) g/dL Hct 38.2 (37.0-47.0) % MCV 81.8 (81-99) fL MCH 21.6 L (28.0-34.0) pg MCHC 26.4 L (30.0-36.0) g/dL RDW 23.5 H (12.1-15.1) % Plt Count 203 (130-400) 10^3/c mm MPV 9.4 (7.4-10.4) fL Neut % (Auto) 79.1 % Lymph % (Auto) 12.0 % Sierra % (Auto) 7.6 % Eos % (Auto) 0.6 % Baso % (Auto) 0.3 % Neut # (Auto) 8.28 H (1.8-7.7) 10^3/u L Lymph # (Auto) 1.3 (0.8-4.8) 10^3/u L Sierra # (Auto) 0.8 (0.2-0.9) 10^3/u L Eos # (Auto) 0.1 (0.0-0.8) 10^3/u L Baso # (Auto) 0.0 (0.0-0.1) 10^3/u L Nucleated RBC % (a uto) 0 % Nucleated RBCs # 0.0 /100WBC Sodium 142 (136-145) mmol/L Potassium 3.1 L (3.5-5.1) mmol/L Chloride 92 L (98-107) mmol/L Carbon Dioxide 44 H* (22-29) mmol/L Anion Gap 9.1 (5-19) BUN 15 (8-23) mg/dL Creatinine 1.1 H (0.5-0.9) mg/dL GFR Calculation 49.4 L (90-130) mL/min Glucose 116 H (65-115) mg/dL Calculated Osmolal ity 291 (285-295) mOsm/k g Calcium 8.3 L (8.5-10.5) mg/dL Total Bilirubin 1.0 (0.15-1.2) mg/dL AST 12 (0-32) U/L ALT 6 (0-33) U/L Alkaline Phosphata se 62 (35-105) IU/L NT-Pro-B Natriuret Pep 2467 H (0-125) pg/mL Total Protein 6.9 (6.6-8.7) g/dL Albumin 3.3 L (3.5-5.2) g/dL Globulin 3.6 (1.3-4.6) g/dL SARS-CoV-2 Ag (Rap id) Negative (Negative) Discharge Plan Discharge Patient Disposition: er [facility] Clinical Impression: Encounter for screening laboratory testing for COVID-19 virus in asymptomatic patient Condition: Stable Prescriptions: No Action vitamin K20-jqjmn acid 500-400 mcg tablet 2 tab PO DAILY RF: 0 albuterol sulfate [ProAir HFA] 90 mcg/actuation HFA aerosol inhaler 2 puff INHALATION Q6H PRN (Reason: shortness of breath or wheezing) Qty: 8.5 RF: 2 gabapentin 100 mg capsule 100 mg PO TID Qty: 90 RF: 1 levothyroxine [Euthyrox] 200 mcg tablet 200 mcg PO DAILY Qty: 30 RF: 0 potassium chloride 10 mEq Tablet Extended Release 60 meq PO DAILY 30 Days Qty: 180 RF: 0 Ferrex 150 Forte 150-25-1 mg-mcg-mg Capsule 1 ea PO Q48H Qty: 30 RF: 0 aspirin 81 mg Tablet,Delayed Release (Dr/Ec) 81 mg PO DAILY Qty: 30 RF: 0 bumetanide 2 mg tablet 2 mg PO DAILY 30 Days Qty: 30 RF: 0 spironolactone 25 mg tablet 12.5 mg PO QDAY Qty: 30 RF: 0 carvedilol 3.125 mg tablet 3.125 mg PO BID Qty: 60 RF: 0 cholecalciferol (vitamin D3) 50,000 unit capsule 50,000 unit PO DIRECTED Qty: 4 RF: 2 polyethylene glycol 3350 17 gram Powder In Packet 17 g PO BID Qty: 30 RF: 0 furosemide 40 mg tablet 40 mg PO DAILY RF: 0 diclofenac sodium 75 mg tablet,delayed release (DR/EC) 75 mg PO BID RF: 0 Discharge Orders: Discharge Order (Routine); Ordered 04/22/20 Ordered By: Hernesto Hayes Referrals: Chelsie Frederick FNP [Primary Care Provider] - Discharge Diet: Regular Discharge Activity: Increase activity as tolerated Activity Restrictions/Additional Instructions: Follow-up with medical provider as directed. Take medications as prescribed. Return to the ER or your medical provider if condition worsens. Please read and understand discharge instructions. If any questions, please ask. Discharge Date/Time: 04/22/20 18:24 Coding Level of Care Code ED Well Blower for Maria Del Carmeng Fwd Exam Comprehensive
[2020-04-22 16:45] LABS: Basophils % 0.3 %; Eosinophils # 0.1 10^3/uL (0.0-0.8); Eosinophils % 0.6 %; Hematocrit 38.2 % (37.0-47.0); Hemoglobin 10.1 g/dL (11.5-15.3); Lymphocytes # 1.3 10^3/uL (0.8-4.8); Mean Corpuscular HGB Conc 26.4 g/dL (30.0-36.0); Mean Corpuscular Hemoglobin 21.6 pg (28.0-34.0); Mean Corpuscular Volume 81.8 fL (81-99); Mean Platelet Volume 9.4 fL (7.4-10.4); Monocytes # 0.8 10^3/uL (0.2-0.9); Monocytes % 7.6 %; Neutrophils # 8.28 10^3/uL (1.8-7.7); Neutrophils % 79.1 %; Nucleated Red Blood Cells % 0 %; Platelet Count 203 10^3/cmm (130-400); Red Blood Count 4.67 10^6/uL (4.1-5.3); Red Cell Distribution Width 23.5 % (12.1-15.1); White Blood Count 10.5 10^3/uL (4.0-10.0)
--- NOTE | 2020-04-22 16:49 | PC.NURSE ---
COVID swabbed collected and sent to lab at this time. Will continue to monitor patient.
[2020-04-22 17:15] LABS: SARS Covid-2 Antigen Negative (Negative)
[2020-04-22 17:15] LABS: Alanine Aminotransferase 6 U/L (0-33); Albumin Level 3.3 g/dL (3.5-5.2); Alkaline Phosphatase 62 IU/L (35-105); Anion Gap 9.1 (5-19); Aspartate Amino Transferase 12 U/L (0-32); Blood Urea Nitrogen 15 mg/dL (8-23); Calcium 8.3 mg/dL (8.5-10.5); Chloride 92 mmol/L (98-107); Globulin 3.6 g/dL (1.3-4.6); Glomerular Filtration Rate 49.4 mL/min (90-130); Glucose 116 mg/dL (65-115); NT Pro B Type Natriuretic Pept 2467 pg/mL (0-125); Osmolality Calculated 291 mOsm/kg (285-295); Potassium 3.1 mmol/L (3.5-5.1); Sodium 142 mmol/L (136-145); Total Protein 6.9 g/dL (6.6-8.7)
[2020-04-22 17:19] LABS: Carbon Dioxide 44 mmol/L (22-29); Creatinine Clr Calc Pharmacy 74.7669
== END 2020-04-22 18:24 | disposition skilled nursing facility (03) ==
PROVIDERS: Emergency Provider Physician Assistant; PCP Nurse Practitioner Family
DX: Z11.59 Encounter for screening for other viral diseases (principal); Z79.82 Long term (current) use of aspirin; I11.0 Hypertensive heart disease with heart failure; I50.30 Unspecified diastolic (congestive) heart failure; I48.0 Paroxysmal atrial fibrillation
CPT/HCPCS: 12345; 80053; 83880; 85025; 87040; 87426; 99282

== ENCOUNTER 2020-05-25 13:35 | Outpatient (CLI) | payer OTHER, MEDICAID, SELFPAY ==
[2020-05-25 14:23] LABS: Anion Gap 16.4 (5-19); Blood Urea Nitrogen 70 mg/dL (8-23); Calcium 8.1 mg/dL (8.5-10.5); Carbon Dioxide 30 mmol/L (22-29); Chloride 94 mmol/L (98-107); Glomerular Filtration Rate 14.9 mL/min (90-130); Glucose 108 mg/dL (65-115); Osmolality Calculated 280 mOsm/kg (285-295); Sodium 135 mmol/L (136-145)
[2020-05-25 14:29] LABS: Potassium 5.4 mmol/L (3.5-5.1)
== END 2020-05-25 13:36 | disposition home or self-care (01) ==
LOC: LAB 13:38
PROVIDERS: PCP Nurse Practitioner Family; Visit Provider Internal Medicine
DX: I50.30 Unspecified diastolic (congestive) heart failure (principal)
CPT/HCPCS: 80048

== ENCOUNTER 2020-05-27 04:33 | Emergency (ER) | payer MEDICARE, MEDICAID, SELFPAY ==
[2020-05-27 04:38] VITALS: BP 100/59; PULSE 75; RESP 20; TEMP 36.5; O2SAT 100; BMI 70.8
--- NOTE | 2020-05-27 04:39 | XR_ITS ---
WS: [id number] EXAM: AP CHEST: PORTABLE UPRIGHT DATE OF EXAM: 05/27/2020, [id number] COMPARISON: Chest x-rays from 11/15/2016 and 04/11/2020 HISTORY: Patient is 69 years old with fall injury. Complaining of chest pain and shortness of breath. FINDINGS: The cardiac silhouette is enlarged but similar The mediastinal contours are stable.. The pulmona ry vascularity is congested. How much of this has to do with attenuation artifact related to an enlar ged body habitus is uncertain. PA and lateral imaging recommended. Subtle pulmonary edema not exclude d. Right lung shows slight nodular infiltrate in the lung base. There is loss of the left hemidiaphr agm also question related to attenuation artifact from enlarged body habitus versus true infiltrate. PA and lateral imaging recommended. There is no effusion or pneumothorax. No acute bony abnormality is seen. XR/XR chest 1V portable [id number] IMPRESSION: Enlarged cardiac silhouette is similar. Pulmonary vascular congestion with question attenuation artifact versus mild pu lmonary edema. PA and lateral imaging recommended. Loss of the left hemidiaphragm presumably related to attenuation artifact from body habitus as well as patchy infiltrate right lung base. PA and lateral imagi ng follow-up recommended.
[2020-05-27 04:44] VITALS: BP 100/59; PULSE 74; O2SAT 100
[2020-05-27 05:24] VITALS: BP 99/61; PULSE 78; RESP 14; O2SAT 97
--- NOTE | 2020-05-27 05:26 | CTR_ITS ---
PROCEDURE INFORMATION: Exam: CT Lumbar Spine Without Contrast Exam date and time: 05/27/2020 5:26 AM Age: 69 years old Clinical indication: Injury or trauma; Fall; Initial encounter; Blunt trauma (contusions or hematomas); Additional info: Fall/injury TECHNIQUE: Imaging protocol: Computed tomography images of the lumbar spine without contrast. Radiation optimization: All CT scans at this facility use at least one of these dose optimization techniques: automated exposure control; mA and/or kV adjustment per patient size (includes targeted exams where dose is matched to clinical indication); or iterative reconstruction. COMPARISON: CR Lumbar Spine 2-3 views* [id number] 03/29/2016 11:05 AM RADIATION DOSE METRICS: Total DLP (mGy-cm): 2802.62 FINDINGS: Vertebrae: No acute bony injury or malalignment in the lumbar spine. Discs/Spinal canal/Neural foramina: Mild degenerative change. No focal lumbar disc herniation. Kidneys and ureters: 6 mm right renal calculus and 9 mm calculus in the right extra renal pelvis. Vascular: IVC dilatation. Soft tissues: Unremarkable appearance of the paraspinous soft tissues. CT/CT lumbar spine wo con* [id number] IMPRESSION: No acute bony injury or malalignment in the lumbar spine. Radiation Dose CTDIVOL = (mGy): DLP = 2802.62 (mGy-cm)
--- NOTE | 2020-05-27 05:28 | ED_ITS ---
Documented by User: Tara Mariscal 05/27/20 05:47 HPI - Fall General: Chief Complaint: Fall Stated Complaint: FALL Time Seen by Provider: 05/27/20 04:36 Source: patient and EMS Mode of arrival: EMS Limitations: no limitations History of Present Illness: HPI Narrative: Yanci is a very nice 69-year-old female who comes in complaining of back pain after a fall. Patient was in the fdc when she stood up to try to go to the bathroom and when she went to pull her pants down she leaned too far forward and fell forward hitting her head on an oxygen tank. She denies being dazed, there is no loss of consciousness and she denies any headache. Patient states that she came down hard on the toilet on her back. Is complaining primarily now of low back pain across the lower lumbar spine. Denies any other injuries other than to her chest. The pain is to the right upper portion of her chest. She states it just feels like a mild bruise. She denies any chest pain or shortness of breath. Associated symptoms-after fall: Denies abdominal pain, chest pain, confusion, difficulty walking, headache(s), hematuria, lightheadedness, neck pain or vertigo Review of Systems Const: Denies: fever(s), chills, body aches, fatigue, malaise or diaphoresis Eyes: Denies: change in vision, blurry vision, photophobia, eye discomfort, eye discharge, eye redness or yellow eyes ENMT: Denies: throat pain, odynophagia, hoarseness, swelling of lips/tongue, ear or mastoid pain, ear discharge, change in hearing or nasal discharge Card: Denies: chest pain, palpitations, irregular heart rhythm, edema, lightheadedness, syncope, pre-syncope, dyspnea on exertion or orthopnea Resp: Denies: dyspnea, productive cough, non-productive cough, wheezing, hemoptysis or chest congestion GI: Denies: abdominal pain, nausea, vomiting, hematemesis, coffee ground emesis, heartburn, diarrhea, constipation, GI cramping, hematochezia or melena : Denies: flank pain, dysuria, urinary frequency, urinary urgency or hematuria Musc: Reports: back pain; Denies: neck pain, extremity pain, extremity swelling, joint pain, joint swelling, joint redness, joint warmth or joint stiffness Skin/Breast: Denies: rash, pruritus, erythema, skin pain or skin tenderness Neuro: Denies: headache(s), numbness in extremities, weakness in extremities, sensory changes, lack of coordination, difficulty walking, dizziness, vertigo, confusion, Slurred speech present or seizure-like activity Babak/Lymph: Denies: easy bruising, easy bleeding, petechiae, purpura or enlarged lymph nodes All/Imm: Denies: urticaria, throat swelling, tongue swelling, facial swelling or acute wheezing PFSH ED PFSH: Medical History Acquired hypothyroidism B12 deficiency Back pain of lumbosacral region with sciatica CHF (congestive heart failure) Diastolic heart failure Essential (primary) hypertension -VSS; continue to monitor -continue Coreg Hypothyroidism -TSH wnl, low free T3 -on levothyroxine Iron deficiency anemia, unspecified -stable H/H; continue to monitor -on folic acid/MVI/iron replacement Morbid (severe) obesity due to excess calories -BMI-68 kg/m2 Paroxysmal A-fib -new onset -on Coreg -Echo as noted above -VSS; continue to monitor -declined AC due to noted vaginal bleeding, agreed to ASA -TSH wnl, low free T3 Pulmonary hypertension Respiratory failure with hypoxia Respiratory failure with hypoxia and hypercapnia -stable, acute on chronic -ABG noted -noted to have nocturnal hypoxemia (70-79 range) on overnight pulse oximetry; will need BiPAP but compliance is currently quite questionable given her continued reluctance to use it while in the hospital -CPAP qhs, continue to encourage consistent use -f/u with pulmonology outpatient as well as request sleep study and PFTs -incentive spirometry, pulmonary toilet, Neb treatments as needed -not oxygen dependent at baseline, home oxygen evaluation prior to d/c and qualifies for 2 L Sleep apnea Urge incontinence Vaginal bleeding -noted while here -stable Hg as noted above -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 Surgical History History of 2 sections History of ankle surgery (~1991) Hx of appendectomy (~1976) Hx of artificial lens replacement (~04/2013) left; Dr Wolfe Hx of artificial lens replacement (~02/2012) right eye Hx of dilation and curettage Hx of lithotripsy (~11/2016) Hx of tubal ligation (~1979) Hx of vitrectomy (~2014) Family History Father , age 89 Hyperlipidemia Hypertension Stroke CAD (coronary artery disease) Mother , age 51 Cancer Stroke Family/Other Stroke Hypertension Social History Smoking and tobacco status: never smoked Second hand smoke exposure: No Alcohol intake: former Adopted: No Lives independently: Yes Household members: none Housing: Apartment Marital status: service: No Current occupational status: disabled History of recent travel: No Current gender identity: Female Physical Exam Const: COMMON NORMALS: no acute distress, patient oriented x3, no limitations and alert GENERAL APPEARANCE: cooperative HENMT: COMMON NORMALS: normocephalic, atraumatic, external ears normal, EAC's normal and Normal external nose present HEAD & SCALP: normal to inspection, normocephalic and atraumatic FACE & SINUS: normal facial exam and face symmetric NOSE: Normal external nose present and Normal nares present EXTERNAL EAR: Yes external ears normal EXTERNAL AUDITORY CANAL: EAC's normal MOUTH: Normal oral and palatal mucosa present, lip normal and tongue normal Eye: COMMON NORMALS: Equal, round and reactive pupils present and conjunctivae normal GENERAL EYE: appearance normal, both eyes and all related structures ALIGNMENT: Yes alignment normal PERIORBITAL: periorbital findings normal EYELID: eyelids normal CONJUNCTIVA: Yes conjunctivae normal SCLERA: sclerae normal PUPIL: Yes Equal, round and reactive pupils present Neck/C-Spine: COMMON NORMALS: full ROM, no lymphadenopathy, supple, no meningeal signs and no JVD GENERAL: Yes normal visual inspection and Yes trachea midline Chest: COMMONS NORMALS: normal inspection of the chest and normal palpation of entire chest wall Resp: COMMON NORMALS: normal respiratory effort, No retractions, No use of accessory muscles and clear to auscultation bilaterally EFFORT & INSPECTION: Yes able to speak in complete sentences and Yes symmetric chest movement AUSCULTATION: clear to auscultation bilaterally, no crackles, no rales, no rhonchi and no wheezes Cardio: COMMON NORMALS: no JVD, regular rate, regular rhythm, S1 normal heart sound present and S2 normal heart sound present RATE: regular rate RHYTHM: regular rhythm HEART SOUNDS: S1 normal heart sound present, S2 normal heart sound present, no click, no gallops, no murmurs and no rubs GI: COMMON NORMALS: Soft to palpation and No hepatosplenomegaly present PALPATION: Yes Soft to palpation, No Tenderness to palpation present (GI), No Guarding due to palpation present (GI), No Rigid due to palpation, Yes No hepatosplenomegaly present, No Hernia present, No Palpable mass present and No Pulsatile mass present : EXTERNAL FEMALE EXAM: No Hernia present Back/Pelvis: LUMBAR SPINE/LOWER BACK: Yes lumbar spinal tenderness Extremity: COMMON NORMALS: normal to inspection, full ROM, capillary refill normal, no joint enlargement, no clubbing, cyanosis or edema and no calf tenderness Neuro: COMMON NORMALS: patient oriented x3, CN's II-XII intact bilaterally, moves all extremities, no focal motor deficits and no sensory deficits noted SENSORIUM/ORIENTATION: Yes alert MENINGEAL SIGNS: Yes no meningeal signs SPEECH: speech normal Psych: COMMON NORMALS: mental status grossly normal, Normal thought process present, cooperative, normal affect, speech normal and activity/motor behavior normal SPEECH: Yes normal speech THOUGHT PROCESS: Normal thought process present Skin: COMMON NORMALS: no rashes or lesions noted, turgor normal, no jaundice, no petechiae and no mottling GENERAL SKIN EXAM: no rashes or lesions noted and turgor normal Course Vital Signs: Vital signs: Vital Signs Temperature 97.7 F 05/27/20 04:38 Pulse Rate 78 05/27/20 05:24 Respiratory Rate 14 05/27/20 05:24 Blood Pressure 99/61 05/27/20 05:24 Pulse Oximetry 97 05/27/20 05:24 Discharge Plan Discharge Patient Disposition: Home Clinical Impression: Fall, Low back pain Condition: Stable Prescriptions: No Action vitamin F19-bcguf acid 500-400 mcg tablet 2 tab PO DAILY RF: 0 albuterol sulfate [ProAir HFA] 90 mcg/actuation HFA aerosol inhaler 2 puff INHALATION Q6H PRN (Reason: shortness of breath or wheezing) Qty: 8.5 RF: 2 gabapentin 100 mg capsule 100 mg PO TID Qty: 90 RF: 1 levothyroxine [Euthyrox] 200 mcg tablet 200 mcg PO DAILY Qty: 30 RF: 0 Ferrex 150 Forte 150-25-1 mg-mcg-mg Capsule 1 ea PO Q48H Qty: 30 RF: 0 aspirin 81 mg Tablet,Delayed Release (Dr/Ec) 81 mg PO DAILY Qty: 30 RF: 0 bumetanide 2 mg tablet 2 mg PO DAILY 30 Days Qty: 30 RF: 0 spironolactone 25 mg tablet 12.5 mg PO QDAY Qty: 30 RF: 0 carvedilol 3.125 mg tablet 3.125 mg PO BID Qty: 60 RF: 0 cholecalciferol (vitamin D3) 50,000 unit capsule 50,000 unit PO DIRECTED Qty: 4 RF: 2 polyethylene glycol 3350 17 gram Powder In Packet 17 g PO BID Qty: 30 RF: 0 furosemide 40 mg tablet 40 mg PO DAILY RF: 0 diclofenac sodium 75 mg tablet,delayed release (DR/EC) 75 mg PO BID RF: 0 Referrals: Chelsie Frederick FNP [Primary Care Provider] - Activity Restrictions/Additional Instructions: Follow-up with your primary care doctor as needed Sign Out Sign Out Data: Patient Sign Out occurred on 05/27/20 at 06:08. Patient's care was discussed, and care was transferred from Tara Mariscal to Angel Gaines DO. Sign Out Comment: Case turned over to Dr. Gaines at change of shift. Last updated by Tara Mariscal at 05/27/20 05:47 Coding Level of Care Code ED Insurance Loss Control Surveyor for Chg Fwd Exam Comprehensive Documented by User: Angel Gaines DO 05/27/20 07:26 HPI - Fall General: Chief Complaint: Fall Stated Complaint: FALL Time Seen by Provider: 05/27/20 04:36 PFSH ED PFSH: Medical History Acquired hypothyroidism B12 deficiency Back pain of lumbosacral region with sciatica CHF (congestive heart failure) Diastolic heart failure Essential (primary) hypertension -VSS; continue to monitor -continue Coreg Hypothyroidism -TSH wnl, low free T3 -on levothyroxine Iron deficiency anemia, unspecified -stable H/H; continue to monitor -on folic acid/MVI/iron replacement Morbid (severe) obesity due to excess calories -BMI-68 kg/m2 Paroxysmal A-fib -new onset -on Coreg -Echo as noted above -VSS; continue to monitor -declined AC due to noted vaginal bleeding, agreed to ASA -TSH wnl, low free T3 Pulmonary hypertension Respiratory failure with hypoxia Respiratory failure with hypoxia and hypercapnia -stable, acute on chronic -ABG noted -noted to have nocturnal hypoxemia (70-79 range) on overnight pulse oximetry; will need BiPAP but compliance is currently quite questionable given her continued reluctance to use it while in the hospital -CPAP qhs, continue to encourage consistent use -f/u with pulmonology outpatient as well as request sleep study and PFTs -incentive spirometry, pulmonary toilet, Neb treatments as needed -not oxygen dependent at baseline, home oxygen evaluation prior to d/c and qualifies for 2 L Sleep apnea Urge incontinence Vaginal bleeding -noted while here -stable Hg as noted above -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 Surgical History History of 2 sections History of ankle surgery (~1991) Hx of appendectomy (~1976) Hx of artificial lens replacement (~04/2013) left; Dr Wolfe Hx of artificial lens replacement (~02/2012) right eye Hx of dilation and curettage Hx of lithotripsy (~11/2016) Hx of tubal ligation (~1979) Hx of vitrectomy (~2014) Family History Father , age 89 Hyperlipidemia Hypertension Stroke CAD (coronary artery disease) Mother , age 51 Cancer Stroke Family/Other Stroke Hypertension Social History Smoking and tobacco status: never smoked Second hand smoke exposure: No Alcohol intake: former Adopted: No Lives independently: Yes Household members: none Housing: Apartment Marital status: service: No Current occupational status: disabled History of recent travel: No Current gender identity: Female Course Vital Signs: Vital signs: Vital Signs Temperature 97.7 F 05/27/20 04:38 Pulse Rate 78 05/27/20 05:24 Respiratory Rate 14 05/27/20 05:24 Blood Pressure 99/61 05/27/20 05:24 Pulse Oximetry 97 05/27/20 05:24 Discharge Plan Discharge Patient Disposition: Home Clinical Impression: Fall, Low back pain Condition: Stable Prescriptions: No Action vitamin F93-dnklh acid 500-400 mcg tablet 2 tab PO DAILY RF: 0 albuterol sulfate [ProAir HFA] 90 mcg/actuation HFA aerosol inhaler 2 puff INHALATION Q6H PRN (Reason: shortness of breath or wheezing) Qty: 8.5 RF: 2 gabapentin 100 mg capsule 100 mg PO TID Qty: 90 RF: 1 levothyroxine [Euthyrox] 200 mcg tablet 200 mcg PO DAILY Qty: 30 RF: 0 Ferrex 150 Forte 150-25-1 mg-mcg-mg Capsule 1 ea PO Q48H Qty: 30 RF: 0 aspirin 81 mg Tablet,Delayed Release (Dr/Ec) 81 mg PO DAILY Qty: 30 RF: 0 bumetanide 2 mg tablet 2 mg PO DAILY 30 Days Qty: 30 RF: 0 spironolactone 25 mg tablet 12.5 mg PO QDAY Qty: 30 RF: 0 carvedilol 3.125 mg tablet 3.125 mg PO BID Qty: 60 RF: 0 cholecalciferol (vitamin D3) 50,000 unit capsule 50,000 unit PO DIRECTED Qty: 4 RF: 2 polyethylene glycol 3350 17 gram Powder In Packet 17 g PO BID Qty: 30 RF: 0 furosemide 40 mg tablet 40 mg PO DAILY RF: 0 diclofenac sodium 75 mg tablet,delayed release (DR/EC) 75 mg PO BID RF: 0 Referrals: Chelsie Frederick FNP [Primary Care Provider] - Activity Restrictions/Additional Instructions: Follow-up with your primary care doctor as needed Sign Out Sign Out Data: Patient Sign Out occurred on 05/27/20 at 06:08. Patient's care was discussed, and care was transferred from Tara Mariscal to Angel Gaines DO. Sign Out Comment: Case turned over to Dr. Gaines at change of shift. Last updated by Tara Mariscal at 05/27/20 05:47 Coding Level of Care Code ED Insurance Loss Control Surveyor for Chg Fwd Exam Comprehensive
--- NOTE | 2020-05-27 08:30 | PC.NURSE ---
Patient assisted up to bedside commode.
[2020-05-27 08:47] VITALS: BP 99/57; PULSE 75; RESP 16; O2SAT 98
--- NOTE | 2020-05-28 12:57 | PC.NURSE ---
SAMMY WILKINS CONTACTED AND INFORMED OF THE NEED FOR THE PT TO F/U WITH PCP FOR CHEST XRAY
== END 2020-05-27 08:49 | disposition home or self-care (01) ==
PROVIDERS: Emergency Provider Family Medicine; PCP Nurse Practitioner Family
DX: M54.5 Low back pain (principal); Z79.82 Long term (current) use of aspirin; I11.0 Hypertensive heart disease with heart failure; I50.30 Unspecified diastolic (congestive) heart failure; I48.0 Paroxysmal atrial fibrillation
CPT/HCPCS: 12345; 71045; 72131; 99281; 99283

== ENCOUNTER 2020-06-10 14:58 | Inpatient (IN) | payer MEDICARE, MEDICAID, SELFPAY ==
[2020-06-10] VITALS (13 sets, daily range): BP systolic 75–118; BP diastolic 43–74; PULSE 54–74; RESP 13–25; TEMP 36.7; O2SAT 96–100; BMI 82.3
--- NOTE | 2020-06-10 15:07 | XR_ITS ---
WS: [id number] PORTABLE CHEST HISTORY: sob COMPARISON: 05/27/2020. Mild pulmonary hyperexpansion. Moderate pulmonary congestion and scattered opacifications and hazines s. Dense consolidation at the LEFT lung base and posterior to the LEFT heart. Small LEFT effusion radha pected. Cardiac size: Moderately enlarged cardiac silhouette. Mediastinum/Aorta: Mild widening the mediastinum. No osseous abnormality seen. XR/XR chest 1V portable [id number] IMPRESSION: 1. Worsening pulmonary venous congestion. 2. Diffuse pulmonary haziness probably related to fluid overload. 3. Enlarged cardiac silhouette. 4. Obscuration of the LEFT lower lobe. May be due to body habitus and heart sh adow or pneumonia.
--- NOTE | 2020-06-10 15:08 | ECG_ITS ---
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 Measurements Intervals [place] Rate: 67 P: AK: -1 QRS: 24 QRSD: 94 T: 130 QT: 426 QTc: 451 Interpretive Statements ATRIAL FIBRILLATION LOW QRS VOLTAGE [QRS DEFLECTION < 0.5/1.0 mV IN LIMB/CHEST LEADS] POSSIBLE ANTERIOR MYOCARDIAL INFARCTION [30 ms Q WAVE IN V3/V4, OR R < 0.2 mV IN V4], PROBABLY OLD Compared to ECG 04/15/2020 12:52:32 Ventricular premature complex(es) no longer present Aberrant conduction of supraventricular beat(s) no longer present Myocardial infarct finding still present Electronically Signed On 06-11-2020 18:35:35 CDT by Candice Donahue M.D. [email or web address]
--- NOTE | 2020-06-10 15:31 | ED_ITS ---
HPI - SOB/Dyspnea General: Chief Complaint: General Medical Stated Complaint: FLUID RETENTION Time Seen by Provider: 06/10/20 15:04 Source: patient and EMS Mode of arrival: EMS Limitations: no limitations History of Present Illness: HPI Narrative: Coral is a 69-year-old female that is here from local group home with history of congestive heart failure. States she had an elevated creatinine along with a 14 pound weight gain in the last 24 hours. She is also had extremity edema. She is having no shortness of breath. Patient denies any fevers. She denies any worsening or improving factors. Her creatinine at group home was 3.2 patient denies any headache. Associated symptoms: Deny abdominal pain, chest pain, nausea or vomiting Review of Systems Const: Reports: change in weight Eyes: Denies: blurry vision or eye discomfort ENMT: Denies: throat pain or dental pain Card: Denies: chest pain Resp: Reports: dyspnea GI: Denies: abdominal pain, nausea, vomiting or diarrhea : Denies: dysuria Musc: Reports: extremity swelling Skin/Breast: Denies: rash Neuro: Denies: headache(s) Psych: Denies: depression Babak/Lymph: Denies: easy bruising All/Imm: Denies: urticaria PFSH ED PFSH: Medical History (Updated 06/10/20 @ 17:58 by Josesito Covington MD) Acquired hypothyroidism B12 deficiency Back pain of lumbosacral region with sciatica CHF (congestive heart failure) 3/4 diastolic dysfunction with normal EF 7/20 Diastolic heart failure Essential (primary) hypertension -VSS; continue to monitor -continue Coreg Hypothyroidism -TSH wnl, low free T3 -on levothyroxine Iron deficiency anemia, unspecified -stable H/H; continue to monitor -on folic acid/MVI/iron replacement Morbid (severe) obesity due to excess calories -BMI-68 kg/m2 Nephrolithiasis Paroxysmal A-fib -new onset -on Coreg -Echo as noted above -VSS; continue to monitor -declined AC due to noted vaginal bleeding, agreed to ASA -TSH wnl, low free T3 Pulmonary hypertension Respiratory failure with hypoxia Respiratory failure with hypoxia and hypercapnia -stable, acute on chronic -ABG noted -noted to have nocturnal hypoxemia (70-79 range) on overnight pulse oximetry; will need BiPAP but compliance is currently quite questionable given her continued reluctance to use it while in the hospital -CPAP qhs, continue to encourage consistent use -f/u with pulmonology outpatient as well as request sleep study and PFTs -incentive spirometry, pulmonary toilet, Neb treatments as needed -not oxygen dependent at baseline, home oxygen evaluation prior to d/c and qualifies for 2 L Sleep apnea Urge incontinence Vaginal bleeding -noted while here -stable Hg as noted above -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 Surgical History History of 2 sections History of ankle surgery (~1991) Hx of appendectomy (~1976) Hx of artificial lens replacement (~04/2013) left; Dr Wolfe Hx of artificial lens replacement (~02/2012) right eye Hx of dilation and curettage Hx of lithotripsy (~11/2016) Hx of tubal ligation (~1979) Hx of vitrectomy (~2014) Family History Father , age 89 Hyperlipidemia Hypertension Stroke CAD (coronary artery disease) Mother , age 51 Cancer Stroke Family/Other Stroke Hypertension Social History Smoking and tobacco status: never smoked Second hand smoke exposure: No Alcohol intake: former Adopted: No Lives independently: Yes Household members: none Housing: Apartment Marital status: service: No Current occupational status: disabled History of recent travel: No Current gender identity: Female Physical Exam Const: COMMON NORMALS: no acute distress and patient oriented x3 GENERAL APPEARANCE: Edematous NUTRITIONAL APPEARANCE: obese HENMT: COMMON NORMALS: normocephalic and atraumatic HEAD & SCALP: normocephalic and atraumatic Eye: COMMON NORMALS: Equal, round and reactive pupils present and EOMs intact bilaterally PUPIL: Yes Equal, round and reactive pupils present Neck/C-Spine: COMMON NORMALS: full ROM and supple Chest: COMMONS NORMALS: normal inspection of the chest and normal palpation of entire chest wall Resp: COMMON NORMALS: normal respiratory effort, No retractions and No use of accessory muscles AUSCULTATION: rales Cardio: COMMON NORMALS: regular rate, regular rhythm and No murmurs present (Cardio) RATE: regular rate RHYTHM: regular rhythm GI: COMMON NORMALS: Normal to inspection, nondistended, normoactive bowel sounds present, Soft to palpation, non-tender and no masses PALPATION: Yes Soft to palpation Extremity: COMMON NORMALS: full ROM NARRATIVE EXTREMITY EXAM: 3+ lower extremity edema Neuro: COMMON NORMALS: patient oriented x3, moves all extremities and no focal motor deficits Psych: COMMON NORMALS: mental status grossly normal, Normal thought process present and cooperative THOUGHT PROCESS: Normal thought process present Skin: COMMON NORMALS: no rashes or lesions noted and no wounds GENERAL SKIN EXAM: no rashes or lesions noted Course Vital Signs: Vital signs: Vital Signs Temperature 98.1 F 06/10/20 15:16 Pulse Rate 71 06/10/20 15:58 Respiratory Rate 18 06/10/20 15:58 Blood Pressure 112/72 06/10/20 15:58 Pulse Oximetry 98 06/10/20 15:58 MDM - SOB/Dyspnea MDM Narrative: Medical decision making narrative: Patient presents with acute kidney injury and mild hyperkalemia. Patient has had weight gain as well. I spoke to Dr. Covington who is seen patient will admit to the ICU. We will try to obtain a CT abdomen to rule out obstruction she is unable to fit will get a ultrasound of her kidneys. Patient has no back pain with no signs of kidney stone. She is on multiple medicines that could cause an acute kidney injury. Patient is afebrile here. Lab Data: Labs: Lab Results 06/10/20 06/10/20 06/10/20 Range/Units 15:29 15:29 15:29 WBC 4.2 (4.0-10.0) 10^3/ uL RBC 3.36 L (4.1-5.3) 10^6/u L Hgb 8.6 L (11.5-15.3) g/dL Hct 30.8 L (37.0-47.0) % MCV 91.7 (81-99) fL MCH 25.6 L (28.0-34.0) pg MCHC 27.9 L (30.0-36.0) g/dL RDW 24.6 H (12.1-15.1) % Plt Count 156 (130-400) 10^3/c mm MPV 9.6 (7.4-10.4) fL Neut % (Auto) 67.0 % Lymph % (Auto) 20.7 % Lares % (Auto) 9.7 % Eos % (Auto) 1.9 % Baso % (Auto) 0.5 % Neut # (Auto) 2.82 (1.8-7.7) 10^3/u L Lymph # (Auto) 0.9 (0.8-4.8) 10^3/u L Lares # (Auto) 0.4 (0.2-0.9) 10^3/u L Eos # (Auto) 0.1 (0.0-0.8) 10^3/u L Baso # (Auto) 0.0 (0.0-0.1) 10^3/u L Nucleated RBC % (a uto) 0 % Nucleated RBCs # 0.0 /100WBC PT 15.60 H (12.1-14.9) SECO NDS INR 1.20 (0.8-1.2) Sodium 134 L (136-145) mmol/L Potassium 5.8 H (3.5-5.1) mmol/L Chloride 92 L (98-107) mmol/L Carbon Dioxide 29 (22-29) mmol/L Anion Gap 18.8 (5-19) BUN 95 H* (8-23) mg/dL Creatinine 5.6 H* (0.5-0.9) mg/dL GFR Calculation 7.6 L (90-130) mL/min Glucose 115 (65-115) mg/dL Calculated Osmolal ity 308 H (285-295) mOsm/k g Calcium 8.4 L (8.5-10.5) mg/dL Total Bilirubin 0.7 (0.15-1.2) mg/dL AST 8 (0-32) U/L ALT < 5 (0-33) U/L Alkaline Phosphata se 91 (35-105) IU/L NT-Pro-B Natriuret Pep 91118 H (0-125) pg/mL Total Protein 6.9 (6.6-8.7) g/dL Albumin 2.9 L (3.5-5.2) g/dL Globulin 4.0 (1.3-4.6) g/dL EKG Data^: EKG 1: Attestation: I personally reviewed and interpreted this EKG as follows: EKG Interpretation Date: 06/10/20 EKG interpretation time: 15:36 Interpretation: A. fib heart rate [address] or T wave abnormalities QRS 94 QTC 441 Critical Care Time Critical Care Time: Critical Care Time: Yes Total Critical Care Time: 35 Attestation: This case had a high probability of a clinically significant, sudden, or life threatening deterioration of this patient's condition which required my full and direct attention, intervention and personal management. Discharge Plan Discharge Patient Disposition: Admitted As Inpatient Admit Provider: Josesito Covington Clinical Impression: Acute kidney injury, Edema Condition: Stable Coding Level of Care Code ED Chief Librarian Branch Or Department for Chg Fwd Exam Comprehensive
[2020-06-10 15:39] LABS: Basophils % 0.5 %; Eosinophils # 0.1 10^3/uL (0.0-0.8); Eosinophils % 1.9 %; Hematocrit 30.8 % (37.0-47.0); Hemoglobin 8.6 g/dL (11.5-15.3); Lymphocytes # 0.9 10^3/uL (0.8-4.8); Lymphocytes % 20.7 %; Mean Corpuscular HGB Conc 27.9 g/dL (30.0-36.0); Mean Corpuscular Hemoglobin 25.6 pg (28.0-34.0); Mean Corpuscular Volume 91.7 fL (81-99); Mean Platelet Volume 9.6 fL (7.4-10.4); Monocytes # 0.4 10^3/uL (0.2-0.9); Monocytes % 9.7 %; Neutrophils # 2.82 10^3/uL (1.8-7.7); Nucleated Red Blood Cells % 0 %; Platelet Count 156 10^3/cmm (130-400); Red Blood Count 3.36 10^6/uL (4.1-5.3); Red Cell Distribution Width 24.6 % (12.1-15.1); White Blood Count 4.2 10^3/uL (4.0-10.0)
[2020-06-10 16:04] LABS: Alanine Aminotransferase < 5 U/L (0-33); Albumin Level 2.9 g/dL (3.5-5.2); Alkaline Phosphatase 91 IU/L (35-105); Anion Gap 18.8 (5-19); Aspartate Amino Transferase 8 U/L (0-32); Calcium 8.4 mg/dL (8.5-10.5); Carbon Dioxide 29 mmol/L (22-29); Chloride 92 mmol/L (98-107); Glomerular Filtration Rate 7.6 mL/min (90-130); Glucose 115 mg/dL (65-115); NT Pro B Type Natriuretic Pept 12355 pg/mL (0-125); Osmolality Calculated 308 mOsm/kg (285-295); Potassium 5.8 mmol/L (3.5-5.1); Sodium 134 mmol/L (136-145); Total Bilirubin 0.7 mg/dL (0.15-1.2); Total Protein 6.9 g/dL (6.6-8.7)
[2020-06-10 16:17] LABS: Blood Urea Nitrogen 95 mg/dL (8-23)
[2020-06-10] MEDS: dextrose 50% syringe 50 mL IVP (17:30)
[2020-06-10] MEDS: insulin regular-human 100 units/1 mL 10 UNIT IVP (17:40)
--- NOTE | 2020-06-10 17:46 | PM.HP ---
Providers/Chief Complaint Admitting Physician: Josesito Covington MD Primary Care Provider: AIXA Marin Chief Complaint: FLUID RETENTION History of Present Illness Coral Small is a 69 year old female that [facility] with concerns of increasing fluid gain and elevated creatinine at the nursing facility. Diuretics had been escalated to no avail. She denied any abdominal pain, shortness of breath. She endorses significant continued lower extremity swelling. She denies any fever, personal history of COVID, exposure to anybody with COVID. No nausea or vomiting. She cannot lay down flat. I discussed her case briefly with the nursing facility and she has been on diclofenac, since April 22 at 75 mg twice daily. This appears to have been stopped on a discharge summary from April 17 but she transitioned home, and then was admitted to the nursing facility at a later date. She did receive insulin and glucose in the emergency department. Review of Systems General: Reports: 10 or more systems reviewed and unremarkable except in HPI and below Const: Denies: fever(s) Eyes: Denies: change in vision ENMT: Denies: throat pain Card: Reports: swelling of feet/ankles and orthopnea; Denies: chest pain Resp: Denies: dyspnea GI: Denies: abdominal pain, nausea or vomiting : Denies: flank pain Musc: Denies: neck pain Skin/Breast: Denies: rash Medications/Allergies Home Medications Medication Instructions Recorded Confirmed Last Taken Type vitamin B12 500 mcg-folic acid 400 2 tab PO DAILY tab 09/26/19 06/10/20 06/10/20 History mcg tablet gabapentin 100 mg capsule 100 mg PO TID #90 cap 10/23/19 06/10/20 06/10/20 Rx levothyroxine 200 mcg tablet 200 mcg PO DAILY #30 tab 03/18/20 06/10/20 06/10/20 Rx bumetanide 2 mg PO DAILY 30 Days #30 tab 04/17/20 06/10/20 06/10/20 Rx carvedilol 3.125 mg PO BID #60 tab 04/17/20 06/10/20 06/10/20 Rx cholecalciferol (vitamin D3) 50,000 unit PO DIRECTED #4 cap 04/17/20 06/10/20 06/10/20 Rx iron ps [id number] acid 1 ea PO Q48H #30 cap 04/17/20 06/10/20 06/09/20 Rx [Ferrex 150 Forte] polyethylene glycol 3350 17 g PO BID #30 each 04/17/20 06/10/20 06/10/20 Rx spironolactone 12.5 mg PO QDAY #30 tab 04/17/20 06/10/20 06/10/20 Rx diclofenac sodium 75 mg PO BID 04/22/20 06/10/20 06/10/20 History furosemide 80 mg PO DAILY 04/22/20 06/10/20 06/10/20 History Potassium Liquid 45 ml PO DAILY 06/10/20 06/10/20 06/10/20 History albuterol sulfate [ProAir HFA] 2 puff INHALATION Q6H PRN 06/10/20 06/10/20 Unknown History aspirin 81 mg PO BEDTIME 06/10/20 06/10/20 06/10/20 History omeprazole 20 mg PO DAILY 06/10/20 06/10/20 06/10/20 History Allergies Allergy/AdvReac Type Severity Reaction Status Date / Time cortisone Allergy Unknown Unknown Verified 05/27/20 14:10 egg Allergy Unknown Unknown Verified 05/27/20 14:10 Sulfa (Sulfonamide Allergy Unknown Unknown Verified 05/27/20 14:10 Antibiotics) lisinopril AdvReac Mild cough Verified 05/27/20 14:10 PFSH Acute PFSH: Medical History (Updated 06/10/20 @ 18:00 by Josesito Covington MD) Acquired hypothyroidism B12 deficiency Back pain of lumbosacral region with sciatica CHF (congestive heart failure) 3/4 diastolic dysfunction with normal EF 03/31 Diastolic heart failure Essential (primary) hypertension -VSS; continue to monitor -continue Coreg Hypothyroidism -TSH wnl, low free T3 -on levothyroxine Iron deficiency anemia, unspecified - Morbid (severe) obesity due to excess calories -BMI-68 kg/m2 Morbid obesity Nephrolithiasis Paroxysmal A-fib -new onset -on Coreg -Echo as noted above -VSS; continue to monitor -declined AC due to noted vaginal bleeding, agreed to ASA -TSH wnl, low free T3 Pulmonary hypertension Respiratory failure with hypoxia Respiratory failure with hypoxia and hypercapnia -stable, acute on chronic -ABG noted -noted to have nocturnal hypoxemia (70-79 range) on overnight pulse oximetry; will need BiPAP but compliance is currently quite questionable given her continued reluctance to use it while in the hospital -CPAP qhs, continue to encourage consistent use -f/u with pulmonology outpatient as well as request sleep study and PFTs -incentive spirometry, pulmonary toilet, Neb treatments as needed -not oxygen dependent at baseline, home oxygen evaluation prior to d/c and qualifies for 2 L Sleep apnea Urge incontinence Vaginal bleeding -noted while here -stable Hg as noted above -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 Surgical History History of 2 sections History of ankle surgery (~1991) Hx of appendectomy (~1976) Hx of artificial lens replacement (~04/2013) left; Dr Wolfe Hx of artificial lens replacement (~02/2012) right eye Hx of dilation and curettage Hx of lithotripsy (~11/2016) Hx of tubal ligation (~1979) Hx of vitrectomy (~2014) Family History Father , age 89 Hyperlipidemia Hypertension Stroke CAD (coronary artery disease) Mother , age 51 Cancer Stroke Family/Other Stroke Hypertension Social History Smoking and tobacco status: never smoked Second hand smoke exposure: No Alcohol intake: former Adopted: No Lives independently: Yes Household members: none Housing: Apartment Marital status: service: No Current occupational status: disabled History of recent travel: No Current gender identity: Female Vitals/I&O/Wt Last Vital Signs Temp 98.1 F 06/10/20 15:16 Pulse 70 06/10/20 15:16 Resp 17 06/10/20 15:16 BP 105/45 06/10/20 15:16 Pulse Ox 100 06/10/20 15:16 Weight last 48 hrs Weight 204.117 kg Physical Exam Narrative: EXAM NARRATIVE: General exam demonstrates a white female, no obvious distress HEENT: Pupils equally round. Oropharynx clear. Neck is supple no lymphadenopathy or thyromegaly Cardiovascular regular rate and rhythm, heart sounds distant Lungs clear no crackles Abdomen is soft, obese, pitting edema of pannus is noted. Extremities 4+ edema bilaterally, pitting. Cap refill brisk. Skin no rash Neuro no obvious focal deficits Data : 06/10/20 15:29 06/10/20 15:29 A&P Assessment and plan (1) Acute kidney injury: This may be multifactorial. Certainly her baseline renal function appears normal. Her degree of diastolic heart failure and edema can explain some of her renal failure. Certainly continued anti-inflammatory use could contribute. ICU admission secondary to degree of renal failure, heart failure, potential for significant worsening. Lasix 60 mg IV x1 Repeat potassium, BMP in 4 hours If has continued worsening renal function, consider nephrology consultation Avoid all renal toxic medications, including anti-inflammatories Check urinalysis Check CT, noncontrast, renal protocol to ensure no evidence of renal obstruction in this patient with history of nephrolithiasis Magnesium and phosphorus levels in the morning Status: Acute (2) CHF (congestive heart failure): History of significant diastolic heart dysfunction. Lasix 60 mg IV x1, and then reassess Status: Acute Qualifiers: Heart failure chronicity: acute Heart failure type: combined systolic and diastolic Qualified Code(s): I50.41 - Acute combined systolic (congestive) and diastolic (congestive) heart failure (3) Morbid obesity: Status: Acute Additional A&P Information Mild hyperkalemia. Check baseline EKG. Recheck laboratory in 4 hours. Received insulin and glucose in the ER. Anemia. Likely related to renal failure all though past history of vaginal bleeding as well. Will need to delineate if this is been evaluated. GERD, Protonix Hypertension, hold medicines currently, home monitoring blood pressure. Systolic in the emergency department is 110. DJD Does not want intubation, or CPR but would want consideration of all other therapies Heparin for DVT prophylaxis, renally dosed following renal function closely Check TSH Attestations Medical Necessity Statement*: Will need greater than 2 midnight stay for evaluation and treatment of renal failure Time Spent in Patient Care: Greater than 35 minutes Critical Care Time: 53 minutes spent in critical care time interviewing the patient at bedside, evaluating laboratory, discussion with nursing, and formulating a plan in this patient with severe diastolic heart failure, severe renal failure, anemia with high risk for morbidity and mortality. Coding Level of Care Code Acute Vice President Medical Affairs for Annemarie Schwarz Diagnoses Acute kidney injury N17.9 CHF (congestive heart failure) I50.41 Heart failure chronicity: acute Heart failure type: combined systolic and diastolic Morbid obesity E66.01
[2020-06-10 20:13] LABS: Arterial Blood Gas Hematocrit 28.8 % (37-47); Base Excess ABG 4.1 mmol/L (-2.0-2.0); Blood Gas Sample Site Brachial, right; Blood Gas Sample Type Arterial; HCO3 ABG 31.8 mmol/L (22-26); Oxygen Device NC
[2020-06-10 20:14] LABS: ABG PCO2 65.4 mmHg (35-45)
--- NOTE | 2020-06-10 21:35 | ECG_ITS ---
[facility] Test Date: 2020-06-10 Pat Name: Coral Small Department: Room: ICU11 Gender: Female [employer] Robotic[employer]: : 1950 Requested By: Josesito Gillette Order Number: [id number] Flory MD: Candice Donahue M.D. Measurements Intervals [place] Rate: 61 P: CT: -1 QRS: 31 QRSD: 93 T: 145 QT: 424 QTc: 429 Interpretive Statements ATRIAL FIBRILLATION LOW QRS VOLTAGE [QRS DEFLECTION < 0.5/1.0 mV IN LIMB/CHEST LEADS] POSSIBLE ANTERIOR MYOCARDIAL INFARCTION [30 ms Q WAVE IN V3/V4, OR R < 0.2 mV IN V4], PROBABLY OLD Compared to ECG 06/10/2020 15:36:26 No significant changes Electronically Signed On 06-11-2020 18:37:06 CDT by Candice Donahue M.D. [id number]
[2020-06-10 21:56] LABS: Add Urine Culture? Yes; Add Urine Microscopic? YES; Bacteria Urine 1+ /hpf; Bilirubin Urine Neg (Negative); Blood Urine 3+ (Negative); Glucose Urine UA Norm (Normal); Ketones Urine Negative (Negative); Leukocyte Esterase Urine Trace (Negative); Nitrate Urine Negative (Negative); Protein Urine Trace (Negative); RBC Urine >100 /hpf (0-2); Squamous Epithelial Cell Urine 0-4 /hpf (0-5); Urine Appearance Cloudy (CLEAR); Urine Color Yellow (Yellow); Urobilinogen Urine Norm (Negative); pH Urine 5 (5-7)
[2020-06-10 22:05] LABS: Thyroid Stimulating Hormone 3.09 uIU/mL (0.27-4.20)
[2020-06-10 23:05] LABS: Anion Gap 14.7 (5-19); Calcium 8.2 mg/dL (8.5-10.5); Carbon Dioxide 32 mmol/L (22-29); Chloride 94 mmol/L (98-107); Glomerular Filtration Rate 8.8 mL/min (90-130); Glucose 79 mg/dL (65-115); Osmolality Calculated 310 mOsm/kg (285-295); Potassium 5.7 mmol/L (3.5-5.1); Sodium 135 mmol/L (136-145)
[2020-06-10] MEDS: heparin 5,000 unit/mL INJ 1 mL 5000 UNIT SUBCUT (23:13)
[2020-06-10 23:32] LABS: Blood Urea Nitrogen 101 mg/dL (8-23)
--- NOTE | 2020-06-10 23:41 | PM.EVENT ---
Event Note Event Note: Called around 11 PM regarding Lasix administration. It had been ordered when patient was in the emergency room but on arrival to the ICU her blood pressures were running 80s to 90 systolic. At the time I was contacted blood pressure was around 75 systolic with a map around 55-57. She has not had anything else that might lower her blood pressure. She has about 100 cc of dark urine out in the Chase catheter. Urinalysis does show elevated specific gravity at 1.020, 3+ blood with greater than 100 red blood cells per high-powered field, 10-15 white blood cells, 0-4 epithelial cells, trace leukocyte esterase, negative nitrites. Bacteria was 1+. Repeat laboratory studies have just come back and showed potassium at 5.7, BUN at 101 and creatinine at 4.9. Calculated serum osmolality is 310. In talking with Mrs. Small, she says she actually feels better. Blood pressures have been rechecked manually and are consistent with machine calculated values. She is total body volume overloaded but I suspect that she is currently intravascularly depleted. This is based on the fact that she actually has quite dry skin, elevated specific gravity, elevated calculated osmolality. Albumin is low at 2.9 and I suspect that there is a degree of third spacing going on. At this point in time, given that she is feeling better combined with the repeat laboratory studies and current blood pressures, I am going to put her on some low-dose dopamine and will start her on some albumin with the hope that after we get this going we can give her some diuresis more effectively. We will check urine eosinophils given the recent NSAID use. While likely to not be as useful in the setting of acute renal failure we will also send off other urine electrolytes. Renal US was ordered, I believe in place of the noncontrasted CT which was reported to me by Dr Covington, because of body habitus exceeding accomodation of our scanner. Will see if this can be done tonight. I have additionally asked for noninvasive hemodynamic monitoring to further evaluate fluid responsiveness. Discussed with nursing staff. Will follow up and adjust management accordingly.
[2020-06-11] VITALS (38 sets, daily range): BP systolic 81–122; BP diastolic 49–81; PULSE 60–78; RESP 11–28; TEMP 35.9–36.6; O2SAT 86–100
[2020-06-11] MEDS: FUROsemide 10 mg/mL SDV 10mL 60 MG IVP (02:45)
--- NOTE | 2020-06-11 02:58 | PC.NURSE ---
2100 Patient's blood pressure is very soft- 80s-90s/50. Dr. Cortez notified and ordered to hold Lasix dose for now. 0 Dr. Cortez on floor asked nursing to evaluate patient using Cheetah monitoring to determine fluid responsiveness. Cheetah Patient only had change of 3.7%. Dr. Cortez at bedside. Dr. Cortez ordered Dopamine to be on hold to treat patient's low blood pressure if needed and to give Lasix 60 mg IV now.
[2020-06-11 03:59] LABS: Alanine Aminotransferase 7 U/L (0-33); Alkaline Phosphatase 80 IU/L (35-105); Anion Gap 15.7 (5-19); Aspartate Amino Transferase 8 U/L (0-32); Calcium 8.3 mg/dL (8.5-10.5); Carbon Dioxide 31 mmol/L (22-29); Chloride 94 mmol/L (98-107); Globulin 3.8 g/dL (1.3-4.6); Glomerular Filtration Rate 8.8 mL/min (90-130); Glucose 81 mg/dL (65-115); Magnesium 2.6 mg/dL (1.7-2.3); Osmolality Calculated 310 mOsm/kg (285-295); Potassium 5.7 mmol/L (3.5-5.1); Sodium 135 mmol/L (136-145); Total Bilirubin 0.7 mg/dL (0.15-1.2); Total Protein 6.8 g/dL (6.6-8.7)
[2020-06-11 04:00] LABS: Creatinine Urine, Random 155 mg/dL (28-217); Urine Random Sodium 20 mmol/L
[2020-06-11 04:08] LABS: Blood Urea Nitrogen 98 mg/dL (8-23)
[2020-06-11] MEDS: sodium chloride 0.9% 500 ML 999 ML IV (05:44)
[2020-06-11 06:06] LABS: Eosinophil Urine No Eosinophils Seen; Urine Eosinophil Count 0 (0-0)
--- NOTE | 2020-06-11 06:37 | PC.NURSE ---
DOPAMINE Per Dr. Cortez dopamine discontinued due to MAP staying above 65
[2020-06-11] MEDS: pantoprazole DR 40 mg Tablet PO (08:38)
[2020-06-11] MEDS: levothyroxine 100 mcg Tablet 200 MCG PO (08:38)
[2020-06-11] MEDS: sodium polystyrene sulfonate 15 gm/60 mL Btl PO ×2 (08:39→17:35)
[2020-06-11] MEDS: heparin 5,000 unit/mL INJ 1 mL 5000 UNIT SUBCUT ×2 (08:47→21:11)
[2020-06-11 10:32] LABS: Basophils % 0.3 %; Eosinophils # 0.1 10^3/uL (0.0-0.8); Eosinophils % 1.8 %; Hematocrit 30.7 % (37.0-47.0); Hemoglobin 8.3 g/dL (11.5-15.3); Lymphocytes # 0.7 10^3/uL (0.8-4.8); Lymphocytes % 18.7 %; Mean Corpuscular Hemoglobin 25.2 pg (28.0-34.0); Mean Corpuscular Volume 93.3 fL (81-99); Mean Platelet Volume 10.7 fL (7.4-10.4); Monocytes # 0.4 10^3/uL (0.2-0.9); Monocytes % 10.1 %; Neutrophils # 2.72 10^3/uL (1.8-7.7); Neutrophils % 68.8 %; Nucleated Red Blood Cells % 0 %; Platelet Count 144 10^3/cmm (130-400); Red Blood Count 3.29 10^6/uL (4.1-5.3); Red Cell Distribution Width 24.8 % (12.1-15.1)
--- NOTE | 2020-06-11 12:56 | PM.CONSULT ---
Providers/Reason For Consult Consulting Physican/Specialty*: Nephro Reason for Consult*: Eval for SALLY Attending Physician: Josesito Covington MD Primary Care Provider: AIXA Marin History of Present Illness History of Present Illness Thanks for consultation Ms Small presented from the SNF with increasing edema recalcitrant to diuretic dose up-titration and is found to have renal failure, creatinine at 5.6, improving slightly to 4.9 today. No known history of renal failure although creatinine on 05/25 did show a sharp increase to 3.1 from a baseline of 1.1 back in Apr. She was being diuresed with Lasix/Bumex dosing in the setting of Spironolactone. She has recently received Diclofenac for pain, twice daily. Her blood pressure since admission has been soft with systolics in 70-100mmHg range. She received 60mg iv Lasix this morning with a lackluster response, producing 200mL since am RN shift change, with 275mL recorded last night. She has mild uremic Sx including dysgeusia but no other symptoms per se. No other known nephrotoxic exposures. Her echo in March is notable for significant DD but preserved LVEF and normal right pressures despite her obesity. She has a collado and denies MAKI. Review of Systems Narrative: ROS - 12 point review of systems completed per HPI and subjective assessment, this includes Constitutional: weakness, fatigue Respiratory: No SOB on exertion, comfortable at rest CardioVasc: No chest pain, palpitations Gastrointestinal: No nausea, no vomiting Neurological: No seizures, no AMS Derm: No new rashes, lesions or wounds Immunological: No seasonal and no food allergies Meds/Allergies Home Medications and Allergies Home Medications Medication Instructions Recorded Confirmed Last Taken Type vitamin B12 500 mcg-folic acid 400 2 tab PO DAILY tab 09/26/19 06/10/20 06/10/20 History mcg tablet gabapentin 100 mg capsule 100 mg PO TID #90 cap 10/23/19 06/10/20 06/10/20 Rx levothyroxine 200 mcg tablet 200 mcg PO DAILY #30 tab 03/18/20 06/10/20 06/10/20 Rx bumetanide 2 mg PO DAILY 30 Days #30 tab 04/17/20 06/10/20 06/10/20 Rx carvedilol 3.125 mg PO BID #60 tab 08/03/0106/10/20 06/10/20 Rx cholecalciferol (vitamin D3) 50,000 unit PO DIRECTED #4 cap 04/17/20 06/10/20 06/10/20 Rx iron ps [id number] acid 1 ea PO Q48H #30 cap 04/17/20 06/10/20 06/09/20 Rx [Ferrex 150 Forte] polyethylene glycol 3350 17 g PO BID #30 each 04/17/20 06/10/20 06/10/20 Rx spironolactone 12.5 mg PO QDAY #30 tab 04/17/20 06/10/20 06/10/20 Rx diclofenac sodium 75 mg PO BID 04/22/20 06/10/20 06/10/20 History furosemide 80 mg PO DAILY 04/22/20 06/10/20 06/10/20 History Potassium Liquid 45 ml PO DAILY 06/10/20 06/10/20 06/10/20 History albuterol sulfate [ProAir HFA] 2 puff INHALATION Q6H PRN 06/10/20 06/10/20 Unknown History aspirin 81 mg PO BEDTIME 06/10/20 06/10/20 06/10/20 History omeprazole 20 mg PO DAILY 06/10/20 06/10/20 06/10/20 History Allergies Allergy/AdvReac Type Severity Reaction Status Date / Time cortisone Allergy Unknown Unknown Verified 05/27/20 14:10 egg Allergy Unknown Unknown Verified 05/27/20 14:10 Sulfa (Sulfonamide Allergy Unknown Unknown Verified 05/27/20 14:10 Antibiotics) lisinopril AdvReac Mild cough Verified 05/27/20 14:10 Current Medications Current Medications Generic Name Dose Route Start Last Admin Trade Name Freq PRN Reason Stop Dose Admin Heparin Sodium (Beef Lung) 5,000 unit 06/10/20 21:35 06/11/20 08:47 Heparin SUBCUT 5,000 unit Q12H KRYSTINA Administration Albumin Human 25 gm in 100 mls @ 60 mls/hr 06/10/20 23:45 06/11/20 08:37 Albumin IV 60 mls/hr Q8H KRYSTINA Administration Sodium Chloride 500 mls @ 0 mls/hr 06/11/20 00:15 06/11/20 00:35 Sodium Chloride 0.9% IV Infused .Q0M KRYSTINA Infusion Per Protocol Levothyroxine Sodium 200 mcg 06/11/20 09:00 06/11/20 08:38 Synthroid PO 200 mcg DAILY KRYSTINA Administration Pantoprazole Sodium 40 mg 06/11/20 09:00 06/11/20 08:38 Protonix PO 40 mg DAILY KRYSTINA Administration PFSH Acute PFSH: Medical History (Updated 06/10/20 @ 23:23 by Gerir Cortez MD) Acquired hypothyroidism B12 deficiency Back pain of lumbosacral region with sciatica CHF (congestive heart failure) 3/4 diastolic dysfunction with normal EF 03/31 Essential (primary) hypertension Hypothyroidism Iron deficiency anemia, unspecified - Morbid (severe) obesity due to excess calories BMI-68 kg/m2 Nephrolithiasis Paroxysmal A-fib declined AC due to noted vaginal bleeding Pulmonary hypertension Respiratory failure with hypoxia and hypercapnia Sleep apnea Urge incontinence Vaginal bleeding Surgical History History of 2 sections History of ankle surgery (~1991) Hx of appendectomy (~1976) Hx of artificial lens replacement (~04/2013) left; Dr Wolfe Hx of artificial lens replacement (~02/2012) right eye Hx of dilation and curettage Hx of lithotripsy (~11/2016) Hx of tubal ligation (~1979) Hx of vitrectomy (~2014) Family History Father , age 89 Hyperlipidemia Hypertension Stroke CAD (coronary artery disease) Mother , age 51 Cancer Stroke Family/Other Stroke Hypertension Social History Smoking and tobacco status: never smoked Second hand smoke exposure: No Alcohol intake: former Adopted: No Lives independently: Yes Household members: none Housing: Apartment Marital status: service: No Current occupational status: disabled History of recent travel: No Current gender identity: Female Vitals/I&O/Wt Last Vital Signs Temp 97.5 F L 06/11/20 10:00 Pulse 78 06/11/20 12:00 Resp 14 06/11/20 12:00 BP 98/68 06/11/20 12:00 Pulse Ox 99 06/11/20 12:00 06/10/20 06/11/20 06/11/20 22:59 06:59 14:59 Intake Total 240 / 240 300 / 540 780 / 780 Output Total 275 / 275 Balance 240 / 240 25 / 265 780 / 780 Weight last 48 hrs Weight 204.117 kg Physical Exam Narrative: EXAM NARRATIVE: Interview and Exam performed with telemed Constitutional: Awake, conversant, jovial HEENT: Wet mucosa, no jvp, non icteric Lungs: Bilaterally clear without discernible wheeze, rales in all lung zones CVS: S1 S2, no murmurs Abdo: Soft, BS ok Ext 4: Global edema. Neurological: Grossly non-focal Urinary Catheter Management^: Collado: Cath Placed During This Visit: yes Reason for Continuing Indwelling Catheter: Accurate Measurement of Urinary Output in Critically Ill Patients Urinary Catheter Date of Insertion: 06/10/20 Urinary Catheter Time of Insertion: 18:54 A&P Additional A&P Information 1. Renal Failure - Likely to be due to NSAIDs decreasing glomerular flow in the setting of IVVD from diuretic,s soft hemodynamics and renal hypoperfusion - - low fractional excretion of sodium of 0.5% consistent with low renal flow despite the use of loop diuretics (which increases urinary sodium levels) - of note, acute GN is not fully excluded as she does have microscopic hematuria; she is not a candidate for renal biopsy given severe obesity and she is a poor candidate for immunosuppressive meds. If she fails to recover with supportive therapy it will be worth sending ANCA, complement etc for diagnosis. - NSAIDs are now off, judicious use of diuretics, will eval in the am redose - midodrine to support pressure a little more - no ivf - no dialysis at this time, but she is at high risk of needing this - will send CPK, uric acid - dose meds for eGFR < 15 2. Lytes - HyperK from Spironolactone, KCl in the setting of SALLY - As renal function recovers this should come down - high bicarb due to chronic respiratory acidosis and metabolic compensation seen on the ABG Consult Attestations Medical Necessity Statement: eval for SALLY Coding Level of Care Code Acute Basket Maker for [facility] Karishma
[2020-06-11] MEDS: midodrine 5 mg TABLET 10 MG PO ×3 (13:44→21:11)
--- NOTE | 2020-06-11 14:01 | PC.NURSE ---
Patient has complained of nausea with eating. I advised patient that zofran is available if needed. Patient declined.
[2020-06-11 14:02] LABS: Creatine Phosphokinase 24 U/L (26-192)
--- NOTE | 2020-06-11 14:22 | P.PN_ITS ---
Subjective Subjective: Interval history: I visited with Coral earlier today, and have checked back up on her this afternoon. She reports she is doing okay. Feels better than yesterday. I contacted nephrology to see her regarding her renal failure Medications: Reviewed: Yes Vitals/I&O/Wt Last Vital Signs Temp 96.7 F L 06/11/20 13:47 Pulse 74 06/11/20 13:47 Resp 22 H 06/11/20 13:47 BP 85/60 06/11/20 13:47 Pulse Ox 99 06/11/20 13:47 06/10/20 06/11/20 06/11/20 22:59 06:59 14:59 Intake Total 240 / 240 300 / 540 880 / 880 Output Total 275 / 275 Balance 240 / 240 25 / 265 880 / 880 Weight last 48 hrs Weight 204.117 kg Physical Exam Narrative: EXAM NARRATIVE: General exam no apparent distress Cardiovascular regular rate and rhythm, heart sounds distant Lungs clear no crackles Abdomen is soft, obese, pitting edema of pannus is noted. Extremities 4+ edema bilaterally, pitting. Cap refill brisk. Urinary Catheter Management^: Chase: Cath Placed During This Visit: yes Reason for Continuing Indwelling Catheter: Accurate Measurement of Urinary Output in Critically Ill Patients Urinary Catheter Date of Insertion: 06/10/20 Urinary Catheter Time of Insertion: 18:54 Data : 06/11/20 09:58 06/11/20 03:20 A&P Assessment and plan (1) Acute kidney injury: This may be multifactorial. Certainly her baseline renal function appears normal. Her degree of diastolic heart failure and edema can explain some of her renal failure. Certainly continued anti-inflammatory use could contribute. Nephrology consultation appreciated Repeat BMP this afternoon Continue albumin midodrine added by nephrology Avoid all renal toxic medications, including anti-inflammatories Unfortunately secondary to body habitus CT abdomen and ultrasound cannot visualize her kidneys. Hopefully there is no obstruction. She has no pain to suggest this. Status: Acute (2) CHF (congestive heart failure): History of significant diastolic heart dysfunction. She needs significant diuresis from her acute diastolic heart failure and anasarca but this will have to wait until renal function is improved. Status: Acute Qualifiers: Heart failure chronicity: acute Heart failure type: combined systolic and diastolic Qualified Code(s): I50.41 - Acute combined systolic (congestive) and diastolic (congestive) heart failure (3) Morbid obesity: Status: Acute Additional A&P Information Hyperkalemia. Kayexalate given today. Recheck. Anemia. Likely related to renal failure all though past history of vaginal bleeding as well. Will need to delineate if this is been evaluated. GERD, Protonix Hypertension, hold medicines currently, home monitoring blood pressure. Systolic in the emergency department is 110. DJD Does not want intubation, or CPR but would want consideration of all other therapies Heparin for DVT prophylaxis, renally dosed following renal function closely TSH was checked and normal. Attestations Medical Necessity Statement*: Needs continued hospital stay, for close monitoring of renal function secondary to severe acute renal failure associated with acute diastolic heart failure. Critical Care Time: 30 minutes spent in critical care time at bedside discussing patient with subspecialists, nursing, examination of patient, review of all information in this patient with acute renal failure, acute diastolic h eart failure with high risk of decompensation. Coding Level of Care Code Acute [facility] Attendant for Annemarie Schwarz Diagnoses Acute kidney injury N17.9 CHF (congestive heart failure) I50.41 Heart failure chronicity: acute Heart failure type: combined systolic and diastolic Morbid obesity E66.01
[2020-06-11 15:44] LABS: Anion Gap 16.9 (5-19); Calcium 8.3 mg/dL (8.5-10.5); Carbon Dioxide 30 mmol/L (22-29); Chloride 93 mmol/L (98-107); Glomerular Filtration Rate 8.8 mL/min (90-130); Glucose 121 mg/dL (65-115); Osmolality Calculated 309 mOsm/kg (285-295); Potassium 5.9 mmol/L (3.5-5.1); Sodium 134 mmol/L (136-145)
[2020-06-11 15:49] LABS: Blood Urea Nitrogen 96 mg/dL (8-23)
[2020-06-11 22:17] LABS: Anion Gap 17.6 (5-19); Calcium 8.2 mg/dL (8.5-10.5); Carbon Dioxide 29 mmol/L (22-29); Chloride 92 mmol/L (98-107); Glomerular Filtration Rate 9.2 mL/min (90-130); Glucose 132 mg/dL (65-115); Osmolality Calculated 309 mOsm/kg (285-295); Potassium 5.6 mmol/L (3.5-5.1); Sodium 133 mmol/L (136-145)
[2020-06-11 22:19] LABS: Blood Urea Nitrogen 99 mg/dL (8-23)
[2020-06-11 22:46] LABS: Glucose Point of Care 79 mg/dL (70-110)
[2020-06-12] VITALS (26 sets, daily range): BP systolic 84–128; BP diastolic 54–79; PULSE 70–85; RESP 15–29; TEMP 36.5–36.6; O2SAT 92–99
[2020-06-12 04:48] LABS: Alanine Aminotransferase 6 U/L (0-33); Albumin Level 3.5 g/dL (3.5-5.2); Alkaline Phosphatase 97 IU/L (35-105); Anion Gap 16.6 (5-19); Aspartate Amino Transferase 11 U/L (0-32); Calcium 8.5 mg/dL (8.5-10.5); Carbon Dioxide 29 mmol/L (22-29); Chloride 93 mmol/L (98-107); Globulin 3.6 g/dL (1.3-4.6); Glucose 117 mg/dL (65-115); Osmolality Calculated 306 mOsm/kg (285-295); Potassium 5.6 mmol/L (3.5-5.1); Sodium 133 mmol/L (136-145); Total Bilirubin 0.9 mg/dL (0.15-1.2); Total Protein 7.1 g/dL (6.6-8.7)
[2020-06-12 05:01] LABS: Blood Urea Nitrogen 95 mg/dL (8-23)
[2020-06-12] MEDS: heparin 5,000 unit/mL INJ 1 mL 5000 UNIT SUBCUT ×2 (08:39→20:45)
[2020-06-12] MEDS: midodrine 5 mg TABLET 10 MG PO ×3 (08:39→20:20)
[2020-06-12] MEDS: pantoprazole DR 40 mg Tablet PO (08:39)
[2020-06-12] MEDS: levothyroxine 100 mcg Tablet 200 MCG PO (08:39)
[2020-06-12] MEDS: ondansetron 2 mg/ML SDV 2 mL 4 MG IVP ×2 (08:46→17:40)
[2020-06-12 10:07] LABS: Basophils % 0.5 %; Eosinophils # 0.1 10^3/uL (0.0-0.8); Eosinophils % 1.8 %; Lymphocytes % 25.7 %; Mean Corpuscular HGB Conc 26.7 g/dL (30.0-36.0); Mean Corpuscular Hemoglobin 24.8 pg (28.0-34.0); Mean Corpuscular Volume 93.2 fL (81-99); Mean Platelet Volume 10.7 fL (7.4-10.4); Monocytes # 0.4 10^3/uL (0.2-0.9); Monocytes % 10.3 %; Neutrophils % 61.7 %; Nucleated Red Blood Cells % 0 %; Platelet Count 152 10^3/cmm (130-400); Red Blood Count 3.22 10^6/uL (4.1-5.3); Red Cell Distribution Width 24.8 % (12.1-15.1); White Blood Count 3.9 10^3/uL (4.0-10.0)
--- NOTE | 2020-06-12 14:02 | P.PN_ITS ---
Subjective Subjective: Interval history: Coral feels about the same as yesterday. No other changes noted. Medications: Reviewed: Yes Vitals/I&O/Wt Last Vital Signs Temp 97.8 F 06/12/20 07:00 Pulse 85 06/12/20 12:00 Resp 19 H 06/12/20 12:00 BP 108/72 06/12/20 11:00 Pulse Ox 99 06/12/20 12:00 06/11/20 06/12/20 06/12/20 22:59 06:59 14:59 Intake Total 340 / 1220 100 / 1320 340 / 340 Output Total 550 / 550 Balance 340 / 1220 -450 / 770 340 / 340 Weight last 48 hrs Weight 204.117 kg Physical Exam Narrative: EXAM NARRATIVE: General exam no apparent distress Cardiovascular regular rate and rhythm, heart sounds distant Lungs clear no crackles Abdomen is soft, obese, pitting edema of pannus is noted. Extremities 4+ edema bilaterally, pitting. Cap refill brisk. Urinary Catheter Management^: Chase: Cath Placed During This Visit: yes Reason for Continuing Indwelling Catheter: Accurate Measurement of Urinary Output in Critically Ill Patients Urinary Catheter Date of Insertion: 06/10/20 Urinary Catheter Time of Insertion: 18:54 Data : 06/12/20 03:50 06/12/20 03:50 Micro: Microbiology 06/10/20 20:25 Urine Culture - Preliminary Urine,Clean Catch A&P Assessment and plan (1) Acute kidney injury: This may be multifactorial. Certainly her baseline renal function appears normal. Her degree of diastolic heart failure and edema can explain some of her renal failure. Certainly continued anti-inflammatory use could contribute. Nephrology consultation appreciated Creatinine slightly worse today. Potassium has improved with Kayexalate. Continue albumin midodrine added by nephrology, and blood pressure has improved Avoid all renal toxic medications, including anti-inflammatories Unfortunately secondary to body habitus CT abdomen and ultrasound cannot visualize her kidneys. Hopefully there is no obstruction. She has no pain to suggest this. Status: Acute (2) CHF (congestive heart failure): History of significant diastolic heart dysfunction. She needs significant diuresis from her acute diastolic heart failure and anasarca but this will have to wait until renal function is improved. Status: Acute Qualifiers: Heart failure chronicity: acute Heart failure type: combined systolic and diastolic Qualified Code(s): I50.41 - Acute combined systolic (congestive) and diastolic (congestive) heart failure (3) Morbid obesity: Status: Acute Additional A&P Information Hyperkalemia. Slight improved from yesterday afternoon. Recheck this afternoon around 4 PM Anemia. Likely related to renal failure all though past history of vaginal bleeding as well. Hemoglobin slightly lower but overall no evidence of acute blood loss. Will need to delineate if this is been evaluated. GERD, Protonix Hypertension, hold medicines currently, home monitoring blood pressure. Systolic in the emergency department is 110. DJD Does not want intubation, or CPR but would want consideration of all other therapies Heparin for DVT prophylaxis, renally dosed following renal function closely TSH was checked and normal. Attestations Medical Necessity Statement*: Needs continued hospitalization in the ICU secondary to severe acute renal failure. Coding Level of Care Code Acute Class C Driver for [facility] Schwarz Diagnoses Acute kidney injury N17.9 CHF (congestive heart failure) I50.41 Heart failure chronicity: acute Heart failure type: combined systolic and diastolic Morbid obesity E66.01
--- NOTE | 2020-06-12 14:59 | P.PN_ITS ---
Subjective Subjective: Interval history: No new complaints Medications: Reviewed: Yes Vitals/I&O/Wt Last Vital Signs Temp 97.7 F 06/12/20 14:57 Pulse 79 06/12/20 14:00 Resp 15 06/12/20 14:00 BP 103/79 06/12/20 14:00 Pulse Ox 98 06/12/20 14:00 06/11/20 06/12/20 06/12/20 22:59 06:59 14:59 Intake Total 340 / 1220 100 / 1320 340 / 340 Output Total 550 / 550 Balance 340 / 1220 -450 / 770 340 / 340 Weight last 48 hrs Weight 204.117 kg Physical Exam Const: COMMON NORMALS: no acute distress NUTRITIONAL APPEARANCE: obese Resp: COMMON NORMALS: normal respiratory effort Cardio: COMMON NORMALS: regular rhythm RHYTHM: regular rhythm Extremity: NARRATIVE EXTREMITY EXAM: 3+ edema Urinary Catheter Management^: Chase: Cath Placed During This Visit: yes Reason for Continuing Indwelling Catheter: Accurate Measurement of Urinary Output in Critically Ill Patients Urinary Catheter Date of Insertion: 06/10/20 Urinary Catheter Time of Insertion: 18:54 Data : 06/12/20 03:50 06/12/20 03:50 Other Labs: CK 24, 7.30/69 Micro: Microbiology 06/10/20 20:25 Urine Culture - Preliminary Urine,Clean Catch A&P Additional A&P Information 1. Acute kidney injury, nonoliguric, Urine FeNa low, significant edema 2. Hyperkalemia, not improved, had 6 bowel movements after kayexylate yesterday 3. Primary respiratory acidosis 4. Morbid obesity Rec: Add furosemide 40 mg IV Q12. Restrict K in diet. Attestations Medical Necessity Statement*: per primary service Time Spent in Patient Care: 16 - 35 minutes Coding Level of Care Code Acute [facility] Director for Annemarie Schwarz
[2020-06-12] MEDS: FUROsemide 10 mg/mL SDV 4mL 40 MG IVP (16:50)
[2020-06-12 16:56] LABS: Anion Gap 16.8 (5-19); Calcium 8.4 mg/dL (8.5-10.5); Carbon Dioxide 32 mmol/L (22-29); Chloride 92 mmol/L (98-107); Glomerular Filtration Rate 9.7 mL/min (90-130); Glucose 116 mg/dL (65-115); Osmolality Calculated 312 mOsm/kg (285-295); Potassium 5.8 mmol/L (3.5-5.1); Sodium 135 mmol/L (136-145)
[2020-06-12 17:05] LABS: Blood Urea Nitrogen 100 mg/dL (8-23)
[2020-06-12] MEDS: calcium carbonate 500 mg Chew Tablet PO (18:20)
[2020-06-12] MEDS: acetaminophen 325 mg Tablet 650 MG PO (20:45)
[2020-06-12] MEDS: nystatin powder 15 gm Btl 1 APPLIC TOPICAL (20:56)
[2020-06-13] VITALS (24 sets, daily range): BP systolic 71–139; BP diastolic 50–116; PULSE 62–90; RESP 10–21; TEMP 37.4; O2SAT 91–97
--- NOTE | 2020-06-13 01:13 | PC.NURSE ---
Pt resting comfortably, awakes to verbal stimuli, denies needs at this time
[2020-06-13] MEDS: acetaminophen-codeine 300-30mg Tablet 1 TAB PO (01:35)
--- NOTE | 2020-06-13 03:26 | PC.NURSE ---
Pt resting comfortably, awoke to movement in room, pt began to moan, asked patient if she was in pain at the time. Pt denies pain, states she wants to brush her teeth. I explained to patient that it was 02:00 in the morning, but if she wanted to brush her teeth. I provided drink of water to patient and this seemed to calm patient. Pt was given pain medication, but denied pain to myself.
[2020-06-13 05:17] LABS: Basophils % 0.4 %; Eosinophils % 0.6 %; Hematocrit 30.7 % (37.0-47.0); Hemoglobin 8.5 g/dL (11.5-15.3); Lymphocytes # 1.1 10^3/uL (0.8-4.8); Lymphocytes % 23.8 %; Mean Corpuscular HGB Conc 27.7 g/dL (30.0-36.0); Mean Corpuscular Hemoglobin 25.8 pg (28.0-34.0); Mean Corpuscular Volume 93.3 fL (81-99); Mean Platelet Volume 11.8 fL (7.4-10.4); Monocytes # 0.5 10^3/uL (0.2-0.9); Monocytes % 10.2 %; Neutrophils # 2.94 10^3/uL (1.8-7.7); Neutrophils % 63.5 %; Nucleated Red Blood Cells % 0.4 %; Platelet Count 172 10^3/cmm (130-400); Red Blood Count 3.29 10^6/uL (4.1-5.3); Red Cell Distribution Width 24.8 % (12.1-15.1); White Blood Count 4.6 10^3/uL (4.0-10.0)
[2020-06-13 07:01] LABS: Calcium 8.8 mg/dL (8.5-10.5); Carbon Dioxide 29 mmol/L (22-29); Chloride 90 mmol/L (98-107); Glucose 108 mg/dL (65-115); Osmolality Calculated 302 mOsm/kg (285-295); Sodium 131 mmol/L (136-145)
[2020-06-13 07:02] LABS: Alanine Aminotransferase 6 U/L (0-33); Albumin Level 3.8 g/dL (3.5-5.2); Alkaline Phosphatase 85 IU/L (35-105); Globulin 3.4 g/dL (1.3-4.6); Magnesium 2.7 mg/dL (1.7-2.3); Phosphorus 7.1 mg/dL (2.5-4.5); Total Bilirubin 1.2 mg/dL (0.15-1.2); Total Protein 7.2 g/dL (6.6-8.7)
[2020-06-13 07:12] LABS: Anion Gap 17.8 (5-19); Aspartate Amino Transferase 13 U/L (0-32); Blood Urea Nitrogen 96 mg/dL (8-23); Potassium 5.8 mmol/L (3.5-5.1)
[2020-06-13] MEDS: heparin 5,000 unit/mL INJ 1 mL 5000 UNIT SUBCUT ×2 (08:23→21:03)
[2020-06-13] MEDS: pantoprazole DR 40 mg Tablet PO (08:24)
[2020-06-13] MEDS: levothyroxine 100 mcg Tablet 200 MCG PO (08:24)
[2020-06-13] MEDS: midodrine 5 mg TABLET 10 MG PO ×3 (08:24→20:06)
[2020-06-13] MEDS: ondansetron 2 mg/ML SDV 2 mL 4 MG IVP ×3 (08:38→20:06)
[2020-06-13] MEDS: pantoprazole 40 mg SDV IVP (10:51)
--- NOTE | 2020-06-13 11:19 | PC.SOCIAL ---
IMM Update Pg. 2 of IMM updated and reviewed with patient who verbalized understanding. Copy provided.
--- NOTE | 2020-06-13 13:57 | P.PN_ITS ---
Subjective Subjective: Interval history: nausea today, no BM Medications: Reviewed: Yes Vitals/I&O/Wt Last Vital Signs Temp 99.4 F 06/13/20 06:00 Pulse 85 06/13/20 13:00 Resp 17 06/13/20 13:00 BP 114/88 06/13/20 13:00 Pulse Ox 97 06/13/20 13:00 06/12/20 06/13/20 06/13/20 22:59 06:59 14:59 Intake Total 100 / 440 100 / 540 100 / 100 Output Total 200 / 200 125 / 325 Balance -100 / 240 -25 / 215 100 / 100 Physical Exam Const: COMMON NORMALS: no acute distress GENERAL APPEARANCE: cooperative Resp: COMMON NORMALS: normal respiratory effort Cardio: COMMON NORMALS: regular rate and regular rhythm RATE: regular rate RHYTHM: regular rhythm Extremity: GENERAL: Yes edema Urinary Catheter Management^: Chase: Cath Placed During This Visit: yes Reason for Continuing Indwelling Catheter: Accurate Measurement of Urinary Output in Critically Ill Patients Urinary Catheter Date of Insertion: 06/10/20 Urinary Catheter Time of Insertion: 18:54 Data : 06/13/20 04:40 06/13/20 06:29 Other Labs: K 5.8 Micro: Microbiology 06/10/20 20:25 Urine Culture - Final Urine,Clean Catch A&P Additional A&P Information 1. Acute kidney injury, oliguric, Urine FeNa low, significant edema. Has not responded to IV lasix 2. Hyperkalemia, not improved 3. Primary respiratory acidosis 4. Morbid obesity Rec: Change furosemide to gtt 20 mg/hr. Kayexylate 30 g po. Very poor dialysis candidate. Discussed with Coral technical difficulty of catheter insertion. If potassium continues to rise, will need to attempt dialysis if she is agreeable. Attestations Medical Necessity Statement*: critically ill in ICU Coding Level of Care Code Acute [employer]ies [employer] Sales Representative for Annemarie Schwarz
[2020-06-13] MEDS: sodium polystyrene sulfonate 15 gm/60 mL Btl 30 GM PO (14:47)
--- NOTE | 2020-06-13 15:27 | PM.PN ---
Subjective Subjective: Interval history: Coral reports some nausea. Otherwise no changes. Medications: Reviewed: Yes Vitals/I&O/Wt Last Vital Signs Temp 99.4 F 06/13/20 06:00 Pulse 84 06/13/20 14:00 Resp 14 06/13/20 14:00 BP 128/81 06/13/20 14:00 Pulse Ox 97 06/13/20 14:00 06/13/20 06/13/20 06/13/20 06:59 14:59 22:59 Intake Total 100 / 540 100 / 100 Output Total 125 / 325 Balance -25 / 215 100 / 100 Physical Exam Narrative: EXAM NARRATIVE: General exam no apparent distress Cardiovascular regular rate and rhythm, heart sounds distant Lungs clear no crackles Abdomen is soft, obese, pitting edema of pannus is noted. Extremities 4+ edema bilaterally, pitting. Cap refill brisk. Urinary Catheter Management^: Chase: Cath Placed During This Visit: yes Reason for Continuing Indwelling Catheter: Accurate Measurement of Urinary Output in Critically Ill Patients Urinary Catheter Date of Insertion: 06/10/20 Urinary Catheter Time of Insertion: 18:54 Data : 06/13/20 04:40 06/13/20 06:29 Micro: Microbiology 06/10/20 20:25 Urine Culture - Final Urine,Clean Catch A&P Assessment and plan (1) Acute kidney injury: This may be multifactorial. Certainly her baseline renal function appears normal. Her degree of diastolic heart failure and edema can explain some of her renal failure. Certainly continued anti-inflammatory use could contribute. Nephrology consultation appreciated Creatinine not improved. Continue albumin midodrine added by nephrology, and blood pressure has improved Avoid all renal toxic medications, including anti-inflammatories Unfortunately secondary to body habitus CT abdomen and ultrasound cannot visualize her kidneys. Hopefully there is no obstruction. She has no pain to suggest this. Kayexalate, Lasix drip per nephrology. If no improvement they are considering dialysis. She has not improved to date. Status: Acute (2) CHF (congestive heart failure): History of significant diastolic heart dysfunction. She needs significant diuresis from her acute diastolic heart failure and anasarca but this will have to wait until renal function is improved. Status: Acute Qualifiers: Heart failure chronicity: acute Heart failure type: combined systolic and diastolic Qualified Code(s): I50.41 - Acute combined systolic (congestive) and diastolic (congestive) heart failure (3) Morbid obesity: Status: Acute Additional A&P Information Hyperkalemia. Kayexalate ordered today per nephrology Anemia. Likely related to renal failure all though past history of vaginal bleeding as well. Hemoglobin slightly lower but overall no evidence of acute blood loss. Will need to delineate if this is been evaluated. GERD, Protonix Hypertension, hold medicines currently, home monitoring blood pressure. Systolic in the emergency department is 110. DJD Does not want intubation, or CPR but would want consideration of all other therapies Heparin for DVT prophylaxis, renally dosed following renal function closely TSH was checked and normal. Attestations Medical Necessity Statement*: Needs continued hospitalization in the ICU secondary to severe acute renal failure. Coding Level of Care Code Acute Pole Framer Machine for Annemarie Schwarz Diagnoses Acute kidney injury N17.9 CHF (congestive heart failure) I50.41 Heart failure chronicity: acute Heart failure type: combined systolic and diastolic Morbid obesity E66.01
[2020-06-13] MEDS: FUROsemide 100 MG in sodium chloride 0.9% 40 ML 10 MG IV ×2 (16:50→19:29)
--- NOTE | 2020-06-13 19:11 | PC.NURSE ---
Pt has not felt very well today. She has a very poor appetite and intermittent nausea, but she remains alert and oriented x4. She also has intermittent epigastric cramping. Today and yesterday, she has eaten 1-2 bites from each meal at the most. Zofran helps some but does not completely resolve the nausea, per pt. She had dry heaves this morning after eating one bite of fruit, to the point that her oral medications had to be held. She requires maximum/total assistance for repositioning and transfers. She was transferred to the bariatric chair this morning with the assistance of PT and nursing staff. She remained in the chair until 1800. She has had minimal urine output during day shift (50ml). Her urine is bright red, cloudy, and very odorous; Dr. Covington informed. Lasix infusion started this afternoon per order from Dr. Gonzalez. She still has severe generalized edema with weeping in various areas; disposable pads changed and pillowcases applied to pannus and groin folds. Nystatin powder also applied to folds.
[2020-06-13] MEDS: nystatin powder 15 gm Btl 1 APPLIC TOPICAL (19:17)
--- NOTE | 2020-06-13 19:36 | PC.NURSE ---
Pt has order for lasix drip. Currently running @ 20 mg/hr. Based on titration protocol and pt urine output, drip should be titrated up. Pt labs indicate that this wouldn't be the best action. Pt continued on 20 mg/hr. Dr second facing baster contacted for further instructions.
[2020-06-13] MEDS: acetaminophen 325 mg Tablet 650 MG PO (20:07)
--- NOTE | 2020-06-13 22:26 | PC.NURSE ---
Pt has not had any urine output this shift. Catheter was flushed with 20 mL NS. NS drained into bag blood-tinged, but only 20 mL. Catheter was then flushed with 50 mL NS and was returned bloody, but no urine. Bladder scanner was used and the max fluid measured was 38 mL.
[2020-06-14] VITALS (25 sets, daily range): BP systolic 61–114; BP diastolic 48–86; PULSE 67–107; RESP 6–22; TEMP 36.2–36.5; O2SAT 85–95
--- NOTE | 2020-06-14 | SCC_ITS ---
Procedure Done: Placement of 11 Lithuanian hemodialysis temporary catheter 16 cm right IJ Vein and left subclavian vein 7 Lithuanian triple-lumen central line. 44.9 seconds of fluoroscopic guidance, for a cumulative dose of 16.51 mGy, was provided to Dr. Shepard by the radiology department. C-arm images of the chest were saved for the patient's permanent record. [facility]
[2020-06-14] MEDS: FUROsemide 100 MG in sodium chloride 0.9% 40 ML 10 MG IV ×3 (00:14→10:24)
[2020-06-14] MEDS: acetaminophen-codeine 300-30mg Tablet 1 TAB PO (02:04)
[2020-06-14 04:32] LABS: Basophils % 0.2 %; Hematocrit 29.9 % (37.0-47.0); Hemoglobin 8.1 g/dL (11.5-15.3); Lymphocytes # 0.6 10^3/uL (0.8-4.8); Lymphocytes % 13.3 %; Mean Corpuscular HGB Conc 27.1 g/dL (30.0-36.0); Mean Corpuscular Hemoglobin 25.7 pg (28.0-34.0); Mean Corpuscular Volume 94.9 fL (81-99); Mean Platelet Volume 10.6 fL (7.4-10.4); Monocytes # 0.4 10^3/uL (0.2-0.9); Monocytes % 9.1 %; Neutrophils # 3.69 10^3/uL (1.8-7.7); Neutrophils % 76.6 %; Nucleated Red Blood Cells % 0 %; Platelet Count 151 10^3/cmm (130-400); Red Blood Count 3.15 10^6/uL (4.1-5.3); Red Cell Distribution Width 24.3 % (12.1-15.1); White Blood Count 4.8 10^3/uL (4.0-10.0)
[2020-06-14 05:03] LABS: Alanine Aminotransferase 6 U/L (0-33); Albumin Level 4.3 g/dL (3.5-5.2); Alkaline Phosphatase 90 IU/L (35-105); Anion Gap 20.6 (5-19); Aspartate Amino Transferase 7 U/L (0-32); Calcium 8.6 mg/dL (8.5-10.5); Carbon Dioxide 27 mmol/L (22-29); Chloride 89 mmol/L (98-107); Globulin 3.2 g/dL (1.3-4.6); Glomerular Filtration Rate 8.4 mL/min (90-130); Glucose 109 mg/dL (65-115); Magnesium 2.7 mg/dL (1.7-2.3); Osmolality Calculated 305 mOsm/kg (285-295); Potassium 5.6 mmol/L (3.5-5.1); Sodium 131 mmol/L (136-145); Total Bilirubin 1.5 mg/dL (0.15-1.2); Total Protein 7.5 g/dL (6.6-8.7)
[2020-06-14 05:10] LABS: Blood Urea Nitrogen 103 mg/dL (8-23); Phosphorus 7.8 mg/dL (2.5-4.5)
--- NOTE | 2020-06-14 07:30 | XRR_ITS ---
PROCEDURE INFORMATION: Exam: XR Chest, 1 View Exam date and time: 06/14/2020 9:54 AM Age: 69 years old Clinical indication: Shortness of breath; Additional info: Hypoxia TECHNIQUE: Imaging protocol: XR of the chest Views: 1 view. COMPARISON: CR XR chest 1V portable [id number] 06/10/2020 3:11 PM FINDINGS: Lungs: Possible mild to moderate bilateral pneumonia, right greater than left. Pleural space: Unremarkable. No pleural effusion. No pneumothorax. Heart/Mediastinum: Unremarkable. No cardiomegaly. Bones/joints: Unremarkable. Other findings: Possible morbid obesity. XR/XR chest 1V portable [id number] IMPRESSION: 1. Possible morbid obesity. 2. Possible mild to moderate bilateral pneumonia, right greater than left.
[2020-06-14] MEDS: ondansetron 2 mg/ML SDV 2 mL 4 MG IVP (08:49)
[2020-06-14 08:54] LABS: Procalcitonin 0.42 ng/mL (0-0.5)
[2020-06-14] MEDS: midodrine 5 mg TABLET 10 MG PO ×2 (09:30→20:28)
[2020-06-14] MEDS: pantoprazole 40 mg SDV IVP (09:30)
[2020-06-14] MEDS: heparin 5,000 unit/mL INJ 1 mL 5000 UNIT SUBCUT (09:30)
[2020-06-14] MEDS: levothyroxine 100 mcg Tablet 200 MCG PO (09:30)
[2020-06-14] MEDS: nystatin powder 15 gm Btl 1 APPLIC TOPICAL ×2 (09:31→18:11)
--- NOTE | 2020-06-14 10:29 | PM.PN ---
Subjective Subjective: Interval history: + nausea, + weakness Medications: Reviewed: Yes Vitals/I&O/Wt Last Vital Signs Temp 97.6 F 06/14/20 06:00 Pulse 81 06/14/20 08:00 Resp 17 06/14/20 08:00 BP 87/58 06/14/20 08:00 Pulse Ox 94 06/14/20 08:00 06/13/20 06/14/20 06/14/20 22:59 06:59 14:59 Intake Total 627.333 / 727.333 195.000 / 922.333 150 / 150 Output Total 50 / 50 4 / 54 30 / 30 Balance 577.333 / 677.333 191.000 / 868.333 120 / 120 Physical Exam Resp: EFFORT & INSPECTION: Yes decreased respiratory effort AUSCULTATION: rales Cardio: COMMON NORMALS: regular rate and regular rhythm RATE: regular rate RHYTHM: regular rhythm Extremity: GENERAL: Yes edema Urinary Catheter Management^: Chase: Cath Placed During This Visit: yes Reason for Continuing Indwelling Catheter: Accurate Measurement of Urinary Output in Critically Ill Patients Urinary Catheter Date of Insertion: 06/10/20 Urinary Catheter Time of Insertion: 18:54 Data : 06/14/20 03:35 06/14/20 03:35 Micro: Microbiology 06/10/20 20:25 Urine Culture - Final Urine,Clean Catch Other data: Last CXR + pulmonary edema, CT lumbar spine no hydronephrosis A&P Additional A&P Information 1. Acute kidney injury, urine output even less. May have uremic symptoms. + volume overload 2. Hyperkalemia 3. Primary respiratory acidosis 4. Morbid obesity Rec: Discontinue furosemide gtt. I had a long discussion with Coral regarding dialysis. It appears she is agreeable to acute dialysis. Discussed with Dr Covington, surgery consult for temporary dialysis catheter will be arranged. Attestations Medical Necessity Statement*: critically ill Coding Level of Care Code Acute Director Of Blood for Annemarie Schwarz
--- NOTE | 2020-06-14 10:54 | P.PN_ITS ---
Subjective Subjective: Interval history: Patient requiring more oxygen overnight. She states she does not feel very well. Denies shortness of breath on oxygen. Medications: Reviewed: Yes Vitals/I&O/Wt Last Vital Signs Temp 97.7 F 06/14/20 10:00 Pulse 85 06/14/20 10:00 Resp 19 H 06/14/20 10:00 BP 88/61 06/14/20 10:00 Pulse Ox 92 06/14/20 10:00 06/13/20 06/14/20 06/14/20 22:59 06:59 14:59 Intake Total 627.333 / 727.333 195.000 / 922.333 150 / 150 Output Total 50 / 50 4 / 54 30 / 30 Balance 577.333 / 677.333 191.000 / 868.333 120 / 120 Physical Exam Narrative: EXAM NARRATIVE: General exam no apparent distress Cardiovascular regular rate and rhythm, heart sounds distant Lungs clear no crackles. Diminished breath sounds are noted bilaterally Abdomen is soft, obese, pitting edema of pannus is noted. Extremities 4+ edema bilaterally, pitting. Cap refill brisk. Urinary Catheter Management^: Chase: Cath Placed During This Visit: yes Reason for Continuing Indwelling Catheter: Accurate Measurement of Urinary Output in Critically Ill Patients Urinary Catheter Date of Insertion: 06/10/20 Urinary Catheter Time of Insertion: 18:54 Data : 06/14/20 03:35 06/14/20 03:35 Micro: Microbiology 06/10/20 20:25 Urine Culture - Final Urine,Clean Catch Other data: Chest x-ray is difficult to interpret secondary to her weight but I believe she is developing some interstitial infiltrates consistent with pulmonary edema. A&P Assessment and plan (1) Acute kidney injury: This may be multifactorial. Certainly her baseline renal function appears normal. Her degree of diastolic heart failure and edema can explain some of her renal failure. Certainly continued anti-inflammatory use could contribute. Nephrology consultation appreciated Continues to have worsening renal function, oliguric renal failure Continue albumin MIdodrine was added per nephrology for borderline hypotension Avoid all renal toxic medications, including anti-inflammatories Unfortunately secondary to body habitus CT abdomen and ultrasound cannot vi sualize her kidneys. Hopefully there is no obstruction. She has no pain to suggest this. Kayexalate, Lasix drip per nephrology. May need dialysis Status: Acute (2) CHF (congestive heart failure): History of significant diastolic heart dysfunction. She needs significant diuresis from her acute diastolic heart failure and anasarca but this will have to wait until renal function is improved. She has not responded to IV Lasix Status: Acute Qualifiers: Heart failure chronicity: acute Heart failure type: combined systolic and diastolic Qualified Code(s): I50.41 - Acute combined systolic (congestive) and diastolic (congestive) heart failure (3) Morbid obesity: Status: Acute Additional A&P Information Hyperkalemia. Nephrology managing currently. Received Kayexalate on June 13 Anemia. Likely related to renal failure all though past history of vaginal bleeding as well. Hemoglobin slightly lower but overall no evidence of acute blood loss. Will need to delineate if this is been evaluated. GERD, Protonix Hypertension, hold medicines currently, home monitoring blood pressure. Systolic in the emergency department is 110. DJD Does not want intubation, or CPR but would want consideration of all other therapies Heparin for DVT prophylaxis, renally dosed following renal function closely TSH was checked and normal. Acetone level was checked and not elevated. Attestations 2 Medical Necessity Statement*: Needs continued hospitalization secondary to severe acute renal failure, now with developing pulmonary edema Critical Care Time: 31 minutes spent in critical care examination of the patient, laboratory, discussion with nursing in this patient with severe renal failure, unimproving, likely with need for dialysis soon. Coding Level of Care Code Acute Vegetable Packer for [facility] Karishma Diagnoses Acute kidney injury N17.9 CHF (congestive heart failure) I50.41 Heart failure chronicity: acute Heart failure type: combined systolic and diastolic Morbid obesity E66.01
--- NOTE | 2020-06-14 11:10 | PM.CONSULT ---
Providers/Reason For Consult Consulting Physican/Specialty*: Delfino Shepard MD Reason for Consult*: Acute Kidney Faliure Attending Physician: Josesito Covington MD Primary Care Provider: AIXA Marin History of Present Illness History of Present Illness Chief Complaint: Shortness of breath History of present illness:Ms Coral Small is a 69 year old female morbidly obese with a current BMI of 82.3 [facility] with worsening shortness of breath and elevated kidney function, patient is admitted on the hospitalist service and her kidney functions continued to deteriorate. And nephrology service is on board and they recommended temporary dialysis catheter placement for acute dialysis with coordination with hospitalist service. General surgery was consulted for further management Patient was seen and evaluated in the ICU bed 11 Review of Systems General: Reports: 10 or more systems reviewed and unremarkable except in HPI and below Meds/Allergies Home Medications and Allergies Home Medications Medication Instructions Recorded Confirmed Last Taken Type vitamin B12 500 mcg-folic acid 400 2 tab PO DAILY tab 09/26/19 06/10/20 06/10/20 History mcg tablet gabapentin 100 mg capsule 100 mg PO TID #90 cap 10/23/19 06/10/20 06/10/20 Rx levothyroxine 200 mcg tablet 200 mcg PO DAILY #30 tab 03/18/20 06/10/20 06/10/20 Rx bumetanide 2 mg PO DAILY 30 Days #30 tab 04/17/20 06/10/20 06/10/20 Rx carvedilol 3.125 mg PO BID #60 tab 04/17/20 06/10/20 06/10/20 Rx cholecalciferol (vitamin D3) 50,000 unit PO DIRECTED #4 cap 04/17/20 06/10/20 06/10/20 Rx iron ps [id number] acid 1 ea PO Q48H #30 cap 04/17/20 06/10/20 06/09/20 Rx [Ferrex 150 Forte] polyethylene glycol 3350 17 g PO BID #30 each 04/17/20 06/10/20 06/10/20 Rx spironolactone 12.5 mg PO QDAY #30 tab 04/17/20 06/10/20 06/10/20 Rx diclofenac sodium 75 mg PO BID 04/22/20 06/10/20 06/10/20 History furosemide 80 mg PO DAILY 04/22/20 06/10/20 06/10/20 History Potassium Liquid 45 ml PO DAILY 06/10/20 06/10/20 06/10/20 History albuterol sulfate [ProAir HFA] 2 puff INHALATION Q6H PRN 06/10/20 06/10/20 Unknown History aspirin 81 mg PO BEDTIME 06/10/20 06/10/20 06/10/20 History omeprazole 20 mg PO DAILY 06/10/20 06/10/20 06/10/20 History Allergies Allergy/AdvReac Type Severity Reaction Status Date / Time cortisone Allergy Unknown Unknown Verified 06/14/20 11:58 egg Allergy Unknown Unknown Verified 06/14/20 11:58 Sulfa (Sulfonamide Allergy Unknown Unknown Verified 06/14/20 11:58 Antibiotics) lisinopril AdvReac Mild cough Verified 06/14/20 11:58 Current Medications Current Medications Generic Name Dose Route Start Last Admin Trade Name Freq PRN Reason Stop Dose Admin Acetaminophen 650 mg 06/10/20 21:35 06/13/20 20:07 Tylenol PO 650 mg Q6H PRN Administration MILD PAIN Albumin Human 25 gm in 100 mls @ 60 mls/hr 06/10/20 23:45 06/14/20 08:52 Albumin IV Infused Q8H KRYSTINA Infusion Furosemide 100 mg/ Sodium 50 mls @ 10 mls/hr 06/13/20 14:00 06/14/20 10:24 Chloride IV 20 mg/hr .Q5H KRYSTINA 10 mls/hr Administration Protocol 20 MG/HR Levothyroxine Sodium 200 mcg 06/11/20 09:00 06/14/20 09:30 Synthroid PO 200 mcg DAILY KRYSTINA Administration Midodrine 10 mg 06/11/20 13:30 06/14/20 09:30 Proamatine PO 10 mg TID KRYSTINA Administration Nystatin 1 applic 06/13/20 09:00 06/14/20 09:31 Nystatin Powder TOPICAL 1 applic BID KRYSTINA Administration Ondansetron HCl 4 mg 06/10/20 21:35 06/14/20 08:49 Zofran IVP 4 mg Q6H PRN Administration NAUSEA AND VOMITING Pantoprazole Sodium 40 mg 06/13/20 09:00 06/14/20 09:30 Protonix IVP 40 mg DAILY KRYSTINA Administration PFSH Acute PFSH: Medical History (Updated 06/10/20 @ 23:23 by Gerri Cortez MD) Acquired hypothyroidism B12 deficiency Back pain of lumbosacral region with sciatica CHF (congestive heart failure) 3/4 diastolic dysfunction with normal EF 03/31 Essential (primary) hypertension Hypothyroidism Iron deficiency anemia, unspecified - Morbid (severe) obesity due to excess calories BMI-68 kg/m2 Nephrolithiasis Paroxysmal A-fib declined AC due to noted vaginal bleeding Pulmonary hypertension Respiratory failure with hypoxia and hypercapnia Sleep apnea Urge incontinence Vaginal bleeding Surgical History History of 2 sections History of ankle surgery (~1991) Hx of appendectomy (~1976) Hx of artificial lens replacement (~04/2013) left; Dr Wolfe Hx of artificial lens replacement (~02/2012) right eye Hx of dilation and curettage Hx of lithotripsy (~11/2016) Hx of tubal ligation (~1979) Hx of vitrectomy (~2014) Family History Father , age 89 Hyperlipidemia Hypertension Stroke CAD (coronary artery disease) Mother , age 51 Cancer Stroke Family/Other Stroke Hypertension Social History Smoking and tobacco status: never smoked Second hand smoke exposure: No Alcohol intake: former Adopted: No Lives independently: Yes Household members: none Housing: Apartment Marital status: service: No Current occupational status: disabled History of recent travel: No Current gender identity: Female Vitals/I&O/Wt Last Vital Signs Temp 97.7 F 06/14/20 10:00 Pulse 85 06/14/20 10:00 Resp 19 H 06/14/20 10:00 BP 88/61 06/14/20 10:00 Pulse Ox 92 06/14/20 10:00 06/13/20 06/14/20 06/14/20 22:59 06:59 14:59 Intake Total 627.333 / 727.333 195.000 / 922.333 150 / 150 Output Total 50 / 50 4 / 54 30 / 30 Balance 577.333 / 677.333 191.000 / 868.333 120 / 120 Physical Exam Narrative: EXAM NARRATIVE: Patient is conscious alert oriented X3 BMI 82 Head and neck examination PERRLA no masses no cervical lymphadenopathy no jaundice Cardiac examination audible S1-S2 no murmurs no gallops no arrhythmias yet heart sounds are distant due to body habitus. Chest is diminished air entry bilateral Abdomen nontender nondistended soft no organomegaly guarding or rigidity/no signs of peritonitis Super super obese Urinary Catheter Management^: Chase: Cath Placed During This Visit: yes Reason for Continuing Indwelling Catheter: Accurate Measurement of Urinary Output in Critically Ill Patients Urinary Catheter Date of Insertion: 06/10/20 Urinary Catheter Time of Insertion: 18:54 Data Micro: Micro: Microbiology 06/10/20 20:25 Urine Culture - Fi nal Urine,Clean Catch A&P Assessment and plan (1) Acute kidney injury: Plan of care; After thorough history physical examination and reviewing the chart, I counseled the patient and her power of insurance defense attorney Ms. Painter for temporary dialysis catheter placement and central line access, indications, risks including pneumothorax and injury of major vascular structures, benefits,indications and alternatives were all discussed with the patient and her power of insurance defense attorney,both understand and are interested to proceed. Patient certainly is at a higher risk of complication due to her morbid obesity and associated multiple medical comorbidities. We will plan to perform the procedure in the OR under more controlled environment and implement C arm fluoroscopy Rationale was carefully and clearly discussed with the patient and her power of insurance defense attorney.Appropriate informed consent have been reviewed and signed. Thank you for consulting general surgery to participate taking care Ms. Small Status: Acute Consult Attestations Medical Necessity Statement: Patient requires hospitalization past 2 midnights for further medical care and hemodialysis Time Spent in Patient Care: (>than 50% of time spent in counselling and/or direct pt care on unit). Coding Level of Care Code Acute Quarry Plug And Feather Driller for g Karishma Diagnoses Acute kidney injury N17.9
--- NOTE | 2020-06-14 12:54 | P.ANESASSM_ITS ---
Pre-Anesthetic Assessment Pre-Anesthetic Assessment: Height/Weight: Height 1.57 m Weight 204.117 kg Temp Pulse Resp BP Pulse Ox 97.7 F 70 15 90/64 93 06/14/20 10:00 06/14/20 12:00 06/14/20 12:00 06/14/20 12:00 06/14/20 12:00 Preop Diagnosis: SALLY Proposed Procedure: Operation Date: 06/14/20 13:20 Proposed Procedures p Dialysis Catheter Insertion & Central Line(Not Applicable) - Delfino Shepard MD Familial anesthetic complications: None Was Beta José Luis taken within 24 hours: Yes Last intake: There are crackers at bedside, but patient states she has not eaten them since last night Social: Social History: No alcohol and No tobacco Exam: Pre-Anes Outpt Exam: alert, oriented x 3, clear to auscultation bilaterally and regular rate & rhythm Additional Exam Findings (including area of procedure): coarse breath sounds b/l Airway: Cervical ROM: WNL MP: 2 Dentition: Other (edentulous) Pulmonary: Comments: acute resp failure CV/HEM: CV/HEM: CHF : Comments: SALLY GI: GI: GERD Metabolic: Metabolic: Morbid obesity (super morbid obesity) and Thyroid Anesthetic Plan: ASA status: 4 Anesthesia: Local Only Other: general as back up Risk of > 500 ml blood loss (7ml/kg in children): No Meds/Allergies Current Medications: Current Medications Generic Name Dose Route Start Last Admin Trade Name Freq PRN Reason Stop Dose Admin Acetaminophen 650 mg 06/10/20 21:35 06/13/20 20:07 Tylenol PO 650 mg Q6H PRN Administration MILD PAIN Albumin Human 25 gm in 100 mls @ 60 mls/hr 06/10/20 23:45 06/14/20 08:52 Albumin IV Infused Q8H KRYSTINA Infusion Levothyroxine Sodi um 200 mcg 06/11/20 09:00 06/14/20 09:30 Synthroid PO 200 mcg DAILY KRYSTINA Administration Midodrine 10 mg 06/11/20 13:30 06/14/20 09:30 Proamatine PO 10 mg TID KRYSTINA Administration Nystatin 1 applic 06/13/20 09:00 06/14/20 09:31 Nystatin Powder TOPICAL 1 applic BID KRYSTINA Administration Ondansetron HCl 4 mg 06/10/20 21:35 06/14/20 08:49 Zofran IVP 4 mg Q6H PRN Administration NAUSEA AND VOMITI NG Pantoprazole Sodiu m 40 mg 06/13/20 09:00 06/14/20 09:30 Protonix IVP 40 mg DAILY KRYSTINA Administration PFSH Anesthesia PFSH: Medical History (Updated 06/10/20 @ 23:23 by Gerri Cortez MD) Acquired hypothyroidism B12 deficiency Back pain of lumbosacral region with sciatica CHF (congestive heart failure) 3/4 diastolic dysfunction with normal EF 03/31 Essential (primary) hypertension Hypothyroidism Iron deficiency anemia, unspecified - Morbid (severe) obesity due to excess calories BMI-68 kg/m2 Nephrolithiasis Paroxysmal A-fib declined AC due to noted vaginal bleeding Pulmonary hypertension Respiratory failure with hypoxia and hypercapnia Sleep apnea Urge incontinence Vaginal bleeding Surgical History History of 2 sections History of ankle surgery (~1991) Hx of appendectomy (~1976) Hx of artificial lens replacement (~04/2013) left; Dr Wolfe Hx of artificial lens replacement (~02/2012) right eye Hx of dilation and curettage Hx of lithotripsy (~11/2016) Hx of tubal ligation (~1979) Hx of vitrectomy (~2014) Family History Father , age 89 Hyperlipidemia Hypertension Stroke CAD (coronary artery disease) Mother , age 51 Cancer Stroke Family/Other Stroke Hypertension Social History Smoking and tobacco status: never smoked Second hand smoke exposure: No Alcohol intake: former Adopted: No Lives independently: Yes Household members: none Housing: Apartment Marital status: service: No Current occupational status: disabled History of recent travel: No Current gender identity: Female Data Anesthesia CBC & Chem 7: 06/14/20 03:35 06/14/20 03:35 Other Labs: Laboratory Results - last 48 hr 06/12/20 06/13/20 06/13/20 16:01 04:40 04:40 WBC 4.6 RBC 3.29 L Hgb 8.5 L Hct 30.7 L MCV 93.3 MCH 25.8 L MCHC 27.7 L RDW 24.8 H Plt Count 172 MPV 11.8 H Neut % (Auto) 63.5 Lymph % (Auto) 23.8 Lipscomb % (Auto) 10.2 Eos % (Auto) 0.6 Baso % (Auto) 0.4 Neut # (Auto) 2.94 Lymph # (Auto) 1.1 Lipscomb # (Auto) 0.5 Eos # (Auto) 0.0 Baso # (Auto) 0.0 Nucleated RBC % (auto) 0.4 Nucleated RBCs # 0.0 Sodium 135 L Cancelled Potassium 5.8 H Cancelled Chloride 92 L Cancelled Carbon Dioxide 32 H Cancelled Anion Gap 16.8 Cancelled BUN 100 H* Cancelled Creatinine 4.5 H Cancelled GFR Calculation 9.7 L Cancelled Glucose 116 H Cancelled Calculated Osmolality 312 H Cancelled Calcium 8.4 L Cancelled Phosphorus Magnesium Total Bilirubin Cancelled AST Cancelled ALT Cancelled Alkaline Phosphatase Cancelled Total Protein Cancelled Albumin Cancelled Globulin Cancelled Procalcitonin 06/13/20 06/13/20 06/13/20 04:40 05:27 06:29 WBC RBC Hgb Hct MCV MCH MCHC RDW Plt Count MPV Neut % (Auto) Lymph % (Auto) Lipscomb % (Auto) Eos % (Auto) Baso % (Auto) Neut # (Auto) Lymph # (Auto) Lipscomb # (Auto) Eos # (Auto) Baso # (Auto) Nucleated RBC % (auto) Nucleated RBCs # Sodium Cancelled 131 L Potassium Cancelled 5.8 H Chloride Cancelled 90 L Carbon Dioxide Cancelled 29 Anion Gap Cancelled 17.8 BUN Cancelled 96 H* Creatinine Cancelled 5.3 H GFR Calculation Cancelled 8.0 L Glucose Cancelled 108 Calculated Osmolality Cancelled 302 H Calcium Cancelled 8.8 Phosphorus Cancelled Cancelled 7.1 H Magnesium Cancelled Cancelled 2.7 H Total Bilirubin Cancelled 1.2 AST Cancelled 13 ALT Cancelled 6 Alkaline Phosphatase Cancelled 85 Total Protein Cancelled 7.2 Albumin Cancelled 3.8 Globulin Cancelled 3.4 Procalcitonin 06/14/20 06/14/20 06/14/20 03:35 03:35 03:35 WBC 4.8 RBC 3.15 L Hgb 8.1 L Hct 29.9 L MCV 94.9 MCH 25.7 L MCHC 27.1 L RDW 24.3 H Plt Count 151 MPV 10.6 H Neut % (Auto) 76.6 Lymph % (Auto) 13.3 Lipscomb % (Auto) 9.1 Eos % (Auto) 0.0 Baso % (Auto) 0.2 Neut # (Auto) 3.69 Lymph # (Auto) 0.6 L Lipscomb # (Auto) 0.4 Eos # (Auto) 0.0 Baso # (Auto) 0.0 Nucleated RBC % (auto) 0 Nucleated RBCs # 0.0 Sodium 131 L Potassium 5.6 H Chloride 89 L Carbon Dioxide 27 Anion Gap 20.6 H BUN 103 H* Creatinine 5.1 H GFR Calculation 8.4 L Glucose 109 Calculated Osmolality 305 H Calcium 8.6 Phosphorus 7.8 H* Magnesium 2.7 H Total Bilirubin 1.5 H AST 7 ALT 6 Alkaline Phosphatase 90 Total Protein 7.5 Albumin 4.3 Globulin 3.2 Procalcitonin 0.42 Micro: Microbiology 06/10/20 20:25 Urine Culture - Final Urine,Clean Catch Cardiac Studies: No Data to Display
--- NOTE | 2020-06-14 13:26 | SC_ITS ---
WS: [id number] INTRAOPERATIVE TECHNIQUE: 4 Spot fluoroscopic images for intraoperative purposes. FLUOROSCOPY TIME: 44.9 seconds CLINICAL INFORMATION: surgery, DIALYSIS AND CENTRAL LINE PLACEMENT COMPARISON: None. FINDINGS: Right central venous catheter tip in the proximal SVC. Left central venous catheter with tip in the d istal SVC. SC/C-arm FL for CVA [id number] IMPRESSION: Images obtained for intraoperative purposes.
--- NOTE | 2020-06-14 13:54 | PC.NURSE ---
pt to OR at 1310 for placement of dialysis catheter and central line.
[2020-06-14] MEDS: heparin,porcine 1,000 unit/mL INJ 1 mL 1000 UNIT IRRIGATION (14:06)
[2020-06-14] MEDS: lidocaine 2% INJ 20 mL INJECTION (14:08)
--- NOTE | 2020-06-14 14:33 | XRR_ITS ---
PROCEDURE INFORMATION: Exam: XR Chest, 1 View Exam date and time: 06/14/2020 2:34 PM Age: 69 years old Clinical indication: Device placement; Other: Central line and dialysis; Prior surgery; Additional info: Status post right ij temporary hemodialysis catheter 11 cambodian TECHNIQUE: Imaging protocol: XR of the chest Views: 1 view. COMPARISON: CR XR chest 1V portable [id number] 06/14/2020 9:32 AM FINDINGS: Tubes, catheters and devices: Left central line tip over the distal SVC. Lungs: Moderate to severe bilateral lower lung field pulmonary opacities, left greater than right. Pleural space: Unremarkable. No pleural effusion. No pneumothorax. Heart/Mediastinum: Unremarkable. No cardiomegaly. Bones/joints: Unremarkable. Other findings: Patient rotation to the left. XR/XR chest 1V portable [id number] IMPRESSION: 1. Left central line tip over the distal SVC. 2. Moderate to severe bilateral lower lung field pulmonary opacities, left greater than right.
--- NOTE | 2020-06-14 14:37 | P.OP_ITS ---
Operative Report Date of procedure: June 14, 2020 Pre-op Diagnosis: SALLY and in need for IV access Post-op diagnosis: same Procedure Done: Placement of 11 [place] hemodialysis temporary catheter 16 cm right IJ Vein and left subclavian vein 7 [place] triple-lumen central line. Under ultrasound and fluoroscopic guidance. Interpretation was done by me through the whole entire procedure. Implants: Placement of 11 [place] hemodialysis temporary catheter 16 cm right IJ Vein and left subclavian vein 7 [place] triple-lumen central line. Surgeon: Delfino Shepard Acquisition Lead: pyrotechnic mixer Lenora Circulating nurse Dary Anesthesia: MAC (Chalino Cedeno and Dr. Garza) Estimated blood loss (mL): 20 Condition: stable Disposition: ICU Brief History: 69 years old super super obese patient with BMI of 82.3 requiring acute hemodialysis and IV access. After history taking physical examination and reviewing the chart and images I did vp & general counsel the patient and her power of book editor for placement of HD catheter and central line. Patient and family agreed to proceed Informed consent per chart Procedure: Patient was identified in the ICU and taken to the operative room and placed in supine position.all pressure points were padded. Time-out was done verifying the patient's name/date of /planned procedure and destination after the procedure, all were in agreement.IV sedation was provided by anesthesia ,patient was already on therapeutic antibiotics administered per protocol, and beta randell protocol was confirmed, appropriate positioning of the patient was done by me and the OR team and appropriate securing of patient to the table was achieved. Medications were reviewed to assess for anticoagulant usage. Risks and benefits and prevention of central line associated blood stream infection (CLABSI) were discussed with the patient/CPOA, and a consent was obtained. Monitors were in place and monitored throughout the procedure. All necessary supplies were available prior to start. Hand hygiene was completed prior to starting. Maximum barrier technique was utilized including a sterile gown, sterile gloves with a hat and mask. Site was was prepped with [chlorhexidine] and a full body drape was placed. 5 mL of 2% lidocaine was injected into the skin with a 25 gauge needle. Prep& drape was done under the usual sterile technique of upper chest right and left as well as the neck both sides, lidocaine 2% was injected at the site of the stick, I started with the right IJ vein under ultrasound guidance and there was no evidence of intraluminal thrombosis. I was able to retrieve venous blood,and a guidewire was then threaded without any difficulty and under the guidance of fluoroscopy position was confirmed to be in the IVC, there was no PVC changes, at that point the guidewire was secured to the drapes with a hemostat and the needle was taken out.Serial dilations were used coming with the kit and an HD 11 [place] 16 cm long temporary catheter was inserted onto the wire and the wire was removed.Flushes were appropriately done and the catheter was secured with 3-0 nylon to the skin. HD catheter maintained to be in good position.Both ports were flushed with diluted heparin and appropriate blood was retrieved first, Hep-Lock's were then applied The whole procedure was done under fluoroscopy , the position maintained to be in the rt proximal SVC that was confirmed with fluoroscopy. Attention now was deviated towards the left subclavian vein where subclavian vein stick was done retrieving venous blood from the first stick followed by guidewire placement under fluoroscopy, the needle was taken out and the wire was secured to the drapes with a hemostat followed by serial dilators and a triple lumen 7 [place] central line catheter was inserted under fluoroscopy guidance and the wire was then retrieved. The catheter was secured to the skin with 3-0 nylon. and the fluoroscopy interpretation was done by me throughout the entire procedure. All ports were flushed and the hep lock caps were applied Dry dressing was applied to both the HD and central line catheters Patient tolerated the procedure well was transferred directly to the ICU in a stable condition. Count was correct at the end of the procedure. I was present for the whole entire procedure Position of the catheter was checked with a postoperative chest x-ray and it was in good position without evidence of pneumothorax on both sides of the Thorax.
[2020-06-14 14:50] LABS: Hepatitis B Core AB, Total Non-Reactive (Nonreactive); Hepatitis B Surface AB 3.5 (0-8.5); Hepatitis B Surface Antigen Non-Reactive (Nonreactive); Hepatitis C Virus Antibody Non-Reactive (Nonreactive)
--- NOTE | 2020-06-14 19:47 | PC.NURSE ---
AO to person place and recalls being in hospital but not to day to time, answers questions with slowed response, follows commands, manager content strong and equal BUE, face symmetrical speech clear, urine dark and cloudy, 14 L oxy mask start of shift O2 88-89, decreased to 6L oxy mask O2 88, supine 45 degrees call light within reach
--- NOTE | 2020-06-14 20:49 | PC.NURSE ---
Refused turning and repositioning at this time
[2020-06-14 22:11] LABS: ABG PCO2 71.2 mmHg (35-45); ABG PH Result 7.21 (7.35-7.45); Arterial Blood Gas Hematocrit 25.9 % (37-47); Base Excess ABG -0.3 mmol/L (-2.0-2.0); Blood Gas Allen Test Pos; Blood Gas Operator Identificat JB; Blood Gas Sample Site Radial, right; Blood Gas Sample Type Arterial; Carboxyhemoglobin 1.7 %THgb (0.4-20.1); HCO3 ABG 28.3 mmol/L (22-26); HGB O2 Sat 89.5 % (95-100); Ionized Calcium Level - ABG 1.1 mmol/L (1.1-1.4); Methemoglobin 0.9 % (0.4-1.5); Oxygen Device OXY MASK; PO2 ABG 64.6 mmHg (80.0-100.0); Total Hemoglobin 8.4 g/dL (12-16)
--- NOTE | 2020-06-14 23:02 | PC.NURSE ---
Placed on CPAP by RT, RR set 12 fio2 50%, O2 85-88, attempts to take mask off at times,educated to leave mask on to improve respiratory effort
[2020-06-15] VITALS (79 sets, daily range): BP systolic 85–135; BP diastolic 49–85; PULSE 79–106; RESP 4–21; TEMP 36.6; O2SAT 90–100
[2020-06-15 03:32] LABS: Basophils % 0.2 %; Hematocrit 28.9 % (37.0-47.0); Hemoglobin 7.8 g/dL (11.5-15.3); Lymphocytes # 0.5 10^3/uL (0.8-4.8); Lymphocytes % 8.7 %; Mean Corpuscular Hemoglobin 25.6 pg (28.0-34.0); Mean Corpuscular Volume 94.8 fL (81-99); Mean Platelet Volume 9.8 fL (7.4-10.4); Monocytes # 0.5 10^3/uL (0.2-0.9); Neutrophils % 81.8 %; Nucleated Red Blood Cells % 0.3 %; Platelet Count 161 10^3/cmm (130-400); Red Blood Count 3.05 10^6/uL (4.1-5.3); Red Cell Distribution Width 24.2 % (12.1-15.1); White Blood Count 5.8 10^3/uL (4.0-10.0)
[2020-06-15 03:51] LABS: Anion Gap 21.1 (5-19); Blood Urea Nitrogen 80 mg/dL (8-23); Calcium 8.5 mg/dL (8.5-10.5); Carbon Dioxide 27 mmol/L (22-29); Chloride 92 mmol/L (98-107); Glomerular Filtration Rate 8.6 mL/min (90-130); Glucose 116 mg/dL (65-115); Osmolality Calculated 305 mOsm/kg (285-295); Potassium 5.1 mmol/L (3.5-5.1); Sodium 135 mmol/L (136-145)
--- NOTE | 2020-06-15 07:11 | PM.PN ---
Subjective Subjective: Interval history: on BiPAP, 50%, no complaints Medications: Reviewed: Yes Medication Review Details: levophed added yesterday currently at 2 mcg Vitals/I&O/Wt Last Vital Signs Temp 97.6 F 06/14/20 19:16 Pulse 96 06/15/20 06:10 Resp 14 06/15/20 06:10 BP 101/65 06/15/20 06:10 Pulse Ox 93 06/15/20 06:10 06/14/20 06/15/20 06/15/20 22:59 06:59 14:59 Intake Total 16.847 / 166.847 150 / 316.847 Output Total 40 / 90 Balance -3.153 / 116.847 110 / 226.847 Physical Exam Const: COMMON NORMALS: no acute distress NUTRITIONAL APPEARANCE: obese Resp: AUSCULTATION: rhonchi Cardio: COMMON NORMALS: regular rate and regular rhythm RATE: regular rate RHYTHM: regular rhythm Extremity: GENERAL: Yes edema Urinary Catheter Management^: Chase: Cath Placed During This Visit: yes Reason for Continuing Indwelling Catheter: Accurate Measurement of Urinary Output in Critically Ill Patients Urinary Catheter Date of Insertion: 06/10/20 Urinary Catheter Time of Insertion: 18:54 Data : 06/15/20 03:19 06/15/20 03:19 Other Labs: 06/14: 7. Other data: CXR: bilateral pneumonia A&P Additional A&P Information 1. Acute kidney injury. Received 2 hour HD yesterday, unable to remove fluid 2. Hyperkalemia, improved 3. Primary respiratory acidosis, pneumonia 4. Morbid obesity 5. Anemia 6. Hyperphosphatemia, currently NPO Rec: HD today. 3 hours, attempt at fluid removal, goal 1500 ml, 2K bath Attestations Medical Necessity Statement*: critically ill Time Spent in Patient Care: 16 - 35 minutes Coding Level of Care Code Acute Cut Out Operator for Chg Fwd Exam Expanded Problem Focused
--- NOTE | 2020-06-15 08:27 | PM.PN ---
Subjective Subjective: Interval history: Patient continues to be in the ICU, undergone uneventful placement of right sided neck HD catheter and left subclavian central line in the OR yesterday. Vitals/I&O/Wt Last Vital Signs Temp 97.8 F 06/15/20 07:15 Pulse 98 06/15/20 08:00 Resp 16 06/15/20 08:00 BP 132/74 06/15/20 08:00 Pulse Ox 92 06/15/20 08:00 06/14/20 06/15/20 06/15/20 22:59 06:59 14:59 Intake Total 16.847 / 166.847 150 / 316.847 Output Total 40 / 90 Balance -3.153 / 116.847 110 / 226.847 Physical Exam Narrative: EXAM NARRATIVE: patient is conscious alert BMI 82.3 Head and neck examination PERRLA no masses no cervical lymphadenopathy no jaundice No crepitus of the upper chest or side of the neck and no evidence of bleeding at the site of catheter insertions. Urinary Catheter Management^: Chase: Cath Placed During This Visit: yes Reason for Continuing Indwelling Catheter: Accurate Measurement of Urinary Output in Critically Ill Patients Urinary Catheter Date of Insertion: 06/10/20 Urinary Catheter Time of Insertion: 18:54 Data : 06/15/20 03:19 06/15/20 03:19 A&P Assessment and plan (1) Acute kidney injury: Continue hemodialysis per nephrology service Assurance and education All questions have been answered and all concerns have been addressed to patient's satisfaction. Thank you for consulting general surgery to participate taking care Ms. Small Status: Acute Attestations Medical Necessity Statement*: Patient required inpatient hospitalization past 2 midnights for medical management and hemodialysis Time Spent in Patient Care: (>than 50% of time spent in counselling and/or direct pt care on unit). Coding Level of Care Code Acute Crm Marketing Specialist for [facility] Fwkimberly Diagnoses Acute kidney injury N17.9
[2020-06-15] MEDS: pantoprazole 40 mg SDV IVP (09:14)
[2020-06-15] MEDS: ondansetron 2 mg/ML SDV 2 mL 4 MG IVP ×2 (09:30→17:22)
--- NOTE | 2020-06-15 11:45 | PC.SOCIAL ---
IMM Update Pg. 2 of IMM updated and copy left at bedside. Patient sleeping with bipap in place so did not disturb her.
--- NOTE | 2020-06-15 12:13 | PC.NURSE ---
Thoracentesis and pleural catheter placement performed at bedside by Dr. Minor at approximately 11:15am today. Time-out performed and consent form signed prior to procedure start. Consent form placed in chart. Pt was given 2mg IV morphine per Dr. Minor prior to procedure for comfort. Pt was placed in left lateral position in the bed, with HOB elevated at about 30 degrees. Pt tolerated procedure well. About 1000ml of serosanguinous fluid evacuated. Pleural fluid samples sent to lab. Pleural catheter sutured into place and covered with gauze and foam tape.
[2020-06-15] MEDS: LORazepam 2 mg/mL INJ 1 mL 0.5 MG IVP (13:18)
--- NOTE | 2020-06-15 13:19 | PC.OT ---
OT tx attempted x 2 today. Pt requiring increased O2 and resting with C-PAP on first attempt and had just begun dialysis on second attempt. OT will attempt to resume services again tomorrow.
--- NOTE | 2020-06-15 14:06 | P.PN_ITS ---
Subjective Subjective: Interval history: Coral required BiPAP initiated last night. She is sleepy today. Medications: Reviewed: Yes Medication Review Details: levophed added yesterday currently at 2 mcg Vitals/I&O/Wt Last Vital Signs Temp 97.8 F 06/15/20 07:15 Pulse 96 06/15/20 13:15 Resp 13 06/15/20 13:15 BP 108/67 06/15/20 13:15 Pulse Ox 92 06/15/20 13:15 06/14/20 06/15/20 06/15/20 22:59 06:59 14:59 Intake Total 16.847 / 166.847 150 / 316.847 337.153 / 337.153 Output Total 40 / 90 Balance -3.153 / 116.847 110 / 226.847 337.153 / 337.153 Physical Exam Narrative: EXAM NARRATIVE: General exam no apparent distress Cardiovascular regular rate and rhythm, heart sounds distant Lungs clear no crackles. Diminished breath sounds are noted bilaterally Abdomen is soft, obese, pitting edema of pannus is noted. Extremities 4+ edema bilaterally, pitting. Cap refill brisk. Urinary Catheter Management^: Chase: Cath Placed During This Visit: yes Reason for Continuing Indwelling Catheter: Accurate Measurement of Urinary Outp ut in Critically Ill Patients Urinary Catheter Date of Insertion: 06/10/20 Urinary Catheter Time of Insertion: 18:54 Data : 06/15/20 03:19 06/15/20 03:19 A&P Assessment and plan (1) Acute kidney injury: This may be multifactorial. Certainly her baseline renal function appears normal. Her degree of diastolic heart failure and edema can explain some of her renal failure. Certainly continued anti-inflammatory use could contribute. Nephrology consultation appreciated Continues to have worsening renal function, oliguric renal failure Continue albumin MIdodrine was added per nephrology for borderline hypotension Avoid all renal toxic medications, including anti-inflammatories No obvious obstruction suggested on bedside ultrasound Dialysis initiated June 14. Unable to pull out fluid at that time secondary to hypotension Status: Acute (2) CHF (congestive heart failure): History of significant diastolic heart dysfunction. She needs significant diuresis from her acute diastolic heart failure and anasarca but this will have to wait until renal function is improved. She has not responded to IV Lasix Hopefully fluid can be removed with dialysis today. Status: Acute Qualifiers: Heart failure chronicity: acute Heart failure type: combined systolic and diastolic Qualified Code(s): I50.41 - Acute combined systolic (congestive) and diastolic (congestive) heart failure (3) Morbid obesity: Status: Acute Additional A&P Information Acute hypoxic hypercarbic respiratory failure secondary to fluid overload. BiPAP currently. Procalcitonin negative. Doubt pneumonia but secondary to worsening status will add Primaxin, linezolid. Check MRSA PCR. hypotension. Norepinephrine added. No evidence of sepsis hyperkalemia. Nephrology managing currently. Received Kayexalate on June 13. This will be addressed through dialysis currently Anemia. Likely related to renal failure all though past history of vaginal bleeding as well. No evidence of active bleeding. GERD, Protonix Hypertension, hold medicines currently, home monitoring blood pressure. Systolic in the emergency department is 110. DJD Does not want intubation, or CPR but would want consideration of all other therapies Heparin for DVT prophylaxis, renally dosed following renal function closely TSH was checked and normal. Acetone level was checked and not elevated. Attestations Medical Necessity Statement*: Needs continued hospitalization secondary to severe acute renal failure Critical Care Time: 35 minutes spent in critical care time at bedside in this patient with severe acute renal failure requiring hemodialysis and severe acute on chronic diastolic heart failure with anasarca. High risk for and/or disability. Coding Level of Care Code Acute Paving Crew Foreman for Annemarie Schwarz Diagnoses Acute kidney injury N17.9 CHF (congestive heart failure) I50.41 Heart failure chronicity: acute Heart failure type: combined systolic and diastolic Morbid obesity E66.01
[2020-06-15] MEDS: midodrine 5 mg TABLET 10 MG PO ×2 (16:36→20:46)
[2020-06-15] MEDS: linezolid premix 600 MG/300 ML PREMIX 300 MG IV (16:37)
[2020-06-15] MEDS: nystatin powder 15 gm Btl 1 APPLIC TOPICAL ×2 (16:37→21:00)
--- NOTE | 2020-06-15 18:45 | PC.NURSE ---
Received report on patient from Tammy VERA. Assumed care at this time.
--- NOTE | 2020-06-15 18:57 | PC.NURSE ---
Pt remains on BiPAP and a Levophed infusion. Pt tolerated hemodialysis today; 1800ml fluid removed per dialysis nurse. Levophed had to be increased to 4mcg/min during dialysis, but now is back down to 2mcg/min. Pt is very dependent on the BiPAP at this time, as evidenced by SpO2 decreasing to the 80's within seconds of the mask being removed. She is still NPO but was cleared to take sips of water per Dr. Covington. She does not like to turn/reposition very often. She is on a bariatric bed with air mattress. Granddaughter and DPOA came to visit; she had many questions about the patient's condition, which were answered. Pt was lethargic at the beginning of the shift, and Dr. Covington was notified, but gradually her mentation improved to baseline. She complained of intermittent nausea throughout the day, which was treated with IV Zofran (see MAR).
[2020-06-16] VITALS (99 sets, daily range): BP systolic 78–127; BP diastolic 52–90; PULSE 69–96; RESP 1–22; TEMP 36.6–37.1; O2SAT 84–99
[2020-06-16] MEDS: linezolid premix 600 MG/300 ML PREMIX 300 MG IV ×2 (02:45→18:02)
[2020-06-16 04:11] LABS: Basophils % 0.2 %; Eosinophils % 0.3 %; Hematocrit 27.9 % (37.0-47.0); Hemoglobin 7.6 g/dL (11.5-15.3); Lymphocytes # 0.7 10^3/uL (0.8-4.8); Lymphocytes % 12.6 %; Mean Corpuscular HGB Conc 27.2 g/dL (30.0-36.0); Mean Corpuscular Hemoglobin 25.4 pg (28.0-34.0); Mean Corpuscular Volume 93.3 fL (81-99); Mean Platelet Volume 9.6 fL (7.4-10.4); Monocytes # 0.6 10^3/uL (0.2-0.9); Monocytes % 10.9 %; Neutrophils # 4.38 10^3/uL (1.8-7.7); Neutrophils % 75.8 %; Nucleated Red Blood Cells % 0 %; Platelet Count 161 10^3/cmm (130-400); Red Blood Count 2.99 10^6/uL (4.1-5.3); Red Cell Distribution Width 24.5 % (12.1-15.1); White Blood Count 5.8 10^3/uL (4.0-10.0)
--- NOTE | 2020-06-16 04:32 | PC.NURSE ---
Complete bed bath given. Complete linen change done. Patient complaining of pain in her arm. Dr. Cortez notifed and no new orders received.
[2020-06-16 04:34] LABS: Alanine Aminotransferase 6 U/L (0-33); Albumin Level 4.3 g/dL (3.5-5.2); Alkaline Phosphatase 92 IU/L (35-105); Anion Gap 17.3 (5-19); Aspartate Amino Transferase 9 U/L (0-32); Blood Urea Nitrogen 63 mg/dL (8-23); Calcium 8.8 mg/dL (8.5-10.5); Carbon Dioxide 29 mmol/L (22-29); Chloride 92 mmol/L (98-107); Globulin 2.9 g/dL (1.3-4.6); Glomerular Filtration Rate 11.5 mL/min (90-130); Glucose 103 mg/dL (65-115); Magnesium 2.3 mg/dL (1.7-2.3); Osmolality Calculated 296 mOsm/kg (285-295); Phosphorus 5.3 mg/dL (2.5-4.5); Potassium 4.3 mmol/L (3.5-5.1); Sodium 134 mmol/L (136-145); Total Bilirubin 1.4 mg/dL (0.15-1.2); Total Protein 7.2 g/dL (6.6-8.7)
--- NOTE | 2020-06-16 06:56 | P.PN_ITS ---
Subjective Subjective: Interval history: swollen, sob, bipap. follows commands Medications: Reviewed: Yes Medication Review Details: Current Medications Acetaminophen (Tylenol) 650 mg PO Q6H PRN PRN Reason: MILD PAIN Last Admin: 06/13/20 20:07 Dose: 650 mg Documented by: Albuterol Sulfate (Ventolin) 2 puff INHALATION Q6H.RESPIRATORY PRN PRN Reason: short of breath Albumin Human (Albumin) 25 gm in 100 mls @ 60 mls/hr IV Q8H [facility] Last Admin: 06/15/20 23:00 Dose: 60 mls/hr Documented by: Norepinephrine Bitartrate 4 mg (/ Dextrose) 254 mls @ 0 mls/hr IV .Q0M [facility]; Protocol Last Titration: 06/15/20 18:00 Dose: 2 mcg/min, 7.6 mls/hr Documented by: Imipenem/Cilastatin Sodium 250 (mg/ Sodium Chloride) 100 mls @ 200 mls/hr IV Q6H [facility]; Protocol Last Admin: 06/16/20 03:46 Dose: 200 mls/hr Documented by: Linezolid (Zyvox Premix) 600 mg in 300 mls @ 300 mls/hr IV Q12H [facility]; Protocol Last Admin: 06/16/20 02:45 Dose: 300 mls/hr Documented by: Levothyroxine Sodium (Synthroid) 200 mcg PO DAILY [facility] Last Admin: 06/15/20 12:41 Dose: Not Given Documented by: Lorazepam (Ativan) 0.5 mg IVP ONCE PRN PRN Reason: ANXIETY Last Admin: 06/15/20 13:18 Dose: 0.5 mg Documented by: Midodrine (Proamatine) 10 mg PO TID [facility] Last Admin: 06/15/20 20:46 Dose: 10 mg Documented by: Nystatin (Nystatin Powder) 1 applic TOPICAL BID [facility] Last Admin: 06/15/20 21:00 Dose: 1 applic Documented by: Ondansetron HCl (Zofran) 4 mg IVP Q6H PRN PRN Reason: NAUSEA AND VOMITING Last Admin: 06/15/20 17:22 Dose: 4 mg Documented by: Pantoprazole Sodium (Protonix) 40 mg IVP DAILY [facility] Last Admin: 06/15/20 09:14 Dose: 40 mg Documented by: Vitals/I&O/Wt Last Vital Signs Temp 98.7 F 06/16/20 04:45 Pulse 87 06/16/20 06:00 Resp 11 L 06/16/20 06:00 BP 94/60 06/16/20 06:00 Pulse Ox 95 06/16/20 06:00 06/15/20 06/15/20 06/16/20 14:59 22:59 06:59 Intake Total 337.153 / 286.653 3293.853 / 1363.006 100 / 1463.006 Output Total 205 / 205 50 / 255 Balance 337.153 / 337.153 820.853 / 1158.006 50 / 1208.006 Physical Exam Narrative: EXAM NARRATIVE: levo @2 morbidly obese, swolle heent- nc/at lungs poor air movement crackles heaer -reg abd soft, +BS ext b/l heidy neuro- responsive Urinary Catheter Management^: Chase: Cath Placed During This Visit: yes Reason for Continuing Indwelling Catheter: Accurate Measurement of Urinary Output in Critically Ill Patients Urinary Catheter Date of Insertion: 06/10/20 Urinary Catheter Time of Insertion: 18:54 Data : 06/16/20 03:19 06/16/20 03:19 A&P Additional A&P Information 69 yr old female morbid obesity, diastolic dysfuncyion, - SALLY and volume ov erload. 1. Acute kidney injury. s/p HD x 2- repeat HD now for fluid removal- 3 hrs, remove 1.5 l- use pressers as needed 2. Hyperkalemia, improved 3. Primary respiratory acidosis, pneumonia- bipap 4. Morbid obesity 5. Anemia 6. Hyperphosphatemia- improving w/ hd Attestations Medical Necessity Statement*: sally, per hospitalist Time Spent in Patient Care: 16 - 35 minutes Coding Level of Care Code Acute Hospital Liaison for Annemarie Schwarz
--- NOTE | 2020-06-16 08:48 | PM.PN ---
Subjective Subjective: Interval history: Wakes up. Mildly confused. Interacts, makes eye contact. When asked if in pain responds: initially hurting a bit all over. Then when asked if has any questions responds Tell me if I'm hurting. Vitals/I&O/Wt Last Vital Signs Temp 98.7 F 06/16/20 04:45 Pulse 88 06/16/20 08:16 Resp 12 06/16/20 08:00 BP 103/61 06/16/20 08:00 Pulse Ox 95 06/16/20 08:16 06/15/20 06/16/20 06/16/20 22:59 06:59 14:59 Intake Total 1025.853 / 1363.006 100 / 1463.006 500 / 500 Output Total 205 / 205 50 / 255 Balance 820.853 / 1158.006 50 / 1208.006 500 / 500 Physical Exam Const: COMMON NORMALS: no acute distress NUTRITIONAL APPEARANCE: obese morbidly obese HENMT: COMMON NORMALS: oropharynx normal Neck/C-Spine: COMMON NORMALS: no JVD Chest: OTHER: L subclav CVC Resp: COMMON NORMALS: normal respiratory effort OTHER: BiPAP in place. Difficult to examine due to body habitus. Cannot hear obvious adventitious sounds. Cardio: COMMON NORMALS: no JVD, regular rhythm, S1 normal heart sound present, S2 normal heart sound present and No murmurs present (Cardio) RHYTHM: regular rhythm HEART SOUNDS: S1 normal heart sound present and S2 normal heart sound present GI: COMMON NORMALS: Normal to inspection, nondistended, normoactive bowel sounds present, Soft to palpation and non-tender PALPATION: Yes Soft to palpation OTHER: Large pannus. Anasarca up to abdomen with edema of the large pannus. Extremity: COMMON NORMALS: no joint enlargement GENERAL: Yes edema Neuro: COMMON NORMALS: moves all extremities Urinary Catheter Management^: Chase: Cath Placed During This Visit: yes Reason for Continuing Indwelling Catheter: Accurate Measurement of Urinary Output in Critically Ill Patients Urinary Catheter Date of Insertion: 06/10/20 Urinary Catheter Time of Insertion: 18:54 Data : 06/16/20 03:19 06/16/20 03:19 A&P Assessment and plan (1) CHF (congestive heart failure): Repeat attempted hemodialysis. Appreciate nephrology recommendations. Down to 1.5 mcg levofed. Continue attempts to wean. Monitor I&O. Weights. Has not responded to Lasix. Status: Acute Qualifiers: Heart failure chronicity: acute Heart failure type: combined systolic and diastolic Qualified Code(s): I50.41 - Acute combined systolic (congestive) and diastolic (congestive) heart failure (2) Acute kidney injury: HD today. Albumin infusion. Midodrine. Status: Acute (3) Morbid obesity: Status: Acute Additional A&P Information Acute on chronic hypoxic and hypercapnic respiratory failure. Continue BiPAP support. Wean off as tolerated. Started on antibiotics with Primaxin: Linezolid secondary to possible pneumonia. MRSA PCR Hypotension: Appears to be improving, weaning down Levophed. Check morning serum cortisol. Hyperkalemia: Has been treated. Improved. Anemia GERD: Protonix HTN DJD Attestations Medical Necessity Statement*: Continue admission versus management of CHF exacerbation, acute hypoxic and hypercapnic respiratory failure in the setting of SALLY, requiring hemodialysis, with history of chronic respiratory failure, morbid obesity. Coding Level of Care Code Acute Director Of [facility] for Annemarie Schwarz Diagnoses CHF (congestive heart failure) I50.41 Heart failure chronicity: acute Heart failure type: combined systolic and diastolic Acute kidney injury N17.9 Morbid obesity E66.01
[2020-06-16] MEDS: midodrine 5 mg TABLET 10 MG PO ×3 (09:04→20:55)
[2020-06-16] MEDS: levothyroxine 100 mcg Tablet 200 MCG PO (09:04)
[2020-06-16] MEDS: pantoprazole 40 mg SDV IVP (09:04)
[2020-06-16] MEDS: nystatin powder 15 gm Btl 1 APPLIC TOPICAL ×2 (09:14→18:02)
[2020-06-16 10:53] LABS: Cortisol Random 22.15 ug/mL (2.47-19.5)
--- NOTE | 2020-06-16 11:50 | PC.NURSE ---
unable to obtain picc access. patients primary nurse updated. patient has central line that is working.
[2020-06-16] MEDS: acetaminophen 325 mg Tablet 650 MG PO (14:20)
--- NOTE | 2020-06-16 14:41 | PC.NURSE ---
PICC line team here this shift - unable to maintain access. States PICC team will be back tomorrow to reattempt.
--- NOTE | 2020-06-16 16:05 | PC.NURSE ---
BP 81/61 MAP 67. Levophed gtt increased to 1mcg/min per dialysis nurse request.
[2020-06-16] MEDS: LORazepam 2 mg/mL INJ 1 mL 0.5 MG IVP (20:54)
--- NOTE | 2020-06-16 23:05 | PC.NURSE ---
Report received. Pt consistently moaning/yelling that she was in pain. APAP given by previous nightshift RN, before care was assumed by this nurse. Denies repositioning. Education given on need for frequent turn schedule. Pt continued to deny turns. Increased agitation and restlessness with Bipap being applied by RT. IVP Ativan was administered in order to decrease agitation and restlessness. Pt now resting comfortably after admin. No further needs at this time.
[2020-06-17] VITALS (37 sets, daily range): BP systolic 83–128; BP diastolic 56–82; PULSE 52–78; RESP 6–20; TEMP 36.2–36.5; O2SAT 90–99
[2020-06-17 04:56] LABS: Basophils % 0.4 %; Eosinophils # 0.1 10^3/uL (0.0-0.8); Eosinophils % 0.9 %; Hematocrit 28.3 % (37.0-47.0); Hemoglobin 7.8 g/dL (11.5-15.3); Lymphocytes # 1.1 10^3/uL (0.8-4.8); Lymphocytes % 19.5 %; Mean Corpuscular HGB Conc 27.6 g/dL (30.0-36.0); Mean Corpuscular Hemoglobin 25.9 pg (28.0-34.0); Mean Platelet Volume 9.4 fL (7.4-10.4); Monocytes # 0.6 10^3/uL (0.2-0.9); Monocytes % 11.9 %; Neutrophils % 66.9 %; Nucleated Red Blood Cells % 0 %; Platelet Count 151 10^3/cmm (130-400); Red Blood Count 3.01 10^6/uL (4.1-5.3); Red Cell Distribution Width 24.8 % (12.1-15.1); White Blood Count 5.4 10^3/uL (4.0-10.0)
[2020-06-17 05:27] LABS: Alanine Aminotransferase < 5 U/L (0-33); Albumin Level 4.2 g/dL (3.5-5.2); Alkaline Phosphatase 79 IU/L (35-105); Anion Gap 18.2 (5-19); Aspartate Amino Transferase 6 U/L (0-32); Blood Urea Nitrogen 69 mg/dL (8-23); Calcium 9.5 mg/dL (8.5-10.5); Carbon Dioxide 27 mmol/L (22-29); Chloride 94 mmol/L (98-107); Globulin 2.7 g/dL (1.3-4.6); Glucose 94 mg/dL (65-115); Magnesium 2.3 mg/dL (1.7-2.3); Osmolality Calculated 300 mOsm/kg (285-295); Phosphorus 5.4 mg/dL (2.5-4.5); Potassium 4.2 mmol/L (3.5-5.1); Sodium 135 mmol/L (136-145); Total Bilirubin 1.3 mg/dL (0.15-1.2); Total Protein 6.9 g/dL (6.6-8.7)
[2020-06-17] MEDS: linezolid premix 600 MG/300 ML PREMIX 300 MG IV (05:30)
--- NOTE | 2020-06-17 07:00 | P.PN_ITS ---
Subjective Subjective: Interval history: on bipap, lethargic, sob Medications: Reviewed: Yes Medication Review Details: Current Medications Acetaminophen (Tylenol) 650 mg PO Q6H PRN PRN Reason: MILD PAIN Last Admin: 06/16/20 14:20 Dose: 650 mg Documented by: Albuterol Sulfate (Ventolin) 2 puff INHALATION Q6H.RESPIRATORY PRN PRN Reason: short of breath Albumin Human (Albumin) 25 gm in 100 mls @ 60 mls/hr IV Q8H [facility] Last Infusion: 06/17/20 06:43 Dose: Infused Documented by: Norepinephrine Bitartrate 4 mg (/ Dextrose) 254 mls @ 0 mls/hr IV .Q0M [facility]; Protocol Last Titration: 06/16/20 18:13 Dose: 0 mcg/min, 0 mls/hr Documented by: Imipenem/Cilastatin Sodium 250 (mg/ Sodium Chloride) 100 mls @ 200 mls/hr IV Q6H [facility]; Protocol Last Infusion: 06/17/20 06:43 Dose: Infused Documented by: Linezolid (Zyvox Premix) 600 mg in 300 mls @ 300 mls/hr IV Q12H [facility]; Protocol Last Infusion: 06/17/20 06:44 Dose: Infused Documented by: Levothyroxine Sodium (Synthroid) 200 mcg PO DAILY [facility] Last Admin: 06/16/20 09:04 Dose: 200 mcg Documented by: Lorazepam (Ativan) 0.5 mg IVP ONCE PRN PRN Reason: ANXIETY Last Admin: 06/16/20 20:54 Dose: 0.5 mg Documented by: Midodrine (Proamatine) 10 mg PO TID [facility] Last Admin: 06/16/20 20:55 Dose: 10 mg Documented by: Nystatin (Nystatin Powder) 1 applic TOPICAL BID [facility] Last Admin: 06/16/20 18:02 Dose: 1 applic Documented by: Ondansetron HCl (Zofran) 4 mg IVP Q6H PRN PRN Reason: NAUSEA AND VOMITING Last Admin: 06/15/20 17:22 Dose: 4 mg Documented by: Pantoprazole Sodium (Protonix) 40 mg IVP DAILY [facility] Last Admin: 06/16/20 09:04 Dose: 40 mg Documented by: Vitals/I&O/Wt Last Vital Signs Temp 98.8 F 06/16/20 22:15 Pulse 77 06/17/20 06:00 Resp 13 06/17/20 06:00 BP 128/74 06/17/20 06:00 Pulse Ox 95 06/17/20 06:00 06/16/20 06/17/20 06/17/20 22:59 06:59 14:59 Intake Total 540.422 / 1363.511 600 / 1963.511 Output Total 30 / 30 50 / 80 Balance 510.422 / 1333.511 550 / 1883.511 Weight last 48 hrs Weight 203.776 kg Physical Exam Narrative: EXAM NARRATIVE: off of pressors morbidly obese, swollen heent- nc/at, bipap lungs - b/lcrackles heaer -reg, s1, s2 abd soft, +BS ext b/l edema neuro- responsive, confused no rash Urinary Catheter Management^: Chase: Cath Placed During This Visit: yes Reason for Continuing Indwelling Catheter: Accurate Measurement of Urinary Output in Critically Ill Patients Urinary Catheter Date of Insertion: 06/10/20 Urinary Catheter Time of Insertion: 18:54 Data : 06/17/20 04:41 06/17/20 04:41 Micro: Microbiology 06/15/20 18:30 MRSA Culture - Final Nose A&P Additional A&P Information 69 yr old female morbid obesity, diastolic dysfuncyion, - SALLY and volume overload. 1. Acute kidney injury. s/p HD x 3- repeat HD now for 3:15, remove 2 l, 3 k bath- use pressers as needed 2. Hyperkalemia, improved 3. Primary respiratory acidosis, pneumonia- bipap 4. Morbid obesity 5. Anemia- check iron studies 6. Hyperphosphatemia- monitor w/ hd. binders wehn eating Attestations Medical Necessity Statement*: sally, anemia, sob Time Spent in Patient Care: 16 - 35 minutes Coding Level of Care Code Acute Printing Table Hand for Annemarie Schwarz
--- NOTE | 2020-06-17 08:09 | PM.PN ---
Subjective Subjective: Interval history: Denies pain. Does not appear in any distress. Is confused, states that the year is 2002. Knows she is in [place], but gets name of the town wrong. Vitals/I&O/Wt Last Vital Signs Temp 98.8 F 06/16/20 22:15 Pulse 70 06/17/20 07:50 Resp 13 06/17/20 06:00 BP 128/74 06/17/20 06:00 Pulse Ox 92 06/17/20 07:50 06/16/20 06/17/20 06/17/20 22:59 06:59 14:59 Intake Total 540.422 / 1363.511 600 / 1963.511 Output Total 30 / 30 50 / 80 Balance 510.422 / 1333.511 550 / 1883.511 Weight last 48 hrs Weight 203.776 kg Physical Exam Const: COMMON NORMALS: no acute distress NUTRITIONAL APPEARANCE: obese morbidly obese ORIENTATION/CONSCIOUSNESS: Yes awake OTHER: Interacts, but somewhat confused. HENMT: COMMON NORMALS: oropharynx normal Neck/C-Spine: COMMON NORMALS: no JVD Chest: OTHER: L subclav CVC Resp: COMMON NORMALS: normal respiratory effort OTHER: BiPAP in place. Difficult to examine due to body habitus. Cannot hear obvious adventitious sounds. Cardio: COMMON NORMALS: no JVD, regular rhythm, S1 normal heart sound present, S2 normal heart sound present and No murmurs present (Cardio) RHYTHM: regular rhythm HEART SOUNDS: S1 normal heart sound present and S2 normal heart sound present GI: COMMON NORMALS: Normal to inspection, nondistended, normoactive bowel sounds present, Soft to palpation and non-tender PALPATION: Yes Soft to palpation OTHER: Large pannus. Anasarca up to abdomen with edema of the large pannus. Extremity: COMMON NORMALS: no joint enlargement GENERAL: Yes edema Neuro: COMMON NORMALS: moves all extremities Urinary Catheter Management^: Chase: Cath Placed During This Visit: yes Reason for Continuing Indwelling Catheter: Accurate Measurement of Urinary Output in Critically Ill Patients Urinary Catheter Date of Insertion: 06/10/20 Urinary Catheter Time of Insertion: 18:54 Data : 06/17/20 04:41 06/17/20 04:41 Micro: Microbiology 06/15/20 18:30 MRSA Culture - Final Nose A&P Assessment and plan (1) CHF (congestive heart failure): Repeat attempted hemodialysis. Appreciate nephrology recommendations. Down to 1.5 mcg levofed. Continue attempts to wean. Monitor I&O. Weights. Currently weighs 203 kg. Drink last admission back in April highest she weighed was 196. With intensive diuresis was able to come down as low as 163. Not sure if may not have gained weight in between. Has not responded to Lasix this admission. Status: Acute Qualifiers: Heart failure chronicity: acute Heart failure type: combined systolic and diastolic Qualified Code(s): I50.41 - Acute combined systolic (congestive) and diastolic (congestive) heart failure (2) Acute kidney injury: Repeat HD today. Albumin infusions. BP is a bit better. Weaned off pressor yesterday. Midodrine. Status: Acute (3) Morbid obesity: BMI 82 Status: Acute Additional A&P Information Acute encephalopathy: She is awake and interacts, however, is somewhat confused. Not oriented x3. Gives a basic review of systems, but not sure if it is reliable. She had acute encephalopathy during her prior admission as well, very similar to current, which eventually resolved with improvement in her respiratory status and ventilation after diuresis and weight loss. This is somewhat more difficult during current admission given she has been requiring hemodialysis. Continue attempts to remove extra fluid. Not sure if she has gained weight since last time as well. High concern for OHS with recurrent/persistent hypercapnia. Repeat UA although unlikely uti as is already on antibiotics. Acute on chronic hypoxic and hypercapnic respiratory failure. Continue BiPAP support. Continuous pulse oximetry. Wean off as tolerated. Primaxin, Linezolid secondary to possible pneumonia. MRSA PCR negative. DC linezolid. Hypotension: Resolved. Morning serum cortisol ok. Hyperkalemia: Has been treated. Improved. Anemia: Monitor Hb GERD: Protonix HTN DJD Attestations Medical Necessity Statement*: Continue admission for cyst management of CHF exacerbation with anasarca in the setting of acute kidney injury, lack of response to diuretic, with acute on chronic hypercapnic respiratory failure, acute encephalopathy in the setting of morbid obesity. Coding Level of Care Code Acute Cartography/Mapping Technician for Annemarie Schwarz Diagnoses CHF (congestive heart failure) I50.41 Heart failure chronicity: acute Heart failure type: combined systolic and diastolic Acute kidney injury N17.9 Morbid obesity E66.01
[2020-06-17 08:20] LABS: Ferritin 35 ng/mL (15-150); Iron 30 ug/dL (37-145); Percent Saturation 22.3 % (20-50); Total Iron Binding Capacity 134 mcg/dl; Unsaturated Iron Binding 104 ug/dL (112-347)
[2020-06-17] MEDS: nystatin powder 15 gm Btl 1 APPLIC TOPICAL ×2 (09:00→17:55)
[2020-06-17] MEDS: pantoprazole 40 mg SDV IVP (09:06)
[2020-06-17] MEDS: levothyroxine 100 mcg Tablet 200 MCG PO (09:08)
[2020-06-17] MEDS: midodrine 5 mg TABLET 10 MG PO ×3 (09:08→21:06)
--- NOTE | 2020-06-17 09:24 | PC.NURSE ---
Report faxed to [facility].
--- NOTE | 2020-06-17 09:51 | PC.NURSE ---
Heart to heart meeting, nurse will call back.
[2020-06-17] MEDS: acetaminophen 325 mg Tablet 650 MG PO (10:28)
--- NOTE | 2020-06-17 10:50 | PC.NURSE ---
Pt transferred to [place] [id number] via bariatric bed. Belongings with pt. Further verbal report given to Cory Palma and CORY Jennings., manufacturing supervisor 2nd shift.
[2020-06-17 11:46] LABS: Sulfosalicylic Acid Urine Positive (Negative); Urine Appearance Cloudy (CLEAR); Urine Color Yellow (Yellow); pH Urine 8 (5-7)
[2020-06-17 11:47] LABS: Add Urine Microscopic? YES; Bilirubin Urine Neg (Negative); Blood Urine 3+ (Negative); Glucose Urine UA Norm (Normal); Ketones Urine Negative (Negative); Leukocyte Esterase Urine 2+ (Negative); Nitrate Urine Negative (Negative); Protein Urine 3+ (Negative); Urobilinogen Urine Norm (Negative)
[2020-06-17 12:05] LABS: RBC Urine >100 /hpf (0-2); WBC Urine TOO NUMEROUS TO CNT /hpf (0-5)
[2020-06-17 12:06] LABS: Add Urine Culture? No; Bacteria Urine 4+ /hpf; Renal Epithelial Cells Urine 0 /hpf; Transitional Epi Cells Urine 0-4 /hpf
--- NOTE | 2020-06-17 14:20 | PC.SOCIAL ---
IMM Updated Page 2 of IMM updated and given to patient. Initialed, dated, and timed and placed back in chart.
[2020-06-17] MEDS: heparin, porcine 1,000 unit/mL INJ 10 mL 1000 UNIT IV (15:19)
--- NOTE | 2020-06-17 17:19 | PC.OT ---
OT tx attempted. Pt out of her room receiving dialysis at this time. Will attempt to resume OT services tomorrow.
[2020-06-17] MEDS: aspirin 81 mg EC Tablet PO (21:06)
[2020-06-18] VITALS (10 sets, daily range): BP systolic 85–115; BP diastolic 58–74; PULSE 57–81; RESP 12–24; TEMP 36–36.7; O2SAT 93–100
[2020-06-18 05:59] LABS: Basophils % 0.4 %; Eosinophils # 0.1 10^3/uL (0.0-0.8); Eosinophils % 1.6 %; Hematocrit 29.1 % (37.0-47.0); Hemoglobin 8.1 g/dL (11.5-15.3); Lymphocytes # 1.2 10^3/uL (0.8-4.8); Lymphocytes % 21.4 %; Mean Corpuscular HGB Conc 27.8 g/dL (30.0-36.0); Mean Corpuscular Hemoglobin 26.1 pg (28.0-34.0); Mean Corpuscular Volume 93.9 fL (81-99); Mean Platelet Volume 10.2 fL (7.4-10.4); Monocytes # 0.7 10^3/uL (0.2-0.9); Monocytes % 11.8 %; Neutrophils # 3.52 10^3/uL (1.8-7.7); Neutrophils % 63.9 %; Nucleated Red Blood Cells % 0.7 %; Platelet Count 156 10^3/cmm (130-400); Red Cell Distribution Width 25.1 % (12.1-15.1); White Blood Count 5.5 10^3/uL (4.0-10.0)
--- NOTE | 2020-06-18 06:44 | PM.PN ---
Subjective Subjective: Interval history: less sob, swollen, on bipap, weak, confused in bed Medications: Reviewed: Yes Medication Review Details: Current Medications Acetaminophen (Tylenol) 650 mg PO Q6H PRN PRN Reason: MILD PAIN Last Admin: 06/17/20 10:28 Dose: 650 mg Documented by: Albuterol Sulfate (Ventolin) 2 puff INHALATION Q6H.RESPIRATORY PRN PRN Reason: short of breath Aspirin (Aspirin Ec) 81 mg PO BEDTIME [facility] Last Admin: 06/17/20 21:06 Dose: 81 mg Documented by: Albumin Human (Albumin) 25 gm in 100 mls @ 60 mls/hr IV Q8H [facility] Last Admin: 06/18/20 06:31 Dose: 60 mls/hr Documented by: Norepinephrine Bitartrate 4 mg (/ Dextrose) 254 mls @ 0 mls/hr IV .Q0M [facility]; Protocol Last Titration: 06/16/20 18:13 Dose: 0 mcg/min, 0 mls/hr Documented by: Imipenem/Cilastatin Sodium 250 (mg/ Sodium Chloride) 100 mls @ 200 mls/hr IV Q6H [facility]; Protocol Last Admin: 06/18/20 04:42 Dose: 200 mls/hr Documented by: Levothyroxine Sodium (Synthroid) 200 mcg PO DAILY [facility] Last Admin: 06/17/20 09:08 Dose: 200 mcg Documented by: Lorazepam (Ativan) 0.5 mg IVP ONCE PRN PRN Reason: ANXIETY Last Admin: 06/16/20 20:54 Dose: 0.5 mg Documented by: Midodrine (Proamatine) 10 mg PO TID [facility] Last Admin: 06/17/20 21:06 Dose: 10 mg Documented by: Nystatin (Nystatin Powder) 1 applic TOPICAL BID [facility] Last Admin: 06/17/20 17:55 Dose: 1 applic Documented by: Ondansetron HCl (Zofran) 4 mg IVP Q6H PRN PRN Reason: NAUSEA AND VOMITING Last Admin: 06/15/20 17:22 Dose: 4 mg Documented by: Pantoprazole Sodium (Protonix) 40 mg IVP DAILY [facility] Last Admin: 06/17/20 09:06 Dose: 40 mg Documented by: Vitals/I&O/Wt Last Vital Signs Temp 96.8 F L 06/18/20 04:00 Pulse 70 06/18/20 04:00 Resp 16 06/18/20 04:00 BP 96/67 06/18/20 04:00 Pulse Ox 95 06/18/20 04:00 06/17/20 06/17/20 06/18/20 14:59 22:59 06:59 Intake Total 150 / 150 260 / 410 200 / 610 Output Total 30 / 30 Balance 150 / 150 260 / 410 170 / 580 Weight last 48 hrs Weight 208.199 kg Weight 203.776 kg Physical Exam Narrative: EXAM NARRATIVE: off of pressors morbidly obese, swollen heent- nc/at, bipap lungs - b/lcrackles heaer -reg, s1, s2 abd soft, +BS ext b/l edema neuro- responsive, confused no rash Urinary Catheter Management^: Chase: Cath Placed During This Visit: yes Reason for Continuing Indwelling Catheter: Accurate Measurement of Urinary Output in Critically Ill Patients Urinary Catheter Date of Insertion: 06/10/20 Urinary Catheter Time of Insertion: 18:54 Data : 06/18/20 05:05 06/17/20 04:41 A&P Additional A&P Information 69 yr old female morbid obesity, diastolic dysfuncyion, - SALLY and volume overload. 1. Acute kidney injury. s/p HD x 4- unable to tolerate fluid removal yesterday -will check cxr -awit lbs -likely hold HD today, unless we can give pressers -lasix -u/a w/ 3+ prot, 3+ blood, 4+ bacteria -send serologies -PLEASE ENSURE THT SHE HAS A TUNELLED CATHETER, OR ASK SURGERY FOR ONE 2. Hyperkalemia, improved 3. Primary respiratory acidosis, pneumonia- bipap 4. Morbid obesity 5. Anemia- low iron studies- ferrlecit 6. Hyperphosphatemia- monitor w/ hd. binders wehn eating Attestations Medical Necessity Statement*: confusion, sally, resp distress Time Spent in Patient Care: 16 - 35 minutes Coding Level of Care Code Acute Television Schedule Coordinator for Annemarie Schwarz
[2020-06-18 06:56] LABS: Alanine Aminotransferase < 5 U/L (0-33); Albumin Level 4.3 g/dL (3.5-5.2); Alkaline Phosphatase 73 IU/L (35-105); Anion Gap 15.8 (5-19); Aspartate Amino Transferase 7 U/L (0-32); Blood Urea Nitrogen 49 mg/dL (8-23); Calcium 9.2 mg/dL (8.5-10.5); Carbon Dioxide 27 mmol/L (22-29); Chloride 97 mmol/L (98-107); Globulin 2.6 g/dL (1.3-4.6); Glomerular Filtration Rate 12.6 mL/min (90-130); Glucose 79 mg/dL (65-115); Magnesium 2.1 mg/dL (1.7-2.3); Osmolality Calculated 294 mOsm/kg (285-295); Phosphorus 4.2 mg/dL (2.5-4.5); Potassium 3.8 mmol/L (3.5-5.1); Sodium 136 mmol/L (136-145); Total Bilirubin 1.3 mg/dL (0.15-1.2); Total Protein 6.9 g/dL (6.6-8.7)
--- NOTE | 2020-06-18 07:50 | XR_ITS ---
WS: [id number] XR chest 1V portable [id number] REASON FOR EXAM: sob FINDINGS: Catheter overlying the base of the right neck and right lung apex, presumably a right internal jugula r vein catheter. The tip overlies the head of the clavicle. Central venous catheter is also present o n the left, presumably left internal jugular entry with the tip in the superior vena cava just above the right atrial level. Position of the catheters is unchanged compared to 06/14/2020. The heart is enlarged. Compared to the examination of 06/14/2020, Central vascular congestion and interstitial changes are p artially resolved. There is obscuration of the left hemidiaphragm indicating left pleural effusion and/or left lower thai g consolidation. Unchanged compared to the previous study. XR/XR chest 1V portable [id number] IMPRESSION: Resolving lung changes which would indicate improving fluid balance and/or lo estive heart failure.
[2020-06-18] MEDS: FUROsemide 10 mg/mL SDV 4mL 40 MG IVP ×2 (07:56→21:22)
[2020-06-18] MEDS: pantoprazole 40 mg SDV IVP (07:56)
[2020-06-18 08:04] LABS: Complement C3 61 mg/dL (90-180)
[2020-06-18] MEDS: ferric gluconate 125 MG in sodium chloride 0.9% (100 ml) 100 ML 110 MG IV (08:12)
[2020-06-18] MEDS: levothyroxine 100 mcg Tablet 200 MCG PO (08:45)
[2020-06-18] MEDS: midodrine 5 mg TABLET 10 MG PO ×3 (08:45→21:58)
[2020-06-18] MEDS: nystatin powder 15 gm Btl 1 APPLIC TOPICAL ×2 (10:18→18:52)
--- NOTE | 2020-06-18 11:48 | US_ITS ---
WS: [id number] INDICATION: Right neck hematoma TECHNIQUE: Ultrasound right neck area of line placement FINDINGS: Right neck is normal in appearance. No evidence of drainable abscess or fluid collection ab out the area of line placement. No other significant findings. US/US soft tissue head neck [id number] IMPRESSION: No evidence of abscess or fluid collection about the right neck pham e placement.
--- NOTE | 2020-06-18 11:49 | PM.PN ---
Subjective Subjective: Interval history: Says she is doing all right. Denies any discomfort. Denies any shortness of breath. No chest pain. Vitals/I&O/Wt Last Vital Signs Temp 98.1 F 06/18/20 11:06 Pulse 75 06/18/20 11:06 Resp 18 06/18/20 11:06 BP 85/58 06/18/20 11:06 Pulse Ox 97 06/18/20 11:06 06/17/20 06/18/20 06/18/20 22:59 06:59 14:59 Intake Total 260 / 410 300 / 710 Output Total 30 / 30 Balance 260 / 410 270 / 680 Weight last 48 hrs Weight 208.199 kg Weight 203.776 kg Physical Exam Const: COMMON NORMALS: no acute distress NUTRITIONAL APPEARANCE: obese morbidly obese ORIENTATION/CONSCIOUSNESS: Yes awake OTHER: She is sitting up in chair. Today she is more alert, more interactive. Oriented to self. She thinks she is in there. Cannot tell me the year. Knows she is not at home. HENMT: COMMON NORMALS: oropharynx normal Neck/C-Spine: COMMON NORMALS: no JVD Chest: OTHER: L subclav CVC with some crusted blood, surrounded by ecchymoses also extending posteriorly on the neck. I did not see any fresh bleeding, no fresh drainage. There is perhaps a minimal erythema, although difficult to police judge with ecchymosis. There is perhaps some mild swelling around the catheter, but difficult to tell due to body habitus. Resp: COMMON NORMALS: normal respiratory effort AUSCULTATION: diminished lung sounds OTHER: On nasal cannula oxygen. Difficult to examine due to body habitus. Cannot hear obvious adventitious sounds. Cardio: COMMON NORMALS: no JVD, regular rhythm, S1 normal heart sound present, S2 normal heart sound present and No murmurs present (Cardio) RHYTHM: regular rhythm HEART SOUNDS: S1 normal heart sound present and S2 normal heart sound present GI: COMMON NORMALS: Normal to inspection, nondistended, normoactive bowel sounds present, Soft to palpation and non-tender PALPATION: Yes Soft to palpation OTHER: Large pannus. Anasarca up to abdomen with edema of the large pannus. Extremity: COMMON NORMALS: no joint enlargement GENERAL: Yes edema Neuro: COMMON NORMALS: moves all extremities Urinary Catheter Management^: Chase: Cath Placed During This Visit: yes Reason for Continuing Indwelling Catheter: Acute Urinary Retention or Obstruction Urinary Catheter Date of Insertion: 06/10/20 Urinary Catheter Time of Insertion: 18:54 Data : 06/18/20 05:05 06/18/20 05:05 A&P Assessment and plan (1) CHF (congestive heart failure): Unfortunately and no fluid could be removed during attempted hemodialysis yesterday. Blood pressures remain soft. Discussed with nephrology would require hemodialysis with pressors. Will transfer back to ICU. Add Levophed to maintain blood pressure during hemodialysis. Did not produce much urine, less than 100 mL in the bag despite Lasix challenge. Persistent anasarca. Appreciate cardiology consultation. Currently weighs 208 kg. During last admission back in April she weighed was 196. With intensive diuresis was able to come down to 170s and perhaps as low as 163. Not sure if may not have gained weight in between. Has not responded to Lasix this admission. Monitor I&O. Weights. Status: Acute Qualifiers: Heart failure chronicity: acute Heart failure type: combined systolic and diastolic Qualified Code(s): I50.41 - Acute combined systolic (congestive) and diastolic (congestive) heart failure (2) Acute kidney injury: Repeat HD unsuccessful in removing fluid. Discussed w nephrology. Transfer back to ICU to attempt HD w pressor. Cont Albumin infusions. Midodrine. Status: Acute (3) Morbid obesity: BMI 82 Status: Acute Additional A&P Information Acute encephalopathy: She is more awake and interacts, however, is still somewhat confused. Requested for placement of Chase, collecting new UA. Not oriented x3. Gives a basic review of systems, but not sure if it is reliable. She had acute encephalopathy during her prior admission as well, very similar to current, with persistent hypercapnia which eventually resolved with improvement in her respiratory status and ventilation after diuresis and weight loss. This is more difficult during current admission given she has been requiring hemodialysis. Continue attempts to remove extra fluid. Not sure if she has gained weight since last time as well. High concern for OHS with recurrent/persistent hypercapnia. Repeat UA although unlikely uti as is already on antibiotics. Possible PNA: Cont primaxin. MRSA PCR negative. DC linezolid. Afebrile. No leukocytosis. XR improving. Acute on chronic hypoxic and hypercapnic respiratory failure. Continue BiPAP support. Continuous pulse oximetry. Wean off as tolerated. Hypotension: Resolved. Morning serum cortisol ok. Hyperkalemia: Has been treated. Improved. Anemia: Monitor Hb GERD: Protonix HTN DJD Attestations Medical Necessity Statement*: Continue admission for management of CHF in setting of oliguric SALLY, with underlying morbid obesity, OHS, YANELY, persistent hypercapnia, encephalopathy. Coding Level of Care Code Acute Outside Installer Apprentice for [facility] Karishma Diagnoses CHF (congestive heart failure) I50.41 Heart failure chronicity: acute Heart failure type: combined systolic and diastolic Acute kidney injury N17.9 Morbid obesity E66.01
--- NOTE | 2020-06-18 13:33 | P.CONIM_ITS ---
Providers/Reason For Consult Consulting Physican/Specialty*: TIM Montalvo MD /cardiology Reason for Consult*: Patient with diastolic heart failure/hypertension/renal failure Attending Physician: Sam Pickering Primary Care Provider: AIXA Marin History of Present Illness History of Present Illness Coral Small is a 69 year old female is admitted to the hospital with complaints of increasing weight gain, shortness of breath and generalized swelling. Patient is known to have morbid obesity, recurrent decompensated heart failure, essential hypertension, degenerative joint disease and hypothyroidism. Apparently she started having worsening kidney function lately. She seems to have gained almost 150 pounds in the last few months. She was not responding to IV diuretics. For that reason, hemodialysis was started. Currently her blood pressure is running low. The blood pressure drops into the 70s with a hemodialysis. So the hemodialysis is on hold at this time Patient is known to have altered mental status. She has not been complaining of any chest pain. No fever or chills. No cough. No other specific complaints at this time. Review of Systems Narrative: CONSTITUTIONAL: No fever or chills. EYES: No blurring of vision or other visual disturbances lately. ENT: No hoarseness of voice, auditory disturbances or sore throat. CARDIOVASCULAR: As mentioned above. RESPIRATORY: Increasing shortness of breath. GASTROINTESTINAL: No hematemesis or melena. GENITOURINARY: Acute renal failure as mentioned above INTEGUMENTARY: Neurolysed edema as mentioned above NEURO: No transient ischemic attacks or amaurosis. PSYCHIATRIC: No history of psychosis or major depression. HEMATOLOGIC: No bleeding disorders or significant anemia. ENDOCRINE: History of hypothyroidism MUSCULOSKELETAL: No recent joint pain or swelling. ALLERGY/IMMUNOLOGY: As mentioned above. Meds/Allergies Home Medications and Allergies Home Medications Medication Instructions Recorded Confirmed Last Taken Type vitamin B12 500 mcg-folic acid 400 2 tab PO DAILY tab 09/26/19 06/10/20 06/10/20 History mcg tablet gabapentin 100 mg capsule 100 mg PO TID #90 cap 10/23/19 06/10/20 06/10/20 Rx levothyroxine 200 mcg tablet 200 mcg PO DAILY #30 tab 03/18/20 06/10/20 06/10/20 Rx bumetanide 2 mg PO DAILY 30 Days #30 tab 04/17/20 06/10/20 06/10/20 Rx carvedilol 3.125 mg PO BID #60 tab 04/17/20 06/10/20 06/10/20 Rx cholecalciferol (vitamin D3) 50,000 unit PO DIRECTED #4 cap 04/17/20 06/10/20 06/10/20 Rx iron ps [id number] acid 1 ea PO Q48H #30 cap 04/17/20 06/10/20 06/09/20 Rx [Ferrex 150 Forte] polyethylene glycol 3350 17 g PO BID #30 each 04/17/20 06/10/20 06/10/20 Rx spironolactone 12.5 mg PO QDAY #30 tab 04/17/20 06/10/20 06/10/20 Rx diclofenac sodium 75 mg PO BID 04/22/20 06/10/20 06/10/20 History furosemide 80 mg PO DAILY 04/22/20 06/10/20 06/10/20 History Potassium Liquid 45 ml PO DAILY 06/10/20 06/10/20 06/10/20 History albuterol sulfate [ProAir HFA] 2 puff INHALATION Q6H PRN 06/10/20 06/10/20 Unknown History aspirin 81 mg PO BEDTIME 06/10/20 06/10/20 06/10/20 History omeprazole 20 mg PO DAILY 06/10/20 06/10/20 06/10/20 History Allergies Allergy/AdvReac Type Severity Reaction Status Date / Time cortisone Allergy Unknown Unknown Verified 06/14/20 11:58 egg Allergy Unknown Unknown Verified 06/14/20 11:58 Sulfa (Sulfonamide Allergy Unknown Unknown Verified 06/14/20 11:58 Antibiotics) lisinopril AdvReac Mild cough Verified 06/14/20 11:58 Current Medications Current Medications Generic Name Dose Route Start Last Admin Trade Name Freq PRN Reason Stop Dose Admin Acetaminophen 650 mg 06/10/20 21:35 06/17/20 10:28 Tylenol PO 650 mg Q6H PRN Administration MILD PAIN Aspirin 81 mg 06/17/20 21:00 06/17/20 21:06 Aspirin Ec PO 81 mg BEDTIME KRYSTINA Administration Furosemide 40 mg 06/18/20 07:00 06/18/20 07:56 Lasix IVP 40 mg Q12H KRYSTINA Administration Albumin Human 25 gm in 100 mls @ 60 mls/hr 06/10/20 23:45 06/18/20 06:31 Albumin IV 60 mls/hr Q8H K[facility]STINA Administration Imipenem/Cilastatin Sodium 250 100 mls @ 200 mls/hr 06/15/20 15:30 06/18/20 10:19 mg/ Sodium Chloride IV 200 mls/hr Q6H [facility]RYSTINA Administration Protocol Ferric Sodium Gluconate 125 mg 110 mls @ 110 mls/hr 06/18/20 08:00 06/18/20 08:12 / Sodium Chloride IV 06/25/20 08:59 110 mls/hr Q24H KRYSTINA Administration Levothyroxine Sodium 200 mcg 06/11/20 09:00 06/18/20 08:45 Synthroid PO 200 mcg DAILY [facility] Administration Midodrine 10 mg 06/11/20 13:30 06/18/20 08:45 Proamatine PO 10 mg TID [facility] Administration Nystatin 1 applic 06/13/20 09:00 06/18/20 10:18 Nystatin Powder TOPICAL 1 applic BID [facility] Administration Ondansetron HCl 4 mg 06/10/20 21:35 06/15/20 17:22 Zofran IVP 4 mg Q6H PRN Administration NAUSEA AND VOMITING Pantoprazole Sodium 40 mg 06/13/20 09:00 06/18/20 07:56 Protonix IVP 40 mg DAILY [facility] Administration PFSH Acute PFSH: Medical History (Updated 06/19/20 @ 19:20 by Camryn Montalvo MD) Acquired hypothyroidism Acute on chronic diastolic (congestive) heart failure Anasarca associated with disorder of kidney B12 deficiency Back pain of lumbosacral region with sciatica Benign essential hypertension with target blood pressure below 140/90 CHF (congestive heart failure) 3/4 diastolic dysfunction with normal EF 03/31 Essential (primary) hypertension Hypothyroidism Iron deficiency anemia, unspecified - Morbid (severe) obesity due to excess calories BMI-68 kg/m2 Morbid obesity with BMI of 70 and over, adult Nephrolithiasis Paroxysmal A-fib declined AC due to noted vaginal bleeding Pulmonary hypertension Respiratory failure with hypoxia and hypercapnia Sleep apnea Urge incontinence Vaginal bleeding Surgical History History of 2 sections History of ankle surgery (~1991) Hx of appendectomy (~1976) Hx of artificial lens replacement (~04/2013) left; Dr Wolfe Hx of artificial lens replacement (~02/2012) right eye Hx of dilation and curettage Hx of lithotripsy (~11/2016) Hx of tubal ligation (~1979) Hx of vitrectomy (~2014) Family History Father , age 89 Hyperlipidemia Hypertension Stroke CAD (coronary artery disease) Mother , age 51 Cancer Stroke Family/Other Stroke Hypertension Social History Smoking and tobacco status: never smoked Second hand smoke exposure: No Alcohol intake: former Adopted: No Lives independently: Yes Household members: none Housing: Apartment Marital status: service: No Current occupational status: disabled History of recent travel: No Current gender identity: Female Vitals/I&O/Wt Last Vital Signs Temp 98.1 F 06/18/20 11:06 Pulse 75 06/18/20 11:06 Resp 18 06/18/20 11:06 BP 85/58 06/18/20 11:06 Pulse Ox 97 06/18/20 11:06 06/17/20 06/18/20 06/18/20 22:59 06:59 14:59 Intake Total 260 / 410 300 / 710 Output Total 30 / 30 Balance 260 / 410 270 / 680 Weight last 48 hrs Weight 459 lb Weight 449 lb 4 oz Physical Exam Narrative: EXAM NARRATIVE: GENERAL: The patient is alert but seems to be disoriented. Not in any acute distress . morbidly obese . HEENT: No significant pallor, icterus or lymphadenopathy. The pupils are reactant to light. Oral cavity: There are no mucous membrane lesions. Funduscopic examination: The fundus is not visualized NECK: Trachea appears to be central. No masses noted. No carotid bruit appreciated RESPIRATORY: Chest is symmetrical. No intercostals muscle retraction or any accessory muscle activation. Chest wall edema present. There is no chest wall tenderness. Breath sounds are heard bilaterally with diminished intensity of breath sounds.. No rales or rhonchi heard. No evidence of any consolidation. BREASTS: Deferred. HEART: The PMI could not be palpated. No other palpable precordial events. First and second heart sounds are normal. No S3. No significant murmurs appreciated. Heart sounds are generally muffled. ABDOMEN: Abdomen is obese and nontender. Bowel sounds are normally heard. : Deferred. Abdominal wall edema present RECTAL: Deferred. LYMPHATIC: No lymphadenopathy noted in the neck. EXTREMITIES: 4+ edema with no cyanosis MUSCULOSKELETAL: No acute joint deformities or swelling SKIN: Some healing blisters in the lower extremities. NEUROPSYCHIATRIC: The patient is alert, pleasant and confused Urinary Catheter Management^: Chase: Cath Placed During This Visit: yes Reason for Continuing Indwelling Catheter: Acute Urinary Retention or Obstruction Urinary Catheter Date of Insertion: 06/10/20 Urinary Catheter Time of Insertion: 18:54 A&P Assessment and plan (1) Acute on chronic diastolic (congestive) heart failure: Patient's marked obesity, hypoventilation syndrome, acute kidney injury, hypertensive heart disease, etc. are major contributing factors. Since she is not responding to diuretics, hemodialysis would be the appropriate treatment at this point. Since she has episodes of hypotension, it may be appropriate to try inotropic's to support the blood pressure during dialysis. But in order to do this, patient needs to be in an ICU set up. Status: Acute (2) Anasarca associated with disorder of kidney: The acute kidney injury could be the major contributing factor for the fluid retention. Patient could not tolerate the hemodialysis because of the hypotension. Status: Acute (3) Acute kidney injury: Etiology is not clear. Possible related to nonsteroidal/acute glomera nephritis. Management as per the nephrology service Status: Acute (4) Morbid obesity with BMI of 70 and over, adult: Patient apparently gained around 150 pounds within the last couple of months. Status: Acute (5) Hypotension: This could be multifactorial. Hypoalbuminemia could be a contributing factor. Patient may be given elbow pressors for blood pressure support during dialysis. Status: Acute Qualifiers: Hypotension type: other hypotension type Qualified Code(s): I95.89 - Other hypotension Additional A&P Information Discussed with Dr. Faria and also patient's granddaughter who has the power of corporate associate attorney. We may try to do dialysis with inotropic support. If this also does not work, then the options are limited. Currently the patient is a limited code. The family is thinking about hospice care. Without the dialysis, management of the heart failure could be extremely difficult. Family understand this well. Coding Level of Care Code Acute Operator Automated Process for Annemarie Schwarz Diagnoses Acute on chronic diastolic (congestive) heart failure I50.33 Anasarca associated with disorder of kidney N04.9 Acute kidney injury N17.9 Morbid obesity with BMI of 70 and over, adult E66.01; Z68.45 Hypotension I95.89 Hypotension type: other hypotension type
--- NOTE | 2020-06-18 13:58 | PC.OT ---
OT attempted earlier in the day but could not wake up pt. Will hold OT today due to her transferring back down to the ICU. Co sign: Nereida Fortune, ANTHONYR/L
[2020-06-18] MEDS: albumin 12.5 GM/50 ML VIAL IV (15:59)
--- NOTE | 2020-06-18 19:31 | PC.NURSE ---
New Chase catheter was placed today using aseptic technique by this nurse. Patient tolerated well. placed 10ml for balloon. Only a scant amount of urine was returned. JOHNIEW, CHLORINATION OPERATOR
[2020-06-18] MEDS: aspirin 81 mg EC Tablet PO (21:58)
[2020-06-19] VITALS (16 sets, daily range): BP systolic 86–126; BP diastolic 54–70; PULSE 66–86; RESP 14–22; TEMP 35.6–36.5; O2SAT 90–97
[2020-06-19 05:44] LABS: Basophils % 0.3 %; Eosinophils # 0.1 10^3/uL (0.0-0.8); Eosinophils % 0.8 %; Hematocrit 28.7 % (37.0-47.0); Hemoglobin 7.9 g/dL (11.5-15.3); Lymphocytes # 1.3 10^3/uL (0.8-4.8); Lymphocytes % 21.5 %; Mean Corpuscular HGB Conc 27.5 g/dL (30.0-36.0); Mean Corpuscular Hemoglobin 25.6 pg (28.0-34.0); Mean Corpuscular Volume 93.2 fL (81-99); Mean Platelet Volume 9.7 fL (7.4-10.4); Monocytes # 0.6 10^3/uL (0.2-0.9); Monocytes % 10.6 %; Neutrophils # 3.99 10^3/uL (1.8-7.7); Neutrophils % 65.8 %; Nucleated Red Blood Cells # 0.1 /100WBC; Platelet Count 144 10^3/cmm (130-400); Red Blood Count 3.08 10^6/uL (4.1-5.3); Red Cell Distribution Width 24.8 % (12.1-15.1); White Blood Count 6.1 10^3/uL (4.0-10.0)
[2020-06-19 06:30] LABS: Alanine Aminotransferase < 5 U/L (0-33); Albumin Level 4.3 g/dL (3.5-5.2); Alkaline Phosphatase 68 IU/L (35-105); Anion Gap 21.7 (5-19); Aspartate Amino Transferase 5 U/L (0-32); Blood Urea Nitrogen 55 mg/dL (8-23); Calcium 9.9 mg/dL (8.5-10.5); Carbon Dioxide 24 mmol/L (22-29); Chloride 95 mmol/L (98-107); Globulin 2.5 g/dL (1.3-4.6); Glucose 80 mg/dL (65-115); Magnesium 2.2 mg/dL (1.7-2.3); Osmolality Calculated 298 mOsm/kg (285-295); Phosphorus 4.3 mg/dL (2.5-4.5); Potassium 3.7 mmol/L (3.5-5.1); Sodium 137 mmol/L (136-145); Total Bilirubin 1.3 mg/dL (0.15-1.2); Total Protein 6.8 g/dL (6.6-8.7)
--- NOTE | 2020-06-19 07:33 | P.PN_ITS ---
Subjective Subjective: Interval history: confused. dec o2 requirements. states she feels better. Medications: Reviewed: Yes Medication Review Details: Current Medications Acetaminophen (Tylenol) 650 mg PO Q6H PRN PRN Reason: MILD PAIN Last Admin: 06/17/20 10:28 Dose: 650 mg Documented by: Albuterol Sulfate (Ventolin) 2 puff INHALATION Q6H.RESPIRATORY PRN PRN Reason: short of breath Aspirin (Aspirin Ec) 81 mg PO BEDTIME [facility] Last Admin: 06/18/20 21:58 Dose: 81 mg Documented by: Furosemide (Lasix) 40 mg IVP Q12H [facility] Last Admin: 06/18/20 21:22 Dose: 40 mg Documented by: Albumin Human (Albumin) 25 gm in 100 mls @ 60 mls/hr IV Q8H [facility] Last Admin: 06/19/20 06:29 Dose: 60 mls/hr Documented by: Imipenem/Cilastatin Sodium 250 (mg/ Sodium Chloride) 100 mls @ 200 mls/hr IV Q6H [facility]; Protocol Last Admin: 06/19/20 04:13 Dose: 200 mls/hr Documented by: Ferric Sodium Gluconate 125 mg (/ Sodium Chloride) 110 mls @ 110 mls/hr IV Q24H [facility] Stop: 06/25/20 08:59 Last Admin: 06/18/20 08:12 Dose: 110 mls/hr Documented by: Albumin Human (Albumin) 12.5 gm in 50 mls @ 60 mls/hr IV PRN PRN PRN Reason: Hypotension and/or symptomatic Last Admin: 06/18/20 15:59 Dose: 60 mls/hr Documented by: Levothyroxine Sodium (Synthroid) 200 mcg PO DAILY [facility] Last Admin: 06/18/20 08:45 Dose: 200 mcg Documented by: Midodrine (Proamatine) 10 mg PO TID [facility] Last Admin: 06/18/20 21:58 Dose: 10 mg Documented by: Nystatin (Nystatin Powder) 1 applic TOPICAL BID [facility] Last Admin: 06/18/20 18:52 Dose: 1 applic Documented by: Ondansetron HCl (Zofran) 4 mg IVP Q6H PRN PRN Reason: NAUSEA AND VOMITING Last Admin: 06/15/20 17:22 Dose: 4 mg Documented by: Pantoprazole Sodium (Protonix) 40 mg IVP DAILY [facility] Last Admin: 10/07/20 07:56 Dose: 40 mg Documented by: Vitals/I&O/Wt Last Vital Signs Temp 96.8 F L 06/19/20 07:27 Pulse 81 06/19/20 07:27 Resp 16 06/19/20 07:27 BP 96/63 06/19/20 07:27 Pulse Ox 93 06/19/20 07:27 06/18/20 06/19/20 06/19/20 22:59 06:59 14:59 Intake Total 300 / 500 100 / 600 Output Total Balance 270 / 470 90 / 560 Weight last 48 hrs Weight 207.836 kg Weight 208.199 kg Physical Exam Narrative: EXAM NARRATIVE: off of pressors morbidly obese, swollen heent- nc/at, bipap lungs - b/lcrackles heaer -reg, s1, s2 abd soft, +BS ext b/l edema neuro- responsive, confused no rash Urinary Catheter Management^: Chase: Cath Placed During This Visit: yes Reason for Continuing Indwelling Catheter: Accurate Measurement of Urinary Output in Critically Ill Patients Urinary Catheter Date of Insertion: 06/10/20 Urinary Catheter Time of Insertion: 18:54 Data : 06/19/20 04:40 06/19/20 04:40 A&P Additional A&P Information 69 yr old female morbid obesity, diastolic dysfuncyion, - SALLY and volume overload. 1. Acute kidney injury. s/p HD x 4- unable to tolerate fluid removal yesterday -presumed CRS w/ severe weight gain. she has progressive diastolic dysfunction -will attempt SUF again -pt would benefit from ICU w/ pressors for dialysis, or transfer to a center for SLEDD or CRRT -u/a w/ 3+ prot, 3+ blood, 4+ bacteria- lb is 4.3- less likely nephrotic syndrome- check lipids -send serologies 2. Hyperkalemia, improved 3. Primary respiratory acidosis, pneumonia- bipap 4. Morbid obesity 5. Anemia- low iron studies- ferrlecit and epo 6. Hyperphosphatemia- monitor w/ hd. binders when eating Attestations Medical Necessity Statement*: sally, acute on chronic duastolic dysfunction Time Spent in Patient Care: Greater than 35 minutes Coding Level of Care Code Acute Wind Turbine Mechanical Engineer for [facility] Karishma
[2020-06-19] MEDS: albuterol 8 gm MDI 2 PUFF INHALATION (08:22)
[2020-06-19] MEDS: FUROsemide 10 mg/mL SDV 4mL 40 MG IVP ×2 (08:41→19:42)
[2020-06-19] MEDS: pantoprazole 40 mg SDV IVP (08:41)
[2020-06-19] MEDS: midodrine 5 mg TABLET 10 MG PO ×2 (09:32→20:57)
[2020-06-19] MEDS: albumin 12.5 GM/50 ML VIAL IV (10:10)
--- NOTE | 2020-06-19 11:28 | PC.SOCIAL ---
IMM updated Updated pt on IMM. Provided pt a copy. No questions voiced. Signed, dated, & timed, copy in chart.
--- NOTE | 2020-06-19 17:04 | PM.PN ---
Subjective Subjective: Interval history: Her granddaughter is visiting her by the bedside and she is the most lucid I have seen her in days. As soon as I walk in she looks at me and says that she is set on going home. She indicates she does not want any more dialysis. She indicates she no longer wants to be in the hospital. Her bhaveshter who is her power of mergers and acquisitions attorney for health care does not want to continue with dialysis and aggressive care any further as she states this would be going against Ms Small's wishes. When asked whether she would not want to continue dialysis even if that means her condition would get worse and she may pass, and she states that is right . Per discussion with her granddaughter who is power of mergers and acquisitions attorney healthcare she states that patient expressed similar sentiment to her on a number of occasions, and would like to initiate transition to hospice care. She would like to have the patient return home where she will be most comfortable. Vitals/I&O/Wt Last Vital Signs Temp 96.8 F L 06/19/20 07:27 Pulse 82 06/19/20 16:45 Resp 20 H 06/19/20 16:45 BP 94/64 06/19/20 16:45 Pulse Ox 96 06/19/20 16:45 06/19/20 06/19/20 06/19/20 06:59 14:59 22:59 Intake Total 100 / 650 50 / 50 Output Total 10 / 40 Balance 90 / 610 50 / 50 Weight last 48 hrs Weight 207.836 kg Weight 208.199 kg Physical Exam Const: COMMON NORMALS: no acute distress and alert NUTRITIONAL APPEARANCE: obese morbidly obese ORIENTATION/CONSCIOUSNESS: Yes awake HENMT: COMMON NORMALS: oropharynx normal Neck/C-Spine: COMMON NORMALS: no JVD Chest: OTHER: L subclav CVC with some crusted blood, surrounded by ecchymoses also extending posteriorly on the neck. I did not see any fresh bleeding, no fresh drainage. 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 There is mild swelling around the catheter, but difficult to tell due to body habitus. Resp: COMMON NORMALS: normal respiratory effort AUSCULTATION: diminished lung sounds OTHER: On nasal cannula oxygen. Difficult to examine due to body habitus. Cannot hear obvious adventitious sounds. Cardio: COMMON NORMALS: no JVD, regular rhythm, S1 normal heart sound present, S2 normal heart sound present and No murmurs present (Cardio) RHYTHM: regular rhythm HEART SOUNDS: S1 normal heart sound present and S2 normal heart sound present GI: COMMON NORMALS: Normal to inspection, nondistended, normoactive bowel sounds present, Soft to palpation and non-tender PALPATION: Yes Soft to palpation OTHER: Large pannus. Anasarca up to abdomen with edema of the large pannus. Extremity: COMMON NORMALS: no joint enlargement GENERAL: Yes edema Neuro: COMMON NORMALS: moves all extremities SENSORIUM/ORIENTATION: Yes alert Urinary Catheter Management^: Chase: Cath Placed During This Visit: yes Reason for Continuing Indwelling Catheter: Accurate Measurement of Urinary Output in Critically Ill Patients Urinary Catheter Date of Insertion: 06/10/20 Urinary Catheter Time of Insertion: 18:54 Data : 06/19/20 04:40 06/19/20 04:40 A&P Assessment and plan (1) CHF (congestive heart failure): She was finally able to have some fluid removed with hemodialysis. She did require extra albumin infusion, but with that 2 L were able to be removed. She is currently in ICU. In line with her and her granddaughter wishes as above we are going to hold off on any additional aggressive interventions. We will request that case coordination initiate setting up for hospice care at home. Status: Acute Qualifiers: Heart failure chronicity: acute Heart failure type: combined systolic and diastolic Qualified Code(s): I50.41 - Acute combined systolic (congestive) and diastolic (congestive) heart failure (2) Acute kidney injury: Status: Acute (3) Morbid obesity: BMI 82 Status: Acute Additional A&P Information Acute encephalopathy: Currently she is much more awake and alert and I have seen her before. Possible PNA: DC Primaxin. MRSA PCR negative. Afebrile. No leukocytosis. XR improving. Acute on chronic hypoxic and hypercapnic respiratory failure. Continue BiPAP support. Continuous pulse oximetry. Wean off as tolerated. Hypotension: Resolved. Morning serum cortisol ok. Hyperkalemia: Has been treated. Improved. Anemia: Monitor Hb GERD: Protonix HTN DJD Attestations Medical Necessity Statement*: Continue admission for abscess management of CHF, with anasarca, respiratory failure, acute renal failure, goals of care discussion and disposition arrangements. Coding Level of Care Code Acute Medical Administrative for [facility] Fwd Diagnoses CHF (congestive heart failure) I50.41 Heart failure chronicity: acute Heart failure type: combined systolic and diastolic Acute kidney injury N17.9 Morbid obesity E66.01
--- NOTE | 2020-06-19 17:04 | PC.NURSE ---
Dr. Pickering spoke with pt and granddaughter/DPOA Tara at bedside. Pt is alerted to self, location, and current president. Pt told physician she is going home. Pt was asked if she wanted to be in the hospital anymore; she said no. She was asked if she wanted any further dialysis treatments, even if stopping dialysis would cause her to pass away; she said no. She was asked if she wanted any further medical intervention, including interventions that would resuscitate her if she were to pass away; she said no. Tara stated that she met with a venue coordinator at [facility] agency by the name of Ale, who answered all of her questions about transitioning the pt home with hospice care. At this point, Tara wishes that the active medications still be given unless pt refuses them. She would also like current code status of Limited Resuscitation (no chest compressions, no intubation, medications only) remain the same for now. Pt keeps asking if she can go home tonight; she was informed that hospice service will not be completely set up until tomorrow.
--- NOTE | 2020-06-19 19:23 | PM.PN ---
Subjective Subjective: Interval history: Patient was brought down to the ICU for possible inotropic infusion and hemodialysis. She was given IV albumin. The blood pressure appears to have improved. She had a dialysis today and took out 2 L of fluid. Patient seems to be really more alert and oriented today. Denies any chest pain or palpitations. No fever, chills or cough. Medications: Reviewed: Yes Medication Review Details: Current Medications Acetaminophen (Tylenol) 650 mg PO Q6H PRN PRN Reason: MILD PAIN Last Admin: 06/17/20 10:28 Dose: 650 mg Documented by: Albuterol Sulfate (Ventolin) 2 puff INHALATION Q6H.RESPIRATORY PRN PRN Reason: short of breath Last Admin: 06/19/20 08:22 Dose: 2 puff Documented by: Aspirin (Aspirin Ec) 81 mg PO BEDTIME [facility] Last Admin: 06/18/20 21:58 Dose: 81 mg Documented by: Furosemide (Lasix) 40 mg IVP Q12H [facility] Last Admin: 06/19/20 08:41 Dose: 40 mg Documented by: Albumin Human (Albumin) 25 gm in 100 mls @ 60 mls/hr IV Q8H [facility] Last Admin: 06/19/20 16:58 Dose: Not Given Documented by: Ferric Sodium Gluconate 125 mg (/ Sodium Chloride) 110 mls @ 110 mls/hr IV Q24H [facility] Stop: 06/25/20 14:59 Last Admin: 06/19/20 16:57 Dose: Not Given Documented by: Albumin Human (Albumin) 12.5 gm in 50 mls @ 60 mls/hr IV PRN PRN PRN Reason: Hypotension and/or symptomatic Last Infusion: 06/19/20 11:00 Dose: Infused Documented by: Norepinephrine Bitartrate 4 mg (/ Dextrose) 254 mls @ 0 mls/hr IV .Q0M [facility]; Protocol Levothyroxine Sodium (Synthroid) 200 mcg PO DAILY [facility] Last Admin: 06/19/20 16:57 Dose: Not Given Documented by: Midodrine (Proamatine) 10 mg PO TID [facility] Last Admin: 06/19/20 16:58 Dose: Not Given Documented by: Nystatin (Nystatin Powder) 1 applic TOPICAL BID [facility] Last Admin: 06/19/20 17:02 Dose: Not Given Documented by: Ondansetron HCl (Zofran) 4 mg IVP Q6H PRN PRN Reason: NAUSEA AND VOMITING Last Admin: 06/15/20 17:22 Dose: 4 mg Documented by: Pantoprazole Sodium (Protonix) 40 mg IVP DAILY [facility] Last Admin: 06/19/20 08:41 Dose: 40 mg Documented by: Vitals/I&O/Wt Last Vital Signs Temp 97.7 F 06/19/20 19:14 Pulse 80 06/19/20 19:14 Resp 16 06/19/20 19:14 BP 111/57 06/19/20 19:14 Pulse Ox 95 06/19/20 19:14 06/19/20 06/19/20 06/19/20 06:59 14:59 22:59 Intake Total 100 / 650 50 / 50 Output Total 0 / 0 Balance 90 / 610 50 / 50 0 / 50 Weight last 48 hrs Weight 458 lb 3.2 oz Weight 459 lb Physical Exam Narrative: EXAM NARRATIVE: GENERAL: The patient is alert but seems to be disoriented. Not in any acute distress . morbidly obese . HEENT: No significant pallor, icterus or lymphadenopathy. NECK: Trachea appears to be central. No masses noted. No carotid bruit appreciated RESPIRATORY: Chest is symmetrical. No intercostals muscle retraction or any accessory muscle activation. Chest wall edema present. There is no chest wall tenderness. Breath sounds are heard bilaterally with diminished intensity of breath sounds.. No rales or rhonchi heard. No evidence of any consolidation. BREASTS: Deferred. HEART: The PMI could not be palpated. No other palpable precordial events. First and second heart sounds are normal. No S3. No significant murmurs appreciated. Heart sounds are generally muffled. ABDOMEN: Abdomen is obese and nontender. Bowel sounds are normally heard. : Deferred. Abdominal wall edema present RECTAL: Deferred. LYMPHATIC: No lymphadenopathy noted in the neck. EXTREMITIES: 4+ edema with no cyanosis. Multiple superficial ecchymotic areas in the upper extremities MUSCULOSKELETAL: No acute joint deformities or swelling SKIN: Some healing blisters in the lower extremities. NEUROPSYCHIATRIC: The patient is alert, pleasant and confused Urinary Catheter Management^: Chase: Cath Placed During This Visit: yes Reason for Continuing Indwelling Catheter: Accurate Measurement of Urinary Output in Critically Ill Patients Urinary Catheter Date of Insertion: 06/10/20 Urinary Catheter Time of Insertion: 18:54 Data : 06/19/20 04:40 06/19/20 04:40 A&P Assessment and plan (1) Acute on chronic diastolic (congestive) heart failure: Patient's marked obesity, hypoventilation syndrome, acute kidney injury, hypertensive heart disease, etc. are major contributing factors. Patient's oxygenation is satisfactory. May continue on the hemodialysis. Status: Acute (2) Anasarca associated with disorder of kidney: The acute kidney injury could be the major contributing factor for the fluid retention. Management as per the nephrology service Status: Acute (3) Acute kidney injury: Etiology is not clear. Possible related to nonsteroidal/acute glomera nephritis. Management as per the nephrology service Status: Acute (4) Morbid obesity with BMI of 70 and over, adult: Continue on the current measures. Status: Acute (5) Hypotension: The systolic blood pressure seems to be fairly stable around 100-110 today, after the albumin infusion. May continue the current measures for the time being. Status: Acute Qualifiers: Hypotension type: other hypotension type Qualified Code(s): I95.89 - Other hypotension Additional A&P Information The patient and the family are thinking about hospice care. May continue on the current measures for the time being Attestations Medical Necessity Statement*: Disposition as per the primary Coding Level of Care Code Acute Collision Center Manager for [facility] Fwd Diagnoses Acute on chronic diastolic (congestive) heart failure I50.33 Anasarca associated with disorder of kidney N04.9 Acute kidney injury N17.9 Morbid obesity with BMI of 70 and over, adult E66.01; Z68.45 Hypotension I95.89 Hypotension type: other hypotension type
--- NOTE | 2020-06-19 19:28 | PC.NURSE ---
After lengthy discussion about all of her options, pt wants to go home to be with family and to participate in a hospice consult in the morning, but is unsure about transitioning to comfort care at this time. She is also unsure if she wants to continue dialysis or receive any more medications to stabilize her blood pressure, such as midodrine and Levophed. Explained to her that she does not need to make a final decision right now, and that the medical staff will abide by whatever decision she makes. If she were to become unable to decide for herself, the decisions will be deferred to her granddaughter and DPOA, Tara Painter. Pt verbalized agreement.
--- NOTE | 2020-06-19 19:30 | PC.NURSE ---
AO to person, city and hospital, replied wrong date, followed commands to motor vehicle parts interpreter hand, bulb brander equal BUE, face symmetrical, speech clear, supine 30 degrees, regular unlabored RR 4L NC, cap refill <3 seconds, call light within reach
[2020-06-19] MEDS: aspirin 81 mg EC Tablet PO (20:56)
--- NOTE | 2020-06-19 23:33 | PC.NURSE ---
Family at bedside at this time
[2020-06-20] VITALS (17 sets, daily range): BP systolic 62–118; BP diastolic 46–74; PULSE 69–85; RESP 15–27; O2SAT 88–94
--- NOTE | 2020-06-20 01:43 | PC.NURSE ---
Skin Multiple redness to leg folds. Areas cleansed and dried. Applied nystatin to areas. Multiple bruising noted to face, chest, arms and posterior back. Right buttock has prior loss of skin integrity. Skin intact. Optifoam covering.
[2020-06-20 05:15] LABS: Basophils % 0.4 %; Eosinophils # 0.1 10^3/uL (0.0-0.8); Eosinophils % 0.9 %; Hematocrit 28.4 % (37.0-47.0); Hemoglobin 7.8 g/dL (11.5-15.3); Lymphocytes # 1.3 10^3/uL (0.8-4.8); Lymphocytes % 18.9 %; Mean Corpuscular HGB Conc 27.5 g/dL (30.0-36.0); Mean Corpuscular Hemoglobin 26.4 pg (28.0-34.0); Mean Corpuscular Volume 96.3 fL (81-99); Mean Platelet Volume 9.6 fL (7.4-10.4); Monocytes # 0.6 10^3/uL (0.2-0.9); Monocytes % 9.5 %; Neutrophils # 4.64 10^3/uL (1.8-7.7); Neutrophils % 69.3 %; Nucleated Red Blood Cells # 0.1 /100WBC; Nucleated Red Blood Cells % 1.6 %; Platelet Count 141 10^3/cmm (130-400); Red Blood Count 2.95 10^6/uL (4.1-5.3); Red Cell Distribution Width 25.2 % (12.1-15.1); White Blood Count 6.7 10^3/uL (4.0-10.0)
[2020-06-20 05:41] LABS: Alanine Aminotransferase < 5 U/L (0-33); Albumin Level 4.8 g/dL (3.5-5.2); Alkaline Phosphatase 68 IU/L (35-105); Anion Gap 19.8 (5-19); Aspartate Amino Transferase 6 U/L (0-32); Blood Urea Nitrogen 55 mg/dL (8-23); Calcium 9.8 mg/dL (8.5-10.5); Carbon Dioxide 25 mmol/L (22-29); Chloride 95 mmol/L (98-107); Globulin 2.5 g/dL (1.3-4.6); Glomerular Filtration Rate 9.7 mL/min (90-130); Glucose 76 mg/dL (65-115); Magnesium 2.1 mg/dL (1.7-2.3); Osmolality Calculated 296 mOsm/kg (285-295); Potassium 3.8 mmol/L (3.5-5.1); Sodium 136 mmol/L (136-145); Total Bilirubin 1.5 mg/dL (0.15-1.2); Total Protein 7.3 g/dL (6.6-8.7)
[2020-06-20] MEDS: FUROsemide 10 mg/mL SDV 4mL 40 MG IVP (07:46)
[2020-06-20] MEDS: pantoprazole 40 mg SDV IVP (09:40)
[2020-06-20] MEDS: midodrine 5 mg TABLET 10 MG PO ×2 (09:41→15:18)
[2020-06-20] MEDS: levothyroxine 100 mcg Tablet 200 MCG PO (09:41)
[2020-06-20] MEDS: nystatin powder 15 gm Btl 1 APPLIC TOPICAL (09:43)
--- NOTE | 2020-06-20 11:55 | PC.OT ---
OT NOTE: SKILLED OT SERVICES DISCHARGED PATIENT IS DISCHARGING TO HOSPICE
--- NOTE | 2020-06-20 12:25 | PM.PN ---
Subjective Subjective: Interval history: S/p dialysis yesterday with a period of lucidity. At that time she requested that not receive aggressive management including dialysis. Plans are now to discharge home on hospice. Remains confused. Remains anasarcic also. Medications: Reviewed: Yes Medication Review Details: Current Medications Acetaminophen (Tylenol) 650 mg PO Q6H PRN PRN Reason: MILD PAIN Last Admin: 06/17/20 10:28 Dose: 650 mg Documented by: Albuterol Sulfate (Ventolin) 2 puff INHALATION Q6H.RESPIRATORY PRN PRN Reason: short of breath Last Admin: 06/19/20 08:22 Dose: 2 puff Documented by: Aspirin (Aspirin Ec) 81 mg PO BEDTIME [facility] Last Admin: 06/18/20 21:58 Dose: 81 mg Documented by: Furosemide (Lasix) 40 mg IVP Q12H [facility] Last Admin: 06/19/20 08:41 Dose: 40 mg Documented by: Albumin Human (Albumin) 25 gm in 100 mls @ 60 mls/hr IV Q8H [facility] Last Admin: 06/19/20 16:58 Dose: Not Given Documented by: Ferric Sodium Gluconate 125 mg (/ Sodium Chloride) 110 mls @ 110 mls/hr IV Q24H [facility] Stop: 06/25/20 14:59 Last Admin: 06/19/20 16:57 Dose: Not Given Documented by: Albumin Human (Albumin) 12.5 gm in 50 mls @ 60 mls/hr IV PRN PRN PRN Reason: Hypotension and/or symptomatic Last Infusion: 06/19/20 11:00 Dose: Infused Documented by: Norepinephrine Bitartrate 4 mg (/ Dextrose) 254 mls @ 0 mls/hr IV .Q0M [facility]; Protocol Levothyroxine Sodium (Synthroid) 200 mcg PO DAILY [facility] Last Admin: 06/19/20 16:57 Dose: Not Given Documented by: Midodrine (Proamatine) 10 mg PO TID [facility] Last Admin: 06/19/20 16:58 Dose: Not Given Documented by: Nystatin (Nystatin Powder) 1 applic TOPICAL BID [facility] Last Admin: 06/19/20 17:02 Dose: Not Given Documented by: Ondansetron HCl (Zofran) 4 mg IVP Q6H PRN PRN Reason: NAUSEA AND VOMITING Last Admin: 06/15/20 17:22 Dose: 4 mg Documented by: Pantoprazole Sodium (Protonix) 40 mg IVP DAILY [facility] Last Admin: 06/19/20 08:41 Dose: 40 mg Documented by: Vitals/I&O/Wt Last Vital Signs Temp 97.7 F 06/19/20 19:14 Pulse 79 06/20/20 10:21 Resp 19 H 06/20/20 10:21 BP 85/67 06/20/20 10:21 Pulse Ox 90 06/20/20 10:21 06/19/20 06/20/20 06/20/20 22:59 06:59 14:59 Intake Total 100 / 250 Output Total 0 / 0 40 / 40 Balance 0 / 150 60 / 210 Weight last 48 hrs Weight 204.797 kg Weight 207.836 kg Physical Exam Narrative: EXAM NARRATIVE: Interview and Exam performed with telemed Constitutional: Confused and minimally verbal HEENT: Wet mucosa, no jvp, non icteric Lungs: Bilaterally clear without discernible wheeze, rales in all lung zones CVS: S1 S2, no murmurs Abdo: Soft, BS ok Ext 4: Global edema. Neurological: Grossly non-focal Urinary Catheter Management^: Chase: Cath Placed During This Visit: yes Reason for Continuing Indwelling Catheter: Accurate Measurement of Urinary Output in Critically Ill Patients Urinary Catheter Date of Insertion: 06/10/20 Urinary Catheter Time of Insertion: 18:54 Data : 06/20/20 04:30 06/20/20 04:30 A&P Additional A&P Information 1. Renal Failure - Likely to be due to NSAIDs decreasing glomerular flow in the setting of IVVD from diuretics, soft hemodynamics and renal hypoperfusion - Dialyzed yesterday with no further plan for dialysis - Will convert iv lasix to high dose oral therapy - dose meds for eGFR < 15 2. Dispo home on hospice - will sign off at this time, thank you for our involvement in her care Attestations Medical Necessity Statement*: Eval for renal failure on dialysis Coding Level of Care Code Acute Mechanical Repair Worker for Annemarie Schwarz
[2020-06-20] MEDS: ferric gluconate 125 MG in sodium chloride 0.9% (100 ml) 100 ML 110 MG IV (15:30)
--- NOTE | 2020-06-20 15:48 | PC.NURSE ---
blood pressure drooped somewhat no urine output noted at this time .
--- NOTE | 2020-06-20 16:09 | P.DS_ITS ---
Discharge Providers Date of Admission: 06/10/20 16:47 Date of Discharge: June 20, 2020 Attending Provider at Admission: Josesito Covington MD Attending Provider at Discharge: Sam Pickering Primary Care Provider: AIXA Marin Diagnoses at Discharge Discharge Diagnosis (1) Acute on chronic diastolic (congestive) heart failure: Status: Acute (2) Anasarca associated with disorder of kidney: Status: Acute (3) Acute kidney injury: Status: Acute (4) Morbid obesity with BMI of 70 and over, adult: Status: Acute (5) Hypotension: Status: Acute Qualifiers: Hypotension type: other hypotension type Qualified Code(s): I95.89 - Other hypotension (6) Pneumonia: Status: Acute Reason for Visit Reason for Visit: FLUID RETENTION Hospital Course Discharge Summary: 69 year old lady with 3/4 days of essentially on chronic diastolic CHF, YANELY, OHS, restrictive lung disease with morbid obesity, BMI during this admission noted as 82, and a number of other chronic comorbidities was admitted from long-term due to increased fluid gain and elevated creatinine without response to escalation of diuretic therapy. On presentation noted with acute kidney injury, creatinine 5.6, possibly related to diclofenac use prior to admission, and combination with diuretics, soft hemodynamics and renal hypoperfusion, CHF. With anasarca, acute diastolic congestive heart failure. Received trial of IV Lasix, but without response, with oliguric/anuric acute kidney injury. Due to soft blood pressures received support with albumin infusions, however, still without improvement. Midodrine was added. Temporarily required pressor support. Unfortunately additional assessment with CT was not possible due to body habitus, and ultrasound could not visualize her kidneys. Hyperkalemia was treated with Kayexalate. Eventually requiring placement of hemodialysis catheter and attempted hemodialysis, however, not successful at removing any fluid due to persistently soft blood pressures despite midodrine and temporary pressor support. Urine after improvement in blood pressures and weaning off pressor still unable to remove fluid with hemodialysis even with additional albumin infusion. Most that could be removed was about 2 L. Due to acute on chronic hypoxic and hypercapnic respiratory failure with possible pneumonia was treated also with antibiotics. Mental status sometimes fluctuating, with noted recurrent/persistent severe hypercapnia, with BiPAP support, no intubation as per goals of care wishes. Cardiology was consulted, additional inotropic support was going to attempt at to allow for more effective hemodialysis. Given poor response to therapy, her severe and progressed condition, multiple hospitalizations recently, and poor overall prognosis family have begun considering transition to hospice care. She herself is actually more lucid, and now clearly states after repeated trials of hemodialysis and other therapies did not want to try any more aggressive medical interventions including any more dialysis. Wants to return home. Her granddaughter who is her power of workers compensation attorney of healthcare and alignment with patient's expressed wishes is arranging currently for all of the equipment needed for her to return home with comfort care and hospice assistance where she states will be most comfortable to spend her remaining time with family. Physical Exam Const: COMMON NORMALS: no acute distress and alert NUTRITIONAL APPEARANCE: obese morbidly obese ORIENTATION/CONSCIOUSNESS: Yes awake OTHER: She is sitting up in chair. Today she is more alert, more interactive. Oriented to self. She thinks she is in there. Cannot tell me the year. Knows she is not at home. HENMT: COMMON NORMALS: oropharynx normal Neck/C-Spine: COMMON NORMALS: no JVD Chest: OTHER: L subclav CVC with some crusted blood, surrounded by ecchymoses also extending posteriorly on the neck. I did not see any fresh bleeding, no fresh drainage. There is perhaps a minimal erythema, although difficult to bankruptcy judge with ecchymosis. There is mild swelling around the catheter, but difficult to tell due to body habitus. Resp: COMMON NORMALS: normal respiratory effort AUSCULTATION: diminished lung sounds OTHER: On nasal cannula oxygen. Difficult to examine due to body habitus. Cannot hear obvious adventitious sounds. Cardio: COMMON NORMALS: no JVD, regular rhythm, S1 normal heart sound present, S2 normal heart sound present and No murmurs present (Cardio) RHYTHM: regular rhythm HEART SOUNDS: S1 normal heart sound present and S2 normal heart sound present GI: COMMON NORMALS: Normal to inspection, nondistended, normoactive bowel sounds present, Soft to palpation and non-tender PALPATION: Yes Soft to palpation OTHER: Large pannus. Anasarca up to abdomen with edema of the large pannus. Extremity: COMMON NORMALS: no joint enlargement GENERAL: Yes edema Neuro: COMMON NORMALS: moves all extremities SENSORIUM/ORIENTATION: Yes alert Urinary Catheter Management^: Chase: Cath Placed During This Visit: yes Reason for Continuing Indwelling Catheter: Accurate Measurement of Urinary Output in Critically Ill Patients Urinary Catheter Date of Insertion: 06/10/20 Urinary Catheter Time of Insertion: 18:54 Discharge Data Data Completed and Pending: Completed Studies During Hospitalization Category Date Time Status XR chest 1V anupam ble 67924 Routine Exams 06/14/20 07:30 Completed XR chest 1V anupam ble 97192 Routine Exams 06/18/20 07:50 Completed XR chest 1V anupam ble 03935 Urgent Exams 06/10/20 15:07 Completed XR chest 1V anupam ble 94129 Urgent Exams 06/14/20 14:33 Completed US soft tissue he [place] neck 53697 Rout ine Ultrasound 06/18/20 11:48 Completed Pending at discharge Category Date Time Status GLENIS Screen w/ Ref scottie Stat Lab 06/18/20 07:27 Received Anti-Cariolipin I gA AB Stat Lab 06/18/20 07:27 Received Anti-Neutrophil C utoplasmic AB Stat Lab 06/18/20 07:27 Received Complete Blood Co unt w/Auto AM LABS Lab 06/21/20 04:00 Ordered Complete Blood Co unt w/Auto AM LABS Lab 06/22/20 04:00 Ordered Comprehensive Met abolic Panel AM LA BS Lab 06/21/20 04:00 Ordered Comprehensive Met abolic Panel AM LA BS Lab 06/22/20 04:00 Ordered Magnesium AM LABS Lab 06/21/20 04:00 Ordered Magnesium AM LABS Lab 06/22/20 04:00 Ordered Phosphorus AM LAB S Lab 06/21/20 04:00 Ordered Phosphorus AM LAB S Lab 06/22/20 04:00 Ordered Labs from last 24 hours 06/20/20 06/20/20 04:30 04:30 WBC 6.7 RBC 2.95 L Hgb 7.8 L Hct 28.4 L MCV 96.3 MCH 26.4 L MCHC 27.5 L RDW 25.2 H Plt Count 141 MPV 9.6 Neut % (Auto) 69.3 Lymph % (Auto) 18.9 [place] % (Auto) 9.5 Eos % (Auto) 0.9 Baso % (Auto) 0.4 Neut # (Auto) 4.64 Lymph # (Auto) 1.3 [place] # (Auto) 0.6 Eos # (Auto) 0.1 Baso # (Auto) 0.0 Nucleated RBC % (a uto) 1.6 Nucleated RBCs # 0.1 Sodium 136 Potassium 3.8 Chloride 95 L Carbon Dioxide 25 Anion Gap 19.8 H BUN 55 H Creatinine 4.5 H GFR Calculation 9.7 L Glucose 76 Calculated Osmolal ity 296 H Calcium 9.8 Phosphorus 5.0 H Magnesium 2.1 Total Bilirubin 1.5 H AST 6 ALT < 5 Alkaline Phosphata se 68 Total Protein 7.3 Albumin 4.8 Globulin 2.5 Vitals: Last Vital Signs Temp 97.7 F 06/19/20 19:14 Pulse 74 06/20/20 14:58 Resp 23 H 06/20/20 14:58 BP 100/51 06/20/20 14:58 Pulse Ox 90 06/20/20 14:58 Discharge Plan Discharge Patient Disposition: Hospice - Home Condition: Stable Prescriptions: New Nystop 100,000 unit/gram Powder 1 applic topical BID Qty: 30 RF: 0 midodrine 5 mg Tablet 10 mg PO TID Qty: 90 RF: 0 Continued vitamin I31-kobsv acid 500-400 mcg tablet 2 tab PO DAILY RF: 0 levothyroxine [Euthyrox] 200 mcg tablet 200 mcg PO DAILY Qty: 30 RF: 0 ProAir HFA 90 mcg/actuation Hfa Aerosol Inhaler 2 puff INHALATION Q6H PRN (Reason: short of breath) RF: 0 omeprazole 20 mg Tablet,Delayed Release (Dr/Ec) 20 mg PO DAILY RF: 0 aspirin 81 mg tablet,delayed release (DR/EC) 81 mg PO BEDTIME RF: 0 Ferrex 150 Forte 150-25-1 mg-mcg-mg Capsule 1 ea PO Q48H Qty: 30 RF: 0 bumetanide 2 mg tablet 2 mg PO DAILY 30 Days Qty: 30 RF: 0 polyethylene glycol 3350 17 gram Powder In Packet 17 g PO BID Qty: 30 RF: 0 furosemide 40 mg tablet 80 mg PO DAILY RF: 0 Discontinued gabapentin 100 mg capsule 100 mg PO TID Qty: 90 RF: 1 Potassium Liquid 45 ml PO DAILY RF: 0 spironolactone 25 mg tablet 12.5 mg PO QDAY Qty: 30 RF: 0 carvedilol 3.125 mg tablet 3.125 mg PO BID Qty: 60 RF: 0 cholecalciferol (vitamin D3) 50,000 unit capsule 50,000 unit PO DIRECTED Qty: 4 RF: 2 diclofenac sodium 75 mg tablet,delayed release (DR/EC) 75 mg PO BID RF: 0 Discharge Orders: Discharge Order (Routine); Ordered 06/20/20 Ordered By: Sam Pickering Referrals: [facility] [place] H[facility]ice ([facility]) [Outside] Chelsie Frederick FNP [Primary Care Provider] - 1 week (HOSPICE CARE WILL FOLLOW WITH PRIMARY CARE ) Discharge Diet: Advance as tolerated and Soft Mechanical Discharge Activity: Increase activity as tolerated Patient Instructions: Nystatin (On the skin), Midodrine (By mouth), Soft Diet (DC), Hospice Care (GEN), End-Stage Kidney Disease (DC) Activity Restrictions/Additional Instructions: Continue oxygen 4 L/min by nasal cannula, target saturation 88-92%. Additional comfort care as per hospice team. Try to reposition frequently to prevent pressure ulcers. Follow-up with primary care provider as needed. 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
--- NOTE | 2020-06-20 18:09 | PC.NURSE ---
dialysis line removed right ij pressure held and dressing applied ,,, cvl removed from left chest area .
[2020-06-23 02:04] LABS: Anti-Cardiolipin IgA AB <11 APL (<=11)
[2020-06-24 13:13] LABS: Anti-Nuclear Antibody Screen NEGATIVE (NEGATIVE)
[2020-06-25 10:32] LABS: ANCA Interp Negative (Negative)
== END 2020-06-20 18:00 | disposition hospice, home (50) | DRG 682 ==
LOC: ER 17:33 → ICU 17:36 → MEDSURG 06-17 11:05 → ICU 06-19 15:28
PROVIDERS: Emergency Medicine; Hospitalist; Internal Medicine; Internal Medicine Nephrology; Surgery; Admitting Provider Internal Medicine; PCP Nurse Practitioner Family; Visit Provider Internal Medicine
PROC: 05HM33Z Insertion of Infusion Device into Right Internal Jugular Vein, Percutaneous Approach (ICD-10-PCS; principal; 2020-06-14 13:00)
DX: N17.9 Acute kidney failure, unspecified (principal); J18.9 Pneumonia, unspecified organism; J96.22 Acute and chronic respiratory failure with hypercapnia; J96.21 Acute and chronic respiratory failure with hypoxia; I50.41 Acute combined systolic (congestive) and diastolic (congestive) heart failure; Z68.45 Body mass index [BMI] 70 or greater, adult; E66.01 Morbid (severe) obesity due to excess calories; Z66 Do not resuscitate; G47.33 Obstructive sleep apnea (adult) (pediatric); Z51.5 Encounter for palliative care; Z79.82 Long term (current) use of aspirin; I95.89 Other hypotension; N04.9 Nephrotic syndrome with unspecified morphologic changes; E83.39 Other disorders of phosphorus metabolism; E87.5 Hyperkalemia; M19.90 Unspecified osteoarthritis, unspecified site; K21.9 Gastro-esophageal reflux disease without esophagitis; I95.9 Hypotension, unspecified; I48.0 Paroxysmal atrial fibrillation; I27.20 Pulmonary hypertension, unspecified; E03.9 Hypothyroidism, unspecified; I11.0 Hypertensive heart disease with heart failure
CPT/HCPCS: 12345; 36415; 36416; 36569; 36592; 36600; 51702; 71045; 76000; 76536; 77001; 80048; 80051; 80053; 81001; 82533; 82550; 82575; 82728; 82803; 82810; 82962; 83516; 83540; 83550; 83735; 83880; 83986; 84100; 84145; 84300; 84443; 84550; 85025; 85610; 85999; 86038; 86147; 86160; 86225; 86705; 86706; 86803; 87086; 87340; 87641; 90935; 93005; 94640; 94660; 96372; 96375; 97110; 97162; 97167; 97530; 97535; 99283; C1752; C9113; J0743; J1644; J1815; J1940; J2020; J2060; J2250; J2310; J2405; J2916; J3010; J3490; J7040; P9047; Q3014; Q4081